=== PATIENT | female | born 1950 | race Caucasian/White ===

== ENCOUNTER → 2017-01-24 | Outpatient (CLI) | payer MEDICARE, MEDICAID | LOC: MW.CHPM 13:59 | PROVIDERS: ATTEND Anesthesiology | DX: Z51.81 Encounter for therapeutic drug level monitoring (principal); Z79.891 Long term (current) use of opiate analgesic; G89.4 Chronic pain syndrome; M54.5 Low back pain; G89.29 Other chronic pain; M19.019 Primary osteoarthritis, unspecified shoulder | CPT/HCPCS: 80305; G0463 ==

== ENCOUNTER 2017-04-04 17:12 | Inpatient (IN) | payer MEDICARE, MEDICAID ==
[2017-04-04] MEDS ORDERED: Nitroglycerin 0.4 MG Tab.SL SL ONE (18:26)
[2017-04-04] MEDS ORDERED: Ketorolac 30 MG/ML SDV IVPUSH ONE (18:26)
[2017-04-04] MEDS ORDERED: Aspirin 81 MG Tab.Chew PO ONE (18:26)
[2017-04-04] MEDS ORDERED: Nitroglycerin 2% Oint 1 GM UD Packet TOP ONE (18:26)
[2017-04-04] MEDS ORDERED: Famotidine 20 MG/2 ML SDV IVPUSH ONE (18:26)
[2017-04-04] MEDS ORDERED: Alum Hydrox/Mag Hydrox/Simeth 15 ML, Metoclopramide 5 MG, Lidocaine 2% 5 ML PO ONE ×3 (18:26)
--- NOTE | 2017-04-04 19:04 | EDM.PDOC ---
ED HPI GENERAL MEDICAL PROBLEM - General Chief Complaint: Gastrointestinal Problem Stated Complaint: DIARRHEA Time Seen by Provider: 04/04/17 18:25 Source of Information: Reports: Patient. Denies: RN Notes Reviewed History Limitations: Reports: No Limitations - History of Present Illness INITIAL COMMENTS - FREE TEXT/NARRATIVE: History of present illness: [66-year-old female comes in complaining of abdominal pain, as well as chest pain. Patient indicates that she's had diarrhea for the last 3 days with also nausea but has managed to not vomit despite the feeling that she needed to vomit for the last 24 hours.] Review of systems: As per history of present illness and below otherwise all systems reviewed and negative. Past medical history: As per history of present illness and as reviewed below otherwise noncontributory. Surgical history: As per history of present illness and as reviewed below otherwise noncontributory. Social history: No reported history of drug or alcohol abuse. Family history: As per history of present illness and as reviewed below otherwise noncontributory. Physical exam: HEENT: Atraumatic, normocephalic, pupils reactive, negative for conjunctival pallor or scleral icterus, mucous membranes moist, throat clear, neck supple, nontender, trachea midline. Lungs: Clear to auscultation, breath sounds equal bilaterally, chest nontender. Heart: S1S2, regular, negative for clicks, rubs, or JVD. Abdomen: Soft, protuberant nonspecific diffusely tender abdomen. Negative for masses or hepatosplenomegaly. Negative for costovertebral tenderness. Pelvis: Stable nontender. Genitourinary: Deferred. Rectal: Deferred. Extremities: Atraumatic, negative for cords or calf pain. Neurovascular unremarkable. Neuro: Awake, alert, oriented. Cranial nerves II through XII unremarkable. Cerebellum unremarkable. Motor and sensory unremarkable throughout. Exam nonfocal. Patient's abdominal CT reflected mild diverticulitis in light of her frequent stooling cramping abdominal pain and somewhat fragile cardiac history we'll admit to [facility] per Dr. Aldridge and at least observe overnight as we start antibiotic therapy. Diagnostics: [CBC, CMP, EKG, troponin, amylase, lipase] Therapeutics: [IV fluid, GI cocktail, aspirin, Toradol, nitroglycerin] Impression: [Abdominal pain] Plan: [Cipro Flagyl admit to [facility]] Definitive disposition and diagnosis as appropriate pending reevaluation and review of above. Bilateral Abdominal Pain Score (Numeric/FACES): 10 - Related Data Allergies Allergy/AdvReac Type Severity Reaction Status Date / Time bee pollen Allergy unknown Verified 03/25/15 17:00 eszopiclone [From Lunesta] Allergy Hypertensio Verified 06/24/15 11:33 n Iodinated Contrast- Oral and Allergy Anaphylactic Verified 06/24/15 11:33 IV Dye Shock [Iodinated Contrast Media - IV Dye] lorazepam Allergy Facial Verified 03/25/15 17:00 Swelling pregabalin [From Lyrica] Allergy Facial Verified 06/24/15 11:33 Swelling flu vaccination Allergy Anaphylactic Uncoded 06/24/15 11:33 Shock Home Meds: Home Meds Albuterol Sulfate [Albuterol Sulfate HFA] 2 puff INH Q4H PRN 06/20/14 [History] ClonazePAM [KlonoPIN] 1 mg PO BID 06/20/14 [History] Losartan [Cozaar] 50 mg PO ACBREAKFAST 06/20/14 [History] Desvenlafaxine [Pristiq] 50 mg PO QPM 12/18/14 [History] EPINEPHrine [Epipen 2-Wyatt] 0.3 mg IM ONETIME PRN 12/18/14 [History] Fluticasone/Salmeterol [Advair 250-50] 1 puff INH DAILY 12/18/14 [History] Nitroglycerin [Nitrostat] 0.4 mg SL Q5M PRN 12/18/14 [History] oxyCODONE 0.5 - 1 tab PO Q6H PRN 06/25/15 [History] Ondansetron [Zofran ODT] 4 mg PO Q4H PRN #20 tab.dis 06/30/15 [Rx] Erythromycin Base [Erythromycin] 500 mg 04/04/17 [History] Omeprazole 40 mg DAILY 04/04/17 [History] Past Medical History Other HEENT History: asthma Other Respiratory History: 40 Plus years use of tobacco products, QUIT 2014 Other Gastrointestinal History: Heartburn/GERD Other Genitourinary History: Frequent Urination Other Musculoskeletal History: hx: fracturing Left ANkle, Chronic back pain ' whole back with arthritis", Current RIGHT shoulder pain with radiation pain to Elbow..has been worsening Other Neuro History: CHRONIC Back Pain, Follow with [facility] Dr. Guerrier, Headaches, denies migraines Other Psychiatric History: Real Anxious before surgery "LIKE COCKTAIL before I Leave the Room" - Past Surgical History Other HEENT Surgeries/Procedures: UPPER 2 Front teeth Implants Other GI Surgeries/Procedures: Lap Coco Other Musculoskeletal Surgeries/Procedures:: Bilateral Total KNees Social & Family History - Tobacco Use Smoking Status *Q: Former Smoker Years of Tobacco use: 40 Used Tobacco, but Quit: Yes Month Tobacco Last Used: March 17 2015 Second Hand Smoke Exposure: No - Alcohol Use Days Per Week of Alcohol Use: 0 - Recreational Drug Use Recreational Drug Use: No Drug Use in Last 12 Months: No ED ROS GENERAL - Review of Systems Review Of Systems: See Below (History of present illness) ED EXAM, GENERAL - Physical Exam Exam: See Below (See history of present illness) Course - Vital Signs Last Recorded V/S: Last Vital Signs Temp 36.4 C 04/04/17 18:25 Pulse 68 04/04/17 19:56 Resp 16 04/04/17 19:56 BP 109/55 L 04/04/17 19:56 Pulse Ox 96 04/04/17 19:56 - Orders/Labs/Meds Orders: Active Orders 24 hr Category Date Time Status Patient Status [ADT] Stat ADT 04/04/17 21:16 Ordered Cardiac Monitoring [RC] . DIRECTED Care 04/04/17 18:26 Active EKG Documentation Completion [RC] STAT Care 04/04/17 18:27 Active Abdomen Pelvis wo Cont [CT] Stat Exams 04/04/17 19:47 Taken Chest 1V Frontal [CR] Stat Exams 04/04/17 18:26 Taken UA W/MICROSCOPIC [URIN] Stat Lab 04/04/17 21:00 Received Sodium Chloride 0.9% [Normal Saline] 1,000 ml Med 04/04/17 20:22 Active IV STAT Saline Lock Insert [OM.PC] Stat Oth 04/04/17 18:26 Ordered Medication Orders Sodium Chloride (Normal Saline) 1,000 mls @ 250 mls/hr IV STAT ONE Stop: 04/05/17 00:21 Last Admin: 04/04/17 21:15 Dose: 250 mls/hr Labs: Laboratory Tests 04/04/17 04/04/17 04/04/17 Range/Units 18:50 18:50 18:50 WBC 12.15 H (4.0-11.0) K/uL RBC 5.23 (4.30-5.90) M/uL Hgb 15.4 (12.0-16.0) g/dL Hct 45.1 (36.0-46.0) % MCV 86.2 (80.0-98.0) fL MCH 29.4 (27.0-32.0) pg MCHC 34.1 (31.0-37.0) g/dL RDW Std Deviation 40.9 (28.0-62.0) fl RDW Coeff of Antonieta 13 (11.0-15.0) % Plt Count 212 (150-400) K/uL MPV 10.20 (7.40-12.00) fL Neut % (Auto) 80.1 H (48.0-80.0) % Lymph % (Auto) 14.5 L (16.0-40.0) % [place] % (Auto) 4.5 (0.0-15.0) % Eos % (Auto) 0.7 (0.0-7.0) % Baso % (Auto) 0.2 (0.0-1.5) % Neut # (Auto) 9.7 H (1.4-5.7) K/uL Lymph # (Auto) 1.8 (0.6-2.4) K/uL [place] # (Auto) 0.6 (0.0-0.8) K/uL Eos # (Auto) 0.1 (0.0-0.7) K/uL Baso # (Auto) 0.0 (0.0-0.1) K/uL Nucleated RBC % 0.0 /100WBC Nucleated RBCs # 0 K/uL Sodium 140 (136-146) mmol/L Potassium 4.9 (3.5-5.1) mmol/L Chloride 109 (98-110) mmol/L Carbon Dioxide 21 (21-31) mmol/L BUN 25 H (6.0-23.0) mg/dL Creatinine 1.3 (0.6-1.5) mg/dL Est Cr Clr Drug Dosing 39.31 mL/min Estimated GFR (MDRD) 40.9 ml/min Glucose 127 H (60-110) mg/dL Calcium 8.7 L (8.8-10.8) mg/dL Total Bilirubin 0.5 (0.1-1.5) mg/dL AST 27 (5-40) IU/L ALT 18 (8-54) IU/L Alkaline Phosphatase 106 (40-150) Troponin I < 0.10 (0.0-0.29) NG/ML Total Protein 7.4 (6.0-8.0) g/dL Albumin 4.4 (3.4-4.8) g/dL Globulin 3.0 (2.0-3.5) g/dL Albumin/Globulin Ratio 1.5 (1.3-2.8) Amylase 70 (10-90) U/L Lipase 35 (7-80) U/L Meds: Medications Generic Name Dose Route Start Last Admin Trade Name Freq PRN Reason Stop Dose Admin Sodium Chloride 1,000 mls @ 250 mls/hr 04/04/17 20:22 04/04/17 21:15 Normal Saline IV 04/05/17 00:21 250 mls/hr STAT ONE Administration Discontinued Medications Generic Name Dose Route Start Last Admin Trade Name Freq PRN Reason Stop Dose Admin Aspirin 324 mg 04/04/17 18:26 04/04/17 18:45 Aspirin PO 04/04/17 18:27 324 mg ONETIME ONE Administration Al Hydroxide/Mg Hydroxide 15 0 ml 04/04/17 18:26 04/04/17 18:47 ml/ Metoclopramide HCl 5 mg/ PO 04/04/17 18:27 1 each Lidocaine HCl 5 ml ONETIME ONE Administration Famotidine 20 mg 04/04/17 18:26 04/04/17 18:47 Pepcid IVPUSH 04/04/17 18:27 20 mg ONETIME ONE Administration Ketorolac Tromethamine 30 mg 04/04/17 18:26 04/04/17 18:46 Toradol IVPUSH 04/04/17 18:27 30 mg ONETIME ONE Administration Nitroglycerin 0.5 gm 04/04/17 18:26 04/04/17 18:47 Nitro-Bid 2% TOP 04/04/17 18:27 0.5 gm ONETIME ONE Administration Nitroglycerin 0.4 mg 04/04/17 18:26 04/04/17 18:46 Nitrostat SL 04/04/17 18:27 0.4 mg ONETIME ONE Administration Departure - Departure Time of Disposition: 21:18 Disposition: Refer to Observation Condition: Good Clinical Impression: Abdominal pain - Discharge Information Forms: ED Department Discharge - My Orders Last 24 Hours: My Active Orders 04/04/17 18:26 Cardiac Monitoring [RC] . DIRECTED Chest 1V Frontal [CR] Stat Saline Lock Insert [OM.PC] Stat 04/04/17 18:27 EKG Documentation Completion [RC] STAT 04/04/17 19:47 Abdomen Pelvis wo Cont [CT] Stat 04/04/17 20:22 Sodium Chloride 0.9% [Normal Saline] 1,000 ml IV STAT 04/04/17 21:00 UA W/MICROSCOPIC [URIN] Stat 04/04/17 21:16 Patient Status [ADT] Stat - Assessment/Plan Last 24 Hours: My Active Orders 04/04/17 18:26 Cardiac Monitoring [RC] . DIRECTED Chest 1V Frontal [CR] Stat Saline Lock Insert [OM.PC] Stat 04/04/17 18:27 EKG Documentation Completion [RC] STAT 04/04/17 19:47 Abdomen Pelvis wo Cont [CT] Stat 04/04/17 20:22 Sodium Chloride 0.9% [Normal Saline] 1,000 ml IV STAT 04/04/17 21:00 UA W/MICROSCOPIC [URIN] Stat 04/04/17 21:16 Patient Status [ADT] Stat
[2017-04-04] MEDS ORDERED: Sodium Chloride 0.9% 1,000 ML IV ONE (20:22)
[2017-04-04] MEDS ORDERED: metroNIDAZOLE/Normal Saline 500 MG in Premix Bag 1 BAG IV ONE (21:23)
[2017-04-04] MEDS ORDERED: Ciprofloxacin in D5W 400 MG in Premix Bag 1 BAG IV SCH ×2 (21:30)
[2017-04-04] MEDS: Morphine 2 MG/ML Syringe IVPUSH PRN (23:30)
[2017-04-04] MEDS: Ciprofloxacin in D5W 400 MG in Premix Bag 1 BAG IV SCH ×2 (23:34)
[2017-04-05] MEDS ORDERED: oxyCODONE 5 MG Tab PO PRN (00:10)
[2017-04-05] MEDS ORDERED: Acetaminophen 325 MG Tab PO PRN (00:21)
[2017-04-05] MEDS ORDERED: Sodium Chloride 0.9% 1,000 ML IV SCH (00:30)
[2017-04-05] MEDS: metroNIDAZOLE/Normal Saline 500 MG in Premix Bag 1 BAG IV SCH ×3 (03:49→18:11)
[2017-04-05] MEDS: Morphine 2 MG/ML Syringe IVPUSH PRN ×2 (04:00→08:17)
[2017-04-05] MEDS: Losartan 50 MG Tab PO SCH (06:42)
--- NOTE | 2017-04-05 08:03 | CR ---
EXAM DATE: 04/04/17 PATIENT'S AGE: 66 Patient: JACKIE SONG Facility: [place], [place] Site . Site : 1950 Study: XRay Chest [id number]/19/2017 7:46:38 PM Ordering Physician: Doctor Yoo Final Report: INDICATION: Chest pain. TECHNIQUE: Chest radiograph 1 view COMPARISON: 03/25/2015. FINDINGS: Cardiovascular and mediastinum: The heart silhouette is normal in size and morphology. The mediastinum is normal in appearance. Lungs and pleural spaces: Both lungs are unremarkable in appearance. No sign of pleural effusion seen. No pneumothorax is identified. Bones and soft tissues: No significant findings. IMPRESSION: 1. No acute cardiopulmonary disease is seen. Dictated by Karthik Avila MD @ 04/04/2017 8:11:36 PM Dictated by: Karthik Avila MD @ 04/04/2017 20:11:43 (Electronic Signature) Report Signed by Proxy. JENI
--- NOTE | 2017-04-05 08:13 | CT ---
EXAM DATE: 04/04/17 PATIENT'S AGE: 66 Patient: JACKIE SONG Facility: [place], [place] Site . Site : 1950 Study: CT Abdomen/Pelvis [id number]/19/2017 8:49:36 PM Ordering Physician: Doctor Yoo Final Report: INDICATION: LUQ AND LOWER ABD PAIN X [address] ABDOMEN AND PELVIS WITHOUT CONTRAST TECHNIQUE: Multidetector CT imaging was performed through the abdomen and pelvis without intravenous contrast administration. Coronal and sagittal reconstructions were generated. COMPARISON: 04/14/2015 CT abdomen and pelvis. FINDINGS: Lower chest: Minimal basilar lung atelectasis or scarring. Liver: Within normal limits. Gallbladder and bile ducts: Status post cholecystectomy, as before. No biliary dilation identified. Pancreas: Unremarkable. Spleen: Normal. Adrenals: No nodules or masses. Kidneys, ureters, and urinary bladder: No urinary tract stones identified. No renal masses or hydronephrosis. No bladder mass or definite wall thickening. Gastrointestinal tract: Normal caliber small bowel without wall thickening or obstruction. The appendix is normal. Multiple colon diverticula, especially numerous in the sigmoid. Mild sigmoid colon wall thickening and suggestion of subtle pericolonic fat stranding, likely representing mild diverticulitis. Vascular structures: Normal caliber abdominal aorta with mild atherosclerotic calcifications. Peritoneum: No free air, abscess, or significant free fluid. Lymph nodes: No pathologically enlarged nodes identified. Reproductive organs: No pelvic masses. Bones: Spinal degenerative changes. IMPRESSION: 1. Extensive colonic diverticulosis. Probable mild diverticulitis of the sigmoid colon. No evidence of perforation or abscess. 2. Nonacute additional findings as detailed above. TRAMAINE ANTOINE MD [employer] Dictated by Rudolph Antoine MD @ 04/04/2017 9:06:52 PM Dictated by: Rudolph Antoine MD @ 04/04/2017 21:08:28 (Electronic Signature) Report Signed by Proxy. [facility] MEDICAL CENTERMike
[2017-04-05] MEDS: Enoxaparin 40 MG/0.4 ML Syringe SUBCUT SCH (08:22)
--- NOTE | 2017-04-05 08:26 | PCM.HP ---
H&P History of Present Illness - General Date of Service: 04/05/17 Admit Problem/Dx: Diverticulitis Source of Information: Patient History Limitations: Reports: No Limitations - History of Present Illness Initial Comments - Free Text/Narative: This 66 year old female with pmh of CHF, COPD, depression and anxiety presented to the ED last evening with 1 week of abdominal pain and diarrhea. She reports she started having some mild abdominal pain 1 week ago, at that time started having some diarrhea as well. This progressively worsened, the pain was 10/10 sharp and stabbing to LLQ. She had some nausea but no vomiting, and almost water stools. She denies black or bloody stools. Her appetite has been poor along with fatigue and malaise. She reports being on antibiotics recently for swollen tonsil and sinus congestion, She was on Azithromycin as well as Levaquin prior to that at the end of February. She denies recent travel or ingestion of questionable foods. She has never had a colonoscopy.No history of bowel troubles before, she has had a tubal ligation and cholecystectomy. In the ED slight leukocytosis notes, 12,000 BUN 25 Cr 1.3 CXR negative, UA show +nitrites, but few bacteria and no leukocyte esterase. Troponins negative. EKG SR CT of abdomen/pelvis reported extensive diverticulosis with mild diverticulitis of sigmoid colon without perforation or abscess. She was treated with Ciprofloxacin and Flagyl. She was admitted for observation. Bilateral Abdominal Pain Score (Numeric/FACES): 10 - Related Data Allergies/Adverse Reactions: Allergies Allergy/AdvReac Type Severity Reaction Status Date / Time bee pollen Allergy unknown Verified 03/25/15 17:00 eszopiclone [From Lunesta] Allergy Hypertensio Verified 06/24/15 11:33 n Iodinated Contrast- Oral and Allergy Anaphylactic Verified 06/24/15 11:33 IV Dye Shock [Iodinated Contrast Media - IV Dye] lorazepam Allergy Facial Verified 03/25/15 17:00 Swelling pregabalin [From Lyrica] Allergy Facial Verified 06/24/15 11:33 Swelling flu vaccination Allergy Anaphylactic Uncoded 06/24/15 11:33 Shock Home Medications: Home Meds Albuterol Sulfate [Albuterol Sulfate HFA] 2 puff INH Q4H PRN 06/20/14 [History] ClonazePAM [KlonoPIN] 0.5 - 1 mg PO TID PRN 06/20/14 [History] Losartan [Cozaar] 50 mg PO ACBREAKFAST 06/20/14 [History] Desvenlafaxine [Pristiq] 50 mg PO QPM 12/18/14 [History] EPINEPHrine [Epipen 2-Wyatt] 0.3 mg IM ONETIME PRN 12/18/14 [History] Nitroglycerin [Nitrostat] 0.4 mg SL Q5M PRN 12/18/14 [History] oxyCODONE 2.5 - 5 mg PO Q6H PRN 06/25/15 [History] Omeprazole 40 mg PO ACBREAKFAST 04/04/17 [History] Azithromycin 500 mg PO DAILY 04/05/17 [History] Fluticasone Propionate [Flonase Allergy Relief] 1 spray NASBOTH BID 04/05/17 [ History] Ondansetron [Zofran ODT] 4 mg PO TID PRN 04/05/17 [History] Umeclidinium Brm/Vilanterol Tr [Anoro Ellipta 62.5-25 Mcg INH] 1 inh IH DAILY [History] Past Medical History HEENT History: Reports: Impaired Vision Other HEENT History: asthma Cardiovascular History: Reports: Heart Failure, High Cholesterol, Hypertension. Denies: Afib, Blood Clots/VTE/DVT Respiratory History: Reports: Asthma, COPD, SOB Other Respiratory History: 40 Plus years use of tobacco products, QUIT 2014 Gastrointestinal History: Reports: GERD, PUD Other Gastrointestinal History: Heartburn/GERD Other Genitourinary History: Frequent Urination Other Musculoskeletal History: hx: fracturing Left ANkle, Chronic back pain ' whole back with arthritis", Current RIGHT shoulder pain with radiation pain to Elbow..has been worsening, frequent muscle cramping Neurological History: Reports: Headaches, Chronic, TIA. Denies: Migraines Other Neuro History: CHRONIC Back Pain, Follow with [facility] Dr. Guerrier Psychiatric History: Reports: Depression Other Psychiatric History: Real Anxious before surgery "LIKE COCKTAIL before I Leave the Room" - Infectious Disease History Infectious Disease History: Reports: None - Past Surgical History Other HEENT Surgeries/Procedures: UPPER 2 Front teeth Implants Other GI Surgeries/Procedures: Lap Coco Female Surgical History: Reports: Tubal Ligation Other Musculoskeletal Surgeries/Procedures:: Bilateral Total KNees Social & Family History - Family History Family Medical History: Noncontributory Psychiatric: Reports: Depression Hematologic: Reports: SLE Immunologic: Reports: SLE - Tobacco Use Smoking Status *Q: Former Smoker Years of Tobacco use: 50 Used Tobacco, but Quit: Yes Month Tobacco Last Used: 10/2013 Second Hand Smoke Exposure: No - Alcohol Use Days Per Week of Alcohol Use: 0 - Recreational Drug Use Recreational Drug Use: No Drug Use in Last 12 Months: No H&P Review of Systems - Review of Systems: Review Of Systems: See Below General: Reports: Chills, Malaise, Weakness, Fatigue, Decreased Appetite. Denies: Fever HEENT: Reports: No Symptoms. Denies: Headaches, Sinus Congestion, Sore Throat, Visual Changes Pulmonary: Reports: No Symptoms. Denies: Shortness of Breath, Cough, Sputum Cardiovascular: Denies: Chest Pain, Dyspnea on Exertion, Edema Gastrointestinal: Reports: Abdominal Pain, Diarrhea, Decreased Appetite, Distension, Flatus, Nausea. Denies: Black Stool, Bloody Stool, Stool Incontinence, Vomiting Genitourinary: Reports: No Symptoms. Denies: Dysuria, Frequency, Burning, Pain , Urgency Skin: Reports: No Symptoms Psychiatric: Reports: Depression (feeling depressed and sad). Denies: Suicidal Ideation, Homicidal Ideation Hematologic/Lymphatic: Reports: No Symptoms Immunologic: Reports: No Symptoms Exam - Exam Exam: See Below - Vital Signs Vital Signs: Last Vital Signs Temp 98.2 F 04/05/17 04:21 Pulse 52 L 04/05/17 04:21 Resp 20 04/05/17 04:21 BP 139/78 04/05/17 06:42 Pulse Ox 96 04/05/17 04:21 Weight: 108.4 kg - Exam Quality Assessment: DVT Prophylaxis General: Alert, Oriented, Cooperative HEENT: Conjunctiva Clear, Hearing Intact, Nares Patent, Pupils Reactive Neck: Supple, Trachea Midline, +2 Carotid Pulse wo Bruit. No: JVD Lungs: Clear to Auscultation, Normal Respiratory Effort Cardiovascular: Regular Rate, Regular Rhythm, Normal S1, Normal S2 Abdomen: Normal Bowel Sounds, Soft, Distention, Tenderness (LLQ). No: Organomegaly, Guarding, Rigidity, Mass Extremities: Normal Inspection, Normal Pulses Neuro Extensive - Mental Status: Alert, Oriented x3, Normal Mood/Affect, Normal Cognition Psychiatric: Alert, Normal Affect, Normal Mood - Patient Data Lab Results Last 24 hrs: Laboratory Results - last 24 hr 04/05/17 04/05/17 04/05/17 Range/Units 00:52 07:17 07:17 WBC 8.43 (4.0-11.0) K/uL RBC 4.46 (4.30-5.90) M/uL Hgb 13.2 (12.0-16.0) g/dL Hct 38.1 (36.0-46.0) % MCV 85.4 (80.0-98.0) fL MCH 29.6 (27.0-32.0) pg MCHC 34.6 (31.0-37.0) g/dL RDW Std Deviation 38.7 (28.0-62.0) fl RDW Coeff of Antonieta 13 (11.0-15.0) % Plt Count 169 (150-400) K/uL MPV 10.10 (7.40-12.00) fL Neut % (Auto) 63.4 (48.0-80.0) % Lymph % (Auto) 28.0 (16.0-40.0) % Baldwin % (Auto) 6.3 (0.0-15.0) % Eos % (Auto) 1.9 (0.0-7.0) % Baso % (Auto) 0.4 (0.0-1.5) % Neut # (Auto) 5.4 (1.4-5.7) K/uL Lymph # (Auto) 2.4 (0.6-2.4) K/uL Baldwin # (Auto) 0.5 (0.0-0.8) K/uL Eos # (Auto) 0.2 (0.0-0.7) K/uL Baso # (Auto) 0.0 (0.0-0.1) K/uL Nucleated RBC % 0.0 /100WBC Nucleated RBCs # 0 K/uL Sodium (136-146) mmol/L Potassium (3.5-5.1) mmol/L Chloride (98-110) mmol/L Carbon Dioxide (21-31) mmol/L BUN (6.0-23.0) mg/dL Creatinine (0.6-1.5) mg/dL Est Cr Clr Drug Dosing mL/min Estimated GFR (MDRD) ml/min Glucose (60-110) mg/dL Calcium (8.8-10.8) mg/dL Total Bilirubin (0.1-1.5) mg/dL AST (5-40) IU/L ALT (8-54) IU/L Alkaline Phosphatase (40-150) Troponin I < 0.10 < 0.10 (0.0-0.29) NG/ML Total Protein (6.0-8.0) g/dL Albumin (3.4-4.8) g/dL Globulin (2.0-3.5) g/dL Albumin/Globulin Ratio (1.3-2.8) 04/05/17 Range/Units 07:17 WBC (4.0-11.0) K/uL RBC (4.30-5.90) M/uL Hgb (12.0-16.0) g/dL Hct (36.0-46.0) % MCV (80.0-98.0) fL MCH (27.0-32.0) pg MCHC (31.0-37.0) g/dL RDW Std Deviation (28.0-62.0) fl RDW Coeff of Antonieta (11.0-15.0) % Plt Count (150-400) K/uL MPV (7.40-12.00) fL Neut % (Auto) (48.0-80.0) % Lymph % (Auto) (16.0-40.0) % Baldwin % (Auto) (0.0-15.0) % Eos % (Auto) (0.0-7.0) % Baso % (Auto) (0.0-1.5) % Neut # (Auto) (1.4-5.7) K/uL Lymph # (Auto) (0.6-2.4) K/uL Baldwin # (Auto) (0.0-0.8) K/uL Eos # (Auto) (0.0-0.7) K/uL Baso # (Auto) (0.0-0.1) K/uL Nucleated RBC % /100WBC Nucleated RBCs # K/uL Sodium 142 (136-146) mmol/L Potassium 4.6 (3.5-5.1) mmol/L Chloride 113 H (98-110) mmol/L Carbon Dioxide 20 L (21-31) mmol/L BUN 27 H (6.0-23.0) mg/dL Creatinine 1.2 (0.6-1.5) mg/dL Est Cr Clr Drug Dosing 42.82 mL/min Estimated GFR (MDRD) 44.8 ml/min Glucose 92 (60-110) mg/dL Calcium 8.1 L (8.8-10.8) mg/dL Total Bilirubin 0.5 (0.1-1.5) mg/dL AST 15 (5-40) IU/L ALT 13 (8-54) IU/L Alkaline Phosphatase 89 (40-150) Troponin I (0.0-0.29) NG/ML Total Protein 6.0 (6.0-8.0) g/dL Albumin 3.4 (3.4-4.8) g/dL Globulin 2.6 (2.0-3.5) g/dL Albumin/Globulin Ratio 1.3 (1.3-2.8) Result Diagrams: 04/05/17 07:17 04/05/17 07:17 *Q Meaningful Use (ADM) - VTE *Q VTE Criteria *Q: - VTE Risk Assess *Q Each Risk Factor Represents 1 Point: Abnormal Pulmonary Function (COPD) Total Score 1 Point Risk Factors: 1 Each Risk Factor Represents 2 Points: Age 60 - 74 Years, Morbid Obesity (BMI Greater than 40) Total Score 2 Point Risk Factors: 4 Each Risk Factor Represents 3 Points: None Total Score 3 Point Risk Factors: 0 Each Risk Factor Represents 5 Points: None Total Score 5 Point Risk Factors: 0 Venous Thromboembolism Risk Factor Score *Q: 5 - Stroke *Q Stroke Criteria *Q: - AMI *Q AMI Criteria *Q: - Problem List (1) Diverticulitis large intestine SNOMED Code(s): 7295278 ICD Code: K57.32 - DVTRCLI OF LG INT W/O PERFORATION OR ABSCESS W/O BLEEDING Status: Acute Current Visit: Yes Qualifiers: Diverticulitis bleeding: without bleeding Diverticulitis complication: without perforation or abscess Qualified Code(s): K57.32 - Diverticulitis of large intestine without perforation or abscess without bleeding (2) Abdominal pain SNOMED Code(s): 45896298 ICD Code: R10.9 - UNSPECIFIED ABDOMINAL PAIN Status: Acute Current Visit : Yes (3) COPD (chronic obstructive pulmonary disease) SNOMED Code(s): 55568225 ICD Code: J44.9 - CHRONIC OBSTRUCTIVE PULMONARY DISEASE, UNSPECIFIED Status : Chronic Current Visit: Yes Qualifiers: COPD type: chronic bronchitis Chronic bronchitis type: unspecified Qualified Code(s): J42 - Unspecified chronic bronchitis (4) CHF (congestive heart failure) SNOMED Code(s): 57182809 ICD Code: I50.9 - HEART FAILURE, UNSPECIFIED Status: Chronic Current Visit: Yes Qualifiers: Congestive heart failure type: unspecified congestive heart failure type Congestive heart failure chronicity: chronic Qualified Code(s): I50.9 - Heart failure, unspecified (5) Anxiety and depression SNOMED Code(s): 769386052 ICD Code: F41.9 - ANXIETY DISORDER, UNSPECIFIED; F32.9 - MAJOR DEPRESSIVE DISORDER, SINGLE EPISODE, UNSPECIFIED Status: Chronic Current Visit: Yes Problem List Initiated/Reviewed/Updated: Yes Orders Last 24hrs: Active Orders 24 hr Category Date Time Status Antiembolic Devices [RC] PER UNIT ROUTINE Care 04/05/17 00:22 Active Oxygen Therapy [RC] PRN Care 04/05/17 00:21 Active Telemetry Monitoring [Cardiac Monitoring] [RC] . Care 04/05/17 00:36 Active DIRECTED Up ad Steff [RC] ASDIRECTED Care 04/05/17 00:21 Active VTE/DVT Education [RC] PER UNIT ROUTINE Care 04/05/17 00:21 Active Vital Signs [RC] Q4H Care 04/05/17 00:21 Active Clear Liquid Diet [DIET] Diet 04/05/17 Breakfast Active CULTURE STOOL + CAMPY+SHIGATOX [RM] Routine Lab 04/05/17 00:13 Uncollected CULTURE URINE [RM] Routine Lab 04/05/17 00:13 Received Clostridium Difficile [CDIFF TOX A+B] [OP] Routine Lab 04/05/17 00:13 Uncollected Acetaminophen [Tylenol] Med 04/05/17 00:21 Active 650 mg PO Q4H PRN Ciprofloxacin in D5W [Cipro in D5W 400 MG/200 ML] 400 Med 04/04/17 23:30 Active mg Premix Bag 1 bag IV Q12H Enoxaparin [Lovenox] Med 04/05/17 09:00 Active 40 mg SUBCUT DAILY Fluticasone/Salmeterol [Advair Diskus 250-50] Med 04/05/17 09:00 Active 1 puff INH DAILY Losartan [Cozaar] Med 04/05/17 07:30 Active 50 mg PO ACBREAKFAST Morphine Med 04/04/17 22:45 Active 2 mg IVPUSH Q3H PRN Sodium Chloride 0.9% [Normal Saline] 1,000 ml Med 04/05/17 00:30 Active IV ASDIRECTED metroNIDAZOLE/Normal Saline [Flagyl 500 MG in NS 100 ML Med 04/05/17 03:00 Active ] 500 mg Premix Bag 1 bag IV Q8H oxyCODONE Med 04/05/17 00:40 Active 2.5 - 5 mg PO Q6H PRN Sequential Compression Device [OM.PC] Per Unit Routine Oth 04/05/17 00:21 Ordered Resuscitation Status Routine Resus Stat 04/05/17 00:21 Ordered Medication Orders Acetaminophen (Tylenol) 650 mg PO Q4H PRN PRN Reason: Pain (Mild 1-3)/fever Enoxaparin Sodium (Lovenox) 40 mg SUBCUT DAILY [facility] Last Admin: 04/05/17 08:22 Dose: 40 mg Ciprofloxacin/Dextrose 400 mg/ (Premix) 200 mls @ 200 mls/hr IV Q12H [facility] Last Admin: 04/04/17 23:34 Dose: 200 mls/hr Metronidazole 500 mg/ Premix 100 mls @ 100 mls/hr IV Q8H [facility] Last Admin: 04/05/17 03:49 Dose: 100 mls/hr Sodium Chloride (Normal Saline) 1,000 mls @ 125 mls/hr IV ASDIRECTED [facility] Last Admin: 04/05/17 02:20 Dose: 125 mls/hr Losartan Potassium (Cozaar) 50 mg PO ACBREAKFAST JAD Last Admin: 04/05/17 06:42 Dose: 50 mg Morphine Sulfate (Morphine) 2 mg IVPUSH Q3H PRN PRN Reason: Pain Last Admin: 04/05/17 08:17 Dose: 2 mg Admin: 04/05/17 04:00 Dose: 2 mg Admin: 04/04/17 23:30 Dose: 2 mg Oxycodone HCl (Oxycodone) 2.5 - 5 mg PO Q6H PRN PRN Reason: Pain Fluticasone/Salmeterol (Advair Diskus 250-50) 1 puff INH DAILY JAD Assessment/Plan Comment:: This 66 year old female admitted with mild sigmoid diverticulitis and chest pain 1. Mild sigmoid diverticulitis: Leukocytosis improving, feeling more nauseated today. Will place on NPO, add Zofran. Continue Ciprofloxacin and Flagyl. Continue IVFs, will slow to 100 ml/hr due to hx CHF 2. CHF: Chronic, stable. Will monitor daily weights and I/O. Continue Cozaar. 3. COPD: Stable. Continue inhalers, monitor 4. Anxiety/depression: Continue Pristiq and Klonopin PRN, takes nightly at least. VTE prophylaxis: Lovenox.
[2017-04-05] MEDS ORDERED: Ciprofloxacin in D5W 400 MG in Premix Bag 1 BAG IV SCH ×2 (09:00)
[2017-04-05] MEDS ORDERED: Fluticasone/Salmeterol 250-50 MCG Inhalation Powder 14/Diskus INH SCH (09:00)
[2017-04-05] MEDS: Ondansetron 4 MG/2 ML SDV IVPUSH PRN ×2 (10:50→20:52)
[2017-04-05] MEDS: Pantoprazole 40 MG in Sodium Chloride 0.9% 10 ML IVPUSH SCH (11:13)
[2017-04-05] MEDS: Ciprofloxacin in D5W 400 MG in Premix Bag 1 BAG IV SCH ×4 (11:19→23:29)
[2017-04-05] MEDS: Sodium Chloride 0.9% 1,000 ML IV SCH (13:56)
[2017-04-05] MEDS: DESVENLAFAXINE 50 MG PO SCH (18:10)
[2017-04-05] MEDS: oxyCODONE 5 MG Tab PO PRN (20:40)
[2017-04-05] MEDS: ClonazePAM 1 MG Tab PO PRN (20:53)
[2017-04-05] MEDS: Fluticasone Propionate Nasal Spray 16 GM Bottle NASBOTH SCH (22:46)
[2017-04-06] MEDS: Morphine 2 MG/ML Syringe IVPUSH PRN (00:14)
[2017-04-06] MEDS: Ondansetron 4 MG/2 ML SDV IVPUSH PRN ×4 (00:14→20:31)
[2017-04-06] MEDS: Sodium Chloride 0.9% 1,000 ML IV SCH ×2 (00:18→11:56)
[2017-04-06] MEDS: metroNIDAZOLE/Normal Saline 500 MG in Premix Bag 1 BAG IV SCH ×3 (02:57→18:01)
--- NOTE | 2017-04-06 07:42 | PCM.PN ---
- General Info Date of Service: 04/06/17 Admission Dx/Problem (Free Text): Diverticulitis Subjective Update: Abdominal pain better after NPO, no nausea. Still not feeling 100%, but ready to try CL again. Having intermittent chest pain, most likely due to diverticulitis, all troponins negative. NO SOB or palpitations. Functional Status: Reports: pain controlled, ambulating, urinating - Review of Systems General: Reports: No Symptoms. Denies: Fever, Weakness Pulmonary: Reports: no symptoms. Denies: shortness of breath Cardiovascular: Reports: Chest Pain (none today). Denies: Palpitations, Edema Gastrointestinal: Reports: Abdominal pain (LLQ,improving). Denies: Constipation , Diarrhea Genitourinary: Reports: no symptoms. Denies: dysuria, frequency, burning Skin: Reports: no symptoms Neurological: Reports: No Symptoms Psychiatric: Reports: no symptoms - Patient Data Vitals - most recent: Last Vital Signs Temp 96.9 F 04/06/17 04:00 Pulse 55 L 04/06/17 04:00 Resp 16 04/06/17 04:00 BP 118/51 L 04/06/17 04:00 Pulse Ox 93 L 04/06/17 04:00 Weight - most recent: 108.4 kg I&O - last 24 hours: Intake & Output 04/05/17 04/06/17 04/06/17 22:59 06:59 14:59 Intake Total 1328 1350 Output Total 950 750 Balance 378 600 Lab Results last 24 hrs: Laboratory Results - last 24 hr 04/05/17 04/05/17 04/06/17 Range/Units 07:17 07:17 05:00 WBC 5.79 (4.0-11.0) K/uL RBC 4.39 (4.30-5.90) M/uL Hgb 12.5 (12.0-16.0) g/dL Hct 38.0 (36.0-46.0) % MCV 86.6 (80.0-98.0) fL MCH 28.5 (27.0-32.0) pg MCHC 32.9 (31.0-37.0) g/dL RDW Std Deviation 40.3 (28.0-62.0) fl RDW Coeff of [place] 13 (11.0-15.0) % Plt Count 173 (150-400) K/uL MPV 10.10 (7.40-12.00) fL Neut % (Auto) 63.8 (48.0-80.0) % Lymph % (Auto) 26.3 (16.0-40.0) % [place] % (Auto) 6.6 (0.0-15.0) % Eos % (Auto) 2.8 (0.0-7.0) % Baso % (Auto) 0.5 (0.0-1.5) % Neut # (Auto) 3.7 (1.4-5.7) K/uL Lymph # (Auto) 1.5 (0.6-2.4) K/uL [place] # (Auto) 0.4 (0.0-0.8) K/uL Eos # (Auto) 0.2 (0.0-0.7) K/uL Baso # (Auto) 0.0 (0.0-0.1) K/uL Nucleated RBC % 0.0 /100WBC Nucleated RBCs # 0 K/uL Sodium 142 (136-146) mmol/L Potassium 4.6 (3.5-5.1) mmol/L Chloride 113 H (98-110) mmol/L Carbon Dioxide 20 L (21-31) mmol/L BUN 27 H (6.0-23.0) mg/dL Creatinine 1.2 (0.6-1.5) mg/dL Est Cr Clr Drug Dosing 42.82 mL/min Estimated GFR (MDRD) 44.8 ml/min Glucose 92 (60-110) mg/dL Calcium 8.1 L (8.8-10.8) mg/dL Total Bilirubin 0.5 (0.1-1.5) mg/dL AST 15 (5-40) IU/L ALT 13 (8-54) IU/L Alkaline Phosphatase 89 (40-150) Troponin I < 0.10 (0.0-0.29) NG/ML Total Protein 6.0 (6.0-8.0) g/dL Albumin 3.4 (3.4-4.8) g/dL Globulin 2.6 (2.0-3.5) g/dL Albumin/Globulin Ratio 1.3 (1.3-2.8) 04/06/17 Range/Units 05:00 WBC (4.0-11.0) K/uL RBC (4.30-5.90) M/uL Hgb (12.0-16.0) g/dL Hct (36.0-46.0) % MCV (80.0-98.0) fL MCH (27.0-32.0) pg MCHC (31.0-37.0) g/dL RDW Std Deviation (28.0-62.0) fl RDW Coeff of [place] (11.0-15.0) % Plt Count (150-400) K/uL MPV (7.40-12.00) fL Neut % (Auto) (48.0-80.0) % Lymph % (Auto) (16.0-40.0) % [place] % (Auto) (0.0-15.0) % Eos % (Auto) (0.0-7.0) % Baso % (Auto) (0.0-1.5) % Neut # (Auto) (1.4-5.7) K/uL Lymph # (Auto) (0.6-2.4) K/uL [place] # (Auto) (0.0-0.8) K/uL Eos # (Auto) (0.0-0.7) K/uL Baso # (Auto) (0.0-0.1) K/uL Nucleated RBC % /100WBC Nucleated RBCs # K/uL Sodium 141 (136-146) mmol/L Potassium 4.5 (3.5-5.1) mmol/L Chloride 112 H (98-110) mmol/L Carbon Dioxide 21 (21-31) mmol/L BUN 17 (6.0-23.0) mg/dL Creatinine 1.1 (0.6-1.5) mg/dL Est Cr Clr Drug Dosing 46.71 mL/min Estimated GFR (MDRD) 49.5 ml/min Glucose 83 (60-110) mg/dL Calcium 8.1 L (8.8-10.8) mg/dL Total Bilirubin (0.1-1.5) mg/dL AST (5-40) IU/L ALT (8-54) IU/L Alkaline Phosphatase (40-150) Troponin I (0.0-0.29) NG/ML Total Protein (6.0-8.0) g/dL Albumin (3.4-4.8) g/dL Globulin (2.0-3.5) g/dL Albumin/Globulin Ratio (1.3-2.8) Med Orders - Current: Current Medications Acetaminophen (Tylenol) 650 mg PO Q4H PRN PRN Reason: Pain (Mild 1-3)/fever Clonazepam (Klonopin) 0.5 - 1 mg PO TID PRN PRN Reason: Anxiety Last Admin: 04/05/17 20:53 Dose: 1 mg Enoxaparin Sodium (Lovenox) 40 mg SUBCUT DAILY [facility] Last Admin: 04/05/17 08:22 Dose: 40 mg Fluticasone Propionate (Flonase) 16 gm NASBOTH BID [facility] Last Admin: 04/05/17 22:46 Dose: Not Given Ciprofloxacin/Dextrose 400 mg/ (Premix) 200 mls @ 200 mls/hr IV Q12H [facility] Last Admin: 04/05/17 23:29 Dose: 200 mls/hr Metronidazole 500 mg/ Premix 100 mls @ 100 mls/hr IV Q8H [facility] Last Admin: 04/06/17 02:57 Dose: 100 mls/hr Pantoprazole Sodium 40 mg/ (Sodium Chloride) 10 mls @ 300 mls/hr IVPUSH DAILY [facility] Last Admin: 04/05/17 11:13 Dose: 300 mls/hr Sodium Chloride (Normal Saline) 1,000 mls @ 100 mls/hr IV ASDIRECTED [facility] Last Admin: 04/06/17 00:18 Dose: 100 mls/hr Losartan Potassium (Cozaar) 50 mg PO ACBREAKFAST [facility] Last Admin: 04/05/17 06:42 Dose: 50 mg Morphine Sulfate (Morphine) 2 mg IVPUSH Q3H PRN PRN Reason: Pain Last Admin: 04/06/17 00:14 Dose: 2 mg Ondansetron HCl (Zofran) 4 mg IVPUSH Q4H PRN PRN Reason: Nausea Last Admin: 04/06/17 00:14 Dose: 4 mg Oxycodone HCl (Oxycodone) 2.5 - 5 mg PO Q6H PRN PRN Reason: Pain Last Admin: 04/05/17 20:40 Dose: 5 mg Desvenlafaxine [ (Pristiq] 50 Mg) 1 each PO QPM [facility] Last Admin: 04/05/17 18:10 Dose: 1 each Umeclidinium Brm/Vilanterol Tr [Anoro Ellipta 62.5-25 Mcg ] 1 each INH DAILY [facility] Discontinued Medications Aspirin (Aspirin) 324 mg PO ONETIME ONE Stop: 04/04/17 18:27 Last Admin: 04/04/17 18:45 Dose: 324 mg Al Hydroxide/Mg Hydroxide 15 ml/ Metoclopramide HCl 5 mg/Lidocaine HCl 5 ml 0 ml PO ONETIME ONE Stop: 04/04/17 18:27 Last Admin: 04/04/17 18:47 Dose: 1 each Famotidine (Pepcid) 20 mg IVPUSH ONETIME ONE Stop: 04/04/17 18:27 Last Admin: 04/04/17 18:47 Dose: 20 mg Sodium Chloride (Normal Saline) 1,000 mls @ 250 mls/hr IV STAT ONE Stop: 04/05/17 00:21 Last Admin: 04/04/17 21:15 Dose: 250 mls/hr Ciprofloxacin/Dextrose 400 mg/ (Premix) 200 mls @ 200 mls/hr IV Q12H [facility] Last Admin: 04/05/17 00:08 Dose: Not Given Metronidazole 500 mg/ Premix 100 mls @ 100 mls/hr IV ONETIME ONE Stop: 04/04/17 22:22 Last Admin: 04/04/17 21:35 Dose: 100 mls/hr Ciprofloxacin/Dextrose 400 mg/ (Premix) 200 mls @ 200 mls/hr IV Q12H [facility] Sodium Chloride (Normal Saline) 1,000 mls @ 125 mls/hr IV ASDIRECTED [facility] Last Admin: 04/05/17 02:20 Dose: 125 mls/hr Ketorolac Tromethamine (Toradol) 30 mg IVPUSH ONETIME ONE Stop: 04/04/17 18:27 Last Admin: 04/04/17 18:46 Dose: 30 mg Nitroglycerin (Nitro-Bid 2%) 0.5 gm TOP ONETIME ONE Stop: 04/04/17 18:27 Last Admin: 04/04/17 18:47 Dose: 0.5 gm Nitroglycerin (Nitrostat) 0.4 mg SL ONETIME ONE Stop: 04/04/17 18:27 Last Admin: 04/04/17 18:46 Dose: 0.4 mg Oxycodone HCl (Oxycodone) mg PO Q6H PRN PRN Reason: Pain Stop: 04/05/17 00:40 Fluticasone/Salmeterol (Advair Diskus 250-50) 1 puff INH DAILY [facility] Last Admin: 04/05/17 09:03 Dose: Not Given - Exam General: alert, oriented, cooperative Neck: supple, no JVD Lungs: Clear to auscultation, Normal respiratory effort Cardiovascular: Regular Rate, Regular Rhythm Abdomen: bowel sounds present, soft, no tenderness, no distension Extremities: no edema, normal pulses, no calf tenderness Neurological: no new focal deficit Psy/Mental Status: alert, normal affect, normal mood - Problem List & Annotations (1) Diverticulitis large intestine SNOMED Code(s): 4255624 Code(s): K57.32 - DVTRCLI OF LG INT W/O PERFORATION OR ABSCESS W/O BLEEDING Status: Acute Current Visit: Yes Qualifiers: Diverticulitis bleeding: without bleeding Diverticulitis complication: without perforation or abscess Qualified Code(s): K57.32 - Diverticulitis of large intestine without perforation or abscess without bleeding (2) Abdominal pain SNOMED Code(s): 64842195 Code(s): R10.9 - UNSPECIFIED ABDOMINAL PAIN Status: Acute Current Visit: Yes (3) COPD (chronic obstructive pulmonary disease) SNOMED Code(s): 02544646 Code(s): J44.9 - CHRONIC OBSTRUCTIVE PULMONARY DISEASE, UNSPECIFIED Status : Chronic Current Visit: Yes Qualifiers: COPD type: chronic bronchitis Chronic bronchitis type: unspecified Qualified Code(s): J42 - Unspecified chronic bronchitis (4) CHF (congestive heart failure) SNOMED Code(s): 10022910 Code(s): I50.9 - HEART FAILURE, UNSPECIFIED Status: Chronic Current Visit : Yes Qualifiers: Congestive heart failure type: unspecified congestive heart failure type Congestive heart failure chronicity: chronic Qualified Code(s): I50.9 - Heart failure, unspecified (5) Anxiety and depression SNOMED Code(s): 298607052 Code(s): F41.9 - ANXIETY DISORDER, UNSPECIFIED; F32.9 - MAJOR DEPRESSIVE DISORDER, SINGLE EPISODE, UNSPECIFIED Status: Chronic Current Visit: Yes - Problem List Review Problem List Initiated/Reviewed/Updated: Yes - My Orders Last 24 Hours: My Active Orders 04/05/17 10:43 Ondansetron [Zofran] 4 mg IVPUSH Q4H PRN 04/05/17 10:45 Pantoprazole [ProTONIX IV] 40 mg Sodium Chloride 0.9% [Normal Saline] 10 ml IVPUSH DAILY 04/05/17 10:58 Patient Status [ADT] Routine 04/05/17 12:03 ClonazePAM [KlonoPIN] 0.5 - 1 mg PO TID PRN 04/05/17 13:35 Height and Weight [RC] DAILY Intake and Output Strict [RC] Q12H Sodium Chloride 0.9% [Normal Saline] 1,000 ml IV ASDIRECTED 04/05/17 18:00 Patient's Own Medication [Ptom] 1 each PO QPM 04/05/17 21:00 Fluticasone Propionate [Flonase] 16 gm NASBOTH BID 04/05/17 Lunch NPO [Nothing Per Oral Diet] [DIET] 04/06/17 09:00 Patient's Own Medication [Ptom] 1 each INH DAILY 04/07/17 05:00 BMP [BASIC METABOLIC PANEL,BMP] [CHEM] DAILY CBC WITH AUTO DIFF [HEME] DAILY 04/08/17 05:00 BMP [BASIC METABOLIC PANEL,BMP] [CHEM] DAILY CBC WITH AUTO DIFF [HEME] DAILY - Plan Plan:: This 66 year old female admitted with mild sigmoid diverticulitis and chest pain 1. Mild sigmoid diverticulitis: Leukocytosis resolved. CL diet to start today. Continue Ciprofloxacin and Flagyl. May stop IVF if tolerates CL diet. 2. CHF: Chronic, stable. Will monitor daily weights and I/O. Continue Cozaar. 3. COPD: Stable. Continue inhalers, monitor 4. Anxiety/depression: Continue Pristiq and Klonopin PRN, takes nightly at least. VTE prophylaxis: Lovenox. Dispo: 1-2 days.
[2017-04-06] MEDS: Losartan 50 MG Tab PO SCH (08:31)
[2017-04-06] MEDS: Enoxaparin 40 MG/0.4 ML Syringe SUBCUT SCH (08:33)
[2017-04-06] MEDS: Pantoprazole 40 MG in Sodium Chloride 0.9% 10 ML IVPUSH SCH (08:33)
[2017-04-06] MEDS: Fluticasone Propionate Nasal Spray 16 GM Bottle NASBOTH SCH ×2 (08:34→20:13)
[2017-04-06] MEDS: oxyCODONE 5 MG Tab PO PRN ×2 (08:55→20:30)
[2017-04-06] MEDS: Ciprofloxacin in D5W 400 MG in Premix Bag 1 BAG IV SCH ×4 (13:53→23:31)
[2017-04-06] MEDS: DESVENLAFAXINE 50 MG PO SCH (18:01)
[2017-04-06] MEDS: ClonazePAM 1 MG Tab PO PRN (20:30)
[2017-04-07] MEDS: Sodium Chloride 0.9% 1,000 ML IV SCH (00:44)
[2017-04-07] MEDS: metroNIDAZOLE/Normal Saline 500 MG in Premix Bag 1 BAG IV SCH ×2 (03:39→10:52)
[2017-04-07] MEDS: oxyCODONE 5 MG Tab PO PRN ×2 (05:56→11:51)
[2017-04-07] MEDS: Losartan 50 MG Tab PO SCH (06:40)
[2017-04-07] MEDS: Pantoprazole 40 MG in Sodium Chloride 0.9% 10 ML IVPUSH SCH (08:28)
[2017-04-07] MEDS: Enoxaparin 40 MG/0.4 ML Syringe SUBCUT SCH (08:31)
[2017-04-07] MEDS: Fluticasone Propionate Nasal Spray 16 GM Bottle NASBOTH SCH (08:33)
[2017-04-07] MEDS ORDERED: diphenhydrAMINE 25 MG Cap PO PRN (08:38)
--- NOTE | 2017-04-07 10:07 | PCM.PN ---
- General Info Date of Service: 04/07/17 Admission Dx/Problem (Free Text): Diverticulitis Subjective Update: Abdominal pain is improving, was wanting eggs this morning for breakfast, but eggs didn't taste good. Had some jello an just still feels blah. No chest pain or SOB. NO palpitations. Passing flatus, has not have any BMs since admission. Functional Status: Reports: pain controlled, ambulating, urinating - Review of Systems HEENT: Reports: no symptoms. Denies: sinus congestion, sore throat Pulmonary: Reports: no symptoms. Denies: shortness of breath, cough, sputum Cardiovascular: Reports: No Symptoms. Denies: Chest Pain, Edema Gastrointestinal: Reports: Abdominal pain (LLQ but is impoving). Denies: Nausea , Vomiting Genitourinary: Reports: no symptoms. Denies: dysuria, frequency, burning Musculoskeletal: Reports: no symptoms Skin: Reports: other (blisters to chest, where Tele pad was located, itchy) Neurological: Reports: No Symptoms Psychiatric: Reports: no symptoms - Patient Data Vitals - most recent: Last Vital Signs Temp 97.8 F 04/07/17 07:29 Pulse 79 04/07/17 07:29 Resp 18 04/07/17 07:29 BP 136/82 04/07/17 07:29 Pulse Ox 95 04/07/17 07:29 Weight - most recent: 110 kg I&O - last 24 hours: Intake & Output 04/06/17 04/07/17 04/07/17 22:59 06:59 14:59 Intake Total 200 1460 Output Total 1750 1000 Balance -1550 460 Lab Results last 24 hrs: Laboratory Results - last 24 hr 04/07/17 04/07/17 Range/Units 04:33 04:33 WBC 5.47 (4.0-11.0) K/uL RBC 4.20 L (4.30-5.90) M/uL Hgb 12.0 (12.0-16.0) g/dL Hct 36.2 (36.0-46.0) % MCV 86.2 (80.0-98.0) fL MCH 28.6 (27.0-32.0) pg MCHC 33.1 (31.0-37.0) g/dL RDW Std Deviation 39.4 (28.0-62.0) fl RDW Coeff of [place] 13 (11.0-15.0) % Plt Count 173 (150-400) K/uL MPV 10.10 (7.40-12.00) fL Neut % (Auto) 59.1 (48.0-80.0) % Lymph % (Auto) 30.5 (16.0-40.0) % [place] % (Auto) 7.5 (0.0-15.0) % Eos % (Auto) 2.4 (0.0-7.0) % Baso % (Auto) 0.5 (0.0-1.5) % Neut # (Auto) 3.2 (1.4-5.7) K/uL Lymph # (Auto) 1.7 (0.6-2.4) K/uL [place] # (Auto) 0.4 (0.0-0.8) K/uL Eos # (Auto) 0.1 (0.0-0.7) K/uL Baso # (Auto) 0.0 (0.0-0.1) K/uL Nucleated RBC % 0.0 /100WBC Nucleated RBCs # 0 K/uL Sodium 140 (136-146) mmol/L Potassium 4.0 (3.5-5.1) mmol/L Chloride 112 H (98-110) mmol/L Carbon Dioxide 20 L (21-31) mmol/L BUN 13 (6.0-23.0) mg/dL Creatinine 1.0 (0.6-1.5) mg/dL Est Cr Clr Drug Dosing 51.38 mL/min Estimated GFR (MDRD) 55.3 ml/min Glucose 96 (60-110) mg/dL Calcium 7.9 L (8.8-10.8) mg/dL Med Orders - Current: Current Medications Acetaminophen (Tylenol) 650 mg PO Q4H PRN PRN Reason: Pain (Mild 1-3)/fever Last Admin: 04/07/17 09:09 Dose: 650 mg Clonazepam (Klonopin) 0.5 - 1 mg PO TID PRN PRN Reason: Anxiety Last Admin: 04/06/17 20:30 Dose: 1 mg Diphenhydramine HCl (Benadryl) 25 mg PO Q6H PRN PRN Reason: Itching Last Admin: 04/07/17 09:09 Dose: 25 mg Enoxaparin Sodium (Lovenox) 40 mg SUBCUT DAILY [facility] Last Admin: 04/07/17 08:31 Dose: 40 mg Fluticasone Propionate (Flonase) 16 gm NASBOTH BID [facility] Last Admin: 04/07/17 08:33 Dose: Not Given Ciprofloxacin/Dextrose 400 mg/ (Premix) 200 mls @ 200 mls/hr IV Q12H [facility] Last Admin: 04/06/17 23:31 Dose: 200 mls/hr Metronidazole 500 mg/ Premix 100 mls @ 100 mls/hr IV Q8H [facility] Last Admin: 04/07/17 03:39 Dose: 100 mls/hr Pantoprazole Sodium 40 mg/ (Sodium Chloride) 10 mls @ 300 mls/hr IVPUSH DAILY [facility] Last Admin: 04/07/17 08:28 Dose: 300 mls/hr Sodium Chloride (Normal Saline) 1,000 mls @ 100 mls/hr IV ASDIRECTED [facility] Last Admin: 04/07/17 00:44 Dose: 100 mls/hr Losartan Potassium (Cozaar) 50 mg PO ACBREAKFAST [facility] Last Admin: 04/07/17 06:40 Dose: 50 mg Morphine Sulfate (Morphine) 2 mg IVPUSH Q3H PRN PRN Reason: Pain Last Admin: 04/06/17 00:14 Dose: 2 mg Ondansetron HCl (Zofran) 4 mg IVPUSH Q4H PRN PRN Reason: Nausea Last Admin: 04/06/17 20:31 Dose: 4 mg Oxycodone HCl (Oxycodone) 2.5 - 5 mg PO Q6H PRN PRN Reason: Pain Last Admin: 04/07/17 05:56 Dose: 5 mg Desvenlafaxine [ (Pristiq] 50 Mg) 1 each PO QPM [facility] Last Admin: 04/06/17 18:01 Dose: 1 each Umeclidinium Brm/Vilanterol Tr [Anoro Ellipta 62.5-25 Mcg ] 1 each INH DAILY [facility] Last Admin: 04/07/17 09:10 Dose: 1 each Discontinued Medications Aspirin (Aspirin) 324 mg PO ONETIME ONE Stop: 04/04/17 18:27 Last Admin: 06/19/17 18:45 Dose: 324 mg Al Hydroxide/Mg Hydroxide 15 ml/ Metoclopramide HCl 5 mg/Lidocaine HCl 5 ml 0 ml PO ONETIME ONE Stop: 04/04/17 18:27 Last Admin: 04/04/17 18:47 Dose: 1 each Famotidine (Pepcid) 20 mg IVPUSH ONETIME ONE Stop: 04/04/17 18:27 Last Admin: 04/04/17 18:47 Dose: 20 mg Sodium Chloride (Normal Saline) 1,000 mls @ 250 mls/hr IV STAT ONE Stop: 04/05/17 00:21 Last Admin: 04/04/17 21:15 Dose: 250 mls/hr Ciprofloxacin/Dextrose 400 mg/ (Premix) 200 mls @ 200 mls/hr IV Q12H [facility] Last Admin: 04/05/17 00:08 Dose: Not Given Metronidazole 500 mg/ Premix 100 mls @ 100 mls/hr IV ONETIME ONE Stop: 04/04/17 22:22 Last Admin: 04/04/17 21:35 Dose: 100 mls/hr Ciprofloxacin/Dextrose 400 mg/ (Premix) 200 mls @ 200 mls/hr IV Q12H [facility] Sodium Chloride (Normal Saline) 1,000 mls @ 125 mls/hr IV ASDIRECTED [facility] Last Admin: 04/05/17 02:20 Dose: 125 mls/hr Ketorolac Tromethamine (Toradol) 30 mg IVPUSH ONETIME ONE Stop: 04/04/17 18:27 Last Admin: 04/04/17 18:46 Dose: 30 mg Nitroglycerin (Nitro-Bid 2%) 0.5 gm TOP ONETIME ONE Stop: 04/04/17 18:27 Last Admin: 04/04/17 18:47 Dose: 0.5 gm Nitroglycerin (Nitrostat) 0.4 mg SL ONETIME ONE Stop: 04/04/17 18:27 Last Admin: 04/04/17 18:46 Dose: 0.4 mg Oxycodone HCl (Oxycodone) mg PO Q6H PRN PRN Reason: Pain Stop: 04/05/17 00:40 Fluticasone/Salmeterol (Advair Diskus 250-50) 1 puff INH DAILY [facility] Last Admin: 04/05/17 09:03 Dose: Not Given - Exam Quality Assessment: No: supplemental oxygen General: alert, oriented, cooperative, no acute distress Lungs: Clear to auscultation, Normal respiratory effort Cardiovascular: Regular Rate, Regular Rhythm Abdomen: bowel sounds present, soft, no tenderness, no distension Extremities: no edema, normal pulses Skin: other (blisters to mid upper chest, 3 blisters, one opened and draining serous fluid. C/O itching, this is where a telemetry pad was placed. ) Psy/Mental Status: alert, normal affect, normal mood - Problem List & Annotations (1) Diverticulitis large intestine SNOMED Code(s): 6096180 Code(s): K57.32 - DVTRCLI OF LG INT W/O PERFORATION OR ABSCESS W/O BLEEDING Status: Acute Current Visit: Yes Qualifiers: Diverticulitis bleeding: without bleeding Diverticulitis complication: without perforation or abscess Qualified Code(s): K57.32 - Diverticulitis of large intestine without perforation or abscess without bleeding (2) Abdominal pain SNOMED Code(s): 28531447 Code(s): R10.9 - UNSPECIFIED ABDOMINAL PAIN Status: Acute Current Visit: Yes (3) COPD (chronic obstructive pulmonary disease) SNOMED Code(s): 60629986 Code(s): J44.9 - CHRONIC OBSTRUCTIVE PULMONARY DISEASE, UNSPECIFIED Status : Chronic Current Visit: Yes Qualifiers: COPD type: chronic bronchitis Chronic bronchitis type: unspecified Qualified Code(s): J42 - Unspecified chronic bronchitis (4) CHF (congestive heart failure) SNOMED Code(s): 84573881 Code(s): I50.9 - HEART FAILURE, UNSPECIFIED Status: Chronic Current Visit : Yes Qualifiers: Congestive heart failure type: unspecified congestive heart failure type Congestive heart failure chronicity: chronic Qualified Code(s): I50.9 - Heart failure, unspecified (5) Anxiety and depression SNOMED Code(s): 372064289 Code(s): F41.9 - ANXIETY DISORDER, UNSPECIFIED; F32.9 - MAJOR DEPRESSIVE DISORDER, SINGLE EPISODE, UNSPECIFIED Status: Chronic Current Visit: Yes - Problem List Review Problem List Initiated/Reviewed/Updated: Yes - My Orders Last 24 Hours: My Active Orders 04/07/17 08:38 diphenhydrAMINE [Benadryl] 25 mg PO Q6H PRN 04/08/17 05:00 BMP [BASIC METABOLIC PANEL,BMP] [CHEM] DAILY CBC WITH AUTO DIFF [HEME] DAILY - Plan Plan:: This 66 year old female admitted with mild sigmoid diverticulitis and chest pain 1. Mild sigmoid diverticulitis: Reg diet to started this morning, will monitor. Continue Ciprofloxacin and Flagyl. 2. CHF: Chronic, stable. Will monitor daily weights and I/O. Continue Cozaar. 3. COPD: Stable. Continue inhalers, monitor 4. Anxiety/depression: Continue Pristiq and Klonopin PRN, takes nightly at least. VTE prophylaxis: Lovenox. Dispo: 1-2 days.
[2017-04-07 11:16] VITALS: BP 119/65
--- NOTE | 2017-04-07 11:31 | PCM.DCSUM1 ---
Discharge Summary - Hospital Course Brief History: This 66 year old female with pmh of CHF, COPD, depression and anxiety presented to the ED with 1 week of abdominal pain and diarrhea. She reports she started having some mild abdominal pain 1 week ago, at that time started having some diarrhea as well. This progressively worsened, the pain was 10/10 sharp and stabbing to LLQ. She had some nausea but no vomiting, and almost water stools. She denies black or bloody stools. Her appetite has been poor along with fatigue and malaise. She reports being on antibiotics recently for swollen tonsil and sinus congestion, She was on Azithromycin as well as Levaquin prior to that at the end of February. She denies recent travel or ingestion of questionable foods. She has never had a colonoscopy.No history of bowel troubles before, she has had a tubal ligation and cholecystectomy. In the ED slight leukocytosis notes, 12,000 BUN 25 Cr 1.3 CXR negative, UA show +nitrites , but few bacteria and no leukocyte esterase. Troponins negative. EKG SR CT of abdomen/pelvis reported extensive diverticulosis with mild diverticulitis of sigmoid colon without perforation or abscess. She was treated with Ciprofloxacin and Flagyl. She was admitted for observation initially for mild diverticulitis and atypical chest pain - Discharge Data Discharge Date: 04/07/17 Discharge Disposition: Home, Self-Care 01 Condition: Good - Discharge Diagnosis/Problem(s) (1) Diverticulitis large intestine SNOMED Code(s): 6085536 ICD Code: K57.32 - DVTRCLI OF LG INT W/O PERFORATION OR ABSCESS W/O BLEEDING Status: Acute Current Visit: Yes Qualifiers: Diverticulitis bleeding: without bleeding Diverticulitis complication: without perforation or abscess Qualified Code(s): K57.32 - Diverticulitis of large intestine without perforation or abscess without bleeding (2) Abdominal pain SNOMED Code(s): 05629880 ICD Code: R10.9 - UNSPECIFIED ABDOMINAL PAIN Status: Acute Current Visit : Yes (3) COPD (chronic obstructive pulmonary disease) SNOMED Code(s): 45236844 ICD Code: J44.9 - CHRONIC OBSTRUCTIVE PULMONARY DISEASE, UNSPECIFIED Status : Chronic Current Visit: Yes Qualifiers: COPD type: chronic bronchitis Chronic bronchitis type: unspecified Qualified Code(s): J42 - Unspecified chronic bronchitis (4) CHF (congestive heart failure) SNOMED Code(s): 52471593 ICD Code: I50.9 - HEART FAILURE, UNSPECIFIED Status: Chronic Current Visit: Yes Qualifiers: Congestive heart failure type: unspecified congestive heart failure type Congestive heart failure chronicity: chronic Qualified Code(s): I50.9 - Heart failure, unspecified (5) Anxiety and depression SNOMED Code(s): 201279180 ICD Code: F41.9 - ANXIETY DISORDER, UNSPECIFIED; F32.9 - MAJOR DEPRESSIVE DISORDER, SINGLE EPISODE, UNSPECIFIED Status: Chronic Current Visit: Yes - Patient Instructions Diet: GI Soft/Low Residue/Low Fiber Activity: As Tolerated Driving: May Drive Today Showering/Bathing: May Shower Notify Provider of: Fever, Increased Pain, Swelling and Redness, Drainage, Nausea and/or Vomiting - Discharge Plan Prescriptions/Med Rec: Ciprofloxacin HCl [Cipro] 500 mg PO BID #20 tablet metroNIDAZOLE [Flagyl] 500 mg PO Q8H #30 tablet Home Medications: Home Meds Albuterol Sulfate [Albuterol Sulfate HFA] 2 puff INH Q4H PRN 06/20/14 [History] ClonazePAM [KlonoPIN] 0.5 - 1 mg PO TID PRN 06/20/14 [History] Losartan [Cozaar] 50 mg PO ACBREAKFAST 06/20/14 [History] Desvenlafaxine [Pristiq] 50 mg PO QPM 12/18/14 [History] EPINEPHrine [Epipen 2-Wyatt] 0.3 mg IM ONETIME PRN 12/18/14 [History] Nitroglycerin [Nitrostat] 0.4 mg SL Q5M PRN 12/18/14 [History] oxyCODONE 2.5 - 5 mg PO Q6H PRN 06/25/15 [History] Omeprazole 40 mg PO ACBREAKFAST 04/04/17 [History] Fluticasone Propionate [Flonase Allergy Relief] 1 spray NASBOTH BID 04/05/17 [ History] Ondansetron [Zofran ODT] 4 mg PO TID PRN 04/05/17 [History] Umeclidinium Brm/Vilanterol Tr [Anoro Ellipta 62.5-25 Mcg INH] 1 inh IH DAILY [History] Ciprofloxacin HCl [Cipro] 500 mg PO BID #20 tablet 04/07/17 [Rx] metroNIDAZOLE [Flagyl] 500 mg PO Q8H #30 tablet 04/07/17 [Rx] Patient Handouts: Diverticulitis, [id number], Ciprofloxacin tablets, Metronidazole tablets or capsules Referrals: Michael Stubbs MD [Physician] - (stress test ) Phillip Robbins MD [Ordering Only Provider] - - Discharge Summary/Plan Comment DC Time >30 min.: No Discharge Summary/Plan Comment: Discharge diagnoses: Diverticulosis UTI CHF HTN Anxiety/Depression Jessi was admitted and treated with Ciprofloxacin and Flagyl for mild diverticulitis as reported on abdominal CT. She was kept bowel rest x1 day and diet was then slowly increased, which she tolerated. Leukocytosis resolved and abdominal pain is now only slight tenderness to LLQ. She is eager to be discharged home. She also had complaints of atypical chest pain, all troponins were negative and EKG showed no ST segment changes. We will arrange a out patient stress test for her as well appointment with general surgery for colonoscopy due to new diagnosis of diverticulosis. She was encouraged to keep soft low fiber diet for next week or so then slowly return to regular diet. She is to also follow up with PCP, Dr Robbins. Continue all home medications as prescribed. - General Info Date of Service: 04/07/17 Admission Dx/Problem (Free Text: Diverticulitis Subjective Update: Doing well this morning, very eager to be discharged. Tolerating soft regular diet this morning. Abdominal pain better. Passing flatus, has not had BM since admission after diarrhea at home x 1 week. No chest pain or SOB . Functional Status: Reports: pain controlled, tolerating diet, ambulating, urinating - Review of Systems General: Reports: No Symptoms. Denies: Fever Pulmonary: Reports: no symptoms. Denies: shortness of breath, cough, sputum Cardiovascular: Reports: No Symptoms. Denies: Chest Pain, Palpitations, Edema Gastrointestinal: Reports: Abdominal pain (tenderness to LLQ), Flatus. Denies: Difficulty swallowing, Nausea, Vomiting Genitourinary: Reports: no symptoms. Denies: dysuria, frequency, burning Musculoskeletal: Reports: no symptoms Skin: Reports: other (blisters to R chest from telemetry pad) Psychiatric: Reports: no symptoms - Patient Data Vitals - Most Recent: Last Vital Signs Temp 98.5 F 04/07/17 11:00 Pulse 98 04/07/17 11:00 Resp 18 04/07/17 11:00 BP 119/65 04/07/17 11:00 Pulse Ox 98 04/07/17 11:00 Weight - Most Recent: 110 kg I&O - Last 24 hours: Intake & Output 04/06/17 04/07/17 04/07/17 22:59 06:59 14:59 Intake Total 200 1460 Output Total 1750 1000 Balance -1550 460 Lab Results - Last 24 hrs: Laboratory Results - last 24 hr 04/07/17 04/07/17 Range/Units 04:33 04:33 WBC 5.47 (4.0-11.0) K/uL RBC 4.20 L (4.30-5.90) M/uL Hgb 12.0 (12.0-16.0) g/dL Hct 36.2 (36.0-46.0) % MCV 86.2 (80.0-98.0) fL MCH 28.6 (27.0-32.0) pg MCHC 33.1 (31.0-37.0) g/dL RDW Std Deviation 39.4 (28.0-62.0) fl RDW Coeff of Antonieta 13 (11.0-15.0) % Plt Count 173 (150-400) K/uL MPV 10.10 (7.40-12.00) fL Neut % (Auto) 59.1 (48.0-80.0) % Lymph % (Auto) 30.5 (16.0-40.0) % Braxton % (Auto) 7.5 (0.0-15.0) % Eos % (Auto) 2.4 (0.0-7.0) % Baso % (Auto) 0.5 (0.0-1.5) % Neut # (Auto) 3.2 (1.4-5.7) K/uL Lymph # (Auto) 1.7 (0.6-2.4) K/uL Braxton # (Auto) 0.4 (0.0-0.8) K/uL Eos # (Auto) 0.1 (0.0-0.7) K/uL Baso # (Auto) 0.0 (0.0-0.1) K/uL Nucleated RBC % 0.0 /100WBC Nucleated RBCs # 0 K/uL Sodium 140 (136-146) mmol/L Potassium 4.0 (3.5-5.1) mmol/L Chloride 112 H (98-110) mmol/L Carbon Dioxide 20 L (21-31) mmol/L BUN 13 (6.0-23.0) mg/dL Creatinine 1.0 (0.6-1.5) mg/dL Est Cr Clr Drug Dosing 51.38 mL/min Estimated GFR (MDRD) 55.3 ml/min Glucose 96 (60-110) mg/dL Calcium 7.9 L (8.8-10.8) mg/dL Med Orders - Current: Current Medications Acetaminophen (Tylenol) 650 mg PO Q4H PRN PRN Reason: Pain (Mild 1-3)/fever Last Admin: 04/07/17 09:09 Dose: 650 mg Clonazepam (Klonopin) 0.5 - 1 mg PO TID PRN PRN Reason: Anxiety Last Admin: 04/06/17 20:30 Dose: 1 mg Diphenhydramine HCl (Benadryl) 25 mg PO Q6H PRN PRN Reason: Itching Last Admin: 04/07/17 09:09 Dose: 25 mg Enoxaparin Sodium (Lovenox) 40 mg SUBCUT DAILY [facility] Last Admin: 04/07/17 08:31 Dose: 40 mg Fluticasone Propionate (Flonase) 16 gm NASBOTH BID [facility] Last Admin: 04/07/17 08:33 Dose: Not Given Ciprofloxacin/Dextrose 400 mg/ (Premix) 200 mls @ 200 mls/hr IV Q12H [facility] Last Admin: 04/06/17 23:31 Dose: 200 mls/hr Metronidazole 500 mg/ Premix 100 mls @ 100 mls/hr IV Q8H [facility] Last Admin: 04/07/17 10:52 Dose: 100 mls/hr Pantoprazole Sodium 40 mg/ (Sodium Chloride) 10 mls @ 300 mls/hr IVPUSH DAILY [facility] Last Admin: 04/07/17 08:28 Dose: 300 mls/hr Losartan Potassium (Cozaar) 50 mg PO ACBREAKFAST [facility] Last Admin: 04/07/17 06:40 Dose: 50 mg Morphine Sulfate (Morphine) 2 mg IVPUSH Q3H PRN PRN Reason: Pain Last Admin: 04/06/17 00:14 Dose: 2 mg Ondansetron HCl (Zofran) 4 mg IVPUSH Q4H PRN PRN Reason: Nausea Last Admin: 04/06/17 20:31 Dose: 4 mg Oxycodone HCl (Oxycodone) 2.5 - 5 mg PO Q6H PRN PRN Reason: Pain Last Admin: 04/07/17 05:56 Dose: 5 mg Desvenlafaxine [ (Pristiq] 50 Mg) 1 each PO QPM JAD Last Admin: 04/06/17 18:01 Dose: 1 each Umeclidinium Brm/Vilanterol Tr [Anoro Ellipta 62.5-25 Mcg ] 1 each INH DAILY [facility] Last Admin: 04/07/17 09:10 Dose: 1 each Discontinued Medications Aspirin (Aspirin) 324 mg PO ONETIME ONE Stop: 04/04/17 18:27 Last Admin: 04/04/17 18:45 Dose: 324 mg Al Hydroxide/Mg Hydroxide 15 ml/ Metoclopramide HCl 5 mg/Lidocaine HCl 5 ml 0 ml PO ONETIME ONE Stop: 04/04/17 18:27 Last Admin: 04/04/17 18:47 Dose: 1 each Famotidine (Pepcid) 20 mg IVPUSH ONETIME ONE Stop: 04/04/17 18:27 Last Admin: 04/04/17 18:47 Dose: 20 mg Sodium Chloride (Normal Saline) 1,000 mls @ 250 mls/hr IV STAT ONE Stop: 04/05/17 00:21 Last Admin: 04/04/17 21:15 Dose: 250 mls/hr Ciprofloxacin/Dextrose 400 mg/ (Premix) 200 mls @ 200 mls/hr IV Q12H [facility] Last Admin: 04/05/17 00:08 Dose: Not Given Metronidazole 500 mg/ Premix 100 mls @ 100 mls/hr IV ONETIME ONE Stop: 04/04/17 22:22 Last Admin: 04/04/17 21:35 Dose: 100 mls/hr Ciprofloxacin/Dextrose 400 mg/ (Premix) 200 mls @ 200 mls/hr IV Q12H [facility] Sodium Chloride (Normal Saline) 1,000 mls @ 125 mls/hr IV ASDIRECTED [facility] Last Admin: 04/05/17 02:20 Dose: 125 mls/hr Sodium Chloride (Normal Saline) 1,000 mls @ 100 mls/hr IV ASDIRECTED [facility] Last Admin: 04/07/17 00:44 Dose: 100 mls/hr Ketorolac Tromethamine (Toradol) 30 mg IVPUSH ONETIME ONE Stop: 04/04/17 18:27 Last Admin: 04/04/17 18:46 Dose: 30 mg Nitroglycerin (Nitro-Bid 2%) 0.5 gm TOP ONETIME ONE Stop: 04/04/17 18:27 Last Admin: 04/04/17 18:47 Dose: 0.5 gm Nitroglycerin (Nitrostat) 0.4 mg SL ONETIME ONE Stop: 04/04/17 18:27 Last Admin: 04/04/17 18:46 Dose: 0.4 mg Oxycodone HCl (Oxycodone) mg PO Q6H PRN PRN Reason: Pain Stop: 04/05/17 00:40 Fluticasone/Salmeterol (Advair Diskus 250-50) 1 puff INH DAILY [facility] Last Admin: 04/05/17 09:03 Dose: Not Given - Exam General: Reports: alert, oriented, cooperative Neck: Reports: supple Lungs: Reports: Clear to auscultation, Normal respiratory effort Cardiovascular: Reports: Regular Rate, Regular Rhythm Abdomen: Reports: bowel sounds present, soft, no distension, tenderness (LLQ, improving) Extremities: Reports: no edema, normal pulses Skin: Reports: other (blisters to R chest, 3, one opened and draining serous fluid. Itching to surround skin.) Neurological: Reports: no new focal deficit Psy/Mental Status: Reports: alert, normal affect, normal mood *Q Meaningful Use (DIS) - VTE *Q VTE Criteria *Q: - Stroke *Q Stroke Criteria *Q: - AMI *Q AMI Criteria *Q:
[2017-04-07] MEDS: Ciprofloxacin in D5W 400 MG in Premix Bag 1 BAG IV SCH ×2 (13:02)
== END 2017-04-07 12:55 | disposition home or self-care (01) | DRG 392 ==
LOC: MW.ED 17:12 → UNDOADMOB 21:16 → MW.MS 21:16 → OBSVTOIN 21:50 → INTOOBSV 21:50 → MW.MS 21:50 → OBSVTOIN 04-05 10:58 → UNDODISIN 04-07 12:55
PROVIDERS: ADMIT Internal Medicine; ATTEND Internal Medicine
DX: R10.9 Unspecified abdominal pain (principal); K57.32 Diverticulitis of large intestine without perforation or abscess without bleeding; I50.9 Heart failure, unspecified; J44.9 Chronic obstructive pulmonary disease, unspecified; F41.8 Other specified anxiety disorders; K21.9 Gastro-esophageal reflux disease without esophagitis; Z87.891 Personal history of nicotine dependence; R07.9 Chest pain, unspecified
CPT/HCPCS: 36415; 71010; 74176; 80053; 81001; 82150; 83690; 84484; 85025; 87086; 93005; 96365; 96375; 99285; A9270 ×6; J1885; J7040; 80048; 96361; 96366; 96367; 96372; 96376; C9113; G0378; J0744; J1650; J2270; J2405

== ENCOUNTER 2017-10-12 09:21 | Emergency (ER) | payer MEDICARE, MEDICAID ==
[2017-10-12 09:28] VITALS: BP 176/73
--- NOTE | 2017-10-12 09:37 | EDM.PDOC ---
ED HPI GENERAL MEDICAL PROBLEM - General Chief Complaint: Lower Extremity Injury/Pain Stated Complaint: AMB Time Seen by Provider: 10/12/17 09:25 - History of Present Illness INITIAL COMMENTS - FREE TEXT/NARRATIVE: HISTORY AND PHYSICAL: History of present illness: Patient is 67-year-old white female who presents with concern of right leg pain requesting venous Doppler rule out DVT she denies fever chills chest pain Terry breath nausea vomiting trauma or any other concern. Review of systems: As per history of present illness and below otherwise all systems reviewed and negative. Past medical history: As per history of present illness and as reviewed below otherwise noncontributory. Surgical history: As per history of present illness and as reviewed below otherwise noncontributory. Social history: No reported history of drug or alcohol abuse. Family history: As per history of present illness and as reviewed below otherwise noncontributory. Physical exam: HEENT: Atraumatic, normocephalic, pupils reactive, negative for conjunctival pallor or scleral icterus, mucous membranes moist, throat clear, neck supple, nontender, trachea midline. Lungs: Clear to auscultation, breath sounds equal bilaterally, chest nontender. Heart: S1S2, regular, negative for clicks, rubs, or JVD. Abdomen: Soft, nondistended, nontender. Negative for masses or hepatosplenomegaly. Negative for costovertebral tenderness. Pelvis: Stable nontender. Genitourinary: Deferred. Rectal: Deferred. Extremities: Atraumatic, negative for cords mild tenderness palpation of her calf no erythema no warmth. Neurovascular unremarkable. Neuro: Awake, alert, oriented. Cranial nerves II through XII unremarkable. Cerebellum unremarkable. Motor and sensory unremarkable throughout. Exam nonfocal. Diagnostics: Venous Doppler right lower extremity Therapeutics: None Impression: #1 right lower extremity pain rule out DVT Definitive disposition and diagnosis as appropriate pending reevaluation and review of above. Right Leg Pain Score (Numeric/FACES): 10 - Related Data Allergies Allergy/AdvReac Type Severity Reaction Status Date / Time bee pollen Allergy unknown Verified 10/12/17 09:28 eszopiclone [From Lunesta] Allergy Hypertensio Verified 10/12/17 09:28 n Iodinated Contrast- Oral and Allergy Anaphylactic Verified 10/12/17 09:28 IV Dye Shock [Iodinated Contrast Media - IV Dye] lorazepam Allergy Facial Verified 12/27/17 09:28 Swelling pregabalin [From Lyrica] Allergy Facial Verified 10/12/17 09:28 Swelling flu vaccination Allergy Anaphylactic Uncoded 06/24/15 11:33 Shock Home Meds: Home Meds Albuterol Sulfate [Albuterol Sulfate HFA] 2 puff INH Q4H PRN 06/20/14 [History] ClonazePAM [KlonoPIN] 0.5 - 1 mg PO TID PRN 06/20/14 [History] Losartan [Cozaar] 50 mg PO ACBREAKFAST 06/20/14 [History] Desvenlafaxine [Pristiq] 50 mg PO QPM 12/18/14 [History] EPINEPHrine [Epipen 2-Wyatt] 0.3 mg IM ONETIME PRN 12/18/14 [History] Nitroglycerin [Nitrostat] 0.4 mg SL Q5M PRN 12/18/14 [History] oxyCODONE 2.5 - 5 mg PO Q6H PRN 06/25/15 [History] Omeprazole 40 mg PO ACBREAKFAST 04/04/17 [History] Fluticasone Propionate [Flonase Allergy Relief] 1 spray NASBOTH BID 04/05/17 [ History] Ondansetron [Zofran ODT] 4 mg PO TID PRN 04/05/17 [History] Umeclidinium Brm/Vilanterol Tr [Anoro Ellipta 62.5-25 Mcg INH] 1 inh IH DAILY [History] Ciprofloxacin HCl [Cipro] 500 mg PO BID #20 tablet 04/07/17 [Rx] metroNIDAZOLE [Flagyl] 500 mg PO Q8H #30 tablet 04/07/17 [Rx] Past Medical History HEENT History: Reports: Impaired Vision Other HEENT History: asthma Cardiovascular History: Reports: Heart Failure, High Cholesterol, Hypertension Respiratory History: Reports: Asthma, COPD, SOB Other Respiratory History: 40 Plus years use of tobacco products, QUIT 2014 Gastrointestinal History: Reports: GERD, PUD Other Gastrointestinal History: Heartburn/GERD Other Genitourinary History: Frequent Urination Other Musculoskeletal History: hx: fracturing Left ANkle, Chronic back pain ' whole back with arthritis", Current RIGHT shoulder pain with radiation pain to Elbow..has been worsening, frequent muscle cramping Neurological History: Reports: Headaches, Chronic, TIA Other Neuro History: CHRONIC Back Pain, Follow with [facility] Dr. Guerrier Psychiatric History: Reports: Depression Other Psychiatric History: Real Anxious before surgery "LIKE COCKTAIL before I Leave the Room" - Infectious Disease History Infectious Disease History: Reports: None, Other (See Below) Other Infectious Disease History: Pt states she does not remember - Past Surgical History Other HEENT Surgeries/Procedures: UPPER 2 Front teeth Implants Other GI Surgeries/Procedures: Lap Coco Female Surgical History: Reports: Tubal Ligation Other Musculoskeletal Surgeries/Procedures:: Bilateral Total KNees Social & Family History - Family History Family Medical History: Noncontributory Psychiatric: Reports: Depression Hematologic: Reports: SLE Immunologic: Reports: SLE - Tobacco Use Smoking Status *Q: Former Smoker Years of Tobacco use: 50 Used Tobacco, but Quit: Yes Month Tobacco Last Used: 2 years Second Hand Smoke Exposure: No - Alcohol Use Days Per Week of Alcohol Use: 0 - Recreational Drug Use Recreational Drug Use: No Drug Use in Last 12 Months: No Review of Systems - Review of Systems Review Of Systems: ROS reveals no pertinent complaints other than HPI. ED EXAM, GENERAL - Physical Exam Exam: See Below (See dictation) Course - Vital Signs Last Recorded V/S: Last Vital Signs Temp 37.2 C 10/12/17 09:25 Pulse 82 10/12/17 09:25 Resp 18 10/12/17 09:25 BP 176/73 H 10/12/17 09:25 Pulse Ox 96 10/12/17 09:25 - Orders/Labs/Meds Orders: Active Orders 24 hr Category Date Time Status Venous Doppler Lwr Ext Rt [US] Stat Exams 10/12/17 09:25 Taken INR,PT,PROTHROMBIN TIME [COAG] Stat Lab 10/12/17 10:35 Received Meds: Medications Discontinued Medications Generic Name Dose Route Start Last Admin Trade Name Freq PRN Reason Stop Dose Admin Enoxaparin Sodium 100 mg 10/12/17 10:47 Lovenox SUBCUT 10/12/17 10:48 ONETIME ONE Warfarin Sodium 5 mg 10/12/17 10:46 Coumadin PO 10/12/17 10:47 ONETIME ONE Departure - Departure Time of Disposition: 10:48 Disposition: Home, Self-Care 01 Condition: Good Clinical Impression: Deep venous thrombosis - Discharge Information Referrals: Phillip Robbins MD [Ordering Only Provider] - 3 Days (Appointment with Dr. Robbins TuesdayOct 14 at 12:30) Forms: ED Department Discharge Additional Instructions: The following information is given to patients seen in the emergency department who are being discharged to home. This information is to outline your options for follow-up care. We provide all patients seen in our emergency department with a follow-up referral. The need for follow-up, as well as the timing and circumstances, are variable depending upon the specifics of your emergency department visit. If you don't have a primary care physician on staff, we will provide you with a referral. We always advise you to contact your personal physician following an emergency department visit to inform them of the circumstance of the visit and for follow-up with them and/or the need for any referrals to a consulting specialist. The emergency department will also refer you to a specialist when appropriate. This referral assures that you have the opportunity for followup care with a specialist. All of these measure are taken in an effort to provide you with optimal care, which includes your followup. Under all circumstances we always encourage you to contact your private physician who remains a resource for coordinating your care. When calling for followup care, please make the office aware that this follow-up is from your recent emergency room visit. If for any reason you are refused follow-up, please contact the [facility] emergency department at and asked to speak to the emergency department charge nurse. Lovenox injections and Coumadin as prescribed keep scheduled appointment on Tuesday with private medical doctor/Coumadin clinic return as needed as discussed - My Orders Last 24 Hours: My Active Orders 10/12/17 09:25 Venous Doppler Lwr Ext Rt [US] Stat 10/12/17 10:35 INR,PT,PROTHROMBIN TIME [COAG] Stat - Assessment/Plan Last 24 Hours: My Active Orders 10/12/17 09:25 Venous Doppler Lwr Ext Rt [US] Stat 10/12/17 10:35 INR,PT,PROTHROMBIN TIME [COAG] Stat
[2017-10-12] MEDS ORDERED: Warfarin 5 MG Tab PO ONE (10:46)
[2017-10-12] MEDS ORDERED: Enoxaparin 100 MG/1 ML Syringe SUBCUT ONE (10:47)
[2017-10-12] MEDS ORDERED: Acetaminophen 500 MG Tab PO ONE (11:18)
--- NOTE | 2017-10-12 14:18 | US ---
EXAM DATE: 10/12/17 PATIENT'S AGE: 67 Patient: JACKIE SONG Facility: [place], [place] Site . Site : 1950 Study: US Extremity Venous RT [id number]/12/2017 10:20:05 AM Ordering Physician: Doctor Yoo Final Report: INDICATION: Leg pain and swelling TECHNIQUE: Ultrasound venous duplex lower right extremity. Compression venous exam was performed using otero-scale, color Doppler, and spectral Doppler imaging. COMPARISON: None. FINDINGS: Sonographic imaging demonstrates the right common femoral, deep femoral, superficial femoral, and greater saphenous and the contralateral left common femoral veins to be fully compressible with normal color Doppler blood flow. Thrombus is present in the popliteal vein and possibly posterior tibial vein as well. IMPRESSION: Acute DVT is present in the right popliteal vein and possibly posterior tibial vein. Dictated by Steven Olsen MD @ 10/12/2017 10:31:42 AM Dictated by: Steven Olsen MD @ 10/12/2017 10:31:48 (Electronic Signature) Report Signed by Proxy. [facility]PITALMike
== END 2017-10-12 11:25 | disposition home or self-care (01) ==
LOC: MW.ED 09:21
DX: I82.431 Acute embolism and thrombosis of right popliteal vein (principal); I11.0 Hypertensive heart disease with heart failure; I50.9 Heart failure, unspecified; Z91.030 Bee allergy status; Z91.041 Radiographic dye allergy status; Z88.8 Allergy status to other drugs, medicaments and biological substances; Z79.899 Other long term (current) drug therapy; Z87.891 Personal history of nicotine dependence
CPT/HCPCS: 36415; 85610; 93971; 96372; 99284; A9270; J1650; 99283

== ENCOUNTER 2019-04-08 22:56 | Observation (INO) | payer MEDICARE, MEDICAID ==
[2019-04-08] MEDS ORDERED: Sodium Chloride 0.9% 1,000 ML IV ONE (23:07)
[2019-04-08] MEDS ORDERED: Ondansetron 4 MG/2 ML SDV IVPUSH ONE (23:08)
[2019-04-08] MEDS ORDERED: Morphine 2 MG/ML Syringe IVPUSH ONE (23:14)
--- NOTE | 2019-04-08 23:14 | EDM.PDOC ---
ED HPI GENERAL MEDICAL PROBLEM - General Chief Complaint: General Stated Complaint: NAUSEA/VOMITTING Time Seen by Provider: 04/09/19 01:05 - History of Present Illness INITIAL COMMENTS - FREE TEXT/NARRATIVE: HISTORY AND PHYSICAL: History of present illness: Patient a 68-year-old female history of oropharyngeal cancer who is currently undergoing chemotherapy who presents with a concern of headache nausea and vomiting. Patient denies abdominal pain denies chest pain or shortness of breath Review of systems: As per history of present illness and below otherwise all systems reviewed and negative. Past medical history: As per history of present illness and as reviewed below otherwise noncontributory. Surgical history: As per history of present illness and as reviewed below otherwise noncontributory. Social history: No reported history of drug or alcohol abuse. Family history: As per history of present illness and as reviewed below otherwise noncontributory. Physical exam: HEENT: Atraumatic, normocephalic, pupils reactive, mild conjunctival pallor no scleral icterus, mucous membranes dry, neck supple, nontender, trachea midline. Lungs: Clear to auscultation, breath sounds equal bilaterally, chest nontender. Heart: S1S2, regular, negative for clicks, rubs, or JVD. Abdomen: Soft, nondistended, nontender. Negative for masses or hepatosplenomegaly. Negative for costovertebral tenderness. Pelvis: Stable nontender. Genitourinary: Deferred. Rectal: Deferred. Extremities: Atraumatic, negative for cords or calf pain. Neurovascular unremarkable. Neuro: Awake, alert, oriented. Follows commands and moves all extremities limited grossly nonfocal exam. Diagnostics: CBC CMP lipase acute abdominal series with chest x-ray Therapeutics: Saline 1 L bolus Zofran 4 mg IV morphine sulfate 2 mg IV Impression: #1 history of oropharyngeal cancer #2 chemotherapy with nausea/vomiting #3 cephalgia Definitive disposition and diagnosis as appropriate pending reevaluation and review of above. head Pain Score (Numeric/FACES): 10 - Related Data Allergies Allergy/AdvReac Type Severity Reaction Status Date / Time bee pollen Allergy unknown Verified 04/08/19 23:33 eszopiclone [From Lunesta] Allergy Hypertensio Verified 04/08/19 23:33 n Iodinated Contrast- Oral and Allergy Anaphylactic Verified 04/08/19 23:33 IV Dye Shock [Iodinated Contrast Media - IV Dye] lorazepam Allergy Facial Verified 04/08/19 23:33 Swelling pregabalin [From Lyrica] Allergy Facial Verified 04/08/19 23:33 Swelling flu vaccination Allergy Anaphylactic Uncoded 04/08/19 23:33 Shock Home Meds: Home Meds Albuterol Sulfate [Albuterol Sulfate HFA] 2 puff INH Q4H PRN 06/20/14 [History] ClonazePAM [KlonoPIN] 1 mg PO BID PRN 06/20/14 [History] Losartan [Cozaar] 50 mg PO ACBREAKFAST 06/20/14 [History] Desvenlafaxine [Pristiq] 100 mg PO QPM 12/18/14 [History] EPINEPHrine [Epipen 2-Wyatt] 0.3 mg IM ONETIME PRN 12/18/14 [History] Omeprazole 40 mg PO ACBREAKFAST 04/04/17 [History] Ondansetron [Zofran ODT] 4 mg PO Q4HR PRN 04/05/17 [History] Nitroglycerin 1 tab SL ASDIRECTED PRN 04/08/19 [History] Rivaroxaban [Xarelto] 1 tab PO BEDTIME 04/08/19 [History] Venlafaxine [Effexor XR] 1 tab PO DAILY 04/08/19 [History] Past Medical History HEENT History: Reports: Impaired Vision Other HEENT History: asthma Cardiovascular History: Reports: Heart Failure, High Cholesterol, Hypertension Respiratory History: Reports: Asthma, COPD, SOB Other Respiratory History: 40 Plus years use of tobacco products, QUIT 2014 Gastrointestinal History: Reports: GERD, PUD Other Gastrointestinal History: Heartburn/GERD Other Genitourinary History: Frequent Urination Other Musculoskeletal History: hx: fracturing Left ANkle, Chronic back pain ' whole back with arthritis", Current RIGHT shoulder pain with radiation pain to Elbow..has been worsening, frequent muscle cramping Neurological History: Reports: Headaches, Chronic, TIA Other Neuro History: CHRONIC Back Pain, Follow with [facility] Dr. Guerrier Psychiatric History: Reports: Depression Other Psychiatric History: Real Anxious before surgery "LIKE COCKTAIL before I Leave the Room" - Infectious Disease History Infectious Disease History: Reports: None, Other (See Below) Other Infectious Disease History: Pt states she does not remember - Past Surgical History Other HEENT Surgeries/Procedures: UPPER 2 Front teeth Implants Other GI Surgeries/Procedures: Lap Coco Female Surgical History: Reports: Tubal Ligation Other Musculoskeletal Surgeries/Procedures:: Bilateral Total KNees Social & Family History - Family History Family Medical History: Noncontributory Psychiatric: Reports: Depression Hematologic: Reports: SLE Immunologic: Reports: SLE ED ROS GENERAL - Review of Systems Review Of Systems: ROS reveals no pertinent complaints other than HPI. ED EXAM, GENERAL - Physical Exam Exam: See Below (See dictation) Course - Vital Signs Last Recorded V/S: Last Vital Signs Temp 36.1 C 04/08/19 22:56 Pulse 89 04/09/19 00:57 Resp 20 04/09/19 00:57 BP 153/68 H 04/09/19 00:57 Pulse Ox 94 L 04/09/19 00:57 - Orders/Labs/Meds Labs: Laboratory Tests 04/08/19 04/08/19 Range/Units 23:25 23:25 WBC 2.59 L (4.0-11.0) K/uL RBC 3.83 L (4.30-5.90) M/uL Hgb 11.2 L (12.0-16.0) g/dL Hct 32.8 L (36.0-46.0) % MCV 85.6 (80.0-98.0) fL MCH 29.2 (27.0-32.0) pg MCHC 34.1 (31.0-37.0) g/dL RDW Std Deviation 38.6 (28.0-62.0) fl RDW Coeff of Antonieta 13 (11.0-15.0) % Plt Count 222 (150-400) K/uL MPV 9.00 (7.40-12.00) fL Neut % (Auto) 75.3 (48.0-80.0) % Lymph % (Auto) 13.1 L (16.0-40.0) % [place] % (Auto) 8.9 (0.0-15.0) % Eos % (Auto) 2.3 (0.0-7.0) % Baso % (Auto) 0.4 (0.0-1.5) % Neut # (Auto) 2.0 (1.4-5.7) K/uL Lymph # (Auto) 0.3 L (0.6-2.4) K/uL [place] # (Auto) 0.2 (0.0-0.8) K/uL Eos # (Auto) 0.1 (0.0-0.7) K/uL Baso # (Auto) 0.0 (0.0-0.1) K/uL Nucleated RBC % 0.0 /100WBC Nucleated RBCs # 0 K/uL Sodium 140 (136-145) mmol/L Potassium 3.7 (3.5-5.1) mmol/L Chloride 103 (98-107) mmol/L Carbon Dioxide 26.6 (21.0-32.0) mmol/L BUN 16 (7.0-18.0) mg/dL Creatinine 1.3 H (0.6-1.0) mg/dL Est Cr Clr Drug Dosing 38.23 mL/min Estimated GFR (MDRD) 40.6 ml/min Glucose 119 H (74-106) mg/dL Calcium 8.2 L (8.5-10.1) mg/dL Total Bilirubin 0.4 (0.2-1.0) mg/dL AST 17 (15-37) IU/L ALT 16 (14-63) IU/L Alkaline Phosphatase 106 (46-116) U/L Total Protein 6.4 (6.4-8.2) g/dL Albumin 3.2 L (3.4-5.0) g/dL Globulin 3.2 (2.6-4.0) g/dL Albumin/Globulin Ratio 1.0 (0.9-1.6) Lipase 80 (73-393) U/L Meds: Medications Discontinued Medications Generic Name Dose Route Start Last Admin Trade Name Freq PRN Reason Stop Dose Admin Sodium Chloride 1,000 mls @ 999 mls/hr 04/08/19 23:07 04/08/19 23:28 Normal Saline IV 04/09/19 00:07 999 mls/hr .Bolus ONE Administration Morphine Sulfate 2 mg 04/08/19 23:14 04/08/19 23:28 Morphine IVPUSH 04/08/19 23:15 2 mg ONETIME ONE Administration Ondansetron HCl 4 mg 04/08/19 23:08 04/08/19 23:28 Zofran IVPUSH 04/08/19 23:09 4 mg ONETIME ONE Administration Ondansetron HCl 4 mg 04/09/19 00:08 04/09/19 00:12 Zofran IVPUSH 04/09/19 00:09 4 mg ONETIME ONE Administration Departure - Departure Time of Disposition: 01:05 Disposition: Refer to Observation Condition: Good Clinical Impression: Vomiting, Oropharyngeal cancer - Discharge Information Referrals: Phillip Robbins MD [Primary Care Provider] - Forms: ED Department Discharge
[2019-04-09] MEDS ORDERED: Ondansetron 4 MG/2 ML SDV IVPUSH ONE ×2 (00:08→12:17)
--- NOTE | 2019-04-09 00:52 | CR ---
Indication: Nausea and weakness Technique: Chest 1 view Comparison: None Findings/Impression: Cardiovascular and mediastinum: Heart size and vasculature are normal in caliber and appearance. Mediastinum is within normal limits. Lungs and pleural space: Lungs are clear. No sign of infiltrate or mass. No sign of pleural effusion. No pneumothorax. Bones and soft tissues: No significant findings. Dictated by Gilma Penn MD @ Apr 09 2019 12:49AM Signed by Dr. Gilma Penn @ Apr 09 2019 12:50AM
[2019-04-09] MEDS ORDERED: Ondansetron 4 MG/2 ML SDV IVPUSH PRN (01:59)
[2019-04-09] MEDS ORDERED: Acetaminophen 325 MG Tab PO PRN (02:00)
[2019-04-09] MEDS: Sodium Chloride 0.9% 1,000 ML IV SCH ×5 (02:19→20:04)
[2019-04-09] MEDS: oxyCODONE 5 MG Tab PO PRN ×3 (03:04→23:36)
--- NOTE | 2019-04-09 06:44 | PCM.HP ---
H&P History of Present Illness - General Date of Service: 04/09/19 Admit Problem/Dx: Admission Diagnosis/Problem Admission Diagnosis/Problem Vomiting Source of Information: Patient, Old Records History Limitations: Reports: No Limitations - History of Present Illness Initial Comments - Free Text/Narative: The patient is a 68-year-old lady who had presented to the emergency department out of concern for nausea or vomiting. The patient recently had chemotherapy and radiation therapy for squamous cell carcinoma left tonsillar area. The patient is also having some pain in her neck and is feeling weak. The patient has been taking Zofran at home and this has not been helping her. The patient has denied any fever or chills. She's had no diarrhea or constipation. The patient has been complaining of headache as well. Onset of Symptoms: Reports: Gradual Duration of Symptoms: Reports: Day(s): Location: Reports: Head, Neck Quality: Reports: Stabbing, Throbbing Severity: Moderate Improves with: Reports: Medication Worsens with: Reports: None Context: Reports: Other (Squamous cell carcinoma head and neck) Associated Symptoms: Reports: Loss of Appetite, Nausea/Vomiting, Weakness head Pain Score (Numeric/FACES): 10 - Related Data Allergies/Adverse Reactions: Allergies Allergy/AdvReac Type Severity Reaction Status Date / Time bee pollen Allergy unknown Verified 04/09/19 03:56 eszopiclone [From Lunesta] Allergy Hypertensio Verified 04/09/19 03:56 n Iodinated Contrast- Oral and Allergy Anaphylactic Verified 04/09/19 03:56 IV Dye Shock [Iodinated Contrast Media - IV Dye] lorazepam Allergy Facial Verified 04/09/19 03:56 Swelling pregabalin [From Lyrica] Allergy Facial Verified 04/09/19 03:56 Swelling flu vaccination Allergy Anaphylactic Uncoded 04/09/19 03:56 Shock Home Medications: Home Meds Albuterol Sulfate [Albuterol Sulfate HFA] 2 puff INH Q4H PRN 06/20/14 [History] ClonazePAM [KlonoPIN] 1 mg PO BID PRN 06/20/14 [History] Losartan [Cozaar] 50 mg PO ACBREAKFAST 06/20/14 [History] Desvenlafaxine [Pristiq] 100 mg PO QPM 12/18/14 [History] EPINEPHrine [Epipen 2-Wyatt] 0.3 mg IM ONETIME PRN 12/18/14 [History] Omeprazole 40 mg PO ACBREAKFAST 04/04/17 [History] Ondansetron [Zofran ODT] 4 mg PO Q4HR PRN 04/05/17 [History] Nitroglycerin 1 tab SL ASDIRECTED PRN 04/08/19 [History] Rivaroxaban [Xarelto] 1 tab PO BEDTIME 04/08/19 [History] Venlafaxine [Effexor XR] 1 tab PO DAILY 04/08/19 [History] traMADol [Ultram] 50 mg PO Q4H PRN 04/09/19 [History] Past Medical History HEENT History: Reports: Impaired Vision Other HEENT History: asthma Cardiovascular History: Reports: Heart Failure, High Cholesterol, Hypertension Respiratory History: Reports: Asthma, COPD, SOB Other Respiratory History: 40 Plus years use of tobacco products, QUIT 2014 Gastrointestinal History: Reports: GERD, PUD Other Gastrointestinal History: Heartburn/GERD Other Genitourinary History: Frequent Urination [employer] History: Reports: Other Musculoskeletal History: hx: fracturing Left ANkle, Chronic back pain ' whole back with arthritis", Current RIGHT shoulder pain with radiation pain to Elbow..has been worsening, frequent muscle cramping Neurological History: Reports: Headaches, Chronic, TIA Other Neuro History: CHRONIC Back Pain, Follow with [facility] Dr. 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 Dermatologic History: Reports: None - Infectious Disease History Infectious Disease History: Reports: None, Other (See Below) Other Infectious Disease History: Pt states she does not remember - Past Surgical History Other HEENT Surgeries/Procedures: UPPER 2 Front teeth Implants Other GI Surgeries/Procedures: Lap Coco Female Surgical History: Reports: Tubal Ligation Other Musculoskeletal Surgeries/Procedures:: Bilateral Total KNees Social & Family History - Family History Family Medical History: Noncontributory Psychiatric: Reports: Depression Hematologic: Reports: SLE Immunologic: Reports: SLE - Tobacco Use Smoking Status *Q: Former Smoker Years of Tobacco use: 40 Used Tobacco, but Quit: Yes Month/Year Tobacco Last Used: 02/14/2015 Second Hand Smoke Exposure: No - Caffeine Use Caffeine Use: Reports: Coffee - Recreational Drug Use Recreational Drug Use: No - Living Situation & Occupation Living situation: Reports: with Family Occupation: Retired H&P Review of Systems - Review of Systems: Review Of Systems: See Below General: Reports: Malaise, Weakness, Fatigue, Decreased Appetite HEENT: Reports: Headaches, Sore Throat Pulmonary: Reports: No Symptoms Cardiovascular: Reports: No Symptoms Gastrointestinal: Reports: Abdominal Pain, Nausea, Vomiting Genitourinary: Reports: No Symptoms Musculoskeletal: Reports: No Symptoms Skin: Reports: No Symptoms Psychiatric: Reports: No Symptoms Neurological: Reports: Difficulty Walking, Weakness Hematologic/Lymphatic: Reports: No Symptoms Immunologic: Reports: No Symptoms Exam - Exam Exam: See Below - Vital Signs Vital Signs: Last Vital Signs Temp 36.5 C 04/09/19 01:40 Pulse 85 04/09/19 01:40 Resp 18 04/09/19 01:40 BP 146/67 H 04/09/19 01:40 Pulse Ox 96 04/09/19 01:40 Weight: 97.477 kg - Exam Quality Assessment: No: Supplemental Oxygen General: Alert, Oriented, Cooperative, Mild Distress HEENT: Conjunctiva Clear, EACs Clear, EOMI, Nares Patent, PERRLA. No: Mucosa Moist & [place] (Dry) Neck: Supple, Lymphadenopathy Lungs: Normal Respiratory Effort, Crackles Cardiovascular: Regular Rate, Regular Rhythm GI/Abdominal Exam: Normal Bowel Sounds, Soft, No Distention. No: Guarding, Rigid, Rebound Back Exam: Normal Inspection Extremities: Normal Inspection, No Pedal Edema Skin: Warm, Dry, Intact Neurological: Cranial Nerves Intact Neuro Extensive - Mental Status: Alert, Oriented x3 Psychiatric: Alert, Normal Affect, Normal Mood - Patient Data Lab Results Last 24 hrs: Laboratory Results - last 24 hr 04/08/19 04/08/19 04/09/19 Range/Units 23:25 23:25 05:56 WBC 2.59 L 2.62 L (4.0-11.0) K/uL RBC 3.83 L 3.58 L (4.30-5.90) M/uL Hgb 11.2 L 10.2 L (12.0-16.0) g/dL Hct 32.8 L 30.7 L (36.0-46.0) % MCV 85.6 85.8 (80.0-98.0) fL MCH 29.2 28.5 (27.0-32.0) pg MCHC 34.1 33.2 (31.0-37.0) g/dL RDW Std Deviation 38.6 38.8 (28.0-62.0) fl RDW Coeff of Antonieta 13 13 (11.0-15.0) % Plt Count 222 202 (150-400) K/uL MPV 9.00 9.30 (7.40-12.00) fL Neut % (Auto) 75.3 65.6 (48.0-80.0) % Lymph % (Auto) 13.1 L 21.8 (16.0-40.0) % [place] % (Auto) 8.9 8.8 (0.0-15.0) % Eos % (Auto) 2.3 3.4 (0.0-7.0) % Baso % (Auto) 0.4 0.4 (0.0-1.5) % Neut # (Auto) 2.0 1.7 (1.4-5.7) K/uL Lymph # (Auto) 0.3 L 0.6 (0.6-2.4) K/uL [place] # (Auto) 0.2 0.2 (0.0-0.8) K/uL Eos # (Auto) 0.1 0.1 (0.0-0.7) K/uL Baso # (Auto) 0.0 0.0 (0.0-0.1) K/uL Nucleated RBC % 0.0 0.0 /100WBC Nucleated RBCs # 0 0 K/uL Sodium 140 (136-145) mmol/L Potassium 3.7 (3.5-5.1) mmol/L Chloride 103 (98-107) mmol/L Carbon Dioxide 26.6 (21.0-32.0) mmol/L BUN 16 (7.0-18.0) mg/dL Creatinine 1.3 H (0.6-1.0) mg/dL Est Cr Clr Drug Dosing 38.23 mL/min Estimated GFR (MDRD) 40.6 ml/min Glucose 119 H (74-106) mg/dL Calcium 8.2 L (8.5-10.1) mg/dL Total Bilirubin 0.4 (0.2-1.0) mg/dL AST 17 (15-37) IU/L ALT 16 (14-63) IU/L Alkaline Phosphatase 106 (46-116) U/L Total Protein 6.4 (6.4-8.2) g/dL Albumin 3.2 L (3.4-5.0) g/dL Globulin 3.2 (2.6-4.0) g/dL Albumin/Globulin Ratio 1.0 (0.9-1.6) Lipase 80 (73-393) U/L 04/09/19 Range/Units 05:56 WBC (4.0-11.0) K/uL RBC (4.30-5.90) M/uL Hgb (12.0-16.0) g/dL Hct (36.0-46.0) % MCV (80.0-98.0) fL MCH (27.0-32.0) pg MCHC (31.0-37.0) g/dL RDW Std Deviation (28.0-62.0) fl RDW Coeff of Antonieta (11.0-15.0) % Plt Count (150-400) K/uL MPV (7.40-12.00) fL Neut % (Auto) (48.0-80.0) % Lymph % (Auto) (16.0-40.0) % [place] % (Auto) (0.0-15.0) % Eos % (Auto) (0.0-7.0) % Baso % (Auto) (0.0-1.5) % Neut # (Auto) (1.4-5.7) K/uL Lymph # (Auto) (0.6-2.4) K/uL [place] # (Auto) (0.0-0.8) K/uL Eos # (Auto) (0.0-0.7) K/uL Baso # (Auto) (0.0-0.1) K/uL Nucleated RBC % /100WBC Nucleated RBCs # K/uL Sodium 141 (136-145) mmol/L Potassium 3.7 (3.5-5.1) mmol/L Chloride 106 (98-107) mmol/L Carbon Dioxide 28.6 (21.0-32.0) mmol/L BUN 13 (7.0-18.0) mg/dL Creatinine 1.2 H (0.6-1.0) mg/dL Est Cr Clr Drug Dosing 41.42 mL/min Estimated GFR (MDRD) 44.5 ml/min Glucose 91 (74-106) mg/dL Calcium 7.7 L (8.5-10.1) mg/dL Total Bilirubin (0.2-1.0) mg/dL AST (15-37) IU/L ALT (14-63) IU/L Alkaline Phosphatase (46-116) U/L Total Protein (6.4-8.2) g/dL Albumin (3.4-5.0) g/dL Globulin (2.6-4.0) g/dL Albumin/Globulin Ratio (0.9-1.6) Lipase (73-393) U/L Result Diagrams: 04/09/19 05:56 04/09/19 05:56 - Problem List (1) Dehydration SNOMED Code(s): 01438386 ICD Code: E86.0 - DEHYDRATION Status: Acute Priority: High Current Visit: Yes (2) Vomiting SNOMED Code(s): 532711392 ICD Code: R11.10 - VOMITING, UNSPECIFIED Status: Acute Current Visit: Yes Qualifiers: Vomiting type: unspecified Vomiting Intractability: intractable Nausea presence: with nausea Qualified Code(s): R11.2 - Nausea with vomiting, unspecified (3) Oropharyngeal cancer Status: Acute Current Visit: Yes (4) COLD, Chronic obstructive lung disease SNOMED Code(s): 82640965 ICD Code: J44.9 - CHRONIC OBSTRUCTIVE PULMONARY DISEASE, UNSPECIFIED Status : Acute Current Visit: No (5) Leukopenia due to antineoplastic chemotherapy SNOMED Code(s): 609677455 ICD Code: D70.1 - AGRANULOCYTOSIS SECONDARY TO CANCER CHEMOTHERAPY; T45.1X5A - ADVERSE EFFECT OF ANTINEOPLASTIC AND IMMUNOSUP DRUGS, INIT Status: Chronic Priority: High Current Visit: Yes (6) 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 SNOMED Code(s): 013925447 ICD Code: D64.81 - ANEMIA DUE TO ANTINEOPLASTIC CHEMOTHERAPY; C13.9 - MALIGNANT NEOPLASM OF HYPOPHARYNX, UNSPECIFIED; T45.1X5A - ADVERSE EFFECT OF ANTINEOPLASTIC AND IMMUNOSUP DRUGS, INIT Status: Chronic Priority: High Current Visit: Yes Problem List Initiated/Reviewed/Updated: Yes Orders Last 24hrs: Active Orders 24 hr Category Date Time Status Patient Status [ADT] Stat ADT 04/09/19 01:06 Active Regular Diet [DIET] Diet 04/09/19 Breakfast Active Acetaminophen [Tylenol] Med 04/09/19 02:00 Active 650 mg PO Q6H PRN Ondansetron [Zofran] Med 04/09/19 01:59 Active 8 mg IVPUSH Q6H PRN Sodium Chloride 0.9% [Normal Saline] 1,000 ml Med 04/09/19 02:15 Active IV ASDIRECTED oxyCODONE Med 04/09/19 02:00 Active 5 mg PO Q4H PRN Medication Orders Acetaminophen (Tylenol) 650 mg PO Q6H PRN PRN Reason: Pain (mild 1-3) Sodium Chloride (Normal Saline) 1,000 mls @ 125 mls/hr IV ASDIRECTED JAD Last Admin: 04/09/19 02:19 Dose: 125 mls/hr Ondansetron HCl (Zofran) 8 mg IVPUSH Q6H PRN PRN Reason: Nausea/Vomiting Last Admin: 04/09/19 02:19 Dose: 8 mg Oxycodone HCl (Oxycodone) 5 mg PO Q4H PRN PRN Reason: Pain (moderate 4-6) Last Admin: 04/09/19 03:04 Dose: 5 mg Assessment/Plan Comment:: The patient is a 68-year-old lady who was admitted secondary to intractable nausea and vomiting which is resulted in dehydration. The patient had been taking oral Zofran and I discontinued this and instituted IV Zofran for her vomiting associated with chemotherapy and radiation. The patient also is leukopenic and this will be monitored with repeat laboratory testings. The patient is currently on chronic anticoagulation and is a fall risk therefore DVT prophylaxis from pharmacologic or SCDs is not indicated. I did have a long discussion with the patient with regards to her overall health and she has elected to be in a DO NOT INTUBATE/DO NOT RESUSCITATE category. Patient also has been agreeable to receiving information with regards to hospice. Hospice consult place. PTOT is also been ordered for the patient. The patient may be appropriate for discharge in 2 days depending upon her symptomology and status.
[2019-04-09] MEDS ORDERED: Albuterol 8 GM Inhaler INH PRN (07:32)
[2019-04-09] MEDS ORDERED: ClonazePAM 1 MG Tab PO PRN (07:32)
[2019-04-09] MEDS ORDERED: Docusate Sodium 100 MG Cap PO PRN (07:35)
[2019-04-09] MEDS ORDERED: Losartan 50 MG Tab PO SCH (07:50)
[2019-04-09] MEDS: Ondansetron 4 MG/2 ML SDV IVPUSH SCH ×3 (08:10→20:02)
[2019-04-09] MEDS: Morphine 2 MG/ML Syringe IVPUSH PRN ×2 (12:35→18:55)
[2019-04-09] MEDS ORDERED: Desvenlafaxine [Pristiq] 100 MG PO SCH (18:00)
[2019-04-09] MEDS ORDERED: Rivaroxaban 10 MG Tab PO SCH (21:00)
[2019-04-10] MEDS: Ondansetron 4 MG/2 ML SDV IVPUSH SCH ×2 (01:22→08:24)
[2019-04-10] MEDS: Sodium Chloride 0.9% 1,000 ML IV SCH (04:51)
[2019-04-10] MEDS: Omeprazole 20 MG Cap.CR PO SCH ×2 (05:44→07:37)
[2019-04-10] MEDS: Losartan 50 MG Tab PO SCH ×2 (06:51→08:25)
[2019-04-10 07:36] VITALS: BP 147/76
[2019-04-10] MEDS ORDERED: Magnesium Sulfate/Water 4 GM in Premix Bag 1 BAG IV ONE (08:08)
--- NOTE | 2019-04-10 09:57 | PCM.DCSUM1 ---
Discharge Summary - Hospital Course Brief History: This a 68-year-old female who had presented to the ED out of concern for nausea or vomiting. The patient recently had chemotherapy and radiation therapy for squamous cell carcinoma left tonsil. The patient is also having some pain in her neck and is feeling weak. The patient has been taking Zofran at home and this has not been helping her. The patient has denied any fever or chills. She's had no diarrhea or constipation. The patient has been complaining of headache as well. Diagnosis: Stroke: No - Discharge Data Discharge Date: 04/10/19 Discharge Disposition: Home, [facility] Condition: Good - Discharge Diagnosis/Problem(s) (1) On enteral nutrition at home SNOMED Code(s): 71845808, 671432996 ICD Code: Z78.9 - OTHER SPECIFIED HEALTH STATUS Status: Acute Current Visit: Yes (2) At risk for aspiration related to tube feeding SNOMED Code(s): 984187343 ICD Code: Z91.89 - OTH PERSONAL RISK FACTORS, NOT ELSEWHERE CLASSIFIED Status: Acute Current Visit: Yes (3) Oropharyngeal cancer Status: Acute Current Visit: Yes (4) Vomiting SNOMED Code(s): 696189876 ICD Code: R11.10 - VOMITING, UNSPECIFIED Status: Acute Current Visit: Yes Qualifiers: Vomiting type: unspecified Vomiting Intractability: intractable Nausea presence: with nausea Qualified Code(s): R11.2 - Nausea with vomiting, unspecified (5) Dehydration SNOMED Code(s): 15702758 ICD Code: E86.0 - DEHYDRATION Status: Acute Priority: High Current Visit: Yes (6) 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 SNOMED Code(s): 927535770 ICD Code: D64.81 - ANEMIA DUE TO ANTINEOPLASTIC CHEMOTHERAPY; C13.9 - MALIGNANT NEOPLASM OF HYPOPHARYNX, UNSPECIFIED; T45.1X5A - ADVERSE EFFECT OF ANTINEOPLASTIC AND IMMUNOSUP DRUGS, INIT Status: Chronic Priority: High Current Visit: Yes (7) Leukopenia due to antineoplastic chemotherapy SNOMED Code(s): 567406197 ICD Code: D70.1 - AGRANULOCYTOSIS SECONDARY TO CANCER CHEMOTHERAPY; T45.1X5A - ADVERSE EFFECT OF ANTINEOPLASTIC AND IMMUNOSUP DRUGS, INIT Status: Chronic Priority: High Current Visit: Yes (8) Tonsillar cancer Status: Acute Current Visit: Yes (9) Anxiety and depression SNOMED Code(s): 042098175 ICD Code: F41.9 - ANXIETY DISORDER, UNSPECIFIED; F32.9 - MAJOR DEPRESSIVE DISORDER, SINGLE EPISODE, UNSPECIFIED Status: Chronic Current Visit: No (10) CHF (congestive heart failure) SNOMED Code(s): 55331770 ICD Code: I50.9 - HEART FAILURE, UNSPECIFIED Status: Chronic Current Visit: No Qualifiers: Qualified Code(s): I50.9 - Heart failure, unspecified (11) COPD (chronic obstructive pulmonary disease) SNOMED Code(s): 79464346 ICD Code: J44.9 - CHRONIC OBSTRUCTIVE PULMONARY DISEASE, UNSPECIFIED Status : Chronic Current Visit: No Qualifiers: COPD type: chronic bronchitis Chronic bronchitis type: unspecified Qualified Code(s): J42 - Unspecified chronic bronchitis - Patient Summary/Data Consults: Consultations 04/09/19 07:35 Consult to Hospice [CONS] Routine OT Evaluation and Treatment [CONS] Routine PT Evaluation and Treatment [CONS] Routine 04/09/19 10:05 Consult to [employer] [CONS] Routine - Patient Instructions Diet: Regular Diet as Tolerated (resume tube feedings, 60 ml bolus four times daily. with 30 ml water flushes before and after.) Activity: As Tolerated Driving: Do Not Drive Showering/Bathing: May Shower Notify Provider of: Fever, Increased Pain, Swelling and Redness, Drainage, Nausea and/or Vomiting - Discharge Plan *PRESCRIPTION DRUG MONITORING PROGRAM REVIEWED*: Not Applicable *COPY OF PRESCRIPTION DRUG MONITORING REPORT IN PATIENT SAGAR: Not Applicable Home Medications: Home Meds Albuterol Sulfate [Albuterol Sulfate HFA] 2 puff INH Q4H PRN 06/20/14 [History] ClonazePAM [KlonoPIN] 1 mg PO BID PRN 06/20/14 [History] Losartan [Cozaar] 50 mg PO ACBREAKFAST 06/20/14 [History] Desvenlafaxine [Pristiq] 100 mg PO QPM 12/18/14 [History] EPINEPHrine [Epipen 2-Wyatt] 0.3 mg IM ONETIME PRN 12/18/14 [History] Omeprazole 40 mg PO ACBREAKFAST 04/04/17 [History] Ondansetron [Zofran ODT] 4 mg PO Q4HR PRN 04/05/17 [History] Nitroglycerin 1 tab SL ASDIRECTED PRN 04/08/19 [History] Rivaroxaban [Xarelto] 1 tab PO BEDTIME 04/08/19 [History] Venlafaxine [Effexor XR] 1 tab PO DAILY 04/08/19 [History] traMADol [Ultram] 50 mg PO Q4H PRN 04/09/19 [History] Oxygen Therapy Mode: Room Air Referrals: Phillip Robbins MD [Primary Care Provider] - Celestine Patterson MD [Ordering Only Provider] - 04/17/19 1:30 pm (Your appointment was not able to be made with Dr. Robbins because of his schedule. ) - Discharge Summary/Plan Comment DC Time >30 min.: No Discharge Summary/Plan Comment: Admitting diagnoses: Nausea/vomiting Dehydration Neck pain- s/p radiation to neck Discharge Diagnoses: N/V resolved Dehydration Other PMH Squamous cell cancer of L tonsil Anemia Enteral feedings via peg Protein malnutrition Chemotherapy, radiation CHF HTN COPD Jessi is feeling much better this morning. She was admitted for N/V, which was treated with IV Zofran and IVFs. she is eating per mouth some and took enteral feedings yesterday. Nursing is reporting she is not happy with enteral feedings and refused this morning. Today she is requesting discharge, reports feeling much better. She is to continue all home medications and to follow up with PCP and Oncology as previously planned. She did meet with Hospice, but felt currently they would like to continue with treatment. She will be sent home with resuming Home Health. She will have prescription for mechanical hospital bed in which she needs due to high risk of aspiration with enteral feedings which need to be given four times daily and then needs help with repositioning frequently. - General Info Date of Service: 04/10/19 Admission Dx/Problem (Free Text: Admission Diagnosis/Problem Admission Diagnosis/Problem Vomiting Subjective Update: Sitting up in the chair this morning. No pain. Feeling much better. Requesting to go home. Eating, nausea much improved. Functional Status: Reports: Pain Controlled, Tolerating Diet, Urinating - Review of Systems General: Reports: Malaise (but improved) Pulmonary: Reports: No Symptoms. Denies: Shortness of Breath Cardiovascular: Reports: No Symptoms. Denies: Chest Pain Gastrointestinal: Reports: No Symptoms. Denies: Abdominal Pain, Nausea, Vomiting Genitourinary: Reports: No Symptoms Musculoskeletal: Reports: No Symptoms Skin: Reports: No Symptoms Neurological: Reports: No Symptoms Psychiatric: Reports: No Symptoms - Patient Data Vitals - Most Recent: Last Vital Signs Temp 98.4 F 04/10/19 07:15 Pulse 87 04/10/19 07:15 Resp 16 04/10/19 07:15 BP 147/76 H 04/10/19 07:15 Pulse Ox 96 04/10/19 07:15 Weight - Most Recent: 97.477 kg I&O - Last 24 hours: Intake & Output 04/09/19 04/10/19 04/10/19 22:59 06:59 14:59 Intake Total 1645 1170 100 Output Total 100 50 Balance 1545 1120 100 Lab Results - Last 24 hrs: Laboratory Results - last 24 hr 04/10/19 04/10/19 Range/Units 05:10 05:10 WBC 2.68 L (4.0-11.0) K/uL RBC 3.60 L (4.30-5.90) M/uL Hgb 10.4 L (12.0-16.0) g/dL Hct 30.8 L (36.0-46.0) % MCV 85.6 (80.0-98.0) fL MCH 28.9 (27.0-32.0) pg MCHC 33.8 (31.0-37.0) g/dL RDW Std Deviation 38.6 (28.0-62.0) fl RDW Coeff of Antonieta 13 (11.0-15.0) % Plt Count 197 (150-400) K/uL MPV 9.30 (7.40-12.00) fL Neut % (Auto) 68.6 (48.0-80.0) % Lymph % (Auto) 18.3 (16.0-40.0) % Pickett % (Auto) 8.6 (0.0-15.0) % Eos % (Auto) 4.1 (0.0-7.0) % Baso % (Auto) 0.4 (0.0-1.5) % Neut # (Auto) 1.8 (1.4-5.7) K/uL Lymph # (Auto) 0.5 L (0.6-2.4) K/uL Pickett # (Auto) 0.2 (0.0-0.8) K/uL Eos # (Auto) 0.1 (0.0-0.7) K/uL Baso # (Auto) 0.0 (0.0-0.1) K/uL Nucleated RBC % 0.0 /100WBC Nucleated RBCs # 0 K/uL Sodium 141 (136-145) mmol/L Potassium 3.5 (3.5-5.1) mmol/L Chloride 106 (98-107) mmol/L Carbon Dioxide 27.0 (21.0-32.0) mmol/L BUN 12 (7.0-18.0) mg/dL Creatinine 1.1 H (0.6-1.0) mg/dL Est Cr Clr Drug Dosing 45.19 mL/min Estimated GFR (MDRD) 49.2 ml/min Glucose 94 (74-106) mg/dL Calcium 7.6 L (8.5-10.1) mg/dL Phosphorus 3.3 (2.6-4.7) mg/dL Magnesium 1.2 L (1.8-2.4) mg/dL Med Orders - Current: Current Medications Acetaminophen (Tylenol) 650 mg PO Q6H PRN PRN Reason: Pain (mild 1-3) Albuterol (Ventolin Hfa) 0 gm INH Q4H PRN PRN Reason: Wheezing Clonazepam (Klonopin) 1 mg PO BID PRN PRN Reason: Anxiety Docusate Sodium (Colace) 100 mg PO BID PRN PRN Reason: Constipation Sodium Chloride (Normal Saline) 1,000 mls @ 100 mls/hr IV ASDIRECTED [facility] Last Admin: 04/10/19 04:51 Dose: 100 mls/hr Magnesium Sulfate 4 gm/ Premix 100 mls @ 50 mls/hr IV ONETIME ONE Stop: 04/10/19 10:07 Last Admin: 04/10/19 08:26 Dose: 50 mls/hr Omeprazole (Omeprazole) 40 mg PO ACBREAKFAST [facility] Last Admin: 04/10/19 07:37 Dose: Not Given Ondansetron HCl (Zofran) 8 mg IVPUSH Q6H PRN PRN Reason: Nausea/Vomiting Last Admin: 04/09/19 02:19 Dose: 8 mg Ondansetron HCl (Zofran) 4 mg IVPUSH Q6H [facility] Last Admin: 04/10/19 08:24 Dose: 4 mg Oxycodone HCl (Oxycodone) 5 mg PO Q4H PRN PRN Reason: Pain (moderate 4-6) Last Admin: 04/09/19 23:36 Dose: 5 mg Desvenlafaxine [ (Pristiq] 100 Mg) 1 each PO QPM [facility] Last Admin: 04/09/19 18:40 Dose: Not Given Losartan 50 Mg Tab 50 each PO ACBREAKFAST [facility] Last Admin: 04/10/19 08:25 Dose: 50 each Rivaroxaban (Xarelto) 20 mg PO BEDTIME [facility] Last Admin: 04/09/19 23:36 Dose: 20 mg Discontinued Medications Sodium Chloride (Normal Saline) 1,000 mls @ 999 mls/hr IV .Bolus ONE Stop: 04/09/19 00:07 Last Admin: 04/08/19 23:28 Dose: 999 mls/hr Sodium Chloride (Normal Saline) 1,000 mls @ 125 mls/hr IV ASDIRECTED [facility] Last Infusion: 04/09/19 10:19 Dose: Infused Losartan Potassium (Cozaar) 50 mg PO ACBREAKFAST [facility] Last Admin: 04/09/19 08:13 Dose: 50 mg Morphine Sulfate (Morphine) 2 mg IVPUSH ONETIME ONE Stop: 04/08/19 23:15 Last Admin: 04/08/19 23:28 Dose: 2 mg Morphine Sulfate (Morphine) 2 mg IVPUSH Q2H PRN PRN Reason: Pain (severe 7-10) Stop: 04/10/19 07:36 Last Admin: 04/09/19 18:55 Dose: 2 mg Ondansetron HCl (Zofran) 4 mg IVPUSH ONETIME ONE Stop: 04/08/19 23:09 Last Admin: 04/08/19 23:28 Dose: 4 mg Ondansetron HCl (Zofran) 4 mg IVPUSH ONETIME ONE Stop: 04/09/19 00:09 Last Admin: 04/09/19 00:12 Dose: 4 mg Ondansetron HCl (Zofran) 4 mg IVPUSH ONETIME ONE Stop: 04/09/19 12:18 Last Admin: 04/09/19 12:33 Dose: 4 mg - Exam General: Reports: Alert, Oriented, Cooperative, No Acute Distress Lungs: Reports: Clear to Auscultation, Normal Respiratory Effort Cardiovascular: Reports: Regular Rate, Regular Rhythm GI/Abdominal Exam: Normal Bowel Sounds, Soft, Non-Tender, Other (PEG tube in place) Extremities: Normal Inspection, Normal Range of Motion, Non-Tender, No Pedal Edema Neurological: Reports: No New Focal Deficit Psy/Mental Status: Reports: Alert, Normal Affect, Normal Mood *Q Meaningful Use (DIS) - VTE *Q VTE Mechanical Contraindications *Q: At Risk for Falls VTE Pharmacological Contraindications *Q: Risk of Bleeding
== END 2019-04-10 13:15 | disposition home health service (06) ==
LOC: MW.ED 22:56 → MW.MS 04-09 01:14
PROVIDERS: ADMIT Internal Medicine; ATTEND Internal Medicine
DX: R11.2 Nausea with vomiting, unspecified (principal); E86.0 Dehydration; J44.9 Chronic obstructive pulmonary disease, unspecified; D64.81 Anemia due to antineoplastic chemotherapy; D70.1 Agranulocytosis secondary to cancer chemotherapy; C09.0 Malignant neoplasm of tonsillar fossa; I11.0 Hypertensive heart disease with heart failure; I50.9 Heart failure, unspecified; F41.9 Anxiety disorder, unspecified; F32.9 Major depressive disorder, single episode, unspecified; K21.9 Gastro-esophageal reflux disease without esophagitis; M46.96 Unspecified inflammatory spondylopathy, lumbar region; G89.29 Other chronic pain; Z87.891 Personal history of nicotine dependence; Z86.73 Personal history of transient ischemic attack (TIA), and cerebral infarction without residual deficits; Z91.030 Bee allergy status; Z91.041 Radiographic dye allergy status; Z88.7 Allergy status to serum and vaccine; Z88.8 Allergy status to other drugs, medicaments and biological substances; Z91.048 Other nonmedicinal substance allergy status; Z79.899 Other long term (current) drug therapy; Z79.01 Long term (current) use of anticoagulants
CPT/HCPCS: 36415; 74022; 80048; 80053; 83690; 83735; 84100; 85025; 96361; 96365; 96366; 96372; 96375; 96376; 97161; 97165; 97530; 99285; A4217; A9270; G0378; J1642; J2270; J2405; J3475; J7040; 96374; 99284

== ENCOUNTER 2019-04-27 16:14 | Emergency (ER) | payer MEDICARE, MEDICAID ==
[2019-04-27] MEDS ORDERED: Sodium Chloride 0.9% 10 ML Syringe FLUSH PRN (16:36)
[2019-04-27] MEDS ORDERED: Sodium Chloride 0.9% 2.5 ML Syringe FLUSH PRN (16:36)
[2019-04-27] MEDS ORDERED: Sodium Chloride 0.9% 1,000 ML IV ONE (16:38)
--- NOTE | 2019-04-27 16:42 | EDM.PDOC ---
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 Her last dose was 2 days ago at the oncology center [facility]. She has a PEG tube that was placed on March 21 and today noted fecal matter coming out around the sides of the stoma. She has had 5 days of generalized abdominal pain and yesterday had blood drawn in [facility] and had some electrolytes replaced but did not complain of the pain. Review of systems: As per history of present illness and below otherwise all systems reviewed and negative. Past medical history: As per history of present illness and as reviewed below otherwise noncontributory. Surgical history: As per history of present illness and as reviewed below otherwise noncontributory. Social history: No reported history of drug or alcohol abuse. Family history: As per history of present illness and as reviewed below otherwise noncontributory. Physical exam: General: Well developed, well nourished in NAD HEENT: Atraumatic, normocephalic, pupils reactive, negative for conjunctival pallor or scleral icterus, mucous membranes moist, throat clear, neck supple, nontender, trachea midline. Lungs: Clear to auscultation, breath sounds equal bilaterally, chest nontender. Heart: S1S2, regular, negative for clicks, rubs, or JVD. Abdomen: PEG tube does have stool around the edges, NABS, Soft, nondistended, tender without rebound or guarding. Negative for masses or hepatosplenomegaly. Negative for costovertebral tenderness. Pelvis: Stable nontender. Genitourinary: Deferred. Rectal: Deferred. Extremities: Atraumatic, negative for cords or calf pain. Neurovascular unremarkable. Neuro: Awake, alert, oriented. Cranial nerves II through XII unremarkable. Cerebellum unremarkable. Motor and sensory unremarkable throughout. Exam nonfocal. Skin:warm and dry Diagnostics: CBC, chemistry, lipase, type and screen, magnesium, blood cultures, lactate, CT abdomen and pelvis without contrast Therapeutics: IV hydration, packed red blood cells-2 units, Zosyn ED Course: Patient remained afebrile and stable in the ED. Dr. Perez at [facility] was consulted from general surgery and he recommended sending her home. I am not comfortable with this therefore I consulted a second surgeon at [facility] for a second opinion. He recommended admission to the hospitalist and he will consult for eventual revision of this PEG tube Impression: Improperly placed PEG tube through the colon Pancytopenia secondary chemotherapy for oropharyngeal cancer Prescriptions: None Plan: Transfer to [facility] to Dr. Fong, hospitalist. She will go by ground ambulance Definitive disposition and diagnosis as appropriate pending reevaluation and review of above. Right Abdominal Pain Pain Score (Numeric/FACES): 8 - Related Data Allergies Allergy/AdvReac Type Severity Reaction Status Date / Time bee pollen Allergy unknown Verified 04/27/19 16:35 eszopiclone [From Lunesta] Allergy Hypertensio Verified 04/27/19 16:35 n Iodinated Contrast- Oral and Allergy Anaphylactic Verified 04/27/19 16:35 IV Dye Shock [Iodinated Contrast Media - IV Dye] lorazepam Allergy Facial Verified 04/27/19 16:35 Swelling pregabalin [From Lyrica] Allergy Facial Verified 04/27/19 16:35 Swelling flu vaccination Allergy Anaphylactic Uncoded 04/09/19 03:56 Shock Home Meds: Home Meds Albuterol Sulfate [Albuterol Sulfate HFA] 2 puff INH Q4H PRN 06/20/14 [History] ClonazePAM [KlonoPIN] 1 mg PO BID PRN 06/20/14 [History] Losartan [Cozaar] 50 mg PO ACBREAKFAST 06/20/14 [History] Desvenlafaxine [Pristiq] 100 mg PO QPM 12/18/14 [History] EPINEPHrine [Epipen 2-Wyatt] 0.3 mg IM ONETIME PRN 12/18/14 [History] Omeprazole 40 mg PO ACBREAKFAST 04/04/17 [History] Nitroglycerin 1 tab SL ASDIRECTED PRN 04/08/19 [History] Rivaroxaban [Xarelto] 20 mg PO WITHDINNER 04/08/19 [History] Ondansetron [Zofran ODT] 4 mg PO Q6H PRN #30 tab.dis 04/10/19 [Rx] Diphenhyd/Lidocaine/Nystatin [Magic Mouthwash] 5 ml PO Q4H PRN 04/27/19 [History ] Hydrocodone/Acetaminophen [Hydrocodon-Acetamin 7.5-325/15] 15 ml GTUBE Q4H PRN 04/27/19 [History] Ondansetron [Zofran] 8 mg PO Q8H PRN 04/27/19 [History] Potassium Chloride 40 meq GTUBE DAILY 04/27/19 [History] Prochlorperazine Maleate [Compazine] 10 mg PO Q6H PRN 04/27/19 [History] fentaNYL [Fentanyl] 12 mcg TD Q72H 04/27/19 [History] Past Medical History HEENT History: Reports: Impaired Vision Other HEENT History: asthma Cardiovascular History: Reports: Heart Failure, High Cholesterol, Hypertension Respiratory History: Reports: Asthma, COPD, SOB Other Respiratory History: 40 Plus years use of tobacco products, QUIT 2014 Gastrointestinal History: Reports: GERD, PUD Other Gastrointestinal History: Heartburn/GERD Other Genitourinary History: Frequent Urination 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 Dermatologic History: Reports: None - Infectious Disease History Infectious Disease History: Reports: None, Other (See Below) Other Infectious Disease History: Pt states she does not remember - Past Surgical History Other HEENT Surgeries/Procedures: UPPER 2 Front teeth Implants Other GI Surgeries/Procedures: Lap Coco Female Surgical History: Reports: Tubal Ligation Other Musculoskeletal Surgeries/Procedures:: Bilateral Total KNees Social & Family History - Family History Family Medical History: Noncontributory Psychiatric: Reports: Depression Hematologic: Reports: SLE Immunologic: Reports: SLE - Caffeine Use Caffeine Use: Reports: Coffee - Living Situation & Occupation Living situation: Reports: with Family Occupation: Retired ED ROS GENERAL - Review of Systems Review Of Systems: See Below ED EXAM, GENERAL - Physical Exam Exam: See Below Course - Vital Signs Last Recorded V/S: Last Vital Signs Temp 98.1 F 04/27/19 16:35 Pulse 78 04/27/19 19:10 Resp 20 04/27/19 19:10 BP 136/52 L 04/27/19 19:10 Pulse Ox 99 04/27/19 19:10 - Orders/Labs/Meds Orders: Active Orders 24 hr Category Date Time Status CULTURE BLOOD [BC] Stat Lab 04/27/19 19:28 Ordered CULTURE BLOOD [BC] Stat Lab 04/27/19 19:28 Ordered LACTATE WITH REFLEX [BG] Stat Lab 04/27/19 19:28 Ordered RED BLOOD CELLS LP [BBK] Stat Lab 04/27/19 17:00 Results TYPE AND SCREEN [BBK] Stat Lab 04/27/19 17:00 Results Sodium Chloride 0.9% [Saline Flush] Med 04/27/19 16:36 Active 10 ml FLUSH ASDIRECTED PRN Sodium Chloride 0.9% [Saline Flush] Med 04/27/19 16:36 Active 2.5 ml FLUSH ASDIRECTED PRN Blood Culture x2 Reflex Set [OM.PC] Stat Oth 04/27/19 19:28 Ordered Saline Lock Insert [OM.PC] Stat Oth 04/27/19 16:35 Ordered Transfuse Red Blood Cells [COMM] Stat Oth 04/27/19 17:36 Ordered Medication Orders Sodium Chloride (Saline Flush) 10 ml FLUSH ASDIRECTED PRN PRN Reason: Keep Vein Open Last Admin: 04/27/19 17:07 Dose: 10 ml Sodium Chloride (Saline Flush) 2.5 ml FLUSH ASDIRECTED PRN PRN Reason: Keep Vein Open Last Admin: 04/27/19 17:06 Dose: 2.5 ml Labs: Laboratory Tests 04/27/19 04/27/19 04/27/19 Range/Units 17:00 17:00 17:00 WBC 1.92 L (4.0-11.0) K/uL RBC 2.46 L (4.30-5.90) M/uL Hgb 7.2 L (12.0-16.0) g/dL Hct 20.5 L (36.0-46.0) % MCV 83.3 (80.0-98.0) fL MCH 29.3 (27.0-32.0) pg MCHC 35.1 (31.0-37.0) g/dL RDW Std Deviation 37.7 (28.0-62.0) fl RDW Coeff of Antonieta 13 (11.0-15.0) % Plt Count 95 L (150-400) K/uL MPV 9.80 (7.40-12.00) fL Neut % (Auto) 78.2 (48.0-80.0) % Lymph % (Auto) 15.1 L (16.0-40.0) % [place] % (Auto) 5.7 (0.0-15.0) % Eos % (Auto) 1.0 (0.0-7.0) % Baso % (Auto) 0.0 (0.0-1.5) % Neut # (Auto) 1.5 (1.4-5.7) K/uL Lymph # (Auto) 0.3 L (0.6-2.4) K/uL Kent # (Auto) 0.1 (0.0-0.8) K/uL Eos # (Auto) 0.0 (0.0-0.7) K/uL Baso # (Auto) 0.0 (0.0-0.1) K/uL Nucleated RBC % 0.0 /100WBC Nucleated RBCs # 0 K/uL Sodium 142 (136-145) mmol/L Potassium 3.3 L (3.5-5.1) mmol/L Chloride 106 (98-107) mmol/L Carbon Dioxide 27.6 (21.0-32.0) mmol/L BUN 24 H (7.0-18.0) mg/dL Creatinine 1.0 (0.6-1.0) mg/dL Est Cr Clr Drug Dosing 49.70 mL/min Estimated GFR (MDRD) 55.0 ml/min Glucose 103 (74-106) mg/dL Calcium 6.6 L (8.5-10.1) mg/dL Magnesium 1.4 L (1.8-2.4) mg/dL Total Bilirubin 0.5 (0.2-1.0) mg/dL AST 22 (15-37) IU/L ALT 30 (14-63) IU/L Alkaline Phosphatase 76 (46-116) U/L Total Protein 5.7 L (6.4-8.2) g/dL Albumin 3.0 L (3.4-5.0) g/dL Globulin 2.7 (2.6-4.0) g/dL Albumin/Globulin Ratio 1.1 (0.9-1.6) Lipase 101 (73-393) U/L Blood Type B POSITIVE Antibody Screen NEGATIVE Crossmatch See Detail Meds: Medications Generic Name Dose Route Start Last Admin Trade Name Freq PRN Reason Stop Dose Admin Sodium Chloride 10 ml 04/27/19 16:36 04/27/19 17:07 Saline Flush FLUSH 10 ml ASDIRECTED PRN Administration Keep Vein Open Sodium Chloride 2.5 ml 04/27/19 16:36 04/27/19 17:06 Saline Flush FLUSH 2.5 ml ASDIRECTED PRN Administration Keep Vein Open Discontinued Medications Generic Name Dose Route Start Last Admin Trade Name Freq PRN Reason Stop Dose Admin Sodium Chloride 1,000 mls @ 999 mls/hr 04/27/19 16:38 04/27/19 17:05 Normal Saline IV 04/27/19 17:38 999 mls/hr .Bolus ONE Administration Departure - Departure Time of Disposition: 19:53 Disposition: DC/Tfer to Acute Hospital 02 Condition: Good Clinical Impression: Leaking percutaneous endoscopic gastrostomy (PEG) tube, Perforation of colon, Pancytopenia - Discharge Information *PRESCRIPTION DRUG MONITORING PROGRAM REVIEWED*: No *COPY OF PRESCRIPTION DRUG MONITORING REPORT IN PATIENT SAGAR: No Referrals: PCP,None [Primary Care Provider] - Forms: ED Department Discharge - My Orders Last 24 Hours: My Active Orders 04/27/19 16:35 Saline Lock Insert [OM.PC] Stat 04/27/19 16:36 Sodium Chloride 0.9% [Saline Flush] 10 ml FLUSH ASDIRECTED PRN Sodium Chloride 0.9% [Saline Flush] 2.5 ml FLUSH ASDIRECTED PRN 04/27/19 17:00 RED BLOOD CELLS LP [BBK] Stat TYPE AND SCREEN [BBK] Stat 04/27/19 17:36 Transfuse Red Blood Cells [COMM] Stat 04/27/19 19:28 CULTURE BLOOD [BC] Stat CULTURE BLOOD [BC] Stat LACTATE WITH REFLEX [BG] Stat Blood Culture x2 Reflex Set [OM.PC] Stat - Assessment/Plan Last 24 Hours: My Active Orders 04/27/19 16:35 Saline Lock Insert [OM.PC] Stat 04/27/19 16:36 Sodium Chloride 0.9% [Saline Flush] 10 ml FLUSH ASDIRECTED PRN Sodium Chloride 0.9% [Saline Flush] 2.5 ml FLUSH ASDIRECTED PRN 04/27/19 17:00 RED BLOOD CELLS LP [BBK] Stat TYPE AND SCREEN [BBK] Stat 04/27/19 17:36 Transfuse Red Blood Cells [COMM] Stat 04/27/19 19:28 CULTURE BLOOD [BC] Stat CULTURE BLOOD [BC] Stat LACTATE WITH REFLEX [BG] Stat Blood Culture x2 Reflex Set [OM.PC] Stat
--- NOTE | 2019-04-27 19:00 | CT ---
INDICATION: Fecal material around PEG tube placed last month. TECHNIQUE: CT abdomen and pelvis without contrast. COMPARISON: Abdomen and pelvis CT 04/04/2017 FINDINGS: Lower chest: 4 millimeter noncalcified pulmonary nodule right lower lobe (2, 2). Minimal basilar discoid atelectasis. This is greatest at the left lower lobe. Liver: Normal in contour with focal fat adjacent to the falciform ligament. Gallbladder and bile ducts: Status post cholecystectomy. Pancreas: Unremarkable. No mass or inflammation. Spleen: Normal in size. No masses. Adrenal glands: Normal in size. No nodules. Kidneys: Normal in size. No masses, stones, or hydronephrosis. GI tract: There is a left upper quadrant gastrostomy tube with the balloon in the body of the stomach. However, note is made of an aberrant course of the gastrostomy tube catheter. Catheter appears to traverse the midtransverse colon in all 3 planes consistent with transcolonic placement of the tube (series 2, images 42-45; series 31366, image 19; series 44078, image 85). The small bowel is decompressed and note is made of prominent colonic diverticulosis without localizing inflammation. Vasculature: Atherosclerosis without abdominal aortic aneurysm. Pelvis: Unremarkable. No pelvic masses. Bones: Mild degenerative disc disease lumbar spine. IMPRESSION: 1. Aberrant gastrostomy tube position. The balloon is present within the body of the stomach, however the catheter traverses the transverse colon consistent with transcolonic placement. Surgical consult recommended. 2. Colonic diverticulosis without yariel diverticulitis. 3. Indeterminate pulmonary nodule right lower lobe measuring 4 millimeters. In a low risk patient, no further follow-up is required. In a high-risk patient, follow-up chest CT recommended in 12 months. Results called to Dr. Martin at 1858 on 04/27/2019 Please note that all CT scans at this facility use dose modulation, iterative reconstruction, and/or weight-based dosing when appropriate to reduce radiation dose to as low as reasonably achievable. Dictated by Lucas Grace MD @ Apr 27 2019 6:44PM Signed by Dr. Lucas Grace @ Apr 27 2019 6:59PM
[2019-04-27] MEDS ORDERED: Piperacillin/Tazobactam 3.375 GM in Sodium Chloride 0.9% 50 ML IV ONE (19:49)
[2019-04-27] MEDS ORDERED: LORazepam 2 MG/ML SDV IVPUSH ONE (20:38)
[2019-04-27] MEDS ORDERED: LORazepam 2 MG/ML SDV ONE (20:40)
[2019-04-27 20:57] VITALS: BP 140/83
== END 2019-04-27 21:00 ==
LOC: MW.ED 16:14
DX: K94.23 Gastrostomy malfunction (principal); K63.1 Perforation of intestine (nontraumatic); D61.818 Other pancytopenia; J44.9 Chronic obstructive pulmonary disease, unspecified; C10.9 Malignant neoplasm of oropharynx, unspecified; K21.9 Gastro-esophageal reflux disease without esophagitis; I11.0 Hypertensive heart disease with heart failure; I50.9 Heart failure, unspecified; Z79.899 Other long term (current) drug therapy; Z88.7 Allergy status to serum and vaccine; Z91.041 Radiographic dye allergy status; Z86.73 Personal history of transient ischemic attack (TIA), and cerebral infarction without residual deficits; Z91.030 Bee allergy status; Z88.8 Allergy status to other drugs, medicaments and biological substances; Z90.49 Acquired absence of other specified parts of digestive tract; Z98.51 Tubal ligation status; Z87.891 Personal history of nicotine dependence
CPT/HCPCS: 36430; 74176; 80053; 83605; 83690; 83735; 85025; 86850; 86900; 86901; 86920; 86921; 86922; 87040; 96361; 96365; 96375; 99285; J2060; J2543; J7040; J7050; P9016

== ENCOUNTER 2019-12-15 18:11 | Observation (INO) | payer MEDICARE, MEDICAID ==
--- NOTE | 2019-12-15 18:53 | CT ---
Head CT Technique: Multiple axial sections through the brain were obtained. Intravenous contrast was not utilized. Comparison: Prior head CT study is not available. Findings: Ventricles along with basal cisterns and sulci over the convexities are within normal limits for the patient's age. No abnormal parenchymal densities are seen. No evidence of intracranial hemorrhage. No midline shift or mass-effect is seen. Bone window settings were reviewed. Visualized paranasal sinuses and mastoid sinuses are clear. No acute calvarial finding is seen. Impression: 1. Nothing acute is identified on noncontrast head CT exam. Diagnostic code #1 This report was dictated in [place] Standard Time
[2019-12-15] MEDS ORDERED: Acetaminophen/oxyCODONE 325-5 MG Tab PO ONE (18:58)
--- NOTE | 2019-12-15 18:59 | CR ---
Right hand: 2 views of the right hand were obtained. Widening of the distance between the navicular bone and lunate is seen compatible with intercarpal ligament rupture. Mild joint space narrowing is scattered within the DIP and PIP joints. No discrete fracture or other abnormality is seen on this slightly limited study. Impression: 1. Degenerative change as noted above. Previous intercarpal ligament rupture between the navicular bone and lunate bone. 2. No definite acute bony abnormality is appreciated. Diagnostic code #2 This report was dictated in [place] Standard Time
--- NOTE | 2019-12-15 18:59 | CT ---
CT cervical spine Technique: Multiple axial sections were obtained from above C1 inferiorly to the bottom of T4. Reconstructed sagittal and coronal images were reviewed. Comparison: No prior cervical spine imaging is available. Findings: Degenerative apophyseal change is noted throughout the spine. Mild disc space narrowing is noted at C6-7, C7-T1 and within the visualized upper thoracic spine. Mild degenerative change is noted between the dens and anterior arch of C1. No fracture is identified. Neural foramina are felt to be fairly well patent. No central canal stenosis is seen. Scoliosis is noted. Impression: 1. Scoliosis and degenerative change. 2. No acute fracture or abnormal subluxation is appreciated. Diagnostic code #2 This report was dictated in [place] Standard Time
[2019-12-15] MEDS ORDERED: Lidocaine 1% with EPINEPHrine 1:100,000 10 ML MDV INJECT ONE (19:28)
[2019-12-15] MEDS ORDERED: Lidocaine 1% with EPINEPHrine 1:100,000 20 ML MDV INJECT ONE (19:28)
--- NOTE | 2019-12-15 19:37 | EDM.PDOC ---
ED HPI GENERAL MEDICAL PROBLEM - General Chief Complaint: Head Injury Stated Complaint: FALL Time Seen by Provider: 12/15/19 18:30 Source of Information: Reports: Patient, Family (Grand daughter, Raven Miller who withness the fall.) - History of Present Illness INITIAL COMMENTS - FREE TEXT/NARRATIVE: This 69 year old female presents to the ED after falling striking the right side of her head and hitting her hand. The grand daughter (Raven) states that she saw her grand mother fall as she was twisting her head to the left. The patient complained of subsequent headache and neck pain. She denies any LOC but was dazed. She denies any other complaints. Onset: Today head Pain Score (Numeric/FACES): 8 - Related Data Allergies Allergy/AdvReac Type Severity Reaction Status Date / Time bee pollen Allergy unknown Verified 04/27/19 16:35 eszopiclone [From Lunesta] Allergy Hypertensio Verified 04/27/19 16:35 n Iodinated Contrast Media Allergy Anaphylactic Verified 04/27/19 16:35 [Iodinated Contrast Media - Shock IV Dye] lorazepam Allergy Facial Verified 04/27/19 16:35 Swelling pregabalin [From Lyrica] Allergy Facial Verified 04/27/19 16:35 Swelling flu vaccination Allergy Anaphylactic Uncoded 04/09/19 03:56 Shock Home Meds: Home Meds Desvenlafaxine Succinate [Pristiq] 100 mg PO DAILY 12/15/19 [History] Losartan Potassium [Cozaar] 50 mg PO DAILY 12/15/19 [History] Omeprazole 40 mg PO DAILY 12/15/19 [History] Ondansetron [Zofran ODT] 4 mg PO Q6H PRN 12/15/19 [History] clonazePAM [Clonazepam] 1 mg PO BID PRN 12/15/19 [History] fentaNYL [Fentanyl] 1 each TD ASDIRECTED 12/15/19 [History] oxyCODONE 5 mg PO TID PRN 12/15/19 [History] Past Medical History HEENT History: Reports: Impaired Vision Other HEENT History: asthma Cardiovascular History: Reports: Heart Failure, High Cholesterol, Hypertension Respiratory History: Reports: Asthma, COPD, SOB Other Respiratory History: 40 Plus years use of tobacco products, QUIT 2014 Gastrointestinal History: Reports: GERD, PUD Other Gastrointestinal History: Heartburn/GERD Other Genitourinary History: Frequent Urination 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 Guerrier Psychiatric History: Reports: Depression Other Psychiatric History: Real Anxious before surgery "LIKE COCKTAIL before I Leave the Room" Endocrine/Metabolic History: Reports: None Hematologic History: Reports: None Immunologic History: Reports: None Oncologic (Cancer) History: Reports: Breast, Other (See Below) Other Oncologic History: throat Dermatologic History: Reports: None - Infectious Disease History Infectious Disease History: Reports: Chicken Pox, Measles, Mumps Other Infectious Disease History: Pt states she does not remember - Past Surgical History Other HEENT Surgeries/Procedures: UPPER 2 Front teeth Implants Other GI Surgeries/Procedures: Lap Coco Female Surgical History: Reports: Tubal Ligation Social & Family History - Family History Family Medical History: Noncontributory Psychiatric: Reports: Depression Hematologic: Reports: SLE Immunologic: Reports: SLE - Tobacco Use Smoking Status *Q: Never Smoker - Caffeine Use Caffeine Use: Reports: Coffee - Recreational Drug Use Recreational Drug Use: No - Living Situation & Occupation Living situation: Reports: with Family Occupation: Retired ED ROS GENERAL - Review of Systems Review Of Systems: See Below Constitutional: Reports: No Symptoms HEENT: Reports: No Symptoms Respiratory: Reports: No Symptoms Cardiovascular: Reports: No Symptoms Endocrine: Reports: No Symptoms GI/Abdominal: Reports: No Symptoms : Reports: No Symptoms Musculoskeletal: Reports: Neck Pain (at base of neck.), Other (swelling and pain in right hand) Skin: Reports: Other (laceration over right forehead) Neurological: Reports: Headache Psychiatric: Reports: No Symptoms Hematologic/Lymphatic: Reports: No Symptoms ED EXAM, HEAD INJURY - Physical Exam Exam: See Below Exam Limited By: No Limitations General Appearance: Alert, WD/WN, No Apparent Distress Head: Normocephalic, Scalp Tenderness (occipital area), Facial Lacerations ( 4.2cm laceration noted over right forehead.), Other (complains of pain in the occipital area). No: Scalp Hematoma, Childers's Sign, Facial Ecchymosis Nexus Criteria: Posterior, Midline Cervical Tenderness. No: Evidence of Intoxication, Altered Level of Consciousness, Focal Neurological Deficit, Painful Distraction Injuries Eyes: Bilateral Eye: EOMI, Normal Fundi, Normal Inspection, PERRL Ears: Normal External Exam, Normal Canal, Hearing Grossly Normal, Normal TMs Nose: Normal Inspection, Normal Mucousa, No Blood Throat/Mouth: Normal Inspection, Normal Lips, Normal Teeth, Normal Gums, Normal Oropharynx, Normal Voice, No Airway Compromise Neck: Normal Inspection, Limited Range of Motion (secondary to mild spasms), Muscle Spasm (1+ paravertebral spasms in the region of C3-C6 just to the right of the midline.), Paraspinous Muscle Tender (along C4-C7 at the midline.) Respiratory: No Respiratory Distress, Lungs Clear, Normal Breath Sounds, Chest Non-Tender Cardiovascular: Normal Peripheral Pulses, Regular Rate, Rhythm, No JVD, No Murmur (systolic ejection murmur grade 2/6 best heard at the apex without radiation.) GI/Abdominal Exam: Normal Bowel Sounds, Soft, Non-Tender, No Distention, No Abnormal Bruit, No Mass (Female) Exam: Deferred Rectal (Female) Exam: Deferred Back Exam: Normal Inspection Extremities: Other (swollen and tender over right 3rd MP joint with decrease flexion/extension.) Neurologic: destination sign repairer II-XII nml As Tested, No Motor/Sensory Deficits, Alert, Normal Mood/Affect, Oriented x 3 DTR: 2+: Bicep (R), Bicep (L), 3+: Patella (R), Patella (L) Skin: Normal Color, Warm/Dry - Yumi Coma Score Best Eye Response (Admire): (4) Open Spontaneously Best Verbal Response (Admire): (5) Oriented Best Motor Response (Yumi): (6) Obeys Commands Yumi Total: 15 ED LACERATION/WOUND & JAYLEN PROC - Laceration/Wound Repair Right Forehead Lac/wound length in cm: 4.2 Appearance: Superficial Distal NVT: Neuro & Vascular Intact Anesthetic Type: Local Local Anesthesia - Lidocaine (Xylocaine): 1% with EPI Local Anesthetic Volume: 4cc Skin Prep: Providone-Iodine (Betadine) Exploration/Debridement/Repair: Wound Explored, In a Bloodless Field, Explored to Base, No Foreign Material Found Closed with: Sutures Suture Size: 3-0 # of Sutures: 5 Suture Type: Nylon, Running Drain Placement: No Sterile Dressing Applied: Nurse Complications: No Progress/Comments: The patient tolerated the procedure well. Course - Vital Signs Text/Narrative:: I reviewed all of the patients CT scans and x-rays. They were negative for acute injury. She was sutured with a running 3-0 ethilon suture with a total number of 5. She tolerated the procedure well. I talked with Dr. Aldridge regarding this patient. I discussed with him that the patient seems to fall when she twist her head to the right or left. It is my understanding that her doctor placed her on Antivert for which she stopped taking them. She will be admitted to OBS/TELE. The patient agrees with the admission plan. Last Recorded V/S: Last Vital Signs Temp 97.5 F 12/15/19 18:13 Pulse 72 12/15/19 18:26 Resp 16 12/15/19 18:26 BP 109/64 12/15/19 18:26 Pulse Ox 94 L 12/15/19 18:28 - Orders/Labs/Meds Meds: Medications Discontinued Medications Generic Name Dose Route Start Last Admin Trade Name Freq PRN Reason Stop Dose Admin Oxycodone/Acetaminophen 1 tab 12/15/19 18:58 12/15/19 19:11 Percocet 325-5 Mg PO 12/15/19 18:59 1 tab ONETIME ONE Administration Departure - Departure Time of Disposition: 20:23 Disposition: Refer to Observation Condition: Good Clinical Impression: Vertigo Blunt head trauma Qualifiers: Encounter type: initial encounter Qualified Code(s): S09.8XXA - Other specified injuries of head, initial encounter Forehead laceration Qualifiers: Encounter type: initial encounter Qualified Code(s): S01.81XA - Laceration without foreign body of other part of head, initial encounter - Discharge Information *PRESCRIPTION DRUG MONITORING PROGRAM REVIEWED*: Yes *COPY OF PRESCRIPTION DRUG MONITORING REPORT IN PATIENT SAGAR: Yes Referrals: PCP,Unknown [Primary Care Provider] - Sepsis Event Note - Evaluation Sepsis Screening Result: No Definite Risk - Focused Exam Vital Signs: Vital Signs Temp Pulse Resp BP Pulse Ox 12/15/19 18:28 94 L 12/15/19 18:26 72 16 109/64 12/15/19 18:13 97.5 F 92 18 94/60 93 L Date Exam was Performed: 12/15/19 Time Exam was Performed: 19:27
[2019-12-15 21:38] LABS: BLOOD UREA NITROGEN,BUN 29 mg/dL (7.0-18.0); CARBON DIOXIDE,CO2 26.7 mmol/L (21.0-32.0); CHLORIDE,CL 105 mmol/L (98-107); GLUCOSE RANDOM 100 mg/dL (74-106); POTASSIUM,K 4.3 mmol/L (3.5-5.1); SODIUM,NA 142 mmol/L (136-145)
[2019-12-15] MEDS ORDERED: Ondansetron 4 MG Tab.DIS PO PRN (23:11)
[2019-12-15] MEDS ORDERED: Sodium Chloride 0.9% 1,000 ML IV SCH (23:15)
--- NOTE | 2019-12-15 23:15 | PCM.HP.2 ---
H&P History of Present Illness - General Date of Service: 12/15/19 Admit Problem/Dx: Admission Diagnosis/Problem Admission Diagnosis/Problem Blunt head trauma - History of Present Illness Initial Comments - Free Text/Narative: 69 yo female with pmh of CHF, COPD, squamous cell cancer of left tonsil who presented to the ED following a fall. Patient last year was recently discharged from [facility] following a hospitalization for complications related to G-tub placement. She reports her last scans have not shown any metastatic disease. She uses a walker at home and has been eating everything orally. She reports she was standing in the kitchen when she turned her head to the left when she became dizzy and fell backwards and land on her head and right arm. She reports she has been struggling with dizziness. She has been prescribed antivert but she states this just makes her tired and dizzy. She states that whenever she moves her head without moving her eyes she feels as though the room is spinning. In the ED she was noted to have a scalp laceration which was sutured. Head CT, neck and hand imaging was negative. head Pain Score (Numeric/FACES): 8 - Related Data Allergies/Adverse Reactions: Allergies Allergy/AdvReac Type Severity Reaction Status Date / Time bee pollen Allergy unknown Verified 12/16/19 01:49 eszopiclone [From Lunesta] Allergy Hypertensio Verified 12/16/19 01:49 n Iodinated Contrast Media Allergy Anaphylactic Verified 12/16/19 01:49 [Iodinated Contrast Media - Shock IV Dye] lorazepam Allergy Facial Verified 12/16/19 01:49 Swelling pregabalin [From Lyrica] Allergy Facial Verified 12/16/19 01:49 Swelling Cloth tape Allergy Blisters Uncoded 12/16/19 01:49 flu vaccination Allergy Anaphylactic Uncoded 12/16/19 01:49 Shock Paper Tape Allergy Blisters Uncoded 12/16/19 01:49 Home Medications: Home Meds Desvenlafaxine Succinate [Pristiq] 100 mg PO BEDTIME 12/15/19 [History] Losartan Potassium [Cozaar] 50 mg PO DAILY 12/15/19 [History] Meclizine [Antivert] 25 mg PO TID PRN 12/15/19 [History] Omeprazole 40 mg PO DAILY 12/15/19 [History] Ondansetron [Zofran ODT] 4 mg PO Q6H PRN 12/15/19 [History] Sulfamethoxazole/Trimethoprim [Bactrim Ds Tablet] 1 each PO BID 12/15/19 [ History] clonazePAM [Clonazepam] 1 mg PO BID PRN 12/15/19 [History] fentaNYL [Fentanyl] 25 mcg TD ASDIRECTED 12/15/19 [History] oxyCODONE 5 mg PO TID PRN 12/15/19 [History] Past Medical History HEENT History: Reports: Impaired Vision Other HEENT History: asthma Cardiovascular History: Reports: Heart Failure, High Cholesterol, Hypertension Respiratory History: Reports: Asthma, COPD, SOB Other Respiratory History: 40 Plus years use of tobacco products, QUIT 2014 Gastrointestinal History: Reports: GERD, PUD Other Gastrointestinal History: Heartburn/GERD Other Genitourinary History: Frequent Urination 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 Guerrier Psychiatric History: Reports: Anxiety, Depression Other Psychiatric History: Real Anxious before surgery "LIKE COCKTAIL before I Leave the Room" Endocrine/Metabolic History: Reports: Obesity/BMI 30+ Hematologic History: Reports: None Immunologic History: Reports: None Oncologic (Cancer) History: Reports: Breast, Other (See Below) Other Oncologic History: throat Dermatologic History: Reports: None - Infectious Disease History Infectious Disease History: Reports: Chicken Pox, Measles, Mumps Other Infectious Disease History: Pt states she does not remember - Past Surgical History Other HEENT Surgeries/Procedures: UPPER 2 Front teeth Implants Other GI Surgeries/Procedures: Lap Coco Female Surgical History: Reports: Tubal Ligation Musculoskeletal Surgical History: Reports: Knee Replacement Oncologic Surgical History: Reports: Lumpectomy Social & Family History - Family History Family Medical History: Noncontributory Psychiatric: Reports: Depression Hematologic: Reports: SLE Immunologic: Reports: SLE - Tobacco Use Smoking Status *Q: Former Smoker Used Tobacco, but Quit: Yes Month/Year Tobacco Last Used: 2014 Second Hand Smoke Exposure: No - Caffeine Use Caffeine Use: Reports: None - Recreational Drug Use Recreational Drug Use: No - Living Situation & Occupation Living situation: Reports: with Family Occupation: Retired H&P Review of Systems - Review of Systems: Review Of Systems: Comprehensive ROS is negative, except as noted in HPI. Exam - Exam Exam: See Below - Vital Signs Vital Signs: Last Vital Signs Temp 36.3 C 12/15/19 21:45 Pulse 64 12/15/19 21:45 Resp 16 12/15/19 21:45 BP 158/65 H 12/15/19 21:45 Pulse Ox 96 12/15/19 21:45 Weight: 87.5 kg - Exam General: Alert, Oriented HEENT: Mucosa Moist & [place] Lungs: Clear to Auscultation, Normal Respiratory Effort Cardiovascular: Regular Rate, Regular Rhythm GI/Abdominal Exam: Normal Bowel Sounds, Soft, Non-Tender Extremities: Non-Tender, No Pedal Edema Skin: Warm, Dry, Intact Neuro Extensive - Motor, Sensory, Reflexes: CN II-XII Intact, Other (several beats of nystagmus when moving head to the right and left) - Patient Data Lab Results Last 24 hrs: Laboratory Results - last 24 hr 12/15/19 12/15/19 Range/Units 20:55 20:55 WBC 6.19 (4.0-11.0) K/uL RBC 4.23 L (4.30-5.90) M/uL Hgb 12.6 (12.0-16.0) g/dL Hct 37.1 (36.0-46.0) % MCV 87.7 (80.0-98.0) fL MCH 29.8 (27.0-32.0) pg MCHC 34.0 (31.0-37.0) g/dL RDW Std Deviation 42.4 (28.0-62.0) fl RDW Coeff of Antonieta 13 (11.0-15.0) % Plt Count 172 (150-400) K/uL MPV 10.00 (7.40-12.00) fL Neut % (Auto) 81.2 H (48.0-80.0) % Lymph % (Auto) 10.5 L (16.0-40.0) % [place] % (Auto) 5.7 (0.0-15.0) % Eos % (Auto) 2.3 (0.0-7.0) % Baso % (Auto) 0.3 (0.0-1.5) % Neut # (Auto) 5.0 (1.4-5.7) K/uL Lymph # (Auto) 0.7 (0.6-2.4) K/uL [place] # (Auto) 0.4 (0.0-0.8) K/uL Eos # (Auto) 0.1 (0.0-0.7) K/uL Baso # (Auto) 0.0 (0.0-0.1) K/uL Nucleated RBC % 0.0 /100WBC Nucleated RBCs # 0 K/uL Sodium 142 (136-145) mmol/L Potassium 4.3 (3.5-5.1) mmol/L Chloride 105 (98-107) mmol/L Carbon Dioxide 26.7 (21.0-32.0) mmol/L BUN 29 H (7.0-18.0) mg/dL Creatinine 1.4 H (0.6-1.0) mg/dL Est Cr Clr Drug Dosing 40.43 mL/min Estimated GFR (MDRD) 37.2 ml/min Glucose 100 (74-106) mg/dL Calcium 8.8 (8.5-10.1) mg/dL Magnesium 1.9 (1.8-2.4) mg/dL Total Bilirubin 0.3 (0.2-1.0) mg/dL AST 15 (15-37) IU/L ALT 22 (14-63) IU/L Alkaline Phosphatase 110 (46-116) U/L Troponin I < 0.050 (0.000-0.056) ng/mL Total Protein 6.6 (6.4-8.2) g/dL Albumin 3.4 (3.4-5.0) g/dL Globulin 3.2 (2.6-4.0) g/dL Albumin/Globulin Ratio 1.1 (0.9-1.6) Result Diagrams: 12/15/19 20:55 12/15/19 20:55 Sepsis Event Note - Evaluation Sepsis Screening Result: No Definite Risk - Focused Exam Vital Signs: Vital Signs Temp Pulse Resp BP Pulse Ox 12/15/19 21:45 36.3 C 64 16 158/65 H 96 12/15/19 21:24 68 16 140/66 98 12/15/19 19:34 68 16 142/65 H 95 12/15/19 18:28 94 L 12/15/19 18:26 72 16 109/64 12/15/19 18:13 36.4 C 92 18 94/60 93 L Date Exam was Performed: 12/16/19 Time Exam was Performed: 13:22 Problem List Initiated/Reviewed/Updated: Yes Orders Last 24hrs: Active Orders 24 hr Category Date Time Status Admission Status [Patient Status] [ADT] Stat ADT 12/15/19 20:26 Active Cardiac Monitoring [RC] . DIRECTED Care 12/15/19 22:02 Active EKG 12 Lead [EKG Documentation Completion] [RC] STAT Care 12/15/19 19:54 Active Oxygen Therapy [RC] PRN Care 12/15/19 23:14 Ordered Up ad Steff [RC] ASDIRECTED Care 12/15/19 23:14 Ordered VTE/DVT Education [RC] PER UNIT ROUTINE Care 12/15/19 23:14 Ordered Vital Signs [RC] Q4H Care 12/15/19 23:14 Ordered Regular Diet [DIET] Diet 12/15/19 Dinner Active UA RFX EDISON AND CULT IF INDIC [URIN] Routine Lab 12/15/19 23:15 Ordered Acetaminophen [Tylenol] Med 12/15/19 22:02 Active 650 mg PO Q6H PRN ClonazePAM [KlonoPIN] Med 12/15/19 23:11 Ordered 1 mg PO BID PRN Desvenlafaxine Succinate [Pristiq] Med 12/16/19 21:00 Ordered 100 mg PO BEDTIME Omeprazole [Omeprazole] Med 12/16/19 09:00 Ordered 40 mg PO DAILY Ondansetron [Zofran ODT] Med 12/15/19 23:11 Ordered 4 mg PO Q6H PRN Sodium Chloride 0.9% @ 100 MLS/HR(1,000ml) Med 12/15/19 23:15 Ordered Sodium Chloride 0.9% [Normal Saline] 1,000 ml IV ASDIRECTED fentaNYL [Fentanyl] Med 12/15/19 23:15 Ordered 1 each TD ASDIRECTED oxyCODONE Med 12/15/19 23:11 Ordered 5 mg PO TID PRN Resuscitation Status Routine Resus Stat 12/15/19 23:14 Ordered Medication Orders Acetaminophen (Tylenol) 650 mg PO Q6H PRN PRN Reason: Pain Clonazepam (Klonopin) 1 mg PO BID PRN PRN Reason: Anxiety Sodium Chloride (Normal Saline) 1,000 mls @ 100 mls/hr IV ASDIRECTED JAD Stop: 12/16/19 09:14 Non-Formulary Medication (Desvenlafaxine Succinate [Pristiq]) 100 mg PO BEDTIME JAD Non-Formulary Medication (Fentanyl [Fentanyl]) 1 each TD ASDIRECTED JAD Non-Formulary Medication (Omeprazole [Omeprazole]) 40 mg PO DAILY JAD Ondansetron HCl (Zofran Odt) 4 mg PO Q6H PRN PRN Reason: Nausea Oxycodone HCl (Oxycodone) 5 mg PO TID PRN PRN Reason: Pain Assessment/Plan Comment:: 69 yo female admitted following a fall. Her fall was likely a result from vertigo. We will monitor overnight.
[2019-12-16] MEDS: oxyCODONE 5 MG Tab PO PRN ×3 (00:05→17:54)
[2019-12-16] MEDS: Sulfamethoxazole/Trimethoprim 800-160 MG Tab PO SCH ×3 (00:05→21:11)
[2019-12-16] MEDS: Omeprazole 20 MG Cap.CR PO SCH (09:07)
[2019-12-16] MEDS: Acetaminophen 325 MG Tab PO PRN (11:24)
--- NOTE | 2019-12-16 13:25 | PCM.PN ---
- General Info Date of Service: 12/16/19 - Review of Systems Systems Review Comment:: reporting generalized weakness, and severe vertigo with movement - Patient Data Vitals - Most Recent: Last Vital Signs Temp 36.3 C 12/16/19 11:29 Pulse 75 12/16/19 11:29 Resp 16 12/16/19 11:29 BP 132/55 L 12/16/19 11:29 Pulse Ox 96 12/16/19 11:29 Weight - Most Recent: 87.5 kg I&O - Last 24 Hours: Intake & Output 12/15/19 12/16/19 12/16/19 22:59 06:59 14:59 Intake Total 420 Output Total 150 Balance 270 Lab Results Last 24 Hours: Laboratory Results - last 24 hr 12/15/19 12/15/19 Range/Units 20:55 20:55 WBC 6.19 (4.0-11.0) K/uL RBC 4.23 L (4.30-5.90) M/uL Hgb 12.6 (12.0-16.0) g/dL Hct 37.1 (36.0-46.0) % MCV 87.7 (80.0-98.0) fL MCH 29.8 (27.0-32.0) pg MCHC 34.0 (31.0-37.0) g/dL RDW Std Deviation 42.4 (28.0-62.0) fl RDW Coeff of Antonieta 13 (11.0-15.0) % Plt Count 172 (150-400) K/uL MPV 10.00 (7.40-12.00) fL Neut % (Auto) 81.2 H (48.0-80.0) % Lymph % (Auto) 10.5 L (16.0-40.0) % [place] % (Auto) 5.7 (0.0-15.0) % Eos % (Auto) 2.3 (0.0-7.0) % Baso % (Auto) 0.3 (0.0-1.5) % Neut # (Auto) 5.0 (1.4-5.7) K/uL Lymph # (Auto) 0.7 (0.6-2.4) K/uL [place] # (Auto) 0.4 (0.0-0.8) K/uL Eos # (Auto) 0.1 (0.0-0.7) K/uL Baso # (Auto) 0.0 (0.0-0.1) K/uL Nucleated RBC % 0.0 /100WBC Nucleated RBCs # 0 K/uL Sodium 142 (136-145) mmol/L Potassium 4.3 (3.5-5.1) mmol/L Chloride 105 (98-107) mmol/L Carbon Dioxide 26.7 (21.0-32.0) mmol/L BUN 29 H (7.0-18.0) mg/dL Creatinine 1.4 H (0.6-1.0) mg/dL Est Cr Clr Drug Dosing 40.43 mL/min Estimated GFR (MDRD) 37.2 ml/min Glucose 100 (74-106) mg/dL Calcium 8.8 (8.5-10.1) mg/dL Magnesium 1.9 (1.8-2.4) mg/dL Total Bilirubin 0.3 (0.2-1.0) mg/dL AST 15 (15-37) IU/L ALT 22 (14-63) IU/L Alkaline Phosphatase 110 (46-116) U/L Troponin I < 0.050 (0.000-0.056) ng/mL Total Protein 6.6 (6.4-8.2) g/dL Albumin 3.4 (3.4-5.0) g/dL Globulin 3.2 (2.6-4.0) g/dL Albumin/Globulin Ratio 1.1 (0.9-1.6) Med Orders - Current: Current Medications Acetaminophen (Tylenol) 650 mg PO Q6H PRN PRN Reason: Pain Last Admin: 12/16/19 11:24 Dose: 650 mg Clonazepam (Klonopin) 1 mg PO BID PRN PRN Reason: Anxiety Non-Formulary Medication (Desvenlafaxine Succinate [Pristiq]) 100 mg PO BEDTIME JAD Non-Formulary Medication (Fentanyl [Fentanyl]) 1 each TD ASDIRECTED JAD Omeprazole (Omeprazole) 40 mg PO DAILY JAD Last Admin: 12/16/19 09:07 Dose: 40 mg Ondansetron HCl (Zofran Odt) 4 mg PO Q6H PRN PRN Reason: Nausea Oxycodone HCl (Oxycodone) 5 mg PO TID PRN PRN Reason: Pain Last Admin: 12/16/19 06:00 Dose: 5 mg Trimethoprim/Sulfamethoxazole (Septra Ds) 1 tab PO BID [facility] Last Admin: 12/16/19 09:18 Dose: 1 tab Discontinued Medications Sodium Chloride (Normal Saline) 1,000 mls @ 100 mls/hr IV ASDIRECTED [facility] Stop: 12/16/19 09:14 Last Admin: 12/16/19 00:14 Dose: 100 mls/hr Lidocaine/Epinephrine (Xylocaine 1% With Epinephrine 1:100,000) 10 ml INJECT ONETIME ONE Stop: 12/15/19 19:29 Last Admin: 12/15/19 19:33 Dose: Not Given Lidocaine/Epinephrine (Xylocaine 1% With Epinephrine 1:100,000) 20 ml INJECT ONETIME ONE Stop: 12/15/19 19:29 Last Admin: 12/15/19 19:33 Dose: 20 ml Oxycodone/Acetaminophen (Percocet 325-5 Mg) 1 tab PO ONETIME ONE Stop: 12/15/19 18:59 Last Admin: 12/15/19 19:11 Dose: 1 tab - Exam General: Alert, Oriented Neck: Supple Lungs: Clear to Auscultation, Normal Respiratory Effort Cardiovascular: Regular Rate, Regular Rhythm Extremities: Non-Tender, No Pedal Edema Skin: Warm, Dry, Intact Sepsis Event Note - Evaluation Sepsis Screening Result: No Definite Risk - Focused Exam Vital Signs: Vital Signs Temp Pulse Resp BP Pulse Ox 12/16/19 11:29 36.3 C 75 16 132/55 L 96 12/16/19 08:00 37.0 C 60 14 137/65 98 12/16/19 04:00 35.9 C L 61 17 113/56 L 96 Date Exam was Performed: 12/16/19 Time Exam was Performed: 13:23 - Problem List Review Problem List Initiated/Reviewed/Updated: Yes - My Orders Last 24 Hours: My Active Orders 12/15/19 22:02 Telemetry Monitoring [Cardiac Monitoring] [RC] Q8H Acetaminophen [Tylenol] 650 mg PO Q6H PRN 12/15/19 23:11 ClonazePAM [KlonoPIN] 1 mg PO BID PRN Ondansetron [Zofran ODT] 4 mg PO Q6H PRN oxyCODONE 5 mg PO TID PRN 12/15/19 23:14 Oxygen Therapy [RC] PRN Up ad Steff [RC] ASDIRECTED VTE/DVT Education [RC] PER UNIT ROUTINE Vital Signs [RC] Q4H Resuscitation Status Routine 12/15/19 23:15 fentaNYL [Fentanyl] 1 each TD ASDIRECTED 12/15/19 23:45 Sulfamethoxazole/Trimethoprim [Septra DS] 1 tab PO BID 12/15/19 Dinner Regular Diet [DIET] 12/16/19 09:00 Omeprazole 40 mg PO DAILY 12/16/19 13:23 PT Evaluation and Treatment [CONS] Routine 12/16/19 21:00 Desvenlafaxine Succinate [Pristiq] 100 mg PO BEDTIME 12/17/19 05:11 BASIC METABOLIC PANEL,BMP [CHEM] AM CBC WITH AUTO DIFF [HEME] AM - Plan Plan:: 69 yo female admitted following a fall. Patient likely has BPPV limiting her mobility. We will consult physical therapy.
[2019-12-16] MEDS: ClonazePAM 1 MG Tab PO PRN (19:00)
[2019-12-16] MEDS: Desvenlafaxine Succinate [Pristiq] 100 MG PO SCH (21:10)
[2019-12-17 05:40] LABS: CARBON DIOXIDE,CO2 29.9 mmol/L (21.0-32.0); POTASSIUM,K 4.5 mmol/L (3.5-5.1)
[2019-12-17] MEDS: Sulfamethoxazole/Trimethoprim 800-160 MG Tab PO SCH ×2 (09:53→20:48)
[2019-12-17] MEDS: Omeprazole 20 MG Cap.CR PO SCH (09:53)
[2019-12-17] MEDS: oxyCODONE 5 MG Tab PO PRN ×2 (09:57→19:56)
[2019-12-17] MEDS: Acetaminophen 325 MG Tab PO PRN (11:00)
--- NOTE | 2019-12-17 13:54 | PCM.PN ---
- General Info Date of Service: 12/17/19 Admission Dx/Problem (Free Text): Admission Diagnosis/Problem Admission Diagnosis/Problem Blunt head trauma Subjective Update: Feeling better this morning. No ches tpain or SOB. Reports mild headache and neck pain Afer PT assessment reports worsening of headache and doesn't feel good at this time. - Review of Systems HEENT: Reports: Headaches Pulmonary: Reports: No Symptoms. Denies: Shortness of Breath Cardiovascular: Reports: No Symptoms. Denies: Chest Pain Gastrointestinal: Reports: No Symptoms. Denies: Abdominal Pain, Nausea, Vomiting Genitourinary: Reports: No Symptoms. Denies: Dysuria, Frequency Musculoskeletal: Reports: Neck Pain Skin: Reports: No Symptoms Neurological: Reports: No Symptoms Psychiatric: Reports: No Symptoms - Patient Data Vitals - Most Recent: Last Vital Signs Temp 97.4 F 12/17/19 08:00 Pulse 64 12/17/19 08:00 Resp 16 12/17/19 08:00 BP 121/57 L 12/17/19 08:00 Pulse Ox 98 12/17/19 08:00 Weight - Most Recent: 88 kg I&O - Last 24 Hours: Intake & Output 12/16/19 12/17/19 12/17/19 22:59 06:59 14:59 Intake Total 600 325 Output Total 225 430 Balance 375 -105 Lab Results Last 24 Hours: Laboratory Results - last 24 hr 12/17/19 12/17/19 Range/Units 05:15 05:15 WBC 3.33 L (4.0-11.0) K/uL RBC 3.94 L (4.30-5.90) M/uL Hgb 11.5 L (12.0-16.0) g/dL Hct 34.9 L (36.0-46.0) % MCV 88.6 (80.0-98.0) fL MCH 29.2 (27.0-32.0) pg MCHC 33.0 (31.0-37.0) g/dL RDW Std Deviation 42.6 (28.0-62.0) fl RDW Coeff of Antonieta 13 (11.0-15.0) % Plt Count 161 (150-400) K/uL MPV 9.90 (7.40-12.00) fL Neut % (Auto) 60.7 (48.0-80.0) % Lymph % (Auto) 26.4 (16.0-40.0) % [place] % (Auto) 7.5 (0.0-15.0) % Eos % (Auto) 4.5 (0.0-7.0) % Baso % (Auto) 0.9 (0.0-1.5) % Neut # (Auto) 2.0 (1.4-5.7) K/uL Lymph # (Auto) 0.9 (0.6-2.4) K/uL [place] # (Auto) 0.3 (0.0-0.8) K/uL Eos # (Auto) 0.2 (0.0-0.7) K/uL Baso # (Auto) 0.0 (0.0-0.1) K/uL Nucleated RBC % 0.0 /100WBC Nucleated RBCs # 0 K/uL Sodium 144 (136-145) mmol/L Potassium 4.5 (3.5-5.1) mmol/L Chloride 109 H (98-107) mmol/L Carbon Dioxide 29.9 (21.0-32.0) mmol/L BUN 28 H (7.0-18.0) mg/dL Creatinine 1.4 H (0.6-1.0) mg/dL Est Cr Clr Drug Dosing 35.00 mL/min Estimated GFR (MDRD) 37.2 ml/min Glucose 93 (74-106) mg/dL Calcium 8.8 (8.5-10.1) mg/dL Med Orders - Current: Current Medications Acetaminophen (Tylenol) 650 mg PO Q6H PRN PRN Reason: Pain Last Admin: 12/17/19 11:00 Dose: 650 mg Clonazepam (Klonopin) 1 mg PO BID PRN PRN Reason: Anxiety Last Admin: 12/16/19 19:00 Dose: 1 mg Fentanyl (Duragesic) 25 mcg TRDERM Q72H [facility] Omeprazole (Omeprazole) 40 mg PO DAILY JAD Last Admin: 12/17/19 09:53 Dose: 40 mg Ondansetron HCl (Zofran Odt) 4 mg PO Q6H PRN PRN Reason: Nausea Oxycodone HCl (Oxycodone) 5 mg PO TID PRN PRN Reason: Pain Last Admin: 12/17/19 09:57 Dose: 5 mg Desvenlafaxine Succinate [Pristiq] 100 Mg 1 each PO BEDTIME [facility] Last Admin: 12/16/19 21:10 Dose: 1 each Trimethoprim/Sulfamethoxazole (Septra Ds) 1 tab PO BID [facility] Last Admin: 12/17/19 09:53 Dose: 1 tab Discontinued Medications Sodium Chloride (Normal Saline) 1,000 mls @ 100 mls/hr IV ASDIRECTED [facility] Stop: 12/16/19 09:14 Last Admin: 12/16/19 00:14 Dose: 100 mls/hr Lidocaine/Epinephrine (Xylocaine 1% With Epinephrine 1:100,000) 10 ml INJECT ONETIME ONE Stop: 12/15/19 19:29 Last Admin: 12/15/19 19:33 Dose: Not Given Lidocaine/Epinephrine (Xylocaine 1% With Epinephrine 1:100,000) 20 ml INJECT ONETIME ONE Stop: 12/15/19 19:29 Last Admin: 12/15/19 19:33 Dose: 20 ml Oxycodone/Acetaminophen (Percocet 325-5 Mg) 1 tab PO ONETIME ONE Stop: 12/15/19 18:59 Last Admin: 12/15/19 19:11 Dose: 1 tab - Exam General: Alert, Oriented, Cooperative Neck: Supple, Trachea Midline, Other (no nuchal rigidity no vertigo, no nystagmus). No: Lymphadenopathy Lungs: Clear to Auscultation, Normal Respiratory Effort Cardiovascular: Regular Rate, Regular Rhythm Extremities: Normal Inspection, Normal Range of Motion, Non-Tender, No Pedal Edema Wound/Incisions: No: Erythema Neurological: Normal Gait, Normal Speech Psy/Mental Status: Alert, Normal Affect, Normal Mood Sepsis Event Note - Evaluation Sepsis Screening Result: No Definite Risk - Focused Exam Vital Signs: Vital Signs Temp Pulse Resp BP Pulse Ox 12/17/19 08:00 97.4 F 64 16 121/57 L 98 12/17/19 04:20 97 F 61 16 118/57 L 94 L Date Exam was Performed: 12/17/19 Time Exam was Performed: 13:50 - Problem List & Annotations (1) Blunt head trauma SNOMED Code(s): 69767424, 531846272 Code(s): S09.8XXA - OTHER SPECIFIED INJURIES OF HEAD, INITIAL ENCOUNTER Status: Acute Current Visit: Yes Qualifiers: Encounter type: initial encounter Qualified Code(s): S09.8XXA - Other specified injuries of head, initial encounter (2) Vertigo SNOMED Code(s): 211731881 Code(s): R42 - DIZZINESS AND GIDDINESS Status: Acute Current Visit: Yes (3) Tonsillar cancer Status: Acute Current Visit: No (4) Anxiety and depression SNOMED Code(s): 102630069 Code(s): F41.9 - ANXIETY DISORDER, UNSPECIFIED; F32.9 - MAJOR DEPRESSIVE DISORDER, SINGLE EPISODE, UNSPECIFIED Status: Chronic Current Visit: No (5) CHF (congestive heart failure) SNOMED Code(s): 13952349 Code(s): I50.9 - HEART FAILURE, UNSPECIFIED Status: Chronic Current Visit : No Qualifiers: Qualified Code(s): I50.9 - Heart failure, unspecified (6) COPD (chronic obstructive pulmonary disease) SNOMED Code(s): 59020734 Code(s): J44.9 - CHRONIC OBSTRUCTIVE PULMONARY DISEASE, UNSPECIFIED Status : Chronic Current Visit: No Qualifiers: COPD type: chronic bronchitis Chronic bronchitis type: unspecified Qualified Code(s): J42 - Unspecified chronic bronchitis - Problem List Review Problem List Initiated/Reviewed/Updated: Yes - Plan Plan:: 69 yo female admitted following a fall. 1. fall secondary to vertigo - likely has BPPV limiting her mobility. - We will consult physical therapy, cleared today. - After PT, patient feeling neck pain and headache. - Continue oxycodone and Tylenol - DC in am - Sutures to forehead intact, remove in 1 week at PCP office - Up to chair with nursing and ambulate
[2019-12-17] MEDS: ClonazePAM 1 MG Tab PO PRN (15:33)
[2019-12-17] MEDS ORDERED: fentaNYL 25 MCG/HR Transdermal Patch TRDERM SCH (18:00)
[2019-12-17] MEDS: Desvenlafaxine Succinate [Pristiq] 100 MG PO SCH (20:48)
[2019-12-18] MEDS: Acetaminophen 325 MG Tab PO PRN (00:13)
[2019-12-18] MEDS ORDERED: oxyCODONE 5 MG Tab PO ONE (00:54)
[2019-12-18 07:53] VITALS: BP 115/57
--- NOTE | 2019-12-18 08:34 | PCM.DCSUM1 ---
Discharge Summary - Hospital Course Brief History: 69 yo female with pmh of CHF, COPD, squamous cell cancer of left tonsil who presented to the ED following a fall. Patient last year was recently discharged from [facility] following a hospitalization for complications related to G-tub placement. She reports her last scans have not shown any metastatic disease. She uses a walker at home and has been eating everything orally. She reports she was standing in the kitchen when she turned her head to the left when she became dizzy and fell backwards and land on her head and right arm. She reports she has been struggling with dizziness. She has been prescribed antivert but she states this just makes her tired and dizzy. She states that whenever she moves her head without moving her eyes she feels as though the room is spinning. In the ED she was noted to have a scalp laceration which was sutured. Head CT, neck and hand imaging was negative. Diagnosis: Stroke: No Modified Bullitt Scale: No Symptoms at All Modified Bullitt Scale Score: 0 - Discharge Data Discharge Date: 12/18/19 Discharge Disposition: Home, W Home Health Agency 06 Condition: Stable - Referral to Home Health Date of Face to Face Encounter: 12/18/19 ([facility]) Reason for Homebound Status: [facility] Primary Care Physician: PCP Unknown Skilled Need: resume home [facility] - Discharge Diagnosis/Problem(s) (1) Blunt head trauma SNOMED Code(s): 35451865, 625002101 ICD Code: S09.8XXA - OTHER SPECIFIED INJURIES OF HEAD, INITIAL ENCOUNTER Status: Acute Current Visit: Yes Qualifiers: Encounter type: initial encounter Qualified Code(s): S09.8XXA - Other specified injuries of head, initial encounter (2) Vertigo SNOMED Code(s): 456818337 ICD Code: R42 - DIZZINESS AND GIDDINESS Status: Acute Current Visit: Yes (3) Tonsillar cancer Status: Acute Current Visit: No (4) Anxiety and depression SNOMED Code(s): 854143095 ICD Code: F41.9 - ANXIETY DISORDER, UNSPECIFIED; F32.9 - MAJOR DEPRESSIVE DISORDER, SINGLE EPISODE, UNSPECIFIED Status: Chronic Current Visit: No (5) CHF (congestive heart failure) SNOMED Code(s): 83191182 ICD Code: I50.9 - HEART FAILURE, UNSPECIFIED Status: Chronic Current Visit: No (6) COPD (chronic obstructive pulmonary disease) SNOMED Code(s): 55662875 ICD Code: J44.9 - CHRONIC OBSTRUCTIVE PULMONARY DISEASE, UNSPECIFIED Status : Chronic Current Visit: No Qualifiers: COPD type: chronic bronchitis Chronic bronchitis type: unspecified Qualified Code(s): J42 - Unspecified chronic bronchitis - Patient Summary/Data Consults: Consultations 12/16/19 13:23 PT Evaluation and Treatment [CONS] Routine - Patient Instructions Diet: Usual Diet as Tolerated Activity: As Tolerated, No Strenuous Activities, Rest and Relax Today Showering/Bathing: February Shower Notify Provider of: Fever, Increased Pain, Swelling and Redness, Drainage, Nausea and/or Vomiting - Discharge Plan *PRESCRIPTION DRUG MONITORING PROGRAM REVIEWED*: Yes *COPY OF PRESCRIPTION DRUG MONITORING REPORT IN PATIENT SAGAR: Yes Home Medications: Home Meds Desvenlafaxine Succinate [Pristiq] 100 mg PO BEDTIME 12/15/19 [History] Losartan Potassium [Cozaar] 50 mg PO DAILY 12/15/19 [History] Meclizine [Antivert] 25 mg PO TID PRN 12/15/19 [History] Omeprazole 40 mg PO DAILY 12/15/19 [History] Ondansetron [Zofran ODT] 4 mg PO Q6H PRN 12/15/19 [History] Sulfamethoxazole/Trimethoprim [Bactrim Ds Tablet] 1 each PO BID 12/15/19 [ History] clonazePAM [Clonazepam] 1 mg PO BID PRN 12/15/19 [History] fentaNYL [Fentanyl] 25 mcg TD ASDIRECTED 12/15/19 [History] oxyCODONE 5 mg PO TID PRN 12/15/19 [History] Oxygen Therapy Mode: Room Air Patient Handouts: Head Injury, Adult, [id number], Stitches, Denise, or Adhesive Wound Closure, Facial Laceration, [id number] Referrals: [facility] [Outside] Phillip Robbins MD [Ordering Only Provider] - 12/31/19 1:00 pm - Discharge Summary/Plan Comment DC Time >30 min.: No Discharge Summary/Plan Comment: Admitting diagnoses: Fall Head laceration Suspected BPPV Discharge Diagnoses: Fall Head laceration Suspected BPPV Jessi was admitted secondary to suspectd BPPV which caused a fall at home. Fall resulted in R forehead laceration, which was sutured in the ED. PT consulted yesterday for evaluated of vestibular. PT reports she is at her baseline they work with her often and at home with Home Health. Today she is feeling much improved and is ready to go home. She denies dizziness. She was counseled on using walker or cane at all times for ambulation. She is to resume all home medications at home. She is to resume home health. Follow up in 1 week for suture removal and see PCP in 7-10 days. She is to return to ED or clinic if concerns should arise. - Patient Data Vitals - Most Recent: Last Vital Signs Temp 96.4 F L 12/18/19 07:00 Pulse 58 L 12/18/19 07:00 Resp 16 12/18/19 07:00 BP 115/57 L 12/18/19 07:00 Pulse Ox 93 L 12/18/19 07:00 Weight - Most Recent: 89.5 kg I&O - Last 24 hours: Intake & Output 12/17/19 12/18/19 12/18/19 22:59 06:59 14:59 Intake Total 600 400 Output Total 100 100 Balance 500 300 Med Orders - Current: Current Medications Acetaminophen (Tylenol) 650 mg PO Q6H PRN PRN Reason: Pain Last Admin: 12/18/19 00:13 Dose: 650 mg Clonazepam (Klonopin) 1 mg PO BID PRN PRN Reason: Anxiety Last Admin: 12/17/19 15:33 Dose: 1 mg Fentanyl (Duragesic) 25 mcg TRDERM Q72H [facility] Last Admin: 12/17/19 19:51 Dose: 25 mcg Omeprazole (Omeprazole) 40 mg PO DAILY [facility] Last Admin: 12/17/19 09:53 Dose: 40 mg Ondansetron HCl (Zofran Odt) 4 mg PO Q6H PRN PRN Reason: Nausea Oxycodone HCl (Oxycodone) 5 mg PO TID PRN PRN Reason: Pain Last Admin: 12/17/19 19:56 Dose: 5 mg Desvenlafaxine Succinate [Pristiq] 100 Mg 1 each PO BEDTIME [facility] Last Admin: 12/17/19 20:48 Dose: 1 each Trimethoprim/Sulfamethoxazole (Septra Ds) 1 tab PO BID [facility] Last Admin: 12/17/19 20:48 Dose: 1 tab Discontinued Medications Sodium Chloride (Normal Saline) 1,000 mls @ 100 mls/hr IV ASDIRECTED [facility] Stop: 12/16/19 09:14 Last Admin: 12/16/19 00:14 Dose: 100 mls/hr Lidocaine/Epinephrine (Xylocaine 1% With Epinephrine 1:100,000) 10 ml INJECT ONETIME ONE Stop: 12/15/19 19:29 Last Admin: 12/15/19 19:33 Dose: Not Given Lidocaine/Epinephrine (Xylocaine 1% With Epinephrine 1:100,000) 20 ml INJECT ONETIME ONE Stop: 12/15/19 19:29 Last Admin: 12/15/19 19:33 Dose: 20 ml Oxycodone HCl (Oxycodone) 5 mg PO ONETIME ONE Stop: 12/18/19 00:55 Last Admin: 12/18/19 01:04 Dose: 5 mg Oxycodone/Acetaminophen (Percocet 325-5 Mg) 1 tab PO ONETIME ONE Stop: 12/15/19 18:59 Last Admin: 12/15/19 19:11 Dose: 1 tab
[2019-12-18] MEDS: Sulfamethoxazole/Trimethoprim 800-160 MG Tab PO SCH (08:42)
[2019-12-18] MEDS: Omeprazole 20 MG Cap.CR PO SCH (08:42)
[2019-12-18 11:39] VITALS: PULSE 67
[2019-12-18] MEDS: oxyCODONE 5 MG Tab PO PRN (12:35)
== END 2019-12-18 12:20 | disposition home health service (06) ==
LOC: MW.ED 18:11 → MW.MS 20:26
PROVIDERS: ADMIT Internal Medicine; ATTEND Internal Medicine
DX: S01.81XA Laceration without foreign body of other part of head, initial encounter (principal); R42 Dizziness and giddiness; C09.9 Malignant neoplasm of tonsil, unspecified; F41.9 Anxiety disorder, unspecified; F32.9 Major depressive disorder, single episode, unspecified; I11.0 Hypertensive heart disease with heart failure; I50.9 Heart failure, unspecified; J44.9 Chronic obstructive pulmonary disease, unspecified; E78.00 Pure hypercholesterolemia, unspecified; K21.9 Gastro-esophageal reflux disease without esophagitis; G89.29 Other chronic pain; E66.9 Obesity, unspecified; Z79.899 Other long term (current) drug therapy; Z88.8 Allergy status to other drugs, medicaments and biological substances; Z91.030 Bee allergy status; Z88.7 Allergy status to serum and vaccine; Z91.048 Other nonmedicinal substance allergy status; Z87.891 Personal history of nicotine dependence; Z68.31 Body mass index [BMI] 31.0-31.9, adult; W19.XXXA Unspecified fall, initial encounter; Y92.000 Kitchen of unspecified non-institutional (private) residence as the place of occurrence of the external cause
CPT/HCPCS: 12013; 36415; 70450; 72125; 73120; 80048; 80053; 83735; 84484; 85025; 93005; 97161; 99285; A9270; G0378; J1642; J7030; 99283

== ENCOUNTER 2020-07-14 13:33 | Inpatient (IN) | payer MEDICARE, MEDICAID, OTHER ==
[2020-07-14] MEDS ORDERED: Sodium Chloride 0.9% 2.5 ML Syringe FLUSH PRN (14:11)
[2020-07-14] MEDS ORDERED: Sodium Chloride 0.9% 10 ML Syringe FLUSH PRN (14:11)
[2020-07-14] MEDS ORDERED: Ondansetron 4 MG/2 ML SDV IVPUSH ONE (14:52)
[2020-07-14] MEDS ORDERED: Sodium Chloride 0.9% 1,000 ML IV ONE (14:52)
--- NOTE | 2020-07-14 14:56 | EDM.PDOC ---
ED HPI GENERAL MEDICAL PROBLEM - General Chief Complaint: General Stated Complaint: SUBS Time Seen by Provider: 07/14/20 14:11 Source of Information: Reports: Patient History Limitations: Reports: No Limitations - History of Present Illness INITIAL COMMENTS - FREE TEXT/NARRATIVE: HISTORY AND PHYSICAL: History of present illness: Patient is a 69-year-old female who presents to the ED today via EMS for concern of abdominal pain, feeling feverish but states she has not checked a temperature at home, and vomiting over the past 1 to 2 days. Patient states that she has had some abdominal pain due to a PEG tube infection. Patient states she had the PEG tube removed on the by Dr. Danielson in [place]. Patient states that the wound has closed up but prior to that she did have fecal matter and pus draining out of the PEG tube that she was on antibiotics for but has not been on them for several weeks. Patient states that she has had some generalized abdominal pain and vomiting over the past 1 to 2 days and states that she has been unable to eat or drink without vomiting. Patient does have a history of COPD, CHF, and throat cancer but states she has been in remission for 10 months. Patient states that she is unable to ambulate per her baseline due to a chemotherapy adverse reaction. Patient denies any other symptoms or concerns. Patient denies chest pain, shortness of breath, or cough. Denies headache, neck stiff ness, change in vision, syncope, or near syncope. Denies diarrhea, constipation, or dysuria. Has not noted any blood in urine or stool. Review of systems: As per history of present illness and below otherwise all systems reviewed and negative. Past medical history: As per history of present illness and as reviewed below otherwise noncontribu tory. Surgical history: As per history of present illness and as reviewed below otherwise noncontributory. Social history: See social history for further information Family history: As per history of present illness and as reviewed below otherwise noncontributory. Physical exam: General: Patient is alert, oriented, and in no acute distress. Patient laying comfortably on exam table. HEENT: Atraumatic, normocephalic, pupils equal and reactive bilaterally, negative for conjunctival pallor or scleral icterus, mucous membranes moist, TMs normal bilaterally, throat clear, neck supple, nontender, trachea midline. No drooling or trismus noted. No meningeal signs. No hot potato voice noted. Lungs: Patient speaking clearly without breathlessness, no wheezing or stridor, no accessory muscle use or respiratory distress. Auscultation deferred due to current COV-ID 19 outbreak. Heart: Auscultation deferred due to current COV-ID 19 outbreak. Abdomen: Soft, distended, moderate generalized tenderness to palpation. There is a well healed area of prior PEG tube placement without erythema, drainage. Negative for masses or hepatosplenomegaly. Negative for costovertebral tenderness. Pelvis: Stable nontender. Genitourinary: Deferred. Rectal: Deferred. Skin: Intact, warm, dry. No lesions or rashes noted. Extremities: Atraumatic, negative for cords or calf pain. Neurovascular unremarkable. Neuro: Awake, alert, oriented. Cranial nerves II through XII unremarkable. Cerebellum unremarkable. Motor and sensory unremarkable throughout. Exam nonfocal. Notes: Dr. Aldridge consulted on patient and will admit to observation. Voices understanding and is agreeable to plan of care. Denies any further questions or concerns at this time. Diagnostics: EKG, CBC, CMP, UA, lipase, abdominal pelvic CT w/o contrast, chest x-ray, trop, COVID19 Therapeutics: Saline, Zofran, Rocephin, Toradol Impression: Generalized abdominal pain Vomiting Urinary tract infection Weakness Fall risk Plan: Admit to observation of Dr. Aldridge Definitive disposition and diagnosis as appropriate pending reevaluation and review of above. abdominal Pain Score (Numeric/FACES): 8 - Related Data Allergies Allergy/AdvReac Type Severity Reaction Status Date / Time bee pollen Allergy unknown Verified 07/14/20 13:37 [email or web address] [From Lunesta] Allergy Hypertensio Verified 07/14/20 13:37 n Iodinated Contrast Media Allergy Anaphylactic Verified 07/14/20 13:37 [Iodinated Contrast Media - Shock IV Dye] lorazepam Allergy Facial Verified 07/14/20 13:37 Swelling pregabalin [From Lyrica] Allergy Facial Verified 07/14/20 13:37 Swelling Cloth tape Allergy Blisters Uncoded 07/14/20 13:37 flu vaccination Allergy Anaphylactic Uncoded 07/14/20 13:37 Shock Paper Tape Allergy Blisters Uncoded 07/14/20 13:37 Home Meds: Home Meds Desvenlafaxine Succinate [Pristiq] 100 mg PO BEDTIME 12/15/19 [History] Losartan Potassium [Cozaar] 50 mg PO DAILY 12/15/19 [History] Meclizine [Antivert] 25 mg PO TID PRN 12/15/19 [History] Omeprazole 40 mg PO DAILY 12/15/19 [History] Ondansetron [Zofran ODT] 4 mg PO Q6H PRN 12/15/19 [History] Sulfamethoxazole/Trimethoprim [Bactrim Ds Tablet] 1 each PO BID 12/15/19 [History] clonazePAM [Clonazepam] 1 mg PO BID PRN 12/15/19 [History] fentaNYL [Fentanyl] 25 mcg TD ASDIRECTED 12/15/19 [History] oxyCODONE 5 mg PO TID PRN 12/15/19 [History] Past Medical History HEENT History: Reports: Impaired Vision Other HEENT History: asthma Cardiovascular History: Reports: Heart Failure, High Cholesterol, Hypertension Respiratory History: Reports: Asthma, COPD, SOB Other Respiratory History: 40 Plus years use of tobacco products, QUIT 02/14/2015 Gastrointestinal History: Reports: GERD, PUD Other Gastrointestinal History: Heartburn/GERD Other Genitourinary History: Frequent Urination CAD MANAGER History: Reports: Other Musculoskeletal History: hx: fracturing Left ANkle, Chronic back pain 'whole back with arthritis", Current RIGHT shoulder pain with radiation pain to Elbow..has been worsening, frequent muscle cramping Neurological History: Reports: Headaches, Chronic, TIA, Vertigo Other Neuro History: CHRONIC Back Pain, Follow with [facility] Dr. Guerrier Psychiatric History: Reports: Anxiety, Depression Other Psychiatric History: Real Anxious before surgery "LIKE COCKTAIL before I Leave the Room" Endocrine/Metabolic History: Reports: Obesity/BMI 30+ Hematologic History: Reports: None Immunologic History: Reports: None Oncologic (Cancer) History: Reports: Breast, Other (See Below) Other Oncologic History: throat Dermatologic History: Reports: None - Infectious Disease History Infectious Disease History: Reports: Chicken Pox, Measles, Mumps Other Infectious Disease History: Pt states she does not remember - Past Surgical History Other HEENT Surgeries/Procedures: UPPER 2 Front teeth Implants Other GI Surgeries/Procedures: Lap Coco Female Surgical History: Reports: Tubal Ligation Musculoskeletal Surgical History: Reports: Knee Replacement Oncologic Surgical History: Reports: Lumpectomy Social & Family History - Family History Family Medical History: Noncontributory Psychiatric: Reports: Depression Hematologic: Reports: SLE Immunologic: Reports: SLE - Caffeine Use Caffeine Use: Reports: None - Living Situation & Occupation Living situation: Reports: with Family Occupation: Retired ED ROS GENERAL - Review of Systems Review Of Systems: Comprehensive ROS is negative, except as noted in HPI. ED EXAM, GENERAL - Physical Exam Exam: See Below (see dictation) Course - Vital Signs Last Recorded V/S: Last Vital Signs Temp 97.9 F 07/14/20 13:34 Pulse 83 07/14/20 19:44 Resp 18 07/14/20 19:44 BP 136/70 07/14/20 19:44 Pulse Ox 96 07/14/20 19:44 - Orders/Labs/Meds Orders: Active Orders 24 hr Category Date Time Status EKG Documentation Completion [RC] STAT Care 07/14/20 14:52 Active CULTURE URINE [RM] Stat Lab 07/14/20 18:13 Received Sodium Chloride 0.9% [Saline Flush] Med 07/14/20 14:11 Active 10 ml FLUSH ASDIRECTED PRN Sodium Chloride 0.9% [Saline Flush] Med 07/14/20 14:11 Active 2.5 ml FLUSH ASDIRECTED PRN Saline Lock Insert [OM.PC] Stat Oth 07/14/20 14:11 Ordered Medication Orders Sodium Chloride (Saline Flush) 10 ml FLUSH ASDIRECTED PRN PRN Reason: Keep Vein Open Last Admin: 07/14/20 16:29 Dose: 10 ml Documented by: [email or web address] Sodium Chloride (Saline Flush) 2.5 ml FLUSH ASDIRECTED PRN PRN Reason: Keep Vein Open Last Admin: 07/14/20 16:29 Dose: 2.5 ml Documented by: [email or web address] Labs: Laboratory Tests 07/14/20 07/14/20 07/14/20 Range/Units 16:33 16:33 16:33 WBC 10.69 (4.0-11.0) K/uL RBC 5.96 H (4.30-5.90) M/uL Hgb 18.2 H (12.0-16.0) g/dL Hct 53.1 H (36.0-46.0) % MCV 89.1 (80.0-98.0) fL MCH 30.5 (27.0-32.0) pg MCHC 34.3 (31.0-37.0) g/dL RDW Std Deviation 42.1 (28.0-62.0) fl RDW Coeff of Antonieta 13 (11.0-15.0) % Plt Count 214 (150-400) K/uL MPV 10.10 (7.40-12.00) fL Neut % (Auto) 89.4 H (48.0-80.0) % Lymph % (Auto) 7.1 L (16.0-40.0) % [place] % (Auto) 3.5 (0.0-15.0) % Eos % (Auto) 0.0 (0.0-7.0) % Baso % (Auto) 0.0 (0.0-1.5) % Neut # (Auto) 9.6 H (1.4-5.7) K/uL Lymph # (Auto) 0.8 (0.6-2.4) K/uL [place] # (Auto) 0.4 (0.0-0.8) K/uL Eos # (Auto) 0.0 (0.0-0.7) K/uL Baso # (Auto) 0.0 (0.0-0.1) K/uL Nucleated RBC % 0.0 /100WBC Nucleated RBCs # 0 K/uL Sodium 141 (136-145) mmol/L Potassium 5.0 (3.5-5.1) mmol/L Chloride 104 (98-107) mmol/L Carbon Dioxide 28.3 (21.0-32.0) mmol/L BUN 39 H (7.0-18.0) mg/dL Creatinine 1.5 H (0.6-1.0) mg/dL Est Cr Clr Drug Dosing 32.67 mL/min Estimated GFR (MDRD) 34.3 ml/min Glucose 151 H (74-106) mg/dL Calcium 9.3 (8.5-10.1) mg/dL Total Bilirubin 0.4 (0.2-1.0) mg/dL AST 29 (15-37) IU/L ALT 29 (14-63) IU/L Alkaline Phosphatase 113 (46-116) U/L Troponin I < 0.050 (0.000-0.056) ng/mL Total Protein 7.4 (6.4-8.2) g/dL Albumin 3.6 (3.4-5.0) g/dL Globulin 3.8 (2.6-4.0) g/dL Albumin/Globulin Ratio 0.9 (0.9-1.6) Lipase 101 (73-393) U/L Meds: Medications Generic Name Dose Route Start Last Admin Trade Name Agustínq PRN Reason Stop Dose Admin Sodium Chloride 10 ml 07/14/20 14:11 07/14/20 16:29 Saline Flush FLUSH 10 ml ASDIRECTED PRN Administration Keep Vein Open Sodium Chloride 2.5 ml 07/14/20 14:11 07/14/20 16:29 Saline Flush FLUSH 2.5 ml ASDIRECTED PRN Administration Keep Vein Open Discontinued Medications Generic Name Dose Route Start Last Admin Trade Name Agustínq PRN Reason Stop Dose Admin Sodium Chloride 1,000 mls @ 999 mls/hr 07/14/20 14:52 07/14/20 16:31 Normal Saline IV 07/14/20 15:52 999 mls/hr BOLUS ONE Administration Ceftriaxone Sodium/Dextrose 1 50 mls @ 100 mls/hr 07/14/20 18:27 07/14/20 18:34 gm/ Premix IV 07/14/20 18:56 100 mls/hr ONETIME ONE Administration Ketorolac Tromethamine 30 mg 07/14/20 17:21 07/14/20 17:54 Toradol IVPUSH 07/14/20 17:22 30 mg ONETIME ONE Administration Ondansetron HCl 4 mg 07/14/20 14:52 07/14/20 16:28 Zofran IVPUSH 07/14/20 14:53 4 mg ONETIME ONE Administration Departure - Departure Time of Disposition: 18:28 Disposition: Refer to Observation Clinical Impression: Generalized abdominal pain, Weakness, Risk for falls Vomiting Qualifiers: Vomiting type: unspecified Vomiting Intractability: intractable Nausea presence: with nausea Qualified Code(s): R11.2 - Nausea with vomiting, unspecified Urinary tract infection Qualifiers: Urinary tract infection type: acute cystitis Hematuria presence: without hematuria Qualified Code(s): N30.00 - Acute cystitis without hematuria - Discharge Information Sepsis Event Note (ED) - Evaluation Sepsis Screening Result: No Definite Risk - Focused Exam Vital Signs: Vital Signs Temp Pulse Resp BP Pulse Ox 07/14/20 16:33 93 16 188/92 H 96 07/14/20 13:34 97.9 F 101 H 18 148/87 H 100 - My Orders Last 24 Hours: My Active Orders 07/14/20 14:11 Sodium Chloride 0.9% [Saline Flush] 10 ml FLUSH ASDIRECTED PRN Sodium Chloride 0.9% [Saline Flush] 2.5 ml FLUSH ASDIRECTED PRN Saline Lock Insert [OM.PC] Stat 07/14/20 14:52 EKG Documentation Completion [RC] STAT 07/14/20 18:13 CULTURE URINE [RM] Stat - Assessment/Plan Last 24 Hours: My Active Orders 07/14/20 14:11 Sodium Chloride 0.9% [Saline Flush] 10 ml FLUSH ASDIRECTED PRN Sodium Chloride 0.9% [Saline Flush] 2.5 ml FLUSH ASDIRECTED PRN Saline Lock Insert [OM.PC] Stat 07/14/20 14:52 EKG Documentation Completion [RC] STAT 07/14/20 18:13 CULTURE URINE [RM] Stat
--- NOTE | 2020-07-14 16:31 | CT ---
CT abdomen and pelvis Technique: Multiple axial sections were obtained from above the dome of the diaphragm inferiorly through the pubic symphysis. Intravenous and oral contrast not utilized. Comparison: Previous CT abdomen and pelvis exam of 05/13/20 is available. Findings: Visualized lung bases shows areas of atelectasis and scarring. Noncontrast appearance of the liver shows no focal abnormality. Surgical clips seen from prior cholecystectomy. Spleen size is normal. Adrenal glands show no nodule. Pancreas shows no discrete abnormality. Kidneys show no hydronephrosis. No abnormal calcifications are seen within the kidneys. Aorta shows atherosclerotic calcification which continues into the iliac vessels. No aneurysm is seen. No retroperitoneal adenopathy or mesenteric abnormalities are noted. Appendix is seen which is normal. No pelvic mass or adenopathy is seen. Diverticuli are seen within the sigmoid colon with no findings of diverticulitis. Pessary i noted within the pelvis. No free fluid or inflammatory change is appreciated. Bone window settings were reviewed. Degenerative change is scattered within the spine. Severe disc space narrowing and vacuum phenomena are noted within the L4-5 and L5-S1 disks. Impression: 1. Nothing acute is appreciated on noncontrast CT study of the abdomen and pelvis. Diagnostic code #2 This report was dictated in MDT
--- NOTE | 2020-07-14 17:02 | CR ---
Chest: Frontal view of the chest was being. Comparison: No prior chest x-ray is available. Heart size and mediastinum are normal. Infusion port is seen entering from the left side. Surgical clips are seen in the left axillary region. Lungs are clear with no acute parenchymal change. Bony structures are osteopenic. Impression: 1. Findings as noted above. 2. Nothing acute is seen. Diagnostic code #2 This report was dictated in MDT
[2020-07-14 17:03] LABS: CARBON DIOXIDE,CO2 28.3 mmol/L (21.0-32.0)
[2020-07-14] MEDS ORDERED: Ketorolac 30 MG/ML SDV IVPUSH ONE (17:21)
[2020-07-14] MEDS ORDERED: cefTRIAXone 1 GM in Premix Bag 1 BAG IV ONE (18:27)
[2020-07-14] MEDS ORDERED: Ondansetron 4 MG/2 ML SDV IVPUSH PRN (22:04)
[2020-07-14] MEDS: Sodium Chloride 0.9% 1,000 ML IV SCH (22:44)
[2020-07-14] MEDS ORDERED: FENTANYL 25 MCG TOP SCH (22:45)
[2020-07-14] MEDS: Acetaminophen 325 MG Tab PO PRN (22:47)
--- NOTE | 2020-07-14 23:24 | PCM.HP.2 ---
H&P History of Present Illness - General Date of Service: 07/14/20 Admit Problem/Dx: Admission Diagnosis/Problem Admission Diagnosis/Problem Vomiting - History of Present Illness Initial Comments - Free Text/Narative: 69 yo female with pmh of CHF, COPD, squamous cell cancer of left tonsil who had her G[place]tub removed in [place] last week. Lornen reports she had been on antibiotics as they noted stool and pus with the removal of her G-tube. For the past several days patient reports fevers, malaise, nausea and vomiting. CT scan showed no acute findings. abdominal Pain Score (Numeric/FACES): 8 - Related Data Allergies/Adverse Reactions: Allergies Allergy/AdvReac Type Severity Reaction Status Date / Time bee pollen Allergy unknown Verified 07/14/20 13:37 codeine Allergy Other Verified 07/14/20 21:41 eszopiclone [From Lunesta] Allergy Hypertensio Verified 07/14/20 13:37 n Iodinated Contrast Media Allergy Anaphylactic Verified 07/14/20 13:37 [Iodinated Contrast Media - Shock IV Dye] lorazepam Allergy Facial Verified 07/14/20 13:37 Swelling pregabalin [From Lyrica] Allergy Facial Verified 07/14/20 13:37 Swelling Cloth tape Allergy Blisters Uncoded 07/14/20 13:37 flu vaccination Allergy Anaphylactic Uncoded 07/14/20 13:37 Shock Paper Tape Allergy Blisters Uncoded 07/14/20 13:37 Home Medications: Home Meds Desvenlafaxine Succinate [Pristiq] 100 mg PO BEDTIME 12/15/19 [History] Losartan Potassium [Cozaar] 50 mg PO DAILY 12/15/19 [History] Meclizine [Antivert] 25 mg PO TID PRN 12/15/19 [History] Omeprazole 40 mg PO DAILY 12/15/19 [History] Ondansetron [Zofran ODT] 4 mg PO Q6H PRN 12/15/19 [History] Sulfamethoxazole/Trimethoprim [Bactrim Ds Tablet] 1 each PO BID 12/15/19 [History] clonazePAM [Clonazepam] 1 mg PO BID PRN 12/15/19 [History] fentaNYL [Fentanyl] 25 mcg TD ASDIRECTED 12/15/19 [History] oxyCODONE 5 mg PO TID PRN 12/15/19 [History] Past Medical History HEENT History: Reports: Impaired Vision Other HEENT History: asthma Cardiovascular History: Reports: Heart Failure, High Cholesterol, Hypertension Respiratory History: Reports: Asthma, COPD, SOB Other Respiratory History: 40 Plus years use of tobacco products, QUIT 02/14/2015 Gastrointestinal History: Reports: GERD, PUD Other Gastrointestinal History: Heartburn/GERD Other Genitourinary History: Frequent Urination [employer] History: Reports: Other Musculoskeletal History: hx: fracturing Left ANkle, Chronic back pain 'whole back with arthritis", Current RIGHT shoulder pain with radiation pain to Elbow..has been worsening, frequent muscle cramping Neurological History: Reports: Headaches, Chronic, TIA, Vertigo Other Neuro History: CHRONIC Back Pain, Follow with [facility] Dr. Guerrier Psychiatric History: Reports: Anxiety, Depression Other Psychiatric History: Real Anxious before surgery "LIKE COCKTAIL before I Leave the Room" Endocrine/Metabolic History: Reports: Obesity/BMI 30+ Hematologic History: Reports: None Immunologic History: Reports: None Oncologic (Cancer) History: Reports: Breast, Other (See Below) Other Oncologic History: throat Dermatologic History: Reports: None - Infectious Disease History Infectious Disease History: Reports: Chicken Pox, Measles, Mumps Other Infectious Disease History: Pt states she does not remember - Past Surgical History Other HEENT Surgeries/Procedures: UPPER 2 Front teeth Implants Other GI Surgeries/Procedures: Lap Coco Female Surgical History: Reports: Tubal Ligation Musculoskeletal Surgical History: Reports: Knee Replacement Oncologic Surgical History: Reports: Lumpectomy Social & Family History - Family History Family Medical History: Noncontributory Psychiatric: Reports: Depression Hematologic: Reports: SLE Immunologic: Reports: SLE - Tobacco Use Smoking Status *Q: Unknown Ever Smoked - Caffeine Use Caffeine Use: Reports: None - Living Situation & Occupation Living situation: Reports: with Family Occupation: Retired H&P Review of Systems - Review of Systems: Review Of Systems: Comprehensive ROS is negative, except as noted in HPI. Exam - Exam Exam: See Below - Vital Signs Vital Signs: Last Vital Signs Temp 36.6 C 07/14/20 13:34 Pulse 83 07/14/20 19:44 Resp 18 07/14/20 19:44 BP 136/70 07/14/20 19:44 Pulse Ox 96 07/14/20 19:44 Weight: 90.718 kg - Exam General: Alert, Oriented HEENT: Mucosa Moist & [place] Lungs: Clear to Auscultation, Normal Respiratory Effort Cardiovascular: Regular Rate, Regular Rhythm GI/Abdominal Exam: Normal Bowel Sounds, Soft, Non-Tender Extremities: Non-Tender, No Pedal Edema Skin: Warm, Dry, Intact Neurological: No: Focal Deficit - Patient Data Lab Results Last 24 hrs: Laboratory Results - last 24 hr 07/14/20 07/14/20 07/14/20 Range/Units 16:33 16:33 16:33 WBC 10.69 (4.0-11.0) K/uL RBC 5.96 H (4.30-5.90) M/uL Hgb 18.2 H (12.0-16.0) g/dL Hct 53.1 H (36.0-46.0) % MCV 89.1 (80.0-98.0) fL MCH 30.5 (27.0-32.0) pg MCHC 34.3 (31.0-37.0) g/dL RDW Std Deviation 42.1 (28.0-62.0) fl RDW Coeff of [place] 13 (11.0-15.0) % Plt Count 214 (150-400) K/uL MPV 10.10 (7.40-12.00) fL Neut % (Auto) 89.4 H (48.0-80.0) % Lymph % (Auto) 7.1 L (16.0-40.0) % [place] % (Auto) 3.5 (0.0-15.0) % Eos % (Auto) 0.0 (0.0-7.0) % Baso % (Auto) 0.0 (0.0-1.5) % Neut # (Auto) 9.6 H (1.4-5.7) K/uL Lymph # (Auto) 0.8 (0.6-2.4) K/uL [place] # (Auto) 0.4 (0.0-0.8) K/uL Eos # (Auto) 0.0 (0.0-0.7) K/uL Baso # (Auto) 0.0 (0.0-0.1) K/uL Nucleated RBC % 0.0 /100WBC Nucleated RBCs # 0 K/uL Sodium 141 (136-145) mmol/L Potassium 5.0 (3.5-5.1) mmol/L Chloride 104 (98-107) mmol/L Carbon Dioxide 28.3 (21.0-32.0) mmol/L BUN 39 H (7.0-18.0) mg/dL Creatinine 1.5 H (0.6-1.0) mg/dL Est Cr Clr Drug Dosing 32.67 mL/min Estimated GFR (MDRD) 34.3 ml/min Glucose 151 H (74-106) mg/dL Calcium 9.3 (8.5-10.1) mg/dL Total Bilirubin 0.4 (0.2-1.0) mg/dL AST 29 (15-37) IU/L ALT 29 (14-63) IU/L Alkaline Phosphatase 113 (46-116) U/L Troponin I < 0.050 (0.000-0.056) ng/mL Total Protein 7.4 (6.4-8.2) g/dL Albumin 3.6 (3.4-5.0) g/dL Globulin 3.8 (2.6-4.0) g/dL Albumin/Globulin Ratio 0.9 (0.9-1.6) Lipase 101 (73-393) U/L Urine Color Urine Appearance Urine pH (5.0-8.0) Ur Specific [place] (1.001-1.035) Urine Protein (NEGATIVE) mg/dL Urine Glucose (UA) (NEGATIVE) mg/dL Urine Ketones (NEGATIVE) mg/dL Urine Occult Blood (NEGATIVE) Urine Nitrite (NEGATIVE) Urine Bilirubin (NEGATIVE) Urine Urobilinogen (<2.0) EU/dL Ur Leukocyte Esterase (NEGATIVE) Urine RBC (0-2/HPF) Urine WBC (0-5/HPF) Ur Epithelial Cells (NONE-FEW) Urine Bacteria (NEGATIVE) SARS-CoV-2 RNA (LEE) (NEGATIVE) 07/14/20 07/14/20 Range/Units 18:13 18:45 WBC (4.0-11.0) K/uL RBC (4.30-5.90) M/uL Hgb (12.0-16.0) g/dL Hct (36.0-46.0) % MCV (80.0-98.0) fL MCH (27.0-32.0) pg MCHC (31.0-37.0) g/dL RDW Std Deviation (28.0-62.0) fl RDW Coeff of [place] (11.0-15.0) % Plt Count (150-400) K/uL MPV (7.40-12.00) fL Neut % (Auto) (48.0-80.0) % Lymph % (Auto) (16.0-40.0) % [place] % (Auto) (0.0-15.0) % Eos % (Auto) (0.0-7.0) % Baso % (Auto) (0.0-1.5) % Neut # (Auto) (1.4-5.7) K/uL Lymph # (Auto) (0.6-2.4) K/uL [place] # (Auto) (0.0-0.8) K/uL Eos # (Auto) (0.0-0.7) K/uL Baso # (Auto) (0.0-0.1) K/uL Nucleated RBC % /100WBC Nucleated RBCs # K/uL Sodium (136-145) mmol/L Potassium (3.5-5.1) mmol/L Chloride (98-107) mmol/L Carbon Dioxide (21.0-32.0) mmol/L BUN (7.0-18.0) mg/dL Creatinine (0.6-1.0) mg/dL Est Cr Clr Drug Dosing mL/min Estimated GFR (MDRD) ml/min Glucose (74-106) mg/dL Calcium (8.5-10.1) mg/dL Total Bilirubin (0.2-1.0) mg/dL AST (15-37) IU/L ALT (14-63) IU/L Alkaline Phosphatase (46-116) U/L Troponin I (0.000-0.056) ng/mL Total Protein (6.4-8.2) g/dL Albumin (3.4-5.0) g/dL Globulin (2.6-4.0) g/dL Albumin/Globulin Ratio (0.9-1.6) Lipase (73-393) U/L Urine Color YELLOW Urine Appearance CLEAR Urine pH 5.5 (5.0-8.0) Ur Specific [place] >= 1.030 (1.001-1.035) Urine Protein TRACE H (NEGATIVE) mg/dL Urine Glucose (UA) NEGATIVE (NEGATIVE) mg/dL Urine Ketones NEGATIVE (NEGATIVE) mg/dL Urine Occult Blood NEGATIVE (NEGATIVE) Urine Nitrite POSITIVE H (NEGATIVE) Urine Bilirubin NEGATIVE (NEGATIVE) Urine Urobilinogen 0.2 (<2.0) EU/dL Ur Leukocyte Esterase SMALL H (NEGATIVE) Urine RBC 0-1 (0-2/HPF) Urine WBC 3-5 (0-5/HPF) Ur Epithelial Cells MANY (NONE-FEW) Urine Bacteria 2+ H (NEGATIVE) SARS-CoV-2 RNA (LEE) NEGATIVE (NEGATIVE) Result Diagrams: 07/14/20 16:33 07/14/20 16:33 Sepsis Event Note - Evaluation Sepsis Screening Result: No Definite Risk - Focused Exam Vital Signs: Vital Signs Temp Pulse Resp BP Pulse Ox 07/14/20 19:44 83 18 136/70 96 07/14/20 16:33 93 16 188/92 H 96 07/14/20 13:34 36.6 C 101 H 18 148/87 H 100 Problem List Initiated/Reviewed/Updated: Yes Orders Last 24hrs: Active Orders 24 hr Category Date Time Status Admission Status [Patient Status] [ADT] Stat ADT 07/14/20 18:09 Active Antiembolic Devices [RC] PER UNIT ROUTINE Care 07/14/20 23:12 Ordered EKG Documentation Completion [RC] STAT Care 07/14/20 14:52 Active Oxygen Therapy [RC] PRN Care 07/14/20 23:11 Ordered Up ad Steff [RC] ASDIRECTED Care 07/14/20 23:11 Ordered VTE/DVT Education [RC] PER UNIT ROUTINE Care 07/14/20 23:11 Ordered Vital Signs [RC] Q4H Care 07/14/20 23:11 Ordered NPO Now [Nothing per Oral Now Diet] [DIET] Diet 07/15/20 Breakfast Active Regular Diet [DIET] Diet 07/14/20 Breakfast Ordered BASIC METABOLIC PANEL,BMP [CHEM] AM Lab 07/15/20 05:11 Ordered CBC WITH AUTO DIFF [HEME] AM Lab 07/15/20 05:11 Ordered CULTURE URINE [RM] Stat Lab 07/14/20 18:13 Received Acetaminophen [TylenoL] Med 07/14/20 22:03 Active 650 mg PO Q6H PRN ClonazePAM [KlonoPIN] Med 07/14/20 22:39 Active 1 mg PO BID PRN Desvenlafaxine Succinate [Pristiq] Med 07/15/20 21:00 Pending 100 mg PO BEDTIME Heparin Sodium Med 07/14/20 23:15 Ordered 5,000 units SUBCUT Q8H Losartan [Cozaar] Med 07/15/20 09:00 Active 50 mg PO DAILY Omeprazole Med 07/15/20 09:00 Active 40 mg PO DAILY Ondansetron [Zofran ODT] Med 07/14/20 22:39 Active 4 mg PO Q6H PRN Ondansetron [Zofran] Med 07/14/20 22:04 Active 4 mg IVPUSH Q4H PRN Sodium Chloride 0.9% [Normal Saline] 1,000 ml Med 07/14/20 22:15 Active IV ASDIRECTED Sodium Chloride 0.9% [Saline Flush] Med 07/14/20 14:11 Active 10 ml FLUSH ASDIRECTED PRN Sodium Chloride 0.9% [Saline Flush] Med 07/14/20 14:11 Active 2.5 ml FLUSH ASDIRECTED PRN cefTRIAXone [Rocephin] 1 gm Med 07/15/20 16:00 Ordered Sodium Chloride 0.9% [Normal Saline] 50 ml IV Q24H fentaNYL [Fentanyl] Med 07/14/20 22:45 Pending 25 mcg TOP ASDIRECTED oxyCODONE Med 07/14/20 22:39 Active 5 mg PO TID PRN Saline Lock Insert [OM.PC] Stat Oth 07/14/20 14:11 Ordered Sequential Compression Device [OM.PC] Per Unit Routine Oth 07/14/20 23:12 Ord ered Resuscitation Status Routine Resus Stat 07/14/20 23:11 Ordered Medication Orders Acetaminophen (Tylenol) 650 mg PO Q6H PRN PRN Reason: Pain Last Admin: 07/14/20 22:47 Dose: 650 mg Documented by: SEMICHR Clonazepam (Klonopin) 1 mg PO BID PRN PRN Reason: Anxiety Heparin Sodium (Porcine) (Heparin Sodium) 5,000 units SUBCUT Q8H JAD Sodium Chloride (Normal Saline) 1,000 mls @ 125 mls/hr IV ASDIRECTED JAD Last Admin: 07/14/20 22:44 Dose: 125 mls/hr Documented by: MARILU Ceftriaxone Sodium 1 gm/ (Sodium Chloride) 50 mls @ 100 mls/hr IV Q24H JAD Losartan Potassium (Cozaar) 50 mg PO DAILY JAD Non-Formulary Medication (Fentanyl [Fentanyl]) 25 mcg TOP ASDIRECTED JAD Non-Formulary Medication (Desvenlafaxine Succinate [Pristiq]) 100 mg PO BEDTIME JAD Omeprazole (Omeprazole) 40 mg PO DAILY JAD Ondansetron HCl (Zofran) 4 mg IVPUSH Q4H PRN PRN Reason: Nausea/Vomiting Last Admin: 07/14/20 22:47 Dose: 4 mg Documented by: MARILU Ondansetron HCl (Zofran Odt) 4 mg PO Q6H PRN PRN Reason: Nausea Oxycodone HCl (Oxycodone) 5 mg PO TID PRN PRN Reason: Pain Sodium Chloride (Saline Flush) 10 ml FLUSH ASDIRECTED PRN PRN Reason: Keep Vein Open Last Admin: 07/14/20 16:29 Dose: 10 ml Documented by: [id number] Sodium Chloride (Saline Flush) 2.5 ml FLUSH ASDIRECTED PRN PRN Reason: Keep Vein Open Last Admin: 07/14/20 16:29 Dose: 2.5 ml Documented by: [id number] Assessment/Plan Comment:: 69 yo female admitted for UTI and dehydration. We will treat with IV fluids, and Rocephin. Culture is pending.
[2020-07-14] MEDS: Heparin Sodium 5,000 Units/ML Vial SUBCUT SCH (23:53)
[2020-07-14] MEDS: ClonazePAM 1 MG Tab PO PRN (23:53)
[2020-07-15] MEDS: oxyCODONE 5 MG Tab PO PRN ×2 (02:47→19:52)
[2020-07-15 06:36] LABS: POTASSIUM,K 4.1 mmol/L (3.5-5.1)
[2020-07-15] MEDS: Heparin Sodium 5,000 Units/ML Vial SUBCUT SCH ×3 (07:07→23:00)
[2020-07-15] MEDS: Sodium Chloride 0.9% 1,000 ML IV SCH (07:08)
[2020-07-15] MEDS ORDERED: Omeprazole 20 MG Cap.CR PO SCH (09:00)
[2020-07-15] MEDS: Losartan 50 MG Tab PO SCH (09:15)
[2020-07-15] MEDS: Omeprazole 20 MG Cap.CR PO SCH (09:16)
[2020-07-15] MEDS: Acetaminophen 325 MG Tab PO PRN (09:16)
[2020-07-15] MEDS: Ondansetron 4 MG Tab.DIS PO PRN (09:24)
[2020-07-15] MEDS ORDERED: Albuterol/Ipratropium 3.0-0.5 MG/3 ML Neb Soln NEB PRN (10:25)
--- NOTE | 2020-07-15 14:08 | PCM.PN ---
- General Info Date of Service: 07/15/20 - Review of Systems Systems Review Comment:: reports generalized weakness, denies any pain, no shortness of breath - Patient Data Vitals - Most Recent: Last Vital Signs Temp 36.2 C 07/15/20 12:09 Pulse 61 07/15/20 12:09 Resp 18 07/15/20 12:09 BP 128/58 L 07/15/20 12:09 Pulse Ox 92 L 07/15/20 12:09 Weight - Most Recent: 90.718 kg I&O - Last 24 Hours: Intake & Output 07/14/20 07/15/20 07/15/20 22:59 06:59 14:59 Intake Total 1195 Balance 1195 Lab Results Last 24 Hours: Laboratory Results - last 24 hr 07/14/20 07/14/20 07/14/20 Range/Units 16:33 16:33 16:33 WBC 10.69 (4.0-11.0) K/uL RBC 5.96 H (4.30-5.90) M/uL Hgb 18.2 H (12.0-16.0) g/dL Hct 53.1 H (36.0-46.0) % MCV 89.1 (80.0-98.0) fL MCH 30.5 (27.0-32.0) pg MCHC 34.3 (31.0-37.0) g/dL RDW Std Deviation 42.1 (28.0-62.0) fl RDW Coeff of [place] 13 (11.0-15.0) % Plt Count 214 (150-400) K/uL MPV 10.10 (7.40-12.00) fL Neut % (Auto) 89.4 H (48.0-80.0) % Lymph % (Auto) 7.1 L (16.0-40.0) % [place] % (Auto) 3.5 (0.0-15.0) % Eos % (Auto) 0.0 (0.0-7.0) % Baso % (Auto) 0.0 (0.0-1.5) % Neut # (Auto) 9.6 H (1.4-5.7) K/uL Lymph # (Auto) 0.8 (0.6-2.4) K/uL [place] # (Auto) 0.4 (0.0-0.8) K/uL Eos # (Auto) 0.0 (0.0-0.7) K/uL Baso # (Auto) 0.0 (0.0-0.1) K/uL Nucleated RBC % 0.0 /100WBC Nucleated RBCs # 0 K/uL Sodium 141 (136-145) mmol/L Potassium 5.0 (3.5-5.1) mmol/L Chloride 104 (98-107) mmol/L Carbon Dioxide 28.3 (21.0-32.0) mmol/L BUN 39 H (7.0-18.0) mg/dL Creatinine 1.5 H (0.6-1.0) mg/dL Est Cr Clr Drug Dosing 32.67 mL/min Estimated GFR (MDRD) 34.3 ml/min Glucose 151 H (74-106) mg/dL Calcium 9.3 (8.5-10.1) mg/dL Total Bilirubin 0.4 (0.2-1.0) mg/dL AST 29 (15-37) IU/L ALT 29 (14-63) IU/L Alkaline Phosphatase 113 (46-116) U/L Troponin I < 0.050 (0.000-0.056) ng/mL Total Protein 7.4 (6.4-8.2) g/dL Albumin 3.6 (3.4-5.0) g/dL Globulin 3.8 (2.6-4.0) g/dL Albumin/Globulin Ratio 0.9 (0.9-1.6) Lipase 101 (73-393) U/L Urine Color Urine Appearance Urine pH (5.0-8.0) Ur Specific [place] (1.001-1.035) Urine Protein (NEGATIVE) mg/dL Urine Glucose (UA) (NEGATIVE) mg/dL Urine Ketones (NEGATIVE) mg/dL Urine Occult Blood (NEGATIVE) Urine Nitrite (NEGATIVE) Urine Bilirubin (NEGATIVE) Urine Urobilinogen (<2.0) EU/dL Ur Leukocyte Esterase (NEGATIVE) Urine RBC (0-2/HPF) Urine WBC (0-5/HPF) Ur Epithelial Cells (NONE-FEW) Urine Bacteria (NEGATIVE) SARS-CoV-2 RNA (LEE) (NEGATIVE) 07/14/20 07/14/20 07/15/20 Range/Units 18:13 18:45 05:16 WBC 11.26 H (4.0-11.0) K/uL RBC 4.96 (4.30-5.90) M/uL Hgb 14.6 (12.0-16.0) g/dL Hct 44.2 (36.0-46.0) % MCV 89.1 (80.0-98.0) fL MCH 29.4 (27.0-32.0) pg MCHC 33.0 (31.0-37.0) g/dL RDW Std Deviation 43.3 (28.0-62.0) fl RDW Coeff of [place] 13 (11.0-15.0) % Plt Count 181 (150-400) K/uL MPV 10.30 (7.40-12.00) fL Neut % (Auto) 80.4 H (48.0-80.0) % Lymph % (Auto) 11.3 L (16.0-40.0) % [place] % (Auto) 7.7 (0.0-15.0) % Eos % (Auto) 0.5 (0.0-7.0) % Baso % (Auto) 0.1 (0.0-1.5) % Neut # (Auto) 9.1 H (1.4-5.7) K/uL Lymph # (Auto) 1.3 (0.6-2.4) K/uL [place] # (Auto) 0.9 H (0.0-0.8) K/uL Eos # (Auto) 0.1 (0.0-0.7) K/uL Baso # (Auto) 0.0 (0.0-0.1) K/uL Nucleated RBC % 0.0 /100WBC Nucleated RBCs # 0 K/uL Sodium (136-145) mmol/L Potassium (3.5-5.1) mmol/L Chloride (98-107) mmol/L Carbon Dioxide (21.0-32.0) mmol/L BUN (7.0-18.0) mg/dL Creatinine (0.6-1.0) mg/dL Est Cr Clr Drug Dosing mL/min Estimated GFR (MDRD) ml/min Glucose (74-106) mg/dL Calcium (8.5-10.1) mg/dL Total Bilirubin (0.2-1.0) mg/dL AST (15-37) IU/L ALT (14-63) IU/L Alkaline Phosphatase (46-116) U/L Troponin I (0.000-0.056) ng/mL Total Protein (6.4-8.2) g/dL Albumin (3.4-5.0) g/dL Globulin (2.6-4.0) g/dL Albumin/Globulin Ratio (0.9-1.6) Lipase (73-393) U/L Urine Color YELLOW Urine Appearance CLEAR Urine pH 5.5 (5.0-8.0) Ur Specific [place] >= 1.030 (1.001-1.035) Urine Protein TRACE H (NEGATIVE) mg/dL Urine Glucose (UA) NEGATIVE (NEGATIVE) mg/dL Urine Ketones NEGATIVE (NEGATIVE) mg/dL Urine Occult Blood NEGATIVE (NEGATIVE) Urine Nitrite POSITIVE H (NEGATIVE) Urine Bilirubin NEGATIVE (NEGATIVE) Urine Urobilinogen 0.2 (<2.0) EU/dL Ur Leukocyte Esterase SMALL H (NEGATIVE) Urine RBC 0-1 (0-2/HPF) Urine WBC 3-5 (0-5/HPF) Ur Epithelial Cells MANY (NONE-FEW) Urine Bacteria 2+ H (NEGATIVE) SARS-CoV-2 RNA (LEE) NEGATIVE (NEGATIVE) 07/15/20 Range/Units 05:16 WBC (4.0-11.0) K/uL RBC (4.30-5.90) M/uL Hgb (12.0-16.0) g/dL Hct (36.0-46.0) % MCV (80.0-98.0) fL MCH (27.0-32.0) pg MCHC (31.0-37.0) g/dL RDW Std Deviation (28.0-62.0) fl RDW Coeff of [place] (11.0-15.0) % Plt Count (150-400) K/uL MPV (7.40-12.00) fL Neut % (Auto) (48.0-80.0) % Lymph % (Auto) (16.0-40.0) % [place] % (Auto) (0.0-15.0) % Eos % (Auto) (0.0-7.0) % Baso % (Auto) (0.0-1.5) % Neut # (Auto) (1.4-5.7) K/uL Lymph # (Auto) (0.6-2.4) K/uL [place] # (Auto) (0.0-0.8) K/uL Eos # (Auto) (0.0-0.7) K/uL Baso # (Auto) (0.0-0.1) K/uL Nucleated RBC % /100WBC Nucleated RBCs # K/uL Sodium 141 (136-145) mmol/L Potassium 4.1 (3.5-5.1) mmol/L Chloride 106 (98-107) mmol/L Carbon Dioxide 27.0 (21.0-32.0) mmol/L BUN 43 H (7.0-18.0) mg/dL Creatinine 1.4 H (0.6-1.0) mg/dL Est Cr Clr Drug Dosing 35.00 mL/min Estimated GFR (MDRD) 37.2 ml/min Glucose 123 H (74-106) mg/dL Calcium 8.4 L (8.5-10.1) mg/dL Total Bilirubin (0.2-1.0) mg/dL AST (15-37) IU/L ALT (14-63) IU/L Alkaline Phosphatase (46-116) U/L Troponin I (0.000-0.056) ng/mL Total Protein (6.4-8.2) g/dL Albumin (3.4-5.0) g/dL Globulin (2.6-4.0) g/dL Albumin/Globulin Ratio (0.9-1.6) Lipase (73-393) U/L Urine Color Urine Appearance Urine pH (5.0-8.0) Ur Specific [place] (1.001-1.035) Urine Protein (NEGATIVE) mg/dL Urine Glucose (UA) (NEGATIVE) mg/dL Urine Ketones (NEGATIVE) mg/dL Urine Occult Blood (NEGATIVE) Urine Nitrite (NEGATIVE) Urine Bilirubin (NEGATIVE) Urine Urobilinogen (<2.0) EU/dL Ur Leukocyte Esterase (NEGATIVE) Urine RBC (0-2/HPF) Urine WBC (0-5/HPF) Ur Epithelial Cells (NONE-FEW) Urine Bacteria (NEGATIVE) SARS-CoV-2 RNA (LEE) (NEGATIVE) Med Orders - Current: Current Medications Acetaminophen (Tylenol) 650 mg PO Q6H PRN PRN Reason: Pain Last Admin: 07/15/20 09:16 Dose: 650 mg Documented by: Albuterol/Ipratropium (Duoneb 3.0-0.5 Mg/3 Ml) 3 ml NEB Q6HRRT PRN PRN Reason: Wheezing Clonazepam (Klonopin) 1 mg PO BID PRN PRN Reason: Anxiety Last Admin: 07/14/20 23:53 Dose: 1 mg Documented by: Fentanyl (Duragesic) 25 mcg TRDERM Q72H JAD Heparin Sodium (Porcine) (Heparin Sodium) 5,000 units SUBCUT Q8H JAD Last Admin: 07/15/20 07:07 Dose: 5,000 units Documented by: Ceftriaxone Sodium 1 gm/ (Sodium Chloride) 50 mls @ 100 mls/hr IV Q24H JAD Losartan Potassium (Cozaar) 50 mg PO DAILY [facility] Last Admin: 07/15/20 09:15 Dose: 50 mg Documented by: Omeprazole (Omeprazole) 40 mg PO ACBREAKFAST JAD Last Admin: 07/15/20 09:16 Dose: 40 mg Documented by: Ondansetron HCl (Zofran) 4 mg IVPUSH Q4H PRN PRN Reason: Nausea/Vomiting Last Admin: 07/14/20 22:47 Dose: 4 mg Documented by: Ondansetron HCl (Zofran Odt) 4 mg PO Q6H PRN PRN Reason: Nausea Last Admin: 07/15/20 09:24 Dose: 4 mg Documented by: Oxycodone HCl (Oxycodone) 5 mg PO TID PRN PRN Reason: Pain Last Admin: 07/15/20 02:47 Dose: 5 mg Documented by: Desvenlafaxine Succinate [Pristiq] 100 Mg 1 each PO BEDTIME [facility] Sodium Chloride (Saline Flush) 10 ml FLUSH ASDIRECTED PRN PRN Reason: Keep Vein Open Last Admin: 07/14/20 16:29 Dose: 10 ml Documented by: Sodium Chloride (Saline Flush) 2.5 ml FLUSH ASDIRECTED PRN PRN Reason: Keep Vein Open Last Admin: 07/14/20 16:29 Dose: 2.5 ml Documented by: Discontinued Medications Sodium Chloride (Normal Saline) 1,000 mls @ 999 mls/hr IV BOLUS ONE Stop: 07/14/20 15:52 Last Admin: 07/14/20 16:31 Dose: 999 mls/hr Documented by: Ceftriaxone Sodium/Dextrose 1 (gm/ Premix) 50 mls @ 100 mls/hr IV ONETIME ONE Stop: 07/14/20 18:56 Last Admin: 07/14/20 18:34 Dose: 100 mls/hr Documented by: Sodium Chloride (Normal Saline) 1,000 mls @ 125 mls/hr IV ASDIRECTED [facility] Last Admin: 07/15/20 07:08 Dose: 125 mls/hr Documented by: Ketorolac Tromethamine (Toradol) 30 mg IVPUSH ONETIME ONE Stop: 07/14/20 17:22 Last Admin: 07/14/20 17:54 Dose: 30 mg Documented by: Non-Formulary Medication (Fentanyl [Fentanyl]) 25 mcg TOP ASDIRECTED [facility] Omeprazole (Omeprazole) 40 mg PO DAILY [facility] Ondansetron HCl (Zofran) 4 mg IVPUSH ONETIME ONE Stop: 07/14/20 14:53 Last Admin: 07/14/20 16:28 Dose: 4 mg Documented by: - Exam General: Alert, Oriented Neck: Supple Lungs: Clear to Auscultation, Normal Respiratory Effort Cardiovascular: Regular Rate, Regular Rhythm Extremities: Non-Tender, No Pedal Edema Skin: Warm, Dry, Intact Neurological: No New Focal Deficit Sepsis Event Note - Evaluation Sepsis Screening Result: No Definite Risk - Focused Exam Vital Signs: Vital Signs Temp Pulse Resp BP BP Pulse Ox 07/15/20 12:09 36.2 C 61 18 128/58 L 92 L 07/15/20 09:15 150/55 H 07/15/20 08:27 36.6 C 67 17 150/55 H 95 07/15/20 04:00 36.4 C 65 16 138/61 96 - Problem List Review Problem List Initiated/Reviewed/Updated: Yes - My Orders Last 24 Hours: My Active Orders 07/14/20 22:03 Acetaminophen [TylenoL] 650 mg PO Q6H PRN 07/14/20 22:04 Ondansetron [Zofran] 4 mg IVPUSH Q4H PRN 07/14/20 22:39 ClonazePAM [KlonoPIN] 1 mg PO BID PRN Ondansetron [Zofran ODT] 4 mg PO Q6H PRN oxyCODONE 5 mg PO TID PRN 07/14/20 23:11 Oxygen Therapy [RC] PRN Up ad Steff [RC] ASDIRECTED VTE/DVT Education [RC] PER UNIT ROUTINE Vital Signs [RC] Q4H Resuscitation Status Routine 07/14/20 23:12 Antiembolic Devices [RC] PER UNIT ROUTINE Sequential Compression Device [OM.PC] Per Unit Routine 07/14/20 23:15 Heparin Sodium 5,000 units SUBCUT Q8H 07/15/20 09:00 Losartan [Cozaar] 50 mg PO DAILY Omeprazole 40 mg PO ACBREAKFAST 07/15/20 10:25 RT Aerosol Therapy [RC] ASDIRECTED Albuterol/Ipratropium [DuoNeb 3.0-0.5 MG/3 ML] 3 ml NEB Q6HRRT PRN 07/15/20 14:05 PT Evaluation and Treatment [CONS] Routine 07/15/20 18:00 cefTRIAXone [Rocephin] 1 gm Sodium Chloride 0.9% [Normal Saline] 50 ml IV Q24H 07/15/20 21:00 Patient's Own Medication [Ptom] 1 each PO BEDTIME 07/16/20 05:11 BASIC METABOLIC PANEL,BMP [CHEM] AM CBC WITH AUTO DIFF [HEME] AM 07/16/20 09:00 fentaNYL [Duragesic] 25 mcg TRDERM Q72H - Plan Plan:: 69 yo female admitted for UTI. Treating with Rocephin. Culture is pending. PT consulted
[2020-07-15] MEDS ORDERED: cefTRIAXone 1 GM in Sodium Chloride 0.9% 50 ML IV SCH (18:00)
[2020-07-15] MEDS: cefTRIAXone 1 GM in Premix Bag 1 BAG IV SCH (18:14)
[2020-07-15] MEDS: Desvenlafaxine Succinate [Pristiq] 100 MG PO SCH (20:22)
[2020-07-15] MEDS: ClonazePAM 1 MG Tab PO PRN (21:27)
[2020-07-15] MEDS ORDERED: fentaNYL 25 MCG/HR Transdermal Patch TRDERM SCH (21:30)
[2020-07-16 05:51] LABS: CARBON DIOXIDE,CO2 27.4 mmol/L (21.0-32.0); POTASSIUM,K 4.1 mmol/L (3.5-5.1)
[2020-07-16] MEDS: Omeprazole 20 MG Cap.CR PO SCH (06:33)
[2020-07-16] MEDS: Heparin Sodium 5,000 Units/ML Vial SUBCUT SCH ×3 (06:33→23:13)
[2020-07-16] MEDS: Losartan 50 MG Tab PO SCH (08:45)
[2020-07-16] MEDS ORDERED: fentaNYL 25 MCG/HR Transdermal Patch TRDERM SCH (09:00)
[2020-07-16] MEDS: ClonazePAM 1 MG Tab PO PRN ×2 (09:33→20:17)
--- NOTE | 2020-07-16 10:24 | PCM.PN ---
- General Info Date of Service: 07/16/20 - Review of Systems Systems Review Comment:: patient reports generalized weakness, reports chest pain with swallowing and is requesting GI cocktail. - Patient Data Vitals - Most Recent: Last Vital Signs Temp 37.7 C 07/16/20 08:00 Pulse 66 07/16/20 08:00 Resp 17 07/16/20 08:00 BP 146/61 H 07/16/20 08:45 Pulse Ox 98 07/16/20 08:00 Weight - Most Recent: 90.718 kg I&O - Last 24 Hours: Intake & Output 07/15/20 07/16/20 07/16/20 22:59 06:59 14:59 Intake Total 240 450 Output Total 0 Balance 240 450 Lab Results Last 24 Hours: Laboratory Results - last 24 hr 07/16/20 07/16/20 Range/Units 05:13 05:13 WBC 8.26 (4.0-11.0) K/uL RBC 4.33 (4.30-5.90) M/uL Hgb 12.8 (12.0-16.0) g/dL Hct 38.9 (36.0-46.0) % MCV 89.8 (80.0-98.0) fL MCH 29.6 (27.0-32.0) pg MCHC 32.9 (31.0-37.0) g/dL RDW Std Deviation 44.0 (28.0-62.0) fl RDW Coeff of Antonieta 13 (11.0-15.0) % Plt Count 140 L (150-400) K/uL MPV 9.90 (7.40-12.00) fL Neut % (Auto) 77.1 (48.0-80.0) % Lymph % (Auto) 14.9 L (16.0-40.0) % Rosebud % (Auto) 6.4 (0.0-15.0) % Eos % (Auto) 1.5 (0.0-7.0) % Baso % (Auto) 0.1 (0.0-1.5) % Neut # (Auto) 6.4 H (1.4-5.7) K/uL Lymph # (Auto) 1.2 (0.6-2.4) K/uL Rose[place] # (Auto) 0.5 (0.0-0.8) K/uL Eos # (Auto) 0.1 (0.0-0.7) K/uL Baso # (Auto) 0.0 (0.0-0.1) K/uL Nucleated RBC % 0.0 /100WBC Nucleated RBCs # 0 K/uL Sodium 142 (136-145) mmol/L Potassium 4.1 (3.5-5.1) mmol/L Chloride 107 (98-107) mmol/L Carbon Dioxide 27.4 (21.0-32.0) mmol/L BUN 30 H (7.0-18.0) mg/dL Creatinine 1.3 H (0.6-1.0) mg/dL Est Cr Clr Drug Dosing 37.70 mL/min Estimated GFR (MDRD) 40.5 ml/min Glucose 108 H (74-106) mg/dL Calcium 8.3 L (8.5-10.1) mg/dL Jeffy Results Last 24 Hours: Microbiology 07/14/20 18:13 Urine Culture - Final Urine, Clean Catch Escherichia Coli Med Orders - Current: Current Medications Acetaminophen (Tylenol) 650 mg PO Q6H PRN PRN Reason: Pain Last Admin: 07/15/20 09:16 Dose: 650 mg Documented by: Albuterol/Ipratropium (Duoneb 3.0-0.5 Mg/3 Ml) 3 ml NEB Q6HRRT PRN PRN Reason: Wheezing Last Admin: 07/15/20 17:51 Dose: 3 ml Documented by: Clonazepam (Klonopin) 1 mg PO BID PRN PRN Reason: Anxiety Last Admin: 07/16/20 09:33 Dose: 1 mg Documented by: Fentanyl (Duragesic) 25 mcg TRDERM Q72H [facility] Last Admin: 07/15/20 21:27 Dose: 25 mcg Documented by: Heparin Sodium (Porcine) (Heparin Sodium) 5,000 units SUBCUT Q8H [facility] Last Admin: 07/16/20 06:33 Dose: 5,000 units Documented by: Ceftriaxone Sodium/Dextrose 1 (gm/ Premix) 50 mls @ 100 mls/hr IV Q24H [facility] Last Admin: 07/15/20 18:14 Dose: 100 mls/hr Documented by: Losartan Potassium (Cozaar) 50 mg PO DAILY [facility] Last Admin: 07/16/20 08:45 Dose: 50 mg Documented by: Omeprazole (Omeprazole) 40 mg PO ACBREAKFAST [facility] Last Admin: 07/16/20 06:33 Dose: 40 mg Documented by: Ondansetron HCl (Zofran) 4 mg IVPUSH Q4H PRN PRN Reason: Nausea/Vomiting Last Admin: 07/14/20 22:47 Dose: 4 mg Documented by: Ondansetron HCl (Zofran Odt) 4 mg PO Q6H PRN PRN Reason: Nausea Last Admin: 07/15/20 09:24 Dose: 4 mg Documented by: Oxycodone HCl (Oxycodone) 5 mg PO TID PRN PRN Reason: Pain Last Admin: 07/15/20 19:52 Dose: 5 mg Documented by: Desvenlafaxine Succinate [Pristiq] 100 Mg 1 each PO BEDTIME [facility] Last Admin: 07/15/20 20:22 Dose: Not Given Documented by: Sodium Chloride (Saline Flush) 10 ml FLUSH ASDIRECTED PRN PRN Reason: Keep Vein Open Last Admin: 07/14/20 16:29 Dose: 10 ml Documented by: Sodium Chloride (Saline Flush) 2.5 ml FLUSH ASDIRECTED PRN PRN Reason: Keep Vein Open Last Admin: 07/14/20 16:29 Dose: 2.5 ml Documented by: Discontinued Medications Fentanyl (Duragesic) 25 mcg TRDERM Q72H [facility] Sodium Chloride (Normal Saline) 1,000 mls @ 999 mls/hr IV BOLUS ONE Stop: 07/14/20 15:52 Last Admin: 07/14/20 16:31 Dose: 999 mls/hr Documented by: Ceftriaxone Sodium/Dextrose 1 (gm/ Premix) 50 mls @ 100 mls/hr IV ONETIME ONE Stop: 07/14/20 18:56 Last Admin: 07/14/20 18:34 Dose: 100 mls/hr Documented by: Sodium Chloride (Normal Saline) 1,000 mls @ 125 mls/hr IV ASDIRECTED [facility] Last Admin: 07/15/20 07:08 Dose: 125 mls/hr Documented by: Ceftriaxone Sodium 1 gm/ (Sodium Chloride) 50 mls @ 100 mls/hr IV Q24H [facility] Last Admin: 07/15/20 18:08 Dose: Not Given Documented by: Ketorolac Tromethamine (Toradol) 30 mg IVPUSH ONETIME ONE Stop: 07/14/20 17:22 Last Admin: 07/14/20 17:54 Dose: 30 mg Documented by: Non-Formulary Medication (Fentanyl [Fentanyl]) 25 mcg TOP ASDIRECTED [facility] Omeprazole (Omeprazole) 40 mg PO DAILY [facility] Ondansetron HCl (Zofran) 4 mg IVPUSH ONETIME ONE Stop: 07/14/20 14:53 Last Admin: 07/14/20 16:28 Dose: 4 mg Documented by: - Exam General: Alert, Oriented Neck: Supple Lungs: Clear to Auscultation, Normal Respiratory Effort Cardiovascular: Regular Rate, Regular Rhythm GI/Abdominal Exam: Soft, Non-Tender Extremities: Non-Tender, No Pedal Edema Skin: Warm, Dry, Intact Sepsis Event Note - Evaluation Sepsis Screening Result: No Definite Risk - Focused Exam Vital Signs: Vital Signs Temp Pulse Resp BP BP Pulse Ox 07/16/20 08:45 146/61 H 07/16/20 08:00 37.7 C 66 17 146/62 H 98 07/16/20 04:15 36.7 C 70 17 135/60 95 07/15/20 23:15 36.5 C 72 17 144/31 H 96 - Problem List Review Problem List Initiated/Reviewed/Updated: Yes - My Orders Last 24 Hours: My Active Orders 07/15/20 10:25 RT Aerosol Therapy [RC] ASDIRECTED Albuterol/Ipratropium [DuoNeb 3.0-0.5 MG/3 ML] 3 ml NEB Q6HRRT PRN 07/15/20 14:05 PT Evaluation and Treatment [CONS] Routine 07/15/20 18:30 cefTRIAXone [Rocephin in Dextrose,Iso-Osm 1 GM/50 ML] 1 gm Premix Bag 1 bag IV Q24H 07/15/20 21:00 Patient's Own Medication [Ptom] 1 each PO BEDTIME 07/15/20 21:30 fentaNYL [Duragesic] 25 mcg TRDERM Q72H - Plan Plan:: 69 yo female admitted for Ecoli. UTI. Treating with Rocephin. PT consulted, PAtient reports chest pain, Will give GI cocktail and check EKG, troponin.
[2020-07-16] MEDS ORDERED: Alum Hydrox/Mag Hydrox/Simeth 15 ML, Metoclopramide 5 MG, Lidocaine 2% 5 ML PO ONE ×3 (10:45)
[2020-07-16] MEDS: oxyCODONE 5 MG Tab PO PRN ×2 (14:39→22:52)
[2020-07-16] MEDS: cefTRIAXone 1 GM in Premix Bag 1 BAG IV SCH (18:24)
[2020-07-16] MEDS: Desvenlafaxine Succinate [Pristiq] 100 MG PO SCH (20:17)
[2020-07-17 06:15] LABS: CARBON DIOXIDE,CO2 27.8 mmol/L (21.0-32.0); POTASSIUM,K 3.9 mmol/L (3.5-5.1)
[2020-07-17] MEDS: oxyCODONE 5 MG Tab PO PRN ×3 (06:16→23:11)
[2020-07-17] MEDS: Heparin Sodium 5,000 Units/ML Vial SUBCUT SCH ×3 (06:24→23:11)
[2020-07-17] MEDS: Omeprazole 20 MG Cap.CR PO SCH (07:45)
[2020-07-17] MEDS: Losartan 50 MG Tab PO SCH (08:57)
[2020-07-17] MEDS: Ondansetron 4 MG Tab.DIS PO PRN (11:32)
--- NOTE | 2020-07-17 11:36 | PCM.DCSUM1 ---
Discharge Summary - Hospital Course Brief History: 69 yo female with pmh of CHF, COPD, squamous cell cancer of left tonsil who had her G-tub removed in [place] last week. Amber reports she had been on antibiotics as they noted stool and pus with the removal of her G-tube. For the past several days patient reports fevers, malaise, nausea and vomiting. CT scan showed no acute findings. - Discharge Data Discharge Date: 07/18/20 Discharge Disposition: Home, W Home Health Agency 06 Condition: Stable - Referral to Home Health Date of Face to Face Encounter: 07/17/20 Reason for Homebound Status: [facility] Primary Care Physician: Phillip Robbins MD Skilled Need: [facility]. - Patient Summary/Data Consults: Consultations 07/15/20 14:05 PT Evaluation and Treatment [CONS] Routine Hospital Course: Admitting Diagnoses: Weakness Nausea UTI Discharge Diagnoses: Weakness Nausea UTI Other PMH L tonsillar ca- remission CHF COPD This patient was admitted for weakness and nausea. In the ER she was found to have UTI and dehydration. She was admitted and treated with Rocephin UC returned with E. coli resistant to Levaquin she remained on Rocephin at that time. She has been able to eat small amounts which is normal for her at home. She has been reporting some heartburn and food and stuck lower down in her throat. She is able to swallow and eat only soft foods since tonsillar surgery. Today we did discuss potential need for EGD to evaluate esophageal strictures or scar tissue. At this time she is not wanting this in-house. She would want to go home and follow-up with Dr. Moreira as an outpatient regarding possible EGD. During her stay here she was noted to have significant self-care deficits. Daughter at home to care for quite a bit and is aware that she is refusing physical therapy and other nursing cares at this time. She will be discharged home with resumption of home health. She will continue Keflex for UTI another 3 days. She is to follow-up with her PCP and will send a referral for Dr. Moreira for possible EGD in the future. She is to return to the ER if any concerns should arise once discharged. - Patient Instructions Diet: Usual Diet as Tolerated Activity: As Tolerated Driving: Do Not Drive Showering/Bathing: May Shower Notify Provider of: Fever, Increased Pain, Swelling and Redness, Drainage, Nausea and/or Vomiting - Discharge Plan *PRESCRIPTION DRUG MONITORING PROGRAM REVIEWED*: Not Applicable *COPY OF PRESCRIPTION DRUG MONITORING REPORT IN PATIENT SAGAR: Not Applicable Prescriptions/Med Rec: cephALEXin [Keflex] 500 mg PO Q12H #6 cap Home Medications: Home Meds Desvenlafaxine Succinate [Pristiq] 100 mg PO BEDTIME 12/15/19 [History] Losartan Potassium [Cozaar] 50 mg PO DAILY 12/15/19 [History] Meclizine [Antivert] 25 mg PO TID PRN 12/15/19 [History] Omeprazole 40 mg PO DAILY 12/15/19 [History] Ondansetron [Zofran ODT] 4 mg PO Q6H PRN 12/15/19 [History] clonazePAM [Clonazepam] 1 mg PO BID PRN 12/15/19 [History] fentaNYL [Fentanyl] 25 mcg TD Q72H 12/15/19 [History] oxyCODONE 5 mg PO TID PRN 12/15/19 [History] cephALEXin [Keflex] 500 mg PO Q12H #6 cap 07/17/20 [Rx] Oxygen Therapy Mode: Room Air Patient Handouts: Nausea and Vomiting, Adult, Cephalexin tablets or capsules Referrals: Ashlee Moreira MD [Physician] - 07/25/20 10:00 am Phillip Robbins MD [Primary Care Provider] - 07/22/20 12:30 pm (Please arrive 15 minutes early with your identification, insurance and your own facemask.) - Discharge Summary/Plan Comment DC Time >30 min.: No - Patient Data Vitals - Most Recent: Last Vital Signs Temp 99.9 F 07/17/20 07:00 Pulse 86 07/17/20 07:00 Resp 20 07/17/20 07:00 BP 159/61 H 07/17/20 08:57 Pulse Ox 96 07/17/20 07:00 Weight - Most Recent: 90.718 kg I&O - Last 24 hours: Intake & Output 07/16/20 07/17/20 07/17/20 22:59 06:59 14:59 Intake Total 200 175 Output Total 0 325 Balance 200 -150 Lab Results - Last 24 hrs: Laboratory Results - last 24 hr 07/16/20 07/16/20 07/16/20 Range/Units 11:26 16:49 22:37 Sodium (136-145) mmol/L Potassium (3.5-5.1) mmol/L Chloride (98-107) mmol/L Carbon Dioxide (21.0-32.0) mmol/L BUN (7.0-18.0) mg/dL Creatinine (0.6-1.0) mg/dL Est Cr Clr Drug Dosing mL/min Estimated GFR (MDRD) ml/min Glucose (74-106) mg/dL Calcium (8.5-10.1) mg/dL Total Bilirubin (0.2-1.0) mg/dL AST (15-37) IU/L ALT (14-63) IU/L Alkaline Phosphatase (46-116) U/L Troponin I < 0.050 < 0.050 < 0.050 (0.000-0.056) ng/mL Total Protein (6.4-8.2) g/dL Albumin (3.4-5.0) g/dL Globulin (2.6-4.0) g/dL Albumin/Globulin Ratio (0.9-1.6) 07/17/20 Range/Units 05:12 Sodium 141 (136-145) mmol/L Potassium 3.9 (3.5-5.1) mmol/L Chloride 106 (98-107) mmol/L Carbon Dioxide 27.8 (21.0-32.0) mmol/L BUN 21 H (7.0-18.0) mg/dL Creatinine 1.0 (0.6-1.0) mg/dL Est Cr Clr Drug Dosing 49.00 mL/min Estimated GFR (MDRD) 54.8 ml/min Glucose 98 (74-106) mg/dL Calcium 8.3 L (8.5-10.1) mg/dL Total Bilirubin 0.5 (0.2-1.0) mg/dL AST 10 L (15-37) IU/L ALT 22 (14-63) IU/L Alkaline Phosphatase 75 (46-116) U/L Troponin I (0.000-0.056) ng/mL Total Protein 5.7 L (6.4-8.2) g/dL Albumin 2.8 L (3.4-5.0) g/dL Globulin 2.9 (2.6-4.0) g/dL Albumin/Globulin Ratio 1.0 (0.9-1.6) EDISON Results - Last 24 hrs: Microbiology 07/14/20 18:13 Urine Culture - Final Urine, Clean Catch Escherichia Coli Med Orders - Current: Current Medications Acetaminophen (Tylenol) 650 mg PO Q6H PRN PRN Reason: Pain Last Admin: 07/15/20 09:16 Dose: 650 mg Documented by: Albuterol/Ipratropium (Duoneb 3.0-0.5 Mg/3 Ml) 3 ml NEB Q6HRRT PRN PRN Reason: Wheezing Last Admin: 07/15/20 17:51 Dose: 3 ml Documented by: Clonazepam (Klonopin) 1 mg PO BID PRN PRN Reason: Anxiety Last Admin: 07/16/20 20:17 Dose: 1 mg Documented by: Fentanyl (Duragesic) 25 mcg TRDERM Q72H [facility] Last Admin: 07/15/20 21:27 Dose: 25 mcg Documented by: Heparin Sodium (Porcine) (Heparin Sodium) 5,000 units SUBCUT Q8H [facility] Last Admin: 07/17/20 06:24 Dose: 5,000 units Documented by: Ceftriaxone Sodium/Dextrose 1 (gm/ Premix) 50 mls @ 100 mls/hr IV Q24H [facility] Last Admin: 07/16/20 18:24 Dose: 100 mls/hr Documented by: Losartan Potassium (Cozaar) 50 mg PO DAILY [facility] Last Admin: 07/17/20 08:57 Dose: 50 mg Documented by: Omeprazole (Omeprazole) 40 mg PO ACBREAKFAST [facility] Last Admin: 07/17/20 07:45 Dose: 40 mg Documented by: Ondansetron HCl (Zofran) 4 mg IVPUSH Q4H PRN PRN Reason: Nausea/Vomiting Last Admin: 07/14/20 22:47 Dose: 4 mg Documented by: Ondansetron HCl (Zofran Odt) 4 mg PO Q6H PRN PRN Reason: Nausea Last Admin: 07/17/20 11:32 Dose: 4 mg Documented by: Oxycodone HCl (Oxycodone) 5 mg PO TID PRN PRN Reason: Pain Last Admin: 07/17/20 06:16 Dose: 5 mg Documented by: Desvenlafaxine Succinate [Pristiq] 100 Mg 1 each PO BEDTIME [facility] Last Admin: 07/16/20 20:17 Dose: Not Given Documented by: Sodium Chloride (Saline Flush) 10 ml FLUSH ASDIRECTED PRN PRN Reason: Keep Vein Open Last Admin: 07/14/20 16:29 Dose: 10 ml Documented by: Sodium Chloride (Saline Flush) 2.5 ml FLUSH ASDIRECTED PRN PRN Reason: Keep Vein Open Last Admin: 07/14/20 16:29 Dose: 2.5 ml Documented by: Discontinued Medications Al Hydroxide/Mg Hydroxide 15 ml/ Metoclopramide HCl 5 mg/Lidocaine HCl 5 ml 0 ml PO ONETIME ONE Stop: 07/16/20 10:46 Last Admin: 07/16/20 11:13 Dose: 1 each Documented by: Fentanyl (Duragesic) 25 mcg TRDERM Q72H [facility] Sodium Chloride (Normal Saline) 1,000 mls @ 999 mls/hr IV BOLUS ONE Stop: 07/14/20 15:52 Last Admin: 07/14/20 16:31 Dose: 999 mls/hr Documented by: Ceftriaxone Sodium/Dextrose 1 (gm/ Premix) 50 mls @ 100 mls/hr IV ONETIME ONE Stop: 07/14/20 18:56 Last Admin: 07/14/20 18:34 Dose: 100 mls/hr Documented by: Sodium Chloride (Normal Saline) 1,000 mls @ 125 mls/hr IV ASDIRECTED [facility] Last Admin: 07/15/20 07:08 Dose: 125 mls/hr Documented by: Ceftriaxone Sodium 1 gm/ (Sodium Chloride) 50 mls @ 100 mls/hr IV Q24H [facility] Last Admin: 07/15/20 18:08 Dose: Not Given Documented by: Ketorolac Tromethamine (Toradol) 30 mg IVPUSH ONETIME ONE Stop: 07/14/20 17:22 Last Admin: 07/14/20 17:54 Dose: 30 mg Documented by: Non-Formulary Medication (Fentanyl [Fentanyl]) 25 mcg TOP ASDIRECTED [facility] Omeprazole (Omeprazole) 40 mg PO DAILY [facility] Ondansetron HCl (Zofran) 4 mg IVPUSH ONETIME ONE Stop: 07/14/20 14:53 Last Admin: 07/14/20 16:28 Dose: 4 mg Documented by:
[2020-07-17] MEDS ORDERED: Alum Hydrox/Mag Hydrox/Simeth 15 ML, Lidocaine 2% 5 ML PO ONE ×2 (12:35)
[2020-07-17] MEDS ORDERED: Calcium Carbonate 500 MG Tab.Chew PO PRN (12:35)
--- NOTE | 2020-07-17 13:33 | PCM.PN ---
- General Info Date of Service: 07/17/20 Admission Dx/Problem (Free Text): Admission Diagnosis/Problem Admission Diagnosis/Problem Vomiting Subjective Update: Not feeling well today, having heartburn and had small emesis with lunch Refusing PT and getting up to the chair with nursing staff. Functional Status: Reports: Pain Controlled, Tolerating Diet. Denies: Ambulating - Review of Systems General: Reports: Malaise. Denies: Weakness HEENT: Reports: No Symptoms Pulmonary: Reports: No Symptoms Cardiovascular: Reports: No Symptoms Gastrointestinal: Reports: Nausea, Vomiting, Other (heartburn) Musculoskeletal: Reports: No Symptoms Skin: Reports: No Symptoms Neurological: Reports: No Symptoms Psychiatric: Reports: No Symptoms - Patient Data Vitals - Most Recent: Last Vital Signs Temp 96.4 F L 07/17/20 11:41 Pulse 74 07/17/20 11:41 Resp 18 07/17/20 11:41 BP 155/60 H 07/17/20 11:41 Pulse Ox 92 L 07/17/20 11:41 Weight - Most Recent: 90.718 kg I&O - Last 24 Hours: Intake & Output 07/16/20 07/17/20 07/17/20 22:59 06:59 14:59 Intake Total 200 175 Output Total 0 325 Balance 200 -150 Lab Results Last 24 Hours: Laboratory Results - last 24 hr 07/16/20 07/16/20 07/17/20 Range/Units 16:49 22:37 05:12 Sodium 141 (136-145) mmol/L Potassium 3.9 (3.5-5.1) mmol/L Chloride 106 (98-107) mmol/L Carbon Dioxide 27.8 (21.0-32.0) mmol/L BUN 21 H (7.0-18.0) mg/dL Creatinine 1.0 (0.6-1.0) mg/dL Est Cr Clr Drug Dosing 49.00 mL/min Estimated GFR (MDRD) 54.8 ml/min Glucose 98 (74-106) mg/dL Calcium 8.3 L (8.5-10.1) mg/dL Total Bilirubin 0.5 (0.2-1.0) mg/dL AST 10 L (15-37) IU/L ALT 22 (14-63) IU/L Alkaline Phosphatase 75 (46-116) U/L Troponin I < 0.050 < 0.050 (0.000-0.056) ng/mL Total Protein 5.7 L (6.4-8.2) g/dL Albumin 2.8 L (3.4-5.0) g/dL Globulin 2.9 (2.6-4.0) g/dL Albumin/Globulin Ratio 1.0 (0.9-1.6) Med Orders - Current: Current Medications Acetaminophen (Tylenol) 650 mg PO Q6H PRN PRN Reason: Pain Last Admin: 07/15/20 09:16 Dose: 650 mg Documented by: Albuterol/Ipratropium (Duoneb 3.0-0.5 Mg/3 Ml) 3 ml NEB Q6HRRT PRN PRN Reason: Wheezing Last Admin: 07/15/20 17:51 Dose: 3 ml Documented by: Calcium Carbonate/Glycine (Tums) 1,000 mg PO Q2HR PRN PRN Reason: Indigestion Clonazepam (Klonopin) 1 mg PO BID PRN PRN Reason: Anxiety Last Admin: 07/16/20 20:17 Dose: 1 mg Documented by: Fentanyl (Duragesic) 25 mcg TRDERM Q72H [facility] Last Admin: 07/15/20 21:27 Dose: 25 mcg Documented by: Heparin Sodium (Porcine) (Heparin Sodium) 5,000 units SUBCUT Q8H [facility] Last Admin: 07/17/20 06:24 Dose: 5,000 units Documented by: Ceftriaxone Sodium/Dextrose 1 (gm/ Premix) 50 mls @ 100 mls/hr IV Q24H [facility] Last Admin: 07/16/20 18:24 Dose: 100 mls/hr Documented by: Losartan Potassium (Cozaar) 50 mg PO DAILY [facility] Last Admin: 07/17/20 08:57 Dose: 50 mg Documented by: Omeprazole (Omeprazole) 40 mg PO ACBREAKFAST [facility] Last Admin: 07/17/20 07:45 Dose: 40 mg Documented by: Ondansetron HCl (Zofran) 4 mg IVPUSH Q4H PRN PRN Reason: Nausea/Vomiting Last Admin: 07/14/20 22:47 Dose: 4 mg Documented by: Ondansetron HCl (Zofran Odt) 4 mg PO Q6H PRN PRN Reason: Nausea Last Admin: 07/17/20 11:32 Dose: 4 mg Documented by: Oxycodone HCl (Oxycodone) 5 mg PO TID PRN PRN Reason: Pain Last Admin: 07/17/20 06:16 Dose: 5 mg Documented by: Desvenlafaxine Succinate [Pristiq] 100 Mg 1 each PO BEDTIME [facility] Last Admin: 07/16/20 20:17 Dose: Not Given Documented by: Sodium Chloride (Saline Flush) 10 ml FLUSH ASDIRECTED PRN PRN Reason: Keep Vein Open Last Admin: 07/14/20 16:29 Dose: 10 ml Documented by: Sodium Chloride (Saline Flush) 2.5 ml FLUSH ASDIRECTED PRN PRN Reason: Keep Vein Open Last Admin: 07/14/20 16:29 Dose: 2.5 ml Documented by: Discontinued Medications Al Hydroxide/Mg Hydroxide 15 ml/ Metoclopramide HCl 5 mg/Lidocaine HCl 5 ml 0 ml PO ONETIME ONE Stop: 07/16/20 10:46 Last Admin: 07/16/20 11:13 Dose: 1 each Documented by: Al Hydroxide/Mg Hydroxide 15 (ml/ Lidocaine HCl 5 ml) 0 ml PO ONETIME ONE Stop: 07/17/20 12:36 Fentanyl (Duragesic) 25 mcg TRDERM Q72H [facility] Sodium Chloride (Normal Saline) 1,000 mls @ 999 mls/hr IV BOLUS ONE Stop: 07/14/20 15:52 Last Admin: 07/14/20 16:31 Dose: 999 mls/hr Documented by: Ceftriaxone Sodium/Dextrose 1 (gm/ Premix) 50 mls @ 100 mls/hr IV ONETIME ONE Stop: 07/14/20 18:56 Last Admin: 07/14/20 18:34 Dose: 100 mls/hr Documented by: Sodium Chloride (Normal Saline) 1,000 mls @ 125 mls/hr IV ASDIRECTED [facility] Last Admin: 07/15/20 07:08 Dose: 125 mls/hr Documented by: Ceftriaxone Sodium 1 gm/ (Sodium Chloride) 50 mls @ 100 mls/hr IV Q24H [facility] Last Admin: 07/15/20 18:08 Dose: Not Given Documented by: Ketorolac Tromethamine (Toradol) 30 mg IVPUSH ONETIME ONE Stop: 07/14/20 17:22 Last Admin: 07/14/20 17:54 Dose: 30 mg Documented by: Non-Formulary Medication (Fentanyl [Fentanyl]) 25 mcg TOP ASDIRECTED [facility] Omeprazole (Omeprazole) 40 mg PO DAILY [facility] Ondansetron HCl (Zofran) 4 mg IVPUSH ONETIME ONE Stop: 07/14/20 14:53 Last Admin: 07/14/20 16:28 Dose: 4 mg Documented by: - Exam General: Alert, Oriented, Cooperative, No Acute Distress Lungs: Clear to Auscultation, Normal Respiratory Effort Cardiovascular: Regular Rate, Regular Rhythm GI/Abdominal Exam: Normal Bowel Sounds, Soft, Non-Tender Extremities: Normal Inspection, Normal Range of Motion, Non-Tender Psy/Mental Status: Alert, Normal Affect, Normal Mood Sepsis Event Note - Evaluation Sepsis Screening Result: No Definite Risk - Focused Exam Vital Signs: Vital Signs Temp Pulse Resp BP BP Pulse Ox 07/17/20 11:41 96.4 F L 74 18 155/60 H 92 L 07/17/20 08:57 159/61 H 07/17/20 07:00 99.9 F 86 20 159/61 H 96 07/17/20 04:00 98.8 F 66 20 123/57 L 92 L - Problem List Review Problem List Initiated/Reviewed/Updated: Yes - My Orders Last 24 Hours: My Active Orders 07/17/20 11:44 Crown Presser Discontinue [Cardiac Monitoring Discontinue] [RC] Click to Edit 07/17/20 12:35 Calcium Carbonate [Tums] 1,000 mg PO Q2HR PRN 07/17/20 12:40 Up to Chair [RC] TIDMEALS - Plan Plan:: 69 yo female admitted for Ecoli. UTI. 1. E coli UTI - Continue Rocephin for now 2. GERD - Give GI cocktail - Start TUMS - Encouraged getting up with meals and not eating in bed - Similar pain yesterday, GI cocktail helped. ACS ruled out 3. Self care deficits and weakness - Refusing PT - Spoke with daughter, who is her multimedia services coordinator caregiver and does essentially everything for her. - No SNF, declined by patient. - Again, encouraged increasing activity because laying in bed will not help weakness and overall strength 4. Chronic pain: - Continue Fent patch and Oxycodone VTE prophylaxis: Heparin Dispo: likely in am
[2020-07-17] MEDS: cefTRIAXone 1 GM in Premix Bag 1 BAG IV SCH (18:14)
[2020-07-17] MEDS: Desvenlafaxine Succinate [Pristiq] 100 MG PO SCH (21:00)
[2020-07-17] MEDS: ClonazePAM 1 MG Tab PO PRN (23:12)
[2020-07-18] MEDS: Heparin Sodium 5,000 Units/ML Vial SUBCUT SCH (07:01)
[2020-07-18] MEDS: Omeprazole 20 MG Cap.CR PO SCH (07:08)
[2020-07-18] MEDS: oxyCODONE 5 MG Tab PO PRN (07:08)
[2020-07-18 09:25] VITALS: BP 130/49; PULSE 60
[2020-07-18] MEDS: Losartan 50 MG Tab PO SCH (09:27)
[2020-07-18] MEDS: Acetaminophen 325 MG Tab PO PRN (11:48)
== END 2020-07-18 13:00 | disposition home or self-care (01) | DRG 690 ==
LOC: MW.ED 13:33 → UNDOADMOB 18:09 → MW.MS 18:09 → UNDOADMOB 07-16 10:24 → MW.MS 07-16 10:24 → INTOOBSV 07-16 11:11 → OBSVTOIN 07-16 11:11 → MW.MS 07-16 11:11 → UNDODISIN 07-18 13:00
PROVIDERS: ADMIT Internal Medicine; ATTEND Internal Medicine
DX: N30.00 Acute cystitis without hematuria (principal); E86.0 Dehydration; R10.84 Generalized abdominal pain; R53.1 Weakness; R11.2 Nausea with vomiting, unspecified; Z91.81 History of falling; H54.7 Unspecified visual loss; B96.20 Unspecified Escherichia coli [E. coli] as the cause of diseases classified elsewhere; Z20.828 Contact with and (suspected) exposure to other viral communicable diseases; J44.9 Chronic obstructive pulmonary disease, unspecified; E78.00 Pure hypercholesterolemia, unspecified; I11.0 Hypertensive heart disease with heart failure; I50.9 Heart failure, unspecified; K21.9 Gastro-esophageal reflux disease without esophagitis; F41.9 Anxiety disorder, unspecified; F32.9 Major depressive disorder, single episode, unspecified; E66.9 Obesity, unspecified; Z91.030 Bee allergy status; Z88.5 Allergy status to narcotic agent; Z91.041 Radiographic dye allergy status; Z88.8 Allergy status to other drugs, medicaments and biological substances; Z88.7 Allergy status to serum and vaccine; Z91.09 Other allergy status, other than to drugs and biological substances; Z92.21 Personal history of antineoplastic chemotherapy; Z79.899 Other long term (current) drug therapy; Z98.890 Other specified postprocedural states; Z96.659 Presence of unspecified artificial knee joint; Z86.73 Personal history of transient ischemic attack (TIA), and cerebral infarction without residual deficits; Z68.32 Body mass index [BMI] 32.0-32.9, adult; Z87.11 Personal history of peptic ulcer disease; Z87.891 Personal history of nicotine dependence; Z91.048 Other nonmedicinal substance allergy status; M54.9 Dorsalgia, unspecified; G89.29 Other chronic pain; R07.9 Chest pain, unspecified; Z85.3 Personal history of malignant neoplasm of breast; Z85.89 Personal history of malignant neoplasm of other organs and systems; Z90.49 Acquired absence of other specified parts of digestive tract
CPT/HCPCS: 36415 ×3; 71045; 74176; 80048 ×2; 80053; 81001; 83690; 84484; 85025 ×3; 87086; 87088; 87186; 93005; 96361; 96365; 96366; 96375; 99285; A9270 ×13; J0696 ×2; J1644 ×5; J1885; J2405 ×2; J7030 ×3; U0002; 97530-GP; 99218; 99224; 99231; 99238; 99283; J1642; J7620-GY

== ENCOUNTER 2020-10-29 13:03 | Emergency (ER) | payer MEDICARE, MEDICAID ==
--- NOTE | 2020-10-29 13:21 | EDM.PDOC ---
ED HPI GENERAL MEDICAL PROBLEM - General Chief Complaint: General Stated Complaint: EMS Time Seen by Provider: 10/29/20 13:05 Source of Information: Reports: Patient History Limitations: Reports: No Limitations - History of Present Illness INITIAL COMMENTS - FREE TEXT/NARRATIVE: Is a 70-year-old female who presents today after a fall while trying to get in her wheelchair. Patient states she fell and hit the back of her head. Patient denies any LOC. Patient renounce complain of pain to the back of her head her neck her entire spine her left knee and ankle. Patient denies any vision changes shortness of breath fever chills or other complaints. Head Pain Score (Numeric/FACES): 10 - Related Data Allergies Allergy/AdvReac Type Severity Reaction Status Date / Time bee pollen Allergy unknown Verified 10/29/20 13:05 codeine Allergy Other Verified 10/29/20 13:05 eszopiclone [From Lunesta] Allergy Hypertensio Verified 10/29/20 13:05 n Iodinated Contrast Media Allergy Anaphylactic Verified 10/29/20 13:05 [Iodinated Contrast Media - Shock IV Dye] lorazepam Allergy Facial Verified 10/29/20 13:05 Swelling pregabalin [From Lyrica] Allergy Facial Verified 10/29/20 13:05 Swelling Cloth tape Allergy Blisters Uncoded 10/29/20 13:05 flu vaccination Allergy Anaphylactic Uncoded 10/29/20 13:05 Shock Paper Tape Allergy Blisters Uncoded 10/29/20 13:05 Home Meds: Home Meds Desvenlafaxine Succinate [Pristiq] 100 mg PO BEDTIME 12/15/19 [History] Losartan Potassium [Cozaar] 50 mg PO DAILY 12/15/19 [History] Meclizine [Antivert] 25 mg PO TID PRN 12/15/19 [History] Omeprazole 40 mg PO DAILY 12/15/19 [History] Ondansetron [Zofran ODT] 4 mg PO Q6H PRN 12/15/19 [History] clonazePAM [Clonazepam] 1 mg PO BID PRN 12/15/19 [History] fentaNYL [Fentanyl] 25 mcg TD Q72H 12/15/19 [History] oxyCODONE 5 mg PO TID PRN 12/15/19 [History] cephALEXin [Keflex] 500 mg PO Q12H #6 cap 07/17/20 [Rx] Past Medical History HEENT History: Reports: Impaired Vision Other HEENT History: asthma Cardiovascular History: Reports: Heart Failure, High Cholesterol, Hypertension Respiratory History: Reports: Asthma, COPD, SOB Other Respiratory History: 40 Plus years use of tobacco products, QUIT 02/14/2015 Gastrointestinal History: Reports: GERD, PUD Other Gastrointestinal History: Heartburn/GERD Other Genitourinary History: Frequent Urination 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 Guerrier Psychiatric History: Reports: Anxiety, Depression Other Psychiatric History: Real Anxious before surgery "LIKE COCKTAIL before I Leave the Room" Endocrine/Metabolic History: Reports: Obesity/BMI 30+ Hematologic History: Reports: None Immunologic History: Reports: None Oncologic (Cancer) History: Reports: Breast, Other (See Below) Other Oncologic History: throat Dermatologic History: Reports: None - Infectious Disease History Infectious Disease History: Reports: Chicken Pox, Measles, Mumps Other Infectious Disease History: Pt states she does not remember - Past Surgical History Other HEENT Surgeries/Procedures: UPPER 2 Front teeth Implants Cardiovascular Surgical History: Reports: None Respiratory Surgical History: Reports: None GI Surgical History: Reports: Other (See Below) Other GI Surgeries/Procedures: Lap Coco Female Surgical History: Reports: Tubal Ligation Neurological Surgical History: Reports: None Musculoskeletal Surgical History: Reports: Knee Replacement Other Musculoskeletal Surgeries/Procedures:: Bilateral Total KNees Oncologic Surgical History: Reports: Lumpectomy Social & Family History - Family History Family Medical History: No Pertinent Family History Psychiatric: Reports: Depression Hematologic: Reports: SLE Immunologic: Reports: SLE - Tobacco Use Tobacco Use Status *Q: Never Tobacco User - Caffeine Use Caffeine Use: Reports: None - Recreational Drug Use Recreational Drug Use: No - Living Situation & Occupation Living situation: Reports: with Family Occupation: Retired ED ROS GENERAL - Review of Systems Review Of Systems: Comprehensive ROS is negative, except as noted in HPI. ED EXAM, GENERAL - Physical Exam Exam: See Below Exam Limited By: No Limitations General Appearance: Alert, WD/WN Eye Exam: Bilateral Eye: EOMI, PERRL Head: Atraumatic, Normocephalic Neck: Tender Midline Respiratory/Chest: No Respiratory Distress, Lungs Clear Cardiovascular: Normal Peripheral Pulses, Regular Rate, Rhythm GI/Abdominal: Normal Bowel Sounds, Soft, Non-Tender Extremities: Normal Inspection, Leg Pain, Other (temdermess tp touch ankle and knee) Neurological: Alert, Oriented, Normal Cognition Course - Vital Signs Last Recorded V/S: Last Vital Signs Temp 97.3 F 10/29/20 13:05 Pulse 73 10/29/20 15:06 Resp 17 10/29/20 15:06 BP 152/55 H 10/29/20 15:06 Pulse Ox 96 10/29/20 15:06 - Orders/Labs/Meds Labs: Laboratory Tests 10/29/20 10/29/20 Range/Units 13:30 13:30 WBC 4.65 (4.0-11.0) K/uL RBC 4.57 (4.30-5.90) M/uL Hgb 13.8 (12.0-16.0) g/dL Hct 41.4 (36.0-46.0) % MCV 90.6 (80.0-98.0) fL MCH 30.2 (27.0-32.0) pg MCHC 33.3 (31.0-37.0) g/dL RDW Std Deviation 42.4 (28.0-62.0) fl RDW Coeff of Antonieta 13 (11.0-15.0) % Plt Count 161 (150-400) K/uL MPV 9.90 (7.40-12.00) fL Neut % (Auto) 80.1 H (48.0-80.0) % Lymph % (Auto) 14.6 L (16.0-40.0) % [place] % (Auto) 3.4 (0.0-15.0) % Eos % (Auto) 1.7 (0.0-7.0) % Baso % (Auto) 0.2 (0.0-1.5) % Neut # (Auto) 3.7 (1.4-5.7) K/uL Lymph # (Auto) 0.7 (0.6-2.4) K/uL [place] # (Auto) 0.2 (0.0-0.8) K/uL Eos # (Auto) 0.1 (0.0-0.7) K/uL Baso # (Auto) 0.0 (0.0-0.1) K/uL Nucleated RBC % 0.0 /100WBC Nucleated RBCs # 0 K/uL Sodium 144 (136-145) mmol/L Potassium 4.5 (3.5-5.1) mmol/L Chloride 106 (98-107) mmol/L Carbon Dioxide 29.9 (21.0-32.0) mmol/L BUN 25 H (7.0-18.0) mg/dL Creatinine 1.2 H (0.6-1.0) mg/dL Est Cr Clr Drug Dosing TNP Estimated GFR (MDRD) 44.3 ml/min Glucose 108 H (74-106) mg/dL Calcium 9.3 (8.5-10.1) mg/dL Meds: Medications Discontinued Medications Generic Name Dose Route Start Last Admin Trade Name Freq PRN Reason Stop Dose Admin Fentanyl 25 mcg 10/29/20 13:18 10/29/20 14:20 Fentanyl IVPUSH 10/29/20 13:19 Not Given ONETIME ONE Fentanyl 25 mcg 10/29/20 14:13 10/29/20 14:20 Fentanyl IM 10/29/20 14:14 25 mcg ONETIME ONE Administration - Re-Assessments/Exams Free Text/Narrative Re-Assessment/Exam: 10/29/20 15:[address] and x-rays reviewed. Patient made aware of CT findings of the chest that shows possible mass. Patient has history of cancer and will follow up with her oncologist. Departure - Departure Time of Disposition: 15:20 Disposition: Home, Self-Care 01 Condition: Good Clinical Impression: Fall from chair - Discharge Information *PRESCRIPTION DRUG MONITORING PROGRAM REVIEWED*: Not Applicable *COPY OF PRESCRIPTION DRUG MONITORING REPORT IN PATIENT SAGAR: Not Applicable Instructions: Fall Prevention in the Home, Adult, [id number] Forms: ED Department Discharge Additional Instructions: The following information is given to patients seen in the emergency department who are being discharged to home. This information is to outline your options for follow-up care. We provide all patients seen in our emergency department with a follow-up referral. The need for follow-up, as well as the timing and circumstances, are variable depending upon the specifics of your emergency department visit. If you don't have a primary care physician on staff, we will provide you with a referral. We always advise you to contact your personal physician following an emergency department visit to inform them of the circumstance of the visit and for follow-up with them and/or the need for any referrals to a consulting specialist. The emergency department will also refer you to a specialist when appropriate. This referral assures that you have the opportunity for follow-up care with a specialist. All of these measure are taken in an effort to provide you with optimal care, which includes your follow-up. Under all circumstances we always encourage you to contact your private physician who remains a resource for coordinating your care. When calling for follow-up care, please make the office aware that this follow-up is from your recent emergency room visit. If for any reason you are refused follow-up, please contact the [facility] at and asked to speak to the emergency department charge nurse. Please follow up with your primary care physician. If you do not have a primary care physician, see below: [facility] [address] [place] [id number] [facility] [address] [place] [id number] Follow-up with your primary care physician. If you have any increased pain or other complaints please return to the ED. Sepsis Event Note (ED) - Evaluation Sepsis Screening Result: No Definite Risk - Focused Exam Vital Signs: Vital Signs Temp Pulse Resp BP Pulse Ox 10/29/20 15:06 73 17 152/55 H 96 10/29/20 14:26 72 169/73 H 97 10/29/20 14:25 70 166/68 H 98 10/29/20 13:26 71 165/66 H 92 L 10/29/20 13:05 97.3 F 74 16 169/56 H 96 - Assessment/Plan Assessment:: Patient is a 70-year-old female presents today for a fall from standing. Patient has pain to most part of her body will essentially andrade scan patient to rule out any injuries or fractures.
[2020-10-29 14:00] LABS: BLOOD UREA NITROGEN,BUN 25 mg/dL (7.0-18.0); CARBON DIOXIDE,CO2 29.9 mmol/L (21.0-32.0); CHLORIDE,CL 106 mmol/L (98-107); GLUCOSE RANDOM 108 mg/dL (74-106); POTASSIUM,K 4.5 mmol/L (3.5-5.1); SODIUM,NA 144 mmol/L (136-145)
--- NOTE | 2020-10-29 14:18 | CT ---
INDICATION: Patient fell from wheelchair. COMPARISON: none TECHNIQUE: A CT volumetric acquisition was performed of the brain without IV contrast. FINDINGS: There is no evidence of a subdural or epidural hematoma. There is no evidence of subarachnoid hemorrhage or intraparenchymal bleeding. The CT images reveal a normal appearance of the cerebral ventricles and basal cisterns. There is no evidence of localized tissue infarction or mass effect. There is normal otero white matter differentiation. The mastoid air cells and middle ear cavities are clear. The calvarium appears intact. There is normal aeration of the visualized paranasal sinuses. IMPRESSION: No evidence of intracranial hemorrhage, infarct or mass effect. Please note that all CT scans at this facility use dose modulation, iterative reconstruction, and/or weight-based dosing when appropriate to reduce radiation dose to as low as reasonably achievable. Dictated by Jaime Rivera MD @ Oct 29 2020 2:06PM Signed by Dr. Jaime Rivera @ Oct 29 2020 2:18PM
[2020-10-29] MEDS: fentaNYL 50 MCG/ML SDV IM ONE (14:20)
[2020-10-29] MEDS: fentaNYL 50 MCG/ML SDV IVPUSH ONE (14:20)
--- NOTE | 2020-10-29 14:22 | CT ---
INDICATION: Patient fell from wheelchair. TECHNIQUE: A CT volumetric acquisition was performed of the cervical spine without IV contrast. FINDINGS: There is a mild scoliotic curvature of the spine convex right. There is no evidence of vertebral subluxation on the sagittal reformations. There is osteoarthritic change about the reticulation the odontoid process and anterior arch of C1. There is degenerative disc space narrowing and hypertrophic spurring above the anterior vertebral margins and posterior uncovertebral joints at C4-5, C5-6 and C6-7. The facet joints also show degeneration within the mid and lower cervical region. The posterior elements and spinous processes appear intact. There is no evidence of a paraspinal or epidural hematoma. IMPRESSION: No evidence of a fracture or subluxation within the cervical spine. Underlying multilevel degenerative disc disease and facet arthropathy. Please note that all CT scans at this facility use dose modulation, iterative reconstruction, and/or weight-based dosing when appropriate to reduce radiation dose to as low as reasonably achievable. Dictated by Jaime Rivera MD @ Oct 29 2020 2:18PM Signed by Dr. Jaime Rivera @ Oct 29 2020 2:21PM
--- NOTE | 2020-10-29 14:28 | CT ---
Indication: Trauma. Patient fell from wheelchair Technique: A CT volumetric acquisition was performed of the lumbar spine without IV contrast. Comparison: None Findings: The lumbar vertebra are anatomically aligned. There are degenerative vacuum signs within the L4-5 and L5-S1 disc spaces. There is accompanying narrowing of the disc space, endplate sclerosis and hypertrophic spurring at these levels. There is no evidence of a compression fracture. There is degenerative joint space narrowing and sclerosis within the lower 3 lumbar facets. Sacroiliac joints appear intact. There is no evidence of a paraspinal soft tissue hematoma. Impression: Degenerative disc disease and facet arthropathy within the lower lumbar region. No evidence of acute fracture or subluxation. Please note that all CT scans at this facility use dose modulation, iterative reconstruction, and/or weight-based dosing when appropriate to reduce radiation dose to as low as reasonably achievable. Dictated by Jaime Rivera MD @ Oct 29 2020 2:21PM Signed by Dr. Jaime Rivera @ Oct 29 2020 2:26PM
--- NOTE | 2020-10-29 14:33 | CT ---
Indication: Trauma. Patient fell Technique: A CT volumetric acquisition was performed of the abdomen and pelvis without IV contrast. Findings: There is minimal scarring within the lung bases. There is no evidence of pulmonary contusion or pneumothorax. The unenhanced liver, spleen and pancreas appear normal. The gallbladder is absent. Bile ducts are normal in size. The kidneys and adrenal glands appear normal. There is no evidence of retroperitoneal hemorrhage. Atherosclerotic changes are evident within the abdominal aorta but there is no evidence of vascular dissection. The small intestine appears normal. There are several diverticula within the left colon but no evidence of diverticulitis. The retroverted uterus appears normal. There is a pessary within the upper vaginal vault. Partially filled urinary bladder appears intact. Impression: No acute traumatic change identified within the abdomen and pelvis. Please note that all CT scans at this facility use dose modulation, iterative reconstruction, and/or weight-based dosing when appropriate to reduce radiation dose to as low as reasonably achievable. Dictated by Jaime Rivera MD @ Oct 29 2020 2:26PM Signed by Dr. Jaime Rivera @ Oct 29 2020 2:31PM
--- NOTE | 2020-10-29 14:33 | CT ---
Indication: Status post fall from wheelchair Technique: CT examination of the thoracic spine was performed. Thin-section axial images were obtained from the lower cervical area through the uppermost lumbar spine. Contrast was administered. Sagittal and coronal reformatted imaging was performed. Comparison: None prior to today Findings: Bone mineral density is decreased. The lungs show patchy multifocal atelectasis. There are atherosclerotic changes of regional visible vessels. There is a kyphosis and there are moderate degenerative changes diffusely. There is some visible lytic or blastic lesion, fracture or dislocation involving the thoracic spine. Impression: Demineralization. Degenerative changes. Kyphosis. Regarding the thoracic spine, there is no visible acute fracture, dislocation or destructive process. Incidental atherosclerotic vascular calcifications and patchy atelectasis in the limited visualized lungs. Please note that all CT scans at this facility use dose modulation, iterative reconstruction, and/or weight-based dosing when appropriate to reduce radiation dose to as low as reasonably achievable. Dictated by Erick Evangelista MD @ Oct 29 2020 2:22PM Signed by Dr. Erick Evangelista @ Oct 29 2020 2:32PM
--- NOTE | 2020-10-29 14:41 | CT ---
INDICATION: Fall from wheelchair COMPARISON: None of the chest TECHNIQUE: : CT examination of the chest was performed without contrast. Thin axial sections were obtained from above the apices of the lungs to the lung bases. Please note that all CT scans at this facility use dose modulation, iterative reconstruction, and/or weight-based dosing when appropriate to reduce radiation dose to as low as reasonably achievable. FINDINGS: : HEART and MEDIASTINUM: The heart size is normal. There is no mediastinal or hilar adenopathy or mass. There is no pericardial effusion. LUNGS: The lungs show patchy linear opacities that are probably largely related to atelectasis with some areas of scarring. There are areas of tree-in-bud nodularity which are considered to be inflammatory. There are a few isolated nodules that are indeterminate. For example in the right upper lobe on image 24 is a 3.5 millimeter noncalcified nodule. A follow-up CT in 6 months is advised. PLEURAL SPACES: There is no pleural effusion, pneumothorax or pleural based mass. VISUALIZED UPPER ABDOMEN: No acute appearing upper abdominal findings. Status post cholecystectomy OSSEOUS STRUCTURES: Demineralization, degenerative changes and kyphosis. Evidence of a left axillary dissection and probably upper-outer left breast surgery TUBES and LINES: Port placed properly IMPRESSION: 1. There is no visible acute posttraumatic finding involving the mediastinum, lungs or pleural spaces within the limitations of a noncontrast study. 2. Demineralized osseous structures in degenerative changes without visible fracture or destructive process. 3. The lungs show a combination of atelectasis, scarring and tree-in-bud nodularity which is considered inflammatory. A few isolated noncalcified nodules are identified that are indeterminate. This patient appears to have an underlying primary malignancy psi follow-up CT is recommended in 6 months. 4. Port placed properly. Postsurgical changes in the upper outer left breast and left axilla Please note that all CT scans at this facility use dose modulation, iterative reconstruction, and/or weight-based dosing when appropriate to reduce radiation dose to as low as reasonably achievable. Dictated by Erick Evangelista MD @ Oct 29 2020 2:32PM Signed by Dr. Erick Evangelista @ Oct 29 2020 2:40PM
--- NOTE | 2020-10-29 14:43 | CR ---
Indication: Trauma Technique: A total of three views of the left ankle were acquired. Comparison: None Findings: Bones: Bone mineral density is decreased. There is no visible lytic or blastic lesion, fracture or dislocation. The ankle mortise and syndesmosis appear intact. Joint spaces: Osteoarthritis Soft tissues: Unremarkable. Impression: Demineralization and degenerative change without visible acute fracture, dislocation or destructive process apparent Dictated by Erick Evangelista MD @ Oct 29 2020 2:40PM Signed by Dr. Erick Evangelista @ Oct 29 2020 2:42PM
--- NOTE | 2020-10-29 14:47 | CR ---
INDICATION: Patient fell COMPARISON: none TECHNIQUE: Three-view left knee FINDINGS: The patellar, femoral and tibial components of the left knee arthroplasty appear anatomically aligned. There is no evidence of a fracture or prosthetic loosening. IMPRESSION: No fracture identified. Dictated by Jaime Rivera MD @ Oct 29 2020 2:45PM Signed by Dr. Jaime Rivera @ Oct 29 2020 2:46PM
[2020-10-29 15:22] VITALS: BP 152/55; PULSE 73
== END 2020-10-29 15:47 | disposition home or self-care (01) ==
LOC: MW.ED 13:03
DX: M25.562 Pain in left knee (principal); M25.572 Pain in left ankle and joints of left foot; M54.2 Cervicalgia; R51.9 Headache, unspecified; I11.0 Hypertensive heart disease with heart failure; I50.9 Heart failure, unspecified; J44.9 Chronic obstructive pulmonary disease, unspecified; K21.9 Gastro-esophageal reflux disease without esophagitis; E66.9 Obesity, unspecified; Z68.30 Body mass index [BMI] 30.0-30.9, adult; Z87.891 Personal history of nicotine dependence; Z79.899 Other long term (current) drug therapy; Z91.030 Bee allergy status; Z88.5 Allergy status to narcotic agent; Z88.8 Allergy status to other drugs, medicaments and biological substances; Z91.041 Radiographic dye allergy status; Z88.7 Allergy status to serum and vaccine; Z91.048 Other nonmedicinal substance allergy status; W05.0XXA Fall from non-moving wheelchair, initial encounter
CPT/HCPCS: 36415; 70450; 71250; 72125; 72128; 72131; 73562; 73610; 74176; 80048; 85025; 96372; 99285; J3010

== ENCOUNTER 2021-01-10 16:36 | Inpatient (IN) | payer MEDICARE, MEDICAID ==
--- NOTE | 2021-01-10 16:46 | EDM.PDOC ---
<Scotty Collier - Last Filed: 01/10/21 19:01> ED HPI GENERAL MEDICAL PROBLEM - General Stated Complaint: CHEST PAIN Time Seen by Provider: 01/10/21 16:38 - History of Present Illness INITIAL COMMENTS - FREE TEXT/NARRATIVE: 70-year-old female with multiple medical problems including history of cancer, COPD with left-sided chest port in place who is presenting with chest pain and shortness of breath. EMS reports they were called today due to a complaint of chest pain or shortness of breath. Patient was given a nitroglycerin which relieved her symptoms. However the patient has not felt well for 3 to 4 weeks. Patient has a home caregiver who tested positive for Covid recently. Patient has a known exposure. Patient reports headache fatigue malaise and productive cough. The time course is somewhat unclear. No clear exacerbating or alleviating factors radiation or other associated symptoms. Per discussion with the patient's daughter. The patient has had trouble with a productive cough for some time. They saw a doctor on 12/31 and was started on doxycline at that time. Pt is also on chronic bactrim Tuesday / Tuesday and Tuesday. Chest Pain Score (Numeric/FACES): 5 - Related Data Allergies Allergy/AdvReac Type Severity Reaction Status Date / Time bee pollen Allergy unknown Verified 01/10/21 16:47 codeine Allergy Other Verified 01/10/21 16:47 eszopiclone [From Lunesta] Allergy Hypertensio Verified 01/10/21 16:47 n Iodinated Contrast Media Allergy Anaphylactic Verified 01/10/21 16:47 [Iodinated Contrast Media - Shock IV Dye] lorazepam Allergy Facial Verified 01/10/21 16:47 Swelling pregabalin [From Lyrica] Allergy Facial Verified 01/10/21 16:47 Swelling Cloth tape Allergy Blisters Uncoded 01/10/21 16:47 flu vaccination Allergy Anaphylactic Uncoded 01/10/21 16:47 Shock Paper Tape Allergy Blisters Uncoded 01/10/21 16:47 Home Meds: Home Meds Desvenlafaxine Succinate [Pristiq] 100 mg PO BEDTIME 12/15/19 [History] Losartan Potassium [Cozaar] 50 mg PO DAILY 12/15/19 [History] Meclizine [Antivert] 25 mg PO TID PRN 12/15/19 [History] Omeprazole 40 mg PO DAILY 12/15/19 [History] Ondansetron [Zofran ODT] 4 mg PO Q6H PRN 12/15/19 [History] clonazePAM [Clonazepam] 1 mg PO BID PRN 12/15/19 [History] fentaNYL [Fentanyl] 25 mcg TD Q72H 12/15/19 [History] oxyCODONE 5 mg PO TID PRN 12/15/19 [History] cephALEXin [Keflex] 500 mg PO Q12H #6 cap 07/17/20 [Rx] Past Medical History HEENT History: Reports: Impaired Vision Other HEENT History: asthma Cardiovascular History: Reports: Heart Failure, High Cholesterol, Hypertension Respiratory History: Reports: Asthma, COPD, SOB Other Respiratory History: 40 Plus years use of tobacco products, QUIT 02/14/2015 Gastrointestinal History: Reports: GERD, PUD Other Gastrointestinal History: Heartburn/GERD Other Genitourinary History: Frequent Urination [employer]S [employer] 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 Guerrier Psychiatric History: Reports: Anxiety, Depression Other Psychiatric History: Real Anxious before surgery "LIKE COCKTAIL before I Leave the Room" Endocrine/Metabolic History: Reports: Obesity/BMI 30+ Hematologic History: Reports: None Immunologic History: Reports: None Oncologic (Cancer) History: Reports: Breast, Other (See Below) Other Oncologic History: throat Dermatologic History: Reports: None - Infectious Disease History Infectious Disease History: Reports: Chicken Pox, Measles, Mumps Other Infectious Disease History: Pt states she does not remember - Past Surgical History Other HEENT Surgeries/Procedures: UPPER 2 Front teeth Implants Cardiovascular Surgical History: Reports: None Respiratory Surgical History: Reports: None GI Surgical History: Reports: Other (See Below) Other GI Surgeries/Procedures: Lap Coco Female Surgical History: Reports: Tubal Ligation Neurological Surgical History: Reports: None Musculoskeletal Surgical History: Reports: Knee Replacement Other Musculoskeletal Surgeries/Procedures:: Bilateral Total KNees Oncologic Surgical History: Reports: Lumpectomy Social & Family History - Family History Family Medical History: No Pertinent Family History Psychiatric: Reports: Depression Hematologic: Reports: SLE Immunologic: Reports: SLE - Caffeine Use Caffeine Use: Reports: None - Living Situation & Occupation Living situation: Reports: with Family Occupation: Retired ED ROS GENERAL - Review of Systems Review Of Systems: See Below Free Text/Narrative/Comment: General: Per HPI Eyes: No vision problems. ENT: No sore throat. Neck: No neck stiffness. Respiratory: Per HPI Cardiac: No chest pain. Gastrointestinal: No nausea, vomiting or abdominal pain. Musculoskeletal: No myalgias/arthralgias. Neurologic: No headache. ED EXAM, GENERAL - Physical Exam Exam: See Below Free Text/Narrative:: General Appearance: No acute distress, appears comfortable Skin: No rash HEENT: Normocephalic/atraumatic, sclera anicteric, mucous membranes moist Neck: Normal range of motion Chest and Lungs: Normal work of breathing diffuse expiratory wheezing during coughing but not during normal breathing Cardiovascular: Regular rate and rhythm, no murmur Abdomen: Soft, non-tender Back: Normal Musculoskeletal: No edema or tenderness Neurologic: Awake, alert, no obvious deficits, moving all extremities Psychiatric: Appropriate, cooperative #1 Interpretation EKG Date: 01/10/21 Time: 16:52 EKG Interpretation Comments: Sinus rhythm rate of 87 Q waves inferiorly no findings of acute ischemia QTC 451 Departure - Departure Disposition: Refer to Observation Clinical Impression: Acute coronary syndrome - Discharge Information - Assessment/Plan Assessment:: 70-year-old female with history as noted above presenting with now improved chest pain shortness of breath in a background of general malaise and cough over the last several weeks. Covid would explain her symptoms as would bacterial pneumonia ACS needs to be considered as well given the chest pain shortness of breath and relief from nitro. Patient has no tachycardia or hypoxia that would necessarily suggest pulmonary embolism. Labs chest x-ray pending and will reassess. 1900: Patient's labs are unremarkable Covid negative chest x-ray without focal infiltrate. Patient has not had any recurrence of chest pain or shortness of breath but given her age I would favor observation for serial enzymes and reassessment in the morning. The patient and her daughter would prefer this as well. Await callback from hospitalist. <Shaheen Meyers - Last Filed: 01/10/21 20:09> Course - Vital Signs Last Recorded V/S: Last Vital Signs Temp 96.8 F L 01/10/21 16:42 Pulse 73 01/10/21 19:00 Resp 16 01/10/21 19:00 BP 132/73 01/10/21 19:00 Pulse Ox 94 L 01/10/21 19:00 - Orders/Labs/Meds Orders: Active Orders 24 hr Category Date Time Status Patient Status [ADT] Routine ADT 01/10/21 20:07 Ordered EKG Documentation Completion [RC] STAT Care 01/10/21 16:39 Active Labs: Laboratory Tests 01/10/21 01/10/21 01/10/21 Range/Units 17:35 17:35 17:45 WBC 6.84 (4.0-11.0) K/uL RBC 4.76 (4.30-5.90) M/uL Hgb 14.6 (12.0-16.0) g/dL Hct 43.9 (36.0-46.0) % MCV 92.2 (80.0-98.0) fL MCH 30.7 (27.0-32.0) pg MCHC 33.3 (31.0-37.0) g/dL RDW Std Deviation 45.1 (28.0-62.0) fl RDW Coeff of Antonieta 13 (11.0-15.0) % Plt Count 138 L (150-400) K/uL MPV 10.50 (7.40-12.00) fL Neut % (Auto) 69.0 (48.0-80.0) % Lymph % (Auto) 16.7 (16.0-40.0) % Thurston % (Auto) 7.3 (0.0-15.0) % Eos % (Auto) 6.7 (0.0-7.0) % Baso % (Auto) 0.3 (0.0-1.5) % Neut # (Auto) 4.7 (1.4-5.7) K/uL Lymph # (Auto) 1.1 (0.6-2.4) K/uL Thurston # (Auto) 0.5 (0.0-0.8) K/uL Eos # (Auto) 0.5 (0.0-0.7) K/uL Baso # (Auto) 0.0 (0.0-0.1) K/uL Nucleated RBC % 0.0 /100WBC Nucleated RBCs # 0 K/uL Sodium 141 (136-145) mmol/L Potassium 4.3 (3.5-5.1) mmol/L Chloride 104 (98-107) mmol/L Carbon Dioxide 27.2 (21.0-32.0) mmol/L BUN 22 H (7.0-18.0) mg/dL Creatinine 1.1 H (0.6-1.0) mg/dL Est Cr Clr Drug Dosing 43.91 mL/min Estimated GFR (MDRD) 49.0 ml/min Glucose 106 (74-106) mg/dL Calcium 8.5 (8.5-10.1) mg/dL Total Bilirubin 0.4 (0.2-1.0) mg/dL AST 12 L (15-37) IU/L ALT 17 (14-63) IU/L Alkaline Phosphatase 120 H (46-116) U/L Troponin I < 0.050 (0.000-0.056) ng/mL Total Protein 6.9 (6.4-8.2) g/dL Albumin 3.4 (3.4-5.0) g/dL Globulin 3.5 (2.6-4.0) g/dL Albumin/Globulin Ratio 1.0 (0.9-1.6) Influenza Type A RNA NEGATIVE (NEGATIVE) Influenza Type B RNA NEGATIVE (NEGATIVE) SARS-CoV-2 RNA (LEE) NEGATIVE (NEGATIVE) 01/10/21 Range/Units 19:30 WBC (4.0-11.0) K/uL RBC (4.30-5.90) M/uL Hgb (12.0-16.0) g/dL Hct (36.0-46.0) % MCV (80.0-98.0) fL MCH (27.0-32.0) pg MCHC (31.0-37.0) g/dL RDW Std Deviation (28.0-62.0) fl RDW Coeff of Antonieta (11.0-15.0) % Plt Count (150-400) K/uL MPV (7.40-12.00) fL Neut % (Auto) (48.0-80.0) % Lymph % (Auto) (16.0-40.0) % Thurston % (Auto) (0.0-15.0) % Eos % (Auto) (0.0-7.0) % Baso % (Auto) (0.0-1.5) % Neut # (Auto) (1.4-5.7) K/uL Lymph # (Auto) (0.6-2.4) K/uL Thurston # (Auto) (0.0-0.8) K/uL Eos # (Auto) (0.0-0.7) K/uL Baso # (Auto) (0.0-0.1) K/uL Nucleated RBC % /100WBC Nucleated RBCs # K/uL Sodium (136-145) mmol/L Potassium (3.5-5.1) mmol/L Chloride (98-107) mmol/L Carbon Dioxide (21.0-32.0) mmol/L BUN (7.0-18.0) mg/dL Creatinine (0.6-1.0) mg/dL Est Cr Clr Drug Dosing mL/min Estimated GFR (MDRD) ml/min Glucose (74-106) mg/dL Calcium (8.5-10.1) mg/dL Total Bilirubin (0.2-1.0) mg/dL AST (15-37) IU/L ALT (14-63) IU/L Alkaline Phosphatase (46-116) U/L Troponin I < 0.050 (0.000-0.056) ng/mL Total Protein (6.4-8.2) g/dL Albumin (3.4-5.0) g/dL Globulin (2.6-4.0) g/dL Albumin/Globulin Ratio (0.9-1.6) Influenza Type A RNA (NEGATIVE) Influenza Type B RNA (NEGATIVE) SARS-CoV-2 RNA (LEE) (NEGATIVE) Departure - Departure Time of Disposition: 20:08 Condition: Good Sepsis Event Note (ED) - Focused Exam Vital Signs: Vital Signs Temp Pulse Resp BP Pulse Ox 01/10/21 19:00 73 16 132/73 94 L 01/10/21 18:30 69 17 127/65 94 L 01/10/21 18:00 73 18 136/65 96 01/10/21 16:42 96.8 F L 90 22 H 143/77 H 96 - My Orders Last 24 Hours: My Active Orders 01/10/21 20:07 Patient Status [ADT] Routine - Assessment/Plan Last 24 Hours: My Active Orders 01/10/21 20:07 Patient Status [ADT] Routine
--- NOTE | 2021-01-10 17:39 | CR ---
INDICATION: Cough. COMPARISON: CT 29 October 2020 and plain film 14 July 2020. PET-CT 23 December 2020. FINDINGS: Lungs are clear other than minor atelectasis at the left base and possibly a tiny effusion. Infusion port catheter unchanged. Pulmonary vascularity is normal. Surgical clips left axilla and breast. A 7 mm nodule projecting right mid lung near the medial tip of the scapula likely external to the patient as there is no abnormality at this level on recent PET-CT. Dictated by Pardeep Jo MD @ Jan 10 2021 5:37PM Signed by Dr. Pardeep Jo @ Jan 10 2021 5:37PM
[2021-01-10 18:15] LABS: BLOOD UREA NITROGEN,BUN 22 mg/dL (7.0-18.0); CARBON DIOXIDE,CO2 27.2 mmol/L (21.0-32.0); CHLORIDE,CL 104 mmol/L (98-107); GLUCOSE RANDOM 106 mg/dL (74-106); POTASSIUM,K 4.3 mmol/L (3.5-5.1); SODIUM,NA 141 mmol/L (136-145)
[2021-01-10 18:35] LABS: CORONAVIRUS COVID-19 NAA NEGATIVE (NEGATIVE); INFLUENZA A NAA NEGATIVE (NEGATIVE); INFLUENZA B NAA NEGATIVE (NEGATIVE)
--- NOTE | 2021-01-10 21:17 | PCM.HP.2 ---
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 Patient states that she has been getting progressively weak from last 2 months. States she is currenely "cancer free" based on her last PET scan which was very recent. Her last chemoradiation was 2 years back. Patient states that she also is being treated with antibiotics for bronchitis and was started on inhalers by her PCP. Patient descried pain as an ache and thinks i came on due to her "over thinking". Patient states she did have a "minor heart attack years back, she has no stnets placed, reported getting a stress test in remote past but isnt sure of the results. Patient hasnt seen a career law clerk in recent past. Patient is very concerned and emotional about her weakness as it has hampered her ADLS. She says she was doing ok up until her PT therapist was changed as the previous one c hanged his jobs. Patient states she had a good connection with her PT and ever since he left it isnt been the same and she has been getting worse. Patient gets PT once a week. States at home she is usually in bed or her chair and does need a lot of assistance, and is unable to get into the truck. Patient lives with her daughter who takes care of most of her needs. She does have urinary incontinence and generalized weakness which has been chronic for last few months. In the ER EKG was unremarkable, labs were unremarkable including troponin, CXR showed no infiltrates but did show 7mm nodule in right lung which most likely "external to the patient" per radiology given it wasnt there on last PET scan. Patient is moving to [place] by the end of January to live with her daughter and establish further care over there. Patient was admitted for further care. Chest Pain Score (Numeric/FACES): 5 - Related Data Allergies/Adverse Reactions: Allergies Allergy/AdvReac Type Severity Reaction Status Date / Time aspirin Allergy Hives Verified 01/10/21 21:41 bee pollen Allergy unknown Verified 01/10/21 21:41 codeine Allergy Other Verified 01/10/21 21:41 eszopiclone [From Lunesta] Allergy Hypertensio Verified 01/10/21 21:41 n Iodinated Contrast Media Allergy Anaphylactic Verified 01/10/21 21:41 [Iodinated Contrast Media - Shock IV Dye] lorazepam Allergy Facial Verified 01/10/21 21:41 Swelling pregabalin [From Lyrica] Allergy Facial Verified 01/10/21 21:41 Swelling Cloth tape Allergy Blisters Uncoded 01/10/21 21:41 flu vaccination Allergy Anaphylactic Uncoded 01/10/21 21:41 Shock Paper Tape Allergy Blisters Uncoded 01/10/21 21:41 Home Medications: Home Meds Desvenlafaxine Succinate [Pristiq] 100 mg PO BEDTIME 12/15/19 [History] Losartan Potassium [Cozaar] 50 mg PO DAILY 12/15/19 [History] Omeprazole 40 mg PO DAILY 12/15/19 [History] Ondansetron [Zofran ODT] 4 mg PO Q6H PRN 12/15/19 [History] clonazePAM [Clonazepam] 1 mg PO BID PRN 12/15/19 [History] fentaNYL [Fentanyl] 25 mcg TD Q72H 12/15/19 [History] oxyCODONE 5 mg PO TID PRN 12/15/19 [History] Sulfamethoxazole/Trimethoprim [Bactrim 400-80 MG] 0.5 each PO 01/10/21 [History] Past Medical History HEENT History: Reports: Impaired Vision Other HEENT History: asthma Cardiovascular History: Reports: Heart Failure, High Cholesterol, Hypertension Respiratory History: Reports: Asthma, COPD, SOB Other Respiratory History: 40 Plus years use of tobacco products, QUIT 02/14/2015 Gastrointestinal History: Reports: GERD, PUD Other Gastrointestinal History: Heartburn/GERD Other Genitourinary History: Frequent Urination 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 Guerrier Psychiatric History: Reports: Anxiety, Depression Other Psychiatric History: Real Anxious before surgery "LIKE COCKTAIL before I Leave the Room" Endocrine/Metabolic History: Reports: Obesity/BMI 30+ Hematologic History: Reports: None Immunologic History: Reports: None Oncologic (Cancer) History: Reports: Breast, Other (See Below) Other Oncologic History: throat Dermatologic History: Reports: None - Infectious Disease History Infectious Disease History: Reports: Chicken Pox, Measles, Mumps Other Infectious Disease History: Pt states she does not remember - Past Surgical History Other HEENT Surgeries/Procedures: UPPER 2 Front teeth Implants Cardiovascular Surgical History: Reports: None Respiratory Surgical History: Reports: None GI Surgical History: Reports: Other (See Below) Other GI Surgeries/Procedures: Lap Coco Female Surgical History: Reports: Tubal Ligation Neurological Surgical History: Reports: None Musculoskeletal Surgical History: Reports: Knee Replacement Other Musculoskeletal Surgeries/Procedures:: Bilateral Total KNees Oncologic Surgical History: Reports: Lumpectomy Social & Family History - Family History Family Medical History: No Pertinent Family History Psychiatric: Reports: Depression Hematologic: Reports: SLE Immunologic: Reports: SLE - Tobacco Use Tobacco Use Status *Q: Former Tobacco User Used Tobacco, but Quit: Yes Month/Year Tobacco Last Used: 07/2000 - Caffeine Use Caffeine Use: Reports: Coffee - Recreational Drug Use Recreational Drug Use: No - Living Situation & Occupation Living situation: Reports: with Family Occupation: Retired H&P Review of Systems - Review of Systems: Review Of Systems: See Below General: Reports: Malaise, Weakness, Fatigue. Denies: Fever, Chills Pulmonary: Reports: Wheezing. Denies: Shortness of Breath Cardiovascular: Denies: Chest Pain, Palpitations, Dyspnea on Exertion Gastrointestinal: Denies: Abdominal Pain, Anorexia, Black Stool Genitourinary: Denies: Dysuria, Frequency, Burning Musculoskeletal: Denies: Neck Pain, Shoulder Pain, Arm Pain Skin: Denies: Cyanosis, Jaundice, Mottled Psychiatric: Denies: Confusion, Depression, Mood Lability Neurological: Reports: Numbness, Paresthesia, Pre-Existing Deficit, Tingling, Difficulty Walking, Weakness, Gait Disturbance. Denies: Confusion, Dizziness, Headache Exam - Exam Exam: See Below - Vital Signs Vital Signs: Last Vital Signs Temp 36.0 C L 01/10/21 16:42 Pulse 73 01/10/21 19:00 Resp 16 01/10/21 19:00 BP 132/73 01/10/21 19:00 Pulse Ox 94 L 01/10/21 19:00 Weight: 86.183 kg - Exam General: Alert, Oriented, Cooperative Neck: Supple, Trachea Midline Lungs: Clear to Auscultation, Normal Respiratory Effort Cardiovascular: Regular Rate, Regular Rhythm, Normal S1, Normal S2 GI/Abdominal Exam: Normal Bowel Sounds, Soft, Non-Tender Extremities: Normal Inspection, No Pedal Edema, Limited Range of Motion. No: Mottled, Pallor, Redness - Patient Data Lab Results Last 24 hrs: Laboratory Results - last 24 hr 01/10/21 01/10/21 01/10/21 Range/Units 17:35 17:35 17:45 WBC 6.84 (4.0-11.0) K/uL RBC 4.76 (4.30-5.90) M/uL Hgb 14.6 (12.0-16.0) g/dL Hct 43.9 (36.0-46.0) % MCV 92.2 (80.0-98.0) fL MCH 30.7 (27.0-32.0) pg MCHC 33.3 (31.0-37.0) g/dL RDW Std Deviation 45.1 (28.0-62.0) fl RDW Coeff of Antonieta 13 (11.0-15.0) % Plt Count 138 L (150-400) K/uL MPV 10.50 (7.40-12.00) fL Neut % (Auto) 69.0 (48.0-80.0) % Lymph % (Auto) 16.7 (16.0-40.0) % Rolette % (Auto) 7.3 (0.0-15.0) % Eos % (Auto) 6.7 (0.0-7.0) % Baso % (Auto) 0.3 (0.0-1.5) % Neut # (Auto) 4.7 (1.4-5.7) K/uL Lymph # (Auto) 1.1 (0.6-2.4) K/uL Rolette # (Auto) 0.5 (0.0-0.8) K/uL Eos # (Auto) 0.5 (0.0-0.7) K/uL Baso # (Auto) 0.0 (0.0-0.1) K/uL Nucleated RBC % 0.0 /100WBC Nucleated RBCs # 0 K/uL Sodium 141 (136-145) mmol/L Potassium 4.3 (3.5-5.1) mmol/L Chloride 104 (98-107) mmol/L Carbon Dioxide 27.2 (21.0-32.0) mmol/L BUN 22 H (7.0-18.0) mg/dL Creatinine 1.1 H (0.6-1.0) mg/dL Est Cr Clr Drug Dosing 43.91 mL/min Estimated GFR (MDRD) 49.0 ml/min Glucose 106 (74-106) mg/dL Calcium 8.5 (8.5-10.1) mg/dL Total Bilirubin 0.4 (0.2-1.0) mg/dL AST 12 L (15-37) IU/L ALT 17 (14-63) IU/L Alkaline Phosphatase 120 H (46-116) U/L Troponin I < 0.050 (0.000-0.056) ng/mL Total Protein 6.9 (6.4-8.2) g/dL Albumin 3.4 (3.4-5.0) g/dL Globulin 3.5 (2.6-4.0) g/dL Albumin/Globulin Ratio 1.0 (0.9-1.6) Influenza Type A RNA NEGATIVE (NEGATIVE) Influenza Type B RNA NEGATIVE (NEGATIVE) SARS-CoV-2 RNA (LEE) NEGATIVE (NEGATIVE) 01/10/21 Range/Units 19:30 WBC (4.0-11.0) K/uL RBC (4.30-5.90) M/uL Hgb (12.0-16.0) g/dL Hct (36.0-46.0) % MCV (80.0-98.0) fL MCH (27.0-32.0) pg MCHC (31.0-37.0) g/dL RDW Std Deviation (28.0-62.0) fl RDW Coeff of Antonieta (11.0-15.0) % Plt Count (150-400) K/uL MPV (7.40-12.00) fL Neut % (Auto) (48.0-80.0) % Lymph % (Auto) (16.0-40.0) % Rolette % (Auto) (0.0-15.0) % Eos % (Auto) (0.0-7.0) % Baso % (Auto) (0.0-1.5) % Neut # (Auto) (1.4-5.7) K/uL Lymph # (Auto) (0.6-2.4) K/uL Rolette # (Auto) (0.0-0.8) K/uL Eos # (Auto) (0.0-0.7) K/uL Baso # (Auto) (0.0-0.1) K/uL Nucleated RBC % /100WBC Nucleated RBCs # K/uL Sodium (136-145) mmol/L Potassium (3.5-5.1) mmol/L Chloride (98-107) mmol/L Carbon Dioxide (21.0-32.0) mmol/L BUN (7.0-18.0) mg/dL Creatinine (0.6-1.0) mg/dL Est Cr Clr Drug Dosing mL/min Estimated GFR (MDRD) ml/min Glucose (74-106) mg/dL Calcium (8.5-10.1) mg/dL Total Bilirubin (0.2-1.0) mg/dL AST (15-37) IU/L ALT (14-63) IU/L Alkaline Phosphatase (46-116) U/L Troponin I < 0.050 (0.000-0.056) ng/mL Total Protein (6.4-8.2) g/dL Albumin (3.4-5.0) g/dL Globulin (2.6-4.0) g/dL Albumin/Globulin Ratio (0.9-1.6) Influenza Type A RNA (NEGATIVE) Influenza Type B RNA (NEGATIVE) SARS-CoV-2 RNA (LEE) (NEGATIVE) Result Diagrams: 01/10/21 17:35 01/10/21 17:35 Sepsis Event Note - Evaluation Sepsis Screening Result: No Definite Risk - Focused Exam Vital Signs: Vital Signs Temp Pulse Resp BP Pulse Ox 01/10/21 19:00 73 16 132/73 94 L 01/10/21 18:30 69 17 127/65 94 L 01/10/21 18:00 73 18 136/65 96 01/10/21 16:42 36.0 C L 90 22 H 143/77 H 96 - Problem List (1) Chest pain SNOMED Code(s): 79845037 ICD Code: R07.9 - CHEST PAIN, UNSPECIFIED Status: Acute Current Visit: Yes (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 SNOMED Code(s): 373819995 ICD Code: D05.10 - INTRADUCTAL CARCINOMA IN SITU OF UNSPECIFIED BREAST Status: Acute Current Visit: Yes (3) Port-A-Cath in place SNOMED Code(s): 513927071 ICD Code: Z95.828 - PRESENCE OF OTHER VASCULAR IMPLANTS AND GRAFTS Status: Acute Current Visit: Yes (4) Squamous cell carcinoma of tonsil SNOMED Code(s): 760185672, 820678787 ICD Code: C09.9 - MALIGNANT NEOPLASM OF TONSIL, UNSPECIFIED Status: Acute Current Visit: Yes (5) H/O lumpectomy SNOMED Code(s): 307138316, 955364523 ICD Code: Z98.890 - OTHER SPECIFIED POSTPROCEDURAL STATES Status: Acute Current Visit: Yes (6) Generalized weakness SNOMED Code(s): 23591298 ICD Code: R53.1 - WEAKNESS Status: Acute Current Visit: Yes Problem List Initiated/Reviewed/Updated: Yes Orders Last 24hrs: Active Orders 24 hr Category Date Time Status Patient Status [ADT] Routine ADT 01/10/21 20:07 Active Ambulate [RC] ASDIRECTED Care 01/10/21 20:50 Active Antiembolic Devices [RC] PER UNIT ROUTINE Care 01/10/21 20:52 Active EKG Documentation Completion [RC] STAT Care 01/10/21 16:39 Active Oxygen Therapy [RC] PRN Care 01/10/21 20:50 Active RT Aerosol Therapy [RC] ASDIRECTED Care 01/10/21 20:52 Active Telemetry Monitoring [Cardiac Monitoring] [RC] Q8H Care 01/10/21 22:00 Active VTE/DVT Education [RC] PER UNIT ROUTINE Care 01/10/21 20:50 Active Vital Signs [RC] Q4H Care 01/10/21 20:50 Active Heart Healthy Diet [DIET] Diet 01/10/21 Dinner Active LIPID PANEL [CHEM] Routine Lab 01/10/21 19:30 Received TROPONIN I [CHEM] Routine Lab 01/10/21 22:30 Ordered TSH [CHEM] Routine Lab 01/10/21 19:30 Received UA RFX EDISON AND CULT IF INDIC [URIN] Routine Lab 01/10/21 20:56 Ordered Albuterol/Ipratropium [DuoNeb 3.0-0.5 MG/3 ML] Med 01/10/21 20:50 Active 3 ml NEB Q4HRRT PRN Lactated Ringers @ 125 MLS/HR(1,000ml) Med 01/10/21 21:30 Ordered Lactated Ringers [Ringers, Lactated] 1,000 ml IV ASDIRECTED Sequential Compression Device [OM.PC] Per Unit Routine Oth 01/10/21 20:51 Ordered Medication Orders Albuterol/Ipratropium (Albuterol/Ipratropium 3.0-0.5 Mg/3 Ml Neb Soln) 3 ml NEB Q4HRRT PRN PRN Reason: Shortness Of Breath/wheezing Lactated Ringer's (Ringers, Lactated) 1,000 mls @ 125 mls/hr IV ASDIRECTED JAD Stop: 01/11/21 07:00 Assessment/Plan Comment:: 70 y/o F admitted for ACS rule out and weakness cont trending troponin allergic to ASA will check lipid, tsh Patient is 2 assist will need PT evaluation for generalized weakness prior to dc monitor and replete electrolytes IV fluids overnight, dc in AM Diet as tolerated PT consult cont home meds as appropriate
[2021-01-10] MEDS ORDERED: Lactated Ringers 1,000 ML IV SCH (21:30)
[2021-01-10] MEDS ORDERED: Ondansetron 4 MG Tab.DIS PO PRN (23:24)
[2021-01-10] MEDS: ClonazePAM 1 MG Tab PO PRN (23:55)
[2021-01-11] MEDS: oxyCODONE 5 MG Tab PO PRN ×2 (00:53→18:34)
[2021-01-11] MEDS: Albuterol/Ipratropium 3.0-0.5 MG/3 ML Neb Soln NEB PRN ×3 (03:18→16:15)
[2021-01-11] MEDS: Pantoprazole 40 MG Tab.CR PO SCH (08:26)
[2021-01-11] MEDS: Losartan 50 MG Tab PO SCH (08:26)
--- NOTE | 2021-01-11 13:11 | PCM.PN ---
- General Info Date of Service: 01/11/21 Admission Dx/Problem (Free Text): Admission Diagnosis/Problem Admission Diagnosis/Problem Acute coronary syndrome - Review of Systems General: Reports: Weakness, Fatigue. Denies: Fever Pulmonary: Denies: Shortness of Breath, Pleuritic Chest Pain Cardiovascular: Denies: Chest Pain, Palpitations, Dyspnea on Exertion Gastrointestinal: Denies: Abdominal Pain, Constipation, Decreased Appetite Genitourinary: Reports: Urgency, Incontinence. Denies: Dysuria, Frequency, Burning Musculoskeletal: Denies: Neck Pain, Joint Pain Skin: Denies: Cyanosis, Jaundice - Patient Data Vitals - Most Recent: Last Vital Signs Temp 36.8 C 01/11/21 11:28 Pulse 85 01/11/21 11:28 Resp 16 01/11/21 11:28 BP 113/53 L 01/11/21 11:28 Pulse Ox 96 01/11/21 11:28 Weight - Most Recent: 86.455 kg I&O - Last 24 Hours: Intake & Output 01/10/21 01/11/21 01/11/21 22:59 06:59 14:59 Intake Total 1222 Output Total 250 Balance 972 Lab Results Last 24 Hours: Laboratory Results - last 24 hr 01/10/21 01/10/21 01/10/21 Range/Units 17:35 17:35 17:45 WBC 6.84 (4.0-11.0) K/uL RBC 4.76 (4.30-5.90) M/uL Hgb 14.6 (12.0-16.0) g/dL Hct 43.9 (36.0-46.0) % MCV 92.2 (80.0-98.0) fL MCH 30.7 (27.0-32.0) pg MCHC 33.3 (31.0-37.0) g/dL RDW Std Deviation 45.1 (28.0-62.0) fl RDW Coeff of [place] 13 (11.0-15.0) % Plt Count 138 L (150-400) K/uL MPV 10.50 (7.40-12.00) fL Neut % (Auto) 69.0 (48.0-80.0) % Lymph % (Auto) 16.7 (16.0-40.0) % [place] % (Auto) 7.3 (0.0-15.0) % Eos % (Auto) 6.7 (0.0-7.0) % Baso % (Auto) 0.3 (0.0-1.5) % Neut # (Auto) 4.7 (1.4-5.7) K/uL Lymph # (Auto) 1.1 (0.6-2.4) K/uL [place] # (Auto) 0.5 (0.0-0.8) K/uL Eos # (Auto) 0.5 (0.0-0.7) K/uL Baso # (Auto) 0.0 (0.0-0.1) K/uL Nucleated RBC % 0.0 /100WBC Nucleated RBCs # 0 K/uL Sodium 141 (136-145) mmol/L Potassium 4.3 (3.5-5.1) mmol/L Chloride 104 (98-107) mmol/L Carbon Dioxide 27.2 (21.0-32.0) mmol/L BUN 22 H (7.0-18.0) mg/dL Creatinine 1.1 H (0.6-1.0) mg/dL Est Cr Clr Drug Dosing 43.91 mL/min Estimated GFR (MDRD) 49.0 ml/min Glucose 106 (74-106) mg/dL Calcium 8.5 (8.5-10.1) mg/dL Total Bilirubin 0.4 (0.2-1.0) mg/dL AST 12 L (15-37) IU/L ALT 17 (14-63) IU/L Alkaline Phosphatase 120 H (46-116) U/L Troponin I < 0.050 (0.000-0.056) ng/mL Total Protein 6.9 (6.4-8.2) g/dL Albumin 3.4 (3.4-5.0) g/dL Globulin 3.5 (2.6-4.0) g/dL Albumin/Globulin Ratio 1.0 (0.9-1.6) Triglycerides (0-200) mg/dL Cholesterol (50-200) mg/dL LDL Cholesterol, Calc (60-180) mg/dL VLDL Cholesterol (5-55) mg/dL HDL Cholesterol (40-60) mg/dL Cholesterol/HDL Ratio (3.3-6.0) Vitamin B12 (193-986) pg/mL TSH 3rd Generation (0.36-3.74) uIU/mL Urine Color Urine Appearance Urine pH (5.0-8.0) Ur Specific Banco (1.001-1.035) Urine Protein (NEGATIVE) mg/dL Urine Glucose (UA) (NEGATIVE) mg/dL Urine Ketones (NEGATIVE) mg/dL Urine Occult Blood (NEGATIVE) Urine Nitrite (NEGATIVE) Urine Bilirubin (NEGATIVE) Urine Urobilinogen (<2.0) EU/dL Ur Leukocyte Esterase (NEGATIVE) Influenza Type A RNA NEGATIVE (NEGATIVE) Influenza Type B RNA NEGATIVE (NEGATIVE) SARS-CoV-2 RNA (LEE) NEGATIVE (NEGATIVE) 01/10/21 01/10/21 01/10/21 Range/Units 19:30 19:30 22:40 WBC (4.0-11.0) K/uL RBC (4.30-5.90) M/uL Hgb (12.0-16.0) g/dL Hct (36.0-46.0) % MCV (80.0-98.0) fL MCH (27.0-32.0) pg MCHC (31.0-37.0) g/dL RDW Std Deviation (28.0-62.0) fl RDW Coeff of [place] (11.0-15.0) % Plt Count (150-400) K/uL MPV (7.40-12.00) fL Neut % (Auto) (48.0-80.0) % Lymph % (Auto) (16.0-40.0) % [place] % (Auto) (0.0-15.0) % Eos % (Auto) (0.0-7.0) % Baso % (Auto) (0.0-1.5) % Neut # (Auto) (1.4-5.7) K/uL Lymph # (Auto) (0.6-2.4) K/uL [place] # (Auto) (0.0-0.8) K/uL Eos # (Auto) (0.0-0.7) K/uL Baso # (Auto) (0.0-0.1) K/uL Nucleated RBC % /100WBC Nucleated RBCs # K/uL Sodium (136-145) mmol/L Potassium (3.5-5.1) mmol/L Chloride (98-107) mmol/L Carbon Dioxide (21.0-32.0) mmol/L BUN (7.0-18.0) mg/dL Creatinine (0.6-1.0) mg/dL Est Cr Clr Drug Dosing mL/min Estimated GFR (MDRD) ml/min Glucose (74-106) mg/dL Calcium (8.5-10.1) mg/dL Total Bilirubin (0.2-1.0) mg/dL AST (15-37) IU/L ALT (14-63) IU/L Alkaline Phosphatase (46-116) U/L Troponin I < 0.050 < 0.050 (0.000-0.056) ng/mL Total Protein (6.4-8.2) g/dL Albumin (3.4-5.0) g/dL Globulin (2.6-4.0) g/dL Albumin/Globulin Ratio (0.9-1.6) Triglycerides 154 (0-200) mg/dL Cholesterol 166 (50-200) mg/dL LDL Cholesterol, Calc 92 (60-180) mg/dL VLDL Cholesterol 30 (5-55) mg/dL HDL Cholesterol 43 (40-60) mg/dL Cholesterol/HDL Ratio 3.9 (3.3-6.0) Vitamin B12 (193-986) pg/mL TSH 3rd Generation 1.30 (0.36-3.74) uIU/mL Urine Color Urine Appearance Urine pH (5.0-8.0) Ur Specific Banco (1.001-1.035) Urine Protein (NEGATIVE) mg/dL Urine Glucose (UA) (NEGATIVE) mg/dL Urine Ketones (NEGATIVE) mg/dL Urine Occult Blood (NEGATIVE) Urine Nitrite (NEGATIVE) Urine Bilirubin (NEGATIVE) Urine Urobilinogen (<2.0) EU/dL Ur Leukocyte Esterase (NEGATIVE) Influenza Type A RNA (NEGATIVE) Influenza Type B RNA (NEGATIVE) SARS-CoV-2 RNA (LEE) (NEGATIVE) 01/10/21 01/11/21 Range/Units 22:40 01:10 WBC (4.0-11.0) K/uL RBC (4.30-5.90) M/uL Hgb (12.0-16.0) g/dL Hct (36.0-46.0) % MCV (80.0-98.0) fL MCH (27.0-32.0) pg MCHC (31.0-37.0) g/dL RDW Std Deviation (28.0-62.0) fl RDW Coeff of [place] (11.0-15.0) % Plt Count (150-400) K/uL MPV (7.40-12.00) fL Neut % (Auto) (48.0-80.0) % Lymph % (Auto) (16.0-40.0) % [place] % (Auto) (0.0-15.0) % Eos % (Auto) (0.0-7.0) % Baso % (Auto) (0.0-1.5) % Neut # (Auto) (1.4-5.7) K/uL Lymph # (Auto) (0.6-2.4) K/uL [place] # (Auto) (0.0-0.8) K/uL Eos # (Auto) (0.0-0.7) K/uL Baso # (Auto) (0.0-0.1) K/uL Nucleated RBC % /100WBC Nucleated RBCs # K/uL Sodium (136-145) mmol/L Potassium (3.5-5.1) mmol/L Chloride (98-107) mmol/L Carbon Dioxide (21.0-32.0) mmol/L BUN (7.0-18.0) mg/dL Creatinine (0.6-1.0) mg/dL Est Cr Clr Drug Dosing mL/min Estimated GFR (MDRD) ml/min Glucose (74-106) mg/dL Calcium (8.5-10.1) mg/dL Total Bilirubin (0.2-1.0) mg/dL AST (15-37) IU/L ALT (14-63) IU/L Alkaline Phosphatase (46-116) U/L Troponin I (0.000-0.056) ng/mL Total Protein (6.4-8.2) g/dL Albumin (3.4-5.0) g/dL Globulin (2.6-4.0) g/dL Albumin/Globulin Ratio (0.9-1.6) Triglycerides (0-200) mg/dL Cholesterol (50-200) mg/dL LDL Cholesterol, Calc (60-180) mg/dL VLDL Cholesterol (5-55) mg/dL HDL Cholesterol (40-60) mg/dL Cholesterol/HDL Ratio (3.3-6.0) Vitamin B12 584 (193-986) pg/mL TSH 3rd Generation (0.36-3.74) uIU/mL Urine Color YELLOW Urine Appearance CLEAR Urine pH 6.0 (5.0-8.0) Ur Specific B[place] >= 1.030 (1.001-1.035) Urine Protein NEGATIVE (NEGATIVE) mg/dL Urine Glucose (UA) NEGATIVE (NEGATIVE) mg/dL Urine Ketones NEGATIVE (NEGATIVE) mg/dL Urine Occult Blood NEGATIVE (NEGATIVE) Urine Nitrite NEGATIVE (NEGATIVE) Urine Bilirubin NEGATIVE (NEGATIVE) Urine Urobilinogen 1.0 (<2.0) EU/dL Ur Leukocyte Esterase NEGATIVE (NEGATIVE) Influenza Type A RNA (NEGATIVE) Influenza Type B RNA (NEGATIVE) SARS-CoV-2 RNA (LEE) (NEGATIVE) Med Orders - Current: Current Medications Albuterol/Ipratropium (Albuterol/Ipratropium 3.0-0.5 Mg/3 Ml Neb Soln) 3 ml NEB Q4HRRT PRN PRN Reason: Shortness Of Breath/wheezing Last Admin: 01/11/21 08:56 Dose: 3 ml Documented by: Clonazepam (Clonazepam 1 Mg Tab) 1 mg PO BID PRN PRN Reason: Anxiety Last Admin: 01/10/21 23:55 Dose: 1 mg Documented by: Fentanyl (Fentanyl 25 Mcg/Hr Transdermal Patch) 25 mcg TRDERM Q72H [facility] Losartan Potassium (Losartan 50 Mg Tab) 50 mg PO DAILY [facility] Last Admin: 01/11/21 08:26 Dose: 50 mg Documented by: Non-Formulary Medication (Sulfamethoxazole/Trimethoprim) 0.5 each PO ASDIRECTED [facility] Ondansetron HCl (Ondansetron 4 Mg Tab.Dis) 4 mg PO Q6H PRN PRN Reason: Nausea Oxycodone HCl (Oxycodone 5 Mg Tab) 5 mg PO TID PRN PRN Reason: Pain Last Admin: 01/11/21 00:53 Dose: 5 mg Documented by: Pantoprazole Sodium (Pantoprazole 40 Mg Tab.Cr) 40 mg PO ACBRK [facility] Last Admin: 01/11/21 08:26 Dose: 40 mg Documented by: Desvenlafaxine Succinate [Pristiq] 25 Mg Tab.Er.24h 4 each PO BEDTIME JAD Discontinued Medications Lactated Ringer's (Ringers, Lactated) 1,000 mls @ 125 mls/hr IV ASDIRECTED JAD Stop: 01/11/21 07:00 Last Admin: 01/10/21 22:05 Dose: 125 mls/hr Documented by: - Exam General: Alert, Oriented Lungs: Clear to Auscultation, Normal Respiratory Effort Cardiovascular: Regular Rate, Regular Rhythm GI/Abdominal Exam: Normal Bowel Sounds, Soft, Non-Tender Back Exam: Normal Inspection, Decreased Range of Motion - Patient Data Lab Results Last 24 hrs: Laboratory Results - last 24 hr 01/10/21 01/10/21 01/10/21 Range/Units 17:35 17:35 17:45 WBC 6.84 (4.0-11.0) K/uL RBC 4.76 (4.30-5.90) M/uL Hgb 14.6 (12.0-16.0) g/dL Hct 43.9 (36.0-46.0) % MCV 92.2 (80.0-98.0) fL MCH 30.7 (27.0-32.0) pg MCHC 33.3 (31.0-37.0) g/dL RDW Std Deviation 45.1 (28.0-62.0) fl RDW Coeff of [place] 13 (11.0-15.0) % Plt Count 138 L (150-400) K/uL MPV 10.50 (7.40-12.00) fL Neut % (Auto) 69.0 (48.0-80.0) % Lymph % (Auto) 16.7 (16.0-40.0) % [place] % (Auto) 7.3 (0.0-15.0) % Eos % (Auto) 6.7 (0.0-7.0) % Baso % (Auto) 0.3 (0.0-1.5) % Neut # (Auto) 4.7 (1.4-5.7) K/uL Lymph # (Auto) 1.1 (0.6-2.4) K/uL [place] # (Auto) 0.5 (0.0-0.8) K/uL Eos # (Auto) 0.5 (0.0-0.7) K/uL Baso # (Auto) 0.0 (0.0-0.1) K/uL Nucleated RBC % 0.0 /100WBC Nucleated RBCs # 0 K/uL Sodium 141 (136-145) mmol/L Potassium 4.3 (3.5-5.1) mmol/L Chloride 104 (98-107) mmol/L Carbon Dioxide 27.2 (21.0-32.0) mmol/L BUN 22 H (7.0-18.0) mg/dL Creatinine 1.1 H (0.6-1.0) mg/dL Est Cr Clr Drug Dosing 43.91 mL/min Estimated GFR (MDRD) 49.0 ml/min Glucose 106 (74-106) mg/dL Calcium 8.5 (8.5-10.1) mg/dL Total Bilirubin 0.4 (0.2-1.0) mg/dL AST 12 L (15-37) IU/L ALT 17 (14-63) IU/L Alkaline Phosphatase 120 H (46-116) U/L Troponin I < 0.050 (0.000-0.056) ng/mL Total Protein 6.9 (6.4-8.2) g/dL Albumin 3.4 (3.4-5.0) g/dL Globulin 3.5 (2.6-4.0) g/dL Albumin/Globulin Ratio 1.0 (0.9-1.6) Triglycerides (0-200) mg/dL Cholesterol (50-200) mg/dL LDL Cholesterol, Calc (60-180) mg/dL VLDL Cholesterol (5-55) mg/dL HDL Cholesterol (40-60) mg/dL Cholesterol/HDL Ratio (3.3-6.0) Vitamin B12 (193-986) pg/mL TSH 3rd Generation (0.36-3.74) uIU/mL Urine Color Urine Appearance Urine pH (5.0-8.0) Ur Specific [place] (1.001-1.035) Urine Protein (NEGATIVE) mg/dL Urine Glucose (UA) (NEGATIVE) mg/dL Urine Ketones (NEGATIVE) mg/dL Urine Occult Blood (NEGATIVE) Urine Nitrite (NEGATIVE) Urine Bilirubin (NEGATIVE) Urine Urobilinogen (<2.0) EU/dL Ur Leukocyte Esterase (NEGATIVE) Influenza Type A RNA NEGATIVE (NEGATIVE) Influenza Type B RNA NEGATIVE (NEGATIVE) SARS-CoV-2 RNA (LEE) NEGATIVE (NEGATIVE) 01/10/21 01/10/21 01/10/21 Range/Units 19:30 19:30 22:40 WBC (4.0-11.0) K/uL RBC (4.30-5.90) M/uL Hgb (12.0-16.0) g/dL Hct (36.0-46.0) % MCV (80.0-98.0) fL MCH (27.0-32.0) pg MCHC (31.0-37.0) g/dL RDW Std Deviation (28.0-62.0) fl RDW Coeff of [place] (11.0-15.0) % Plt Count (150-400) K/uL MPV (7.40-12.00) fL Neut % (Auto) (48.0-80.0) % Lymph % (Auto) (16.0-40.0) % [place] % (Auto) (0.0-15.0) % Eos % (Auto) (0.0-7.0) % Baso % (Auto) (0.0-1.5) % Neut # (Auto) (1.4-5.7) K/uL Lymph # (Auto) (0.6-2.4) K/uL [place] # (Auto) (0.0-0.8) K/uL Eos # (Auto) (0.0-0.7) K/uL Baso # (Auto) (0.0-0.1) K/uL Nucleated RBC % /100WBC Nucleated RBCs # K/uL Sodium (136-145) mmol/L Potassium (3.5-5.1) mmol/L Chloride (98-107) mmol/L Carbon Dioxide (21.0-32.0) mmol/L BUN (7.0-18.0) mg/dL Creatinine (0.6-1.0) mg/dL Est Cr Clr Drug Dosing mL/min Estimated GFR (MDRD) ml/min Glucose (74-106) mg/dL Calcium (8.5-10.1) mg/dL Total Bilirubin (0.2-1.0) mg/dL AST (15-37) IU/L ALT (14-63) IU/L Alkaline Phosphatase (46-116) U/L Troponin I < 0.050 < 0.050 (0.000-0.056) ng/mL Total Protein (6.4-8.2) g/dL Albumin (3.4-5.0) g/dL Globulin (2.6-4.0) g/dL Albumin/Globulin Ratio (0.9-1.6) Triglycerides 154 (0-200) mg/dL Cholesterol 166 (50-200) mg/dL LDL Cholesterol, Calc 92 (60-180) mg/dL VLDL Cholesterol 30 (5-55) mg/dL HDL Cholesterol 43 (40-60) mg/dL Cholesterol/HDL Ratio 3.9 (3.3-6.0) Vitamin B12 (193-986) pg/mL TSH 3rd Generation 1.30 (0.36-3.74) uIU/mL Urine Color Urine Appearance Urine pH (5.0-8.0) Ur Specific B[place] (1.001-1.035) Urine Protein (NEGATIVE) mg/dL Urine Glucose (UA) (NEGATIVE) mg/dL Urine Ketones (NEGATIVE) mg/dL Urine Occult Blood (NEGATIVE) Urine Nitrite (NEGATIVE) Urine Bilirubin (NEGATIVE) Urine Urobilinogen (<2.0) EU/dL Ur Leukocyte Esterase (NEGATIVE) Influenza Type A RNA (NEGATIVE) Influenza Type B RNA (NEGATIVE) SARS-CoV-2 RNA (LEE) (NEGATIVE) 01/10/21 01/11/21 Range/Units 22:40 01:10 WBC (4.0-11.0) K/uL RBC (4.30-5.90) M/uL Hgb (12.0-16.0) g/dL Hct (36.0-46.0) % MCV (80.0-98.0) fL MCH (27.0-32.0) pg MCHC (31.0-37.0) g/dL RDW Std Deviation (28.0-62.0) fl RDW Coeff of [place] (11.0-15.0) % Plt Count (150-400) K/uL MPV (7.40-12.00) fL Neut % (Auto) (48.0-80.0) % Lymph % (Auto) (16.0-40.0) % [place] % (Auto) (0.0-15.0) % Eos % (Auto) (0.0-7.0) % Baso % (Auto) (0.0-1.5) % Neut # (Auto) (1.4-5.7) K/uL Lymph # (Auto) (0.6-2.4) K/uL [place] # (Auto) (0.0-0.8) K/uL Eos # (Auto) (0.0-0.7) K/uL Baso # (Auto) (0.0-0.1) K/uL Nucleated RBC % /100WBC Nucleated RBCs # K/uL Sodium (136-145) mmol/L Potassium (3.5-5.1) mmol/L Chloride (98-107) mmol/L Carbon Dioxide (21.0-32.0) mmol/L BUN (7.0-18.0) mg/dL Creatinine (0.6-1.0) mg/dL Est Cr Clr Drug Dosing mL/min Estimated GFR (MDRD) ml/min Glucose (74-106) mg/dL Calcium (8.5-10.1) mg/dL Total Bilirubin (0.2-1.0) mg/dL AST (15-37) IU/L ALT (14-63) IU/L Alkaline Phosphatase (46-116) U/L Troponin I (0.000-0.056) ng/mL Total Protein (6.4-8.2) g/dL Albumin (3.4-5.0) g/dL Globulin (2.6-4.0) g/dL Albumin/Globulin Ratio (0.9-1.6) Triglycerides (0-200) mg/dL Cholesterol (50-200) mg/dL LDL Cholesterol, Calc (60-180) mg/dL VLDL Cholesterol (5-55) mg/dL HDL Cholesterol (40-60) mg/dL Cholesterol/HDL Ratio (3.3-6.0) Vitamin B12 584 (193-986) pg/mL TSH 3rd Generation (0.36-3.74) uIU/mL Urine Color YELLOW Urine Appearance CLEAR Urine pH 6.0 (5.0-8.0) Ur Specific [place] >= 1.030 (1.001-1.035) Urine Protein NEGATIVE (NEGATIVE) mg/dL Urine Glucose (UA) NEGATIVE (NEGATIVE) mg/dL Urine Ketones NEGATIVE (NEGATIVE) mg/dL Urine Occult Blood NEGATIVE (NEGATIVE) Urine Nitrite NEGATIVE (NEGATIVE) Urine Bilirubin NEGATIVE (NEGATIVE) Urine Urobilinogen 1.0 (<2.0) EU/dL Ur Leukocyte Esterase NEGATIVE (NEGATIVE) Influenza Type A RNA (NEGATIVE) Influenza Type B RNA (NEGATIVE) SARS-CoV-2 RNA (LEE) (NEGATIVE) Result Diagrams: 01/10/21 17:35 01/10/21 17:35 Sepsis Event Note - Evaluation Sepsis Screening Result: No Definite Risk - Focused Exam Vital Signs: Vital Signs Temp Pulse Resp BP BP Pulse Ox 01/11/21 11:28 36.8 C 85 16 113/53 L 96 01/11/21 08:26 139/50 L 01/11/21 08:24 20 01/11/21 03:00 36.5 C 63 16 117/53 L 94 L - Problem List & Annotations (1) Chest pain SNOMED Code(s): 06503783 Code(s): R07.9 - CHEST PAIN, UNSPECIFIED Status: Acute Current Visit: Yes (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 SNOMED Code(s): 127321218 Code(s): D05.10 - INTRADUCTAL CARCINOMA IN SITU OF UNSPECIFIED BREAST Sta tus: Acute Current Visit: Yes (3) Port-A-Cath in place SNOMED Code(s): 508550389 Code(s): Z95.828 - PRESENCE OF OTHER VASCULAR IMPLANTS AND GRAFTS Status: Acute Current Visit: Yes (4) Squamous cell carcinoma of tonsil SNOMED Code(s): 505062475, 376654287 Code(s): C09.9 - MALIGNANT NEOPLASM OF TONSIL, UNSPECIFIED Status: Acute Current Visit: Yes (5) H/O lumpectomy SNOMED Code(s): 373499585, 343273411 Code(s): Z98.890 - OTHER SPECIFIED POSTPROCEDURAL STATES Status: Acute Current Visit: Yes (6) Generalized weakness SNOMED Code(s): 32802516 Code(s): R53.1 - WEAKNESS Status: Acute Current Visit: Yes - Problem List Review Problem List Initiated/Reviewed/Updated: Yes - My Orders Last 24 Hours: My Active Orders 01/10/21 Dinner Heart Healthy Diet [DIET] 01/10/21 20:50 Ambulate [RC] ASDIRECTED Oxygen Therapy [RC] PRN VTE/DVT Education [RC] PER UNIT ROUTINE Vital Signs [RC] Q4H Albuterol/Ipratropium [DuoNeb 3.0-0.5 MG/3 ML] 3 ml NEB Q4HRRT PRN 01/10/21 20:51 Sequential Compression Device [OM.PC] Per Unit Routine 01/10/21 20:52 Antiembolic Devices [RC] Q12H RT Aerosol Therapy [RC] ASDIRECTED 01/10/21 22:00 Telemetry Monitoring [Cardiac Monitoring] [RC] Q8H 01/10/21 23:24 ClonazePAM [KlonoPIN] 1 mg PO BID PRN Ondansetron [Zofran ODT] 4 mg PO Q6H PRN oxyCODONE 5 mg PO TID PRN 01/10/21 23:26 PT Evaluation and Treatment [CONS] Routine 01/11/21 02:00 Sulfamethoxazole/Trimethoprim 0.5 each PO ASDIRECTED 01/11/21 07:30 Pantoprazole [ProTONIX] 40 mg PO ACBRK 01/11/21 09:00 Losartan [Cozaar] 50 mg PO DAILY 01/11/21 21:00 Patient's Own Medication [Ptom] 4 each PO BEDTIME 01/13/21 09:00 fentaNYL [Duragesic] 25 mcg TRDERM Q72H - Plan Plan:: 70 y/o F admitted for ACS rule out and weakness ACS has been ruled out Patient is 2 assist will need PT evaluation for generalized weakness prior to dc monitor and replete electrolytes IV fluids overnight, dc in AM Diet as tolerated PT consult cont home meds as appropriate
[2021-01-11] MEDS: Albuterol/Ipratropium 3.0-0.5 MG/3 ML Neb Soln NEB SCH (21:00)
[2021-01-11] MEDS ORDERED: Desvenlafaxine Succinate [Pristiq] 25 MG Tab.Er.24h PO SCH (21:00)
[2021-01-12] MEDS: Docusate Sodium 100 MG Cap PO PRN ×2 (00:49→13:32)
[2021-01-12] MEDS: Albuterol/Ipratropium 3.0-0.5 MG/3 ML Neb Soln NEB SCH ×6 (01:00→21:28)
[2021-01-12 06:12] LABS: CARBON DIOXIDE,CO2 28.9 mmol/L (21.0-32.0); POTASSIUM,K 4.1 mmol/L (3.5-5.1)
[2021-01-12] MEDS: Losartan 50 MG Tab PO SCH (08:50)
[2021-01-12] MEDS: Pantoprazole 40 MG Tab.CR PO SCH (08:51)
[2021-01-12] MEDS ORDERED: Sulfamethoxazole/Trimethoprim 400/80 MG Tablet PO SCH (09:00)
[2021-01-12] MEDS: oxyCODONE 5 MG Tab PO PRN ×2 (10:37→18:43)
--- NOTE | 2021-01-12 11:40 | PCM.PN ---
- General Info Date of Service: 01/12/21 Admission Dx/Problem (Free Text): Admission Diagnosis/Problem Admission Diagnosis/Problem Acute coronary syndrome Subjective Update: seen at bedside, feels ok, c/o pain in her left lower back Functional Status: Reports: Tolerating Diet, Urinating. Denies: Ambulating - Review of Systems General: Reports: Weakness, Malaise. Denies: Fever, Fatigue Pulmonary: Denies: Shortness of Breath, Pleuritic Chest Pain Cardiovascular: Denies: Chest Pain, Palpitations, Dyspnea on Exertion, Orthopnea Gastrointestinal: Denies: Abdominal Pain, Constipation Genitourinary: Denies: Dysuria, Frequency, Burning Musculoskeletal: Reports: Shoulder Pain, Arm Pain, Back Pain, Joint Pain. Denies: Neck Pain Skin: Denies: Cyanosis, Jaundice, Mottled Neurological: Denies: Confusion, Dizziness, Headache - Patient Data Vitals - Most Recent: Last Vital Signs Temp 36.3 C 01/12/21 08:54 Pulse 75 01/12/21 08:54 Resp 24 H 01/12/21 08:54 BP 133/59 L 01/12/21 08:54 Pulse Ox 93 L 01/12/21 08:54 Weight - Most Recent: 86.455 kg I&O - Last 24 Hours: Intake & Output 01/11/21 01/12/21 01/12/21 22:59 06:59 14:59 Intake Total 260 400 Balance 260 400 Lab Results Last 24 Hours: Laboratory Results - last 24 hr 01/12/21 01/12/21 Range/Units 05:45 05:45 WBC 5.09 (4.0-11.0) K/uL RBC 3.97 L (4.30-5.90) M/uL Hgb 12.0 (12.0-16.0) g/dL Hct 36.9 (36.0-46.0) % MCV 92.9 (80.0-98.0) fL MCH 30.2 (27.0-32.0) pg MCHC 32.5 (31.0-37.0) g/dL RDW Std Deviation 45.9 (28.0-62.0) fl RDW Coeff of [place] 14 (11.0-15.0) % Plt Count 128 L (150-400) K/uL MPV 10.40 (7.40-12.00) fL Neut % (Auto) 58.1 (48.0-80.0) % Lymph % (Auto) 24.6 (16.0-40.0) % [place] % (Auto) 7.7 (0.0-15.0) % Eos % (Auto) 8.8 H (0.0-7.0) % Baso % (Auto) 0.8 (0.0-1.5) % Neut # (Auto) 3.0 (1.4-5.7) K/uL Lymph # (Auto) 1.3 (0.6-2.4) K/uL [place] # (Auto) 0.4 (0.0-0.8) K/uL Eos # (Auto) 0.5 (0.0-0.7) K/uL Baso # (Auto) 0.0 (0.0-0.1) K/uL Nucleated RBC % 0.0 /100WBC Nucleated RBCs # 0 K/uL Sodium 141 (136-145) mmol/L Potassium 4.1 (3.5-5.1) mmol/L Chloride 106 (98-107) mmol/L Carbon Dioxide 28.9 (21.0-32.0) mmol/L BUN 24 H (7.0-18.0) mg/dL Creatinine 1.0 (0.6-1.0) mg/dL Est Cr Clr Drug Dosing 48.30 mL/min Estimated GFR (MDRD) 54.7 ml/min Glucose 109 H (74-106) mg/dL Calcium 8.4 L (8.5-10.1) mg/dL Phosphorus 4.5 (2.6-4.7) mg/dL Magnesium 1.8 (1.8-2.4) mg/dL Med Orders - Current: Current Medications Albuterol/Ipratropium (Albuterol/Ipratropium 3.0-0.5 Mg/3 Ml Neb Soln) 3 ml NEB Q4HRRT [facility] Last Admin: 01/12/21 09:16 Dose: 3 ml Documented by: Clonazepam (Clonazepam 1 Mg Tab) 1 mg PO BID PRN PRN Reason: Anxiety Last Admin: 01/10/21 23:55 Dose: 1 mg Documented by: Docusate Sodium (Docusate Sodium 100 Mg Cap) 100 mg PO BID PRN PRN Reason: Constipation Last Admin: 01/12/21 00:49 Dose: 100 mg Documented by: Fentanyl (Fentanyl 25 Mcg/Hr Transdermal Patch) 25 mcg TRDERM Q72H [facility] Losartan Potassium (Losartan 50 Mg Tab) 50 mg PO DAILY [facility] Last Admin: 01/12/21 08:50 Dose: 50 mg Documented by: Ondansetron HCl (Ondansetron 4 Mg Tab.Dis) 4 mg PO Q6H PRN PRN Reason: Nausea Oxycodone HCl (Oxycodone 5 Mg Tab) 5 mg PO TID PRN PRN Reason: Pain Last Admin: 01/12/21 10:37 Dose: 5 mg Documented by: Pantoprazole Sodium (Pantoprazole 40 Mg Tab.Cr) 40 mg PO ACBRK [facility] Last Admin: 01/12/21 08:51 Dose: 40 mg Documented by: Desvenlafaxine Succinate [Pristiq] 25 Mg Tab.Er.24h 4 each PO BEDTIME [facility] Last Admin: 01/11/21 21:01 Dose: Not Given Documented by: Sulfamethoxazole/Trimethoprim 400/80 Mg Tablet 0.5 each PO MoWeFr@0900 [facility] Discontinued Medications Albuterol/Ipratropium (Albuterol/Ipratropium 3.0-0.5 Mg/3 Ml Neb Soln) 3 ml NEB Q4HRRT PRN PRN Reason: Shortness Of Breath/wheezing Last Admin: 01/11/21 16:15 Dose: 3 ml Documented by: Lactated Ringer's (Ringers, Lactated) 1,000 mls @ 125 mls/hr IV ASDIRECTED [facility] Stop: 01/11/21 07:00 Last Admin: 01/10/21 22:05 Dose: 125 mls/hr Documented by: - Exam General: Alert, Oriented Lungs: Clear to Auscultation, Normal Respiratory Effort Cardiovascular: Regular Rate, Regular Rhythm GI/Abdominal Exam: Normal Bowel Sounds, Soft, Non-Tender Back Exam: Normal Inspection, Paraspinal Tenderness - Patient Data Lab Results Last 24 hrs: Laboratory Results - last 24 hr 01/12/21 01/12/21 Range/Units 05:45 05:45 WBC 5.09 (4.0-11.0) K/uL RBC 3.97 L (4.30-5.90) M/uL Hgb 12.0 (12.0-16.0) g/dL Hct 36.9 (36.0-46.0) % MCV 92.9 (80.0-98.0) fL MCH 30.2 (27.0-32.0) pg MCHC 32.5 (31.0-37.0) g/dL RDW Std Deviation 45.9 (28.0-62.0) fl RDW Coeff of [place] 14 (11.0-15.0) % Plt Count 128 L (150-400) K/uL MPV 10.40 (7.40-12.00) fL Neut % (Auto) 58.1 (48.0-80.0) % Lymph % (Auto) 24.6 (16.0-40.0) % [place] % (Auto) 7.7 (0.0-15.0) % Eos % (Auto) 8.8 H (0.0-7.0) % Baso % (Auto) 0.8 (0.0-1.5) % Neut # (Auto) 3.0 (1.4-5.7) K/uL Lymph # (Auto) 1.3 (0.6-2.4) K/uL [place] # (Auto) 0.4 (0.0-0.8) K/uL Eos # (Auto) 0.5 (0.0-0.7) K/uL Baso # (Auto) 0.0 (0.0-0.1) K/uL Nucleated RBC % 0.0 /100WBC Nucleated RBCs # 0 K/uL Sodium 141 (136-145) mmol/L Potassium 4.1 (3.5-5.1) mmol/L Chloride 106 (98-107) mmol/L Carbon Dioxide 28.9 (21.0-32.0) mmol/L BUN 24 H (7.0-18.0) mg/dL Creatinine 1.0 (0.6-1.0) mg/dL Est Cr Clr Drug Dosing 48.30 mL/min Estimated GFR (MDRD) 54.7 ml/min Glucose 109 H (74-106) mg/dL Calcium 8.4 L (8.5-10.1) mg/dL Phosphorus 4.5 (2.6-4.7) mg/dL Magnesium 1.8 (1.8-2.4) mg/dL Result Diagrams: 01/12/21 05:45 01/12/21 05:45 Sepsis Event Note - Evaluation Sepsis Screening Result: No Definite Risk - Focused Exam Vital Signs: Vital Signs Temp Pulse Resp BP BP Pulse Ox 01/12/21 08:54 36.3 C 75 24 H 133/59 L 93 L 01/12/21 08:50 133/59 L 01/12/21 05:31 36.1 C 68 20 115/59 L 93 L 01/12/21 00:47 36 C L 70 20 110/53 L 94 L - Problem List & Annotations (1) Chest pain SNOMED Code(s): 32651529 Code(s): R07.9 - CHEST PAIN, UNSPECIFIED Status: Acute Current Visit: Yes (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 SNOMED Code(s): 727361639 Code(s): D05.10 - INTRADUCTAL CARCINOMA IN SITU OF UNSPECIFIED BREAST Status: Acute Current Visit: Yes (3) Port-A-Cath in place SNOMED Code(s): 321568915 Code(s): Z95.828 - PRESENCE OF OTHER VASCULAR IMPLANTS AND GRAFTS Status: Acute Current Visit: Yes (4) Squamous cell carcinoma of tonsil SNOMED Code(s): 409101506, 606445388 Code(s): C09.9 - MALIGNANT NEOPLASM OF TONSIL, UNSPECIFIED Status: Acute Current Visit: Yes (5) H/O lumpectomy SNOMED Code(s): 453728522, 329506612 Code(s): Z98.890 - OTHER SPECIFIED POSTPROCEDURAL STATES Status: Acute Current Visit: Yes (6) Generalized weakness SNOMED Code(s): 66639649 Code(s): R53.1 - WEAKNESS Status: Acute Current Visit: Yes - Problem List Review Problem List Initiated/Reviewed/Updated: Yes - My Orders Last 24 Hours: My Active Orders 01/11/21 19:33 Resuscitation Status Routine 01/11/21 21:00 Patient's Own Medication [Ptom] 4 each PO BEDTIME 01/11/21 22:00 Albuterol/Ipratropium [DuoNeb 3.0-0.5 MG/3 ML] 3 ml NEB Q4HRRT 01/11/21 23:52 Docusate Sodium [Colace] 100 mg PO BID PRN 01/12/21 09:00 Patient's Own Medication [Ptom] 0.5 each PO MoWeFr@0900 01/13/21 09:00 fentaNYL [Duragesic] 25 mcg TRDERM Q72H - Plan Plan:: 70 y/o F admitted for ACS rule out and weakness ACS has been ruled out monitor and replete electrolytes Diet as tolerated PT consult, Patient is 2 assist will need PT evaluation for generalized weakness prior to dc, patient expressed that she would want to go to [place] for rehab cont home meds as appropriate
[2021-01-12] MEDS: Sulfamethoxazole/Trimethoprim 400/80 MG Tablet PO SCH (13:32)
[2021-01-12] MEDS: ClonazePAM 1 MG Tab PO PRN ×2 (14:54→22:28)
[2021-01-12] MEDS: DESVENLAFAXINE SUCCINATE 100 MG PO SCH (21:28)
[2021-01-12] MEDS: guaiFENesin/Dextromethorphan 100-10 MG/5 ML Soln 10 ML Cup PO PRN (22:27)
[2021-01-12] MEDS: Azithromycin 250 MG Tab PO SCH (22:28)
[2021-01-13] MEDS: Albuterol/Ipratropium 3.0-0.5 MG/3 ML Neb Soln NEB SCH ×6 (02:03→21:44)
[2021-01-13] MEDS: Pantoprazole 40 MG Tab.CR PO SCH (06:36)
--- NOTE | 2021-01-13 09:12 | PCM.PN ---
- General Info Date of Service: 01/13/21 Admission Dx/Problem (Free Text): Admission Diagnosis/Problem Admission Diagnosis/Problem Acute coronary syndrome Subjective Update: seen at bedside, resting comfortably, no complaints Functional Status: Reports: Tolerating Diet, Urinating. Denies: Ambulating - Review of Systems General: Reports: Weakness, Fatigue. Denies: Fever Pulmonary: Reports: Shortness of Breath, Cough, Wheezing. Denies: Sputum Cardiovascular: Reports: Dyspnea on Exertion. Denies: Chest Pain, Palpitations Gastrointestinal: Denies: Abdominal Pain, Constipation, Decreased Appetite Genitourinary: Denies: Dysuria, Frequency, Burning Musculoskeletal: Denies: Neck Pain, Shoulder Pain, Arm Pain Skin: Denies: Cyanosis, Jaundice, Mottled Neurological: Denies: Confusion, Paresthesia, Seizure, Syncope - Patient Data Vitals - Most Recent: Last Vital Signs Temp 36.6 C 01/13/21 08:51 Pulse 87 01/13/21 08:51 Resp 18 01/13/21 08:51 BP 131/66 01/13/21 08:51 Pulse Ox 90 L 01/13/21 08:51 Weight - Most Recent: 86.455 kg I&O - Last 24 Hours: Intake & Output 01/12/21 01/13/21 01/13/21 22:59 06:59 14:59 Intake Total 480 250 Output Total 354 556 Balance 126 -306 Med Orders - Current: Current Medications Albuterol/Ipratropium (Albuterol/Ipratropium 3.0-0.5 Mg/3 Ml Neb Soln) 3 ml NEB Q4HRRT [facility] Last Admin: 01/13/21 06:12 Dose: 3 ml Documented by: Azithromycin (Azithromycin 250 Mg Tab) 500 mg PO Q24H [facility] Last Admin: 01/12/21 22:28 Dose: 500 mg Documented by: Clonazepam (Clonazepam 1 Mg Tab) 1 mg PO BID PRN PRN Reason: Anxiety Last Admin: 01/12/21 22:28 Dose: 1 mg Documented by: Docusate Sodium (Docusate Sodium 100 Mg Cap) 100 mg PO BID PRN PRN Reason: Constipation Last Admin: 01/12/21 13:32 Dose: 100 mg Documented by: Fentanyl (Fentanyl 25 Mcg/Hr Transdermal Patch) 25 mcg TRDERM Q72H [facility] Guaifenesin/Dextromethorphan (Guaifenesin/Dextromethorphan 100-10 Mg/5 Ml Soln 10 Ml Cup) 10 ml PO Q6H PRN PRN Reason: Cough Last Admin: 01/12/21 22:27 Dose: 10 ml Documented by: Losartan Potassium (Losartan 50 Mg Tab) 50 mg PO DAILY [facility] Last Admin: 01/12/21 08:50 Dose: 50 mg Documented by: Ondansetron HCl (Ondansetron 4 Mg Tab.Dis) 4 mg PO Q6H PRN PRN Reason: Nausea Last Admin: 01/13/21 02:24 Dose: 4 mg Documented by: Oxycodone HCl (Oxycodone 5 Mg Tab) 5 mg PO TID PRN PRN Reason: Pain Last Admin: 01/12/21 18:43 Dose: 5 mg Documented by: Pantoprazole Sodium (Pantoprazole 40 Mg Tab.Cr) 40 mg PO ACBRK [facility] Last Admin: 01/13/21 06:36 Dose: 40 mg Documented by: Desvenlafaxine Succinate [Pristiq] 100 Mg Tab.Er.24h 1 each PO BEDTIME [facility] Last Admin: 01/12/21 21:28 Dose: 1 each Documented by: Sulfamethoxazole/Trimethoprim 400/80 Mg Tablet 0.5 each PO MoWeFr@0900 [facility] Last Admin: 01/12/21 13:32 Dose: 0.5 each Documented by: Discontinued Medications Albuterol/Ipratropium (Albuterol/Ipratropium 3.0-0.5 Mg/3 Ml Neb Soln) 3 ml NEB Q4HRRT PRN PRN Reason: Shortness Of Breath/wheezing Last Admin: 01/11/21 16:15 Dose: 3 ml Documented by: Lactated Ringer's (Ringers, Lactated) 1,000 mls @ 125 mls/hr IV ASDIRECTED [facility] Stop: 01/11/21 07:00 Last Admin: 01/10/21 22:05 Dose: 125 mls/hr Documented by: Desvenlafaxine Succinate [Pristiq] 25 Mg Tab.Er.24h 4 each PO BEDTIME [facility] Last Admin: 01/11/21 21:01 Dose: Not Given Documented by: Sulfamethoxazole/Trimethoprim 400/80 Mg Tablet 0.5 each PO MoWeFr@0900 [facility] Last Admin: 01/12/21 14:57 Dose: Not Given Documented by: - Exam General: Alert, Cooperative, No Acute Distress Lungs: Normal Respiratory Effort, Wheezing Cardiovascular: Regular Rate, Regular Rhythm GI/Abdominal Exam: Normal Bowel Sounds, Soft, Non-Tender - Patient Data Result Diagrams: 01/12/21 05:45 01/12/21 05:45 Sepsis Event Note - Evaluation Sepsis Screening Result: No Definite Risk - Focused Exam Vital Signs: Vital Signs Temp Pulse Resp BP Pulse Ox 01/13/21 08:51 36.6 C 87 18 131/66 90 L 01/13/21 05:15 36.3 C 95 17 131/73 92 L 01/13/21 02:09 36.4 C 85 17 124/63 92 L - Problem List & Annotations (1) Chest pain SNOMED Code(s): 82294435 Code(s): R07.9 - CHEST PAIN, UNSPECIFIED Status: Acute Current Visit: Yes (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 SNOMED Code(s): 945403730 Code(s): D05.10 - INTRADUCTAL CARCINOMA IN SITU OF UNSPECIFIED BREAST Status: Acute Current Visit: Yes (3) Port-A-Cath in place SNOMED Code(s): 506550349 Code(s): Z95.828 - PRESENCE OF OTHER VASCULAR IMPLANTS AND GRAFTS Status: Acute Current Visit: Yes (4) Squamous cell carcinoma of tonsil SNOMED Code(s): 338039288, 751241705 Code(s): C09.9 - MALIGNANT NEOPLASM OF TONSIL, UNSPECIFIED Status: Acute Current Visit: Yes (5) H/O lumpectomy SNOMED Code(s): 287666917, 648089372 Code(s): Z98.890 - OTHER SPECIFIED POSTPROCEDURAL STATES Status: Acute Current Visit: Yes (6) Generalized weakness SNOMED Code(s): 23110000 Code(s): R53.1 - WEAKNESS Status: Acute Current Visit: Yes - Problem List Review Problem List Initiated/Reviewed/Updated: Yes - My Orders Last 24 Hours: My Active Orders 01/12/21 13:00 Patient's Own Medication [Ptom] 0.5 each PO MoWeFr@0900 01/12/21 21:00 Patient's Own Medication [Ptom] 1 each PO BEDTIME 01/12/21 22:00 Azithromycin [Zithromax] 500 mg PO Q24H 01/12/21 22:11 Dextromethorphan/guaiFENesin [Robitussin DM] 10 ml PO Q6H PRN 01/13/21 09:00 fentaNYL [Duragesic] 25 mcg TRDERM Q72H - Plan Plan:: 70 y/o F admitted for ACS rule out and weakness ACS has been ruled out monitor and replete electrolytes Diet as tolerated PT consult, patient will possibly be going to [facility] cont home meds as appropriate
[2021-01-13] MEDS: Losartan 50 MG Tab PO SCH (09:23)
[2021-01-13] MEDS: fentaNYL 25 MCG/HR Transdermal Patch TRDERM SCH (09:24)
[2021-01-13] MEDS ORDERED: Enoxaparin 40 MG/0.4 ML Syringe SUBCUT SCH (10:00)
[2021-01-13] MEDS: methylPREDNISolone Sodium Succinate 40 MG/1 ML SDV IVPUSH SCH ×2 (10:26→21:49)
[2021-01-13] MEDS: Enoxaparin 40 MG/0.4 ML Syringe SUBCUT SCH (10:26)
--- NOTE | 2021-01-13 11:04 | CR ---
INDICATION: Shortness of breath COMPARISON: Portable chest dated 01/10/2021 TECHNIQUE: Portable chest performed at 10:18 a.m. FINDINGS: There is stable positioning of the left-sided Port-A-Cath which extends to the SVC. There is a small calcified granuloma within the right upper lobe. The lungs are otherwise clear. Heart and pulmonary vessels are normal in size. There is no evidence of pneumothorax or pleural effusion. IMPRESSION: No acute cardiopulmonary disease process identified. Dictated by Jaime Rivera MD @ Jan 13 2021 11:00AM Signed by Dr. Jaime Rivera @ Jan 13 2021 11:02AM
[2021-01-13] MEDS ORDERED: Albuterol/Ipratropium 4 GM Inhalation Spray INH PRN (14:00)
[2021-01-13] MEDS: oxyCODONE 5 MG Tab PO PRN (20:13)
[2021-01-13] MEDS: DESVENLAFAXINE SUCCINATE 100 MG PO SCH (21:43)
[2021-01-13] MEDS: Azithromycin 250 MG Tab PO SCH (21:44)
[2021-01-13] MEDS: ClonazePAM 1 MG Tab PO PRN (21:57)
[2021-01-14] MEDS: Albuterol/Ipratropium 3.0-0.5 MG/3 ML Neb Soln NEB SCH ×6 (01:47→21:55)
[2021-01-14] MEDS: Pantoprazole 40 MG Tab.CR PO SCH (06:56)
[2021-01-14 08:14] LABS: CARBON DIOXIDE,CO2 29.2 mmol/L (21.0-32.0); POTASSIUM,K 4.8 mmol/L (3.5-5.1)
[2021-01-14] MEDS: Losartan 50 MG Tab PO SCH (08:49)
[2021-01-14] MEDS: Sulfamethoxazole/Trimethoprim 400/80 MG Tablet PO SCH (08:50)
[2021-01-14] MEDS ORDERED: Docusate Sodium 100 MG Cap PO PRN (09:31)
[2021-01-14] MEDS: Docusate Sodium 100 MG Cap PO PRN ×2 (10:09→22:10)
[2021-01-14] MEDS: methylPREDNISolone Sodium Succinate 40 MG/1 ML SDV IVPUSH SCH ×2 (10:09→21:59)
[2021-01-14] MEDS: Enoxaparin 40 MG/0.4 ML Syringe SUBCUT SCH (10:09)
[2021-01-14] MEDS: Metoprolol Succinate 25 MG Tab.ER PO SCH (12:15)
[2021-01-14] MEDS: ClonazePAM 1 MG Tab PO PRN (12:21)
--- NOTE | 2021-01-14 12:33 | PCM.PN ---
- General Info Date of Service: 01/14/21 Admission Dx/Problem (Free Text): Admission Diagnosis/Problem Admission Diagnosis/Problem Acute coronary syndrome Subjective Update: seen at bedside, resting comfortably, no complaints, breathing better Functional Status: Reports: Tolerating Diet, Urinating - Review of Systems General: Reports: Weakness, Fatigue. Denies: Fever Pulmonary: Denies: Shortness of Breath, Pleuritic Chest Pain Cardiovascular: Denies: Chest Pain, Palpitations Gastrointestinal: Denies: Abdominal Pain, Constipation, Decreased Appetite Genitourinary: Denies: Dysuria, Frequency, Burning Musculoskeletal: Denies: Neck Pain, Shoulder Pain, Arm Pain Skin: Denies: Cyanosis, Jaundice, Mottled, Pallor - Patient Data Vitals - Most Recent: Last Vital Signs Temp 36.8 C 01/14/21 11:38 Pulse 97 01/14/21 12:15 Resp 16 01/14/21 11:38 BP 138/78 01/14/21 12:15 Pulse Ox 97 01/14/21 11:38 Weight - Most Recent: 86.455 kg I&O - Last 24 Hours: Intake & Output 01/13/21 01/14/21 01/14/21 22:59 06:59 14:59 Intake Total 490 386 Output Total 285 Balance 490 101 Lab Results Last 24 Hours: Laboratory Results - last 24 hr 01/14/21 01/14/21 Range/Units 07:37 08:14 WBC 4.99 (4.0-11.0) K/uL RBC 4.24 L (4.30-5.90) M/uL Hgb 13.2 (12.0-16.0) g/dL Hct 39.6 (36.0-46.0) % MCV 93.4 (80.0-98.0) fL MCH 31.1 (27.0-32.0) pg MCHC 33.3 (31.0-37.0) g/dL RDW Std Deviation 44.3 (28.0-62.0) fl RDW Coeff of [place] 13 (11.0-15.0) % Plt Count 130 L (150-400) K/uL MPV 10.30 (7.40-12.00) fL Neut % (Auto) 92.0 H (48.0-80.0) % Lymph % (Auto) 6.8 L (16.0-40.0) % [place] % (Auto) 1.2 (0.0-15.0) % Eos % (Auto) 0.0 (0.0-7.0) % Baso % (Auto) 0.0 (0.0-1.5) % Neut # (Auto) 4.6 (1.4-5.7) K/uL Lymph # (Auto) 0.3 L (0.6-2.4) K/uL [place] # (Auto) 0.1 (0.0-0.8) K/uL Eos # (Auto) 0.0 (0.0-0.7) K/uL Baso # (Auto) 0.0 (0.0-0.1) K/uL Nucleated RBC % 0.0 /100WBC Nucleated RBCs # 0 K/uL Sodium 139 (136-145) mmol/L Potassium 4.8 (3.5-5.1) mmol/L Chloride 104 (98-107) mmol/L Carbon Dioxide 29.2 (21.0-32.0) mmol/L BUN 28 H (7.0-18.0) mg/dL Creatinine 1.2 H (0.6-1.0) mg/dL Est Cr Clr Drug Dosing 40.25 mL/min Estimated GFR (MDRD) 44.3 ml/min Glucose 165 H (74-106) mg/dL Calcium 9.0 (8.5-10.1) mg/dL Phosphorus 3.8 (2.6-4.7) mg/dL Magnesium 2.3 (1.8-2.4) mg/dL Med Orders - Current: Current Medications Albuterol/Ipratropium (Albuterol/Ipratropium 3.0-0.5 Mg/3 Ml Neb Soln) 3 ml NEB Q4HRRT [facility] Last Admin: 01/14/21 10:15 Dose: 3 ml Documented by: Albuterol/Ipratropium (Albuterol/Ipratropium 4 Gm Inhalation [place]) 0 gm INH Q4HRRT PRN PRN Reason: Dyspnea Azithromycin (Azithromycin 250 Mg Tab) 500 mg PO Q24H [facility] Last Admin: 01/13/21 21:44 Dose: 500 mg Documented by: Clonazepam (Clonazepam 1 Mg Tab) 1 mg PO BID PRN PRN Reason: Anxiety Last Admin: 01/14/21 12:21 Dose: 1 mg Documented by: Docusate Sodium (Docusate Sodium 100 Mg Cap) 100 mg PO BID PRN PRN Reason: Constipation Last Admin: 01/14/21 10:09 Dose: 100 mg Documented by: Enoxaparin Sodium (Enoxaparin 40 Mg/0.4 Ml Syringe) 40 mg SUBCUT Q24H [facility] Last Admin: 01/14/21 10:09 Dose: 40 mg Documented by: Fentanyl (Fentanyl 25 Mcg/Hr Transdermal Patch) 25 mcg TRDERM Q72H [facility] Last Admin: 01/13/21 09:24 Dose: 25 mcg Documented by: Guaifenesin/Dextromethorphan (Guaifenesin/Dextromethorphan 100-10 Mg/5 Ml Soln 10 Ml Cup) 10 ml PO Q6H PRN PRN Reason: Cough Last Admin: 01/12/21 22:27 Dose: 10 ml Documented by: Lactated Ringer's (Ringers, Lactated) 1,000 mls @ 125 mls/hr IV ASDIRECTED [facility] Losartan Potassium (Losartan 50 Mg Tab) 50 mg PO DAILY [facility] Last Admin: 01/14/21 08:49 Dose: 50 mg Documented by: Methylprednisolone Sodium Succinate (Methylprednisolone Sodium Succinate 40 Mg/1 Ml Sdv) 40 mg IVPUSH Q12H [facility] Last Admin: 01/14/21 10:09 Dose: 40 mg Documented by: Metoprolol Succinate (Metoprolol Succinate 25 Mg Tab.Er) 25 mg PO DAILY [facility] Last Admin: 01/14/21 12:15 Dose: 25 mg Documented by: Ondansetron HCl (Ondansetron 4 Mg Tab.Dis) 4 mg PO Q6H PRN PRN Reason: Nausea Last Admin: 01/13/21 02:24 Dose: 4 mg Documented by: Oxycodone HCl (Oxycodone 5 Mg Tab) 5 mg PO TID PRN PRN Reason: Pain Last Admin: 01/13/21 20:13 Dose: 5 mg Documented by: Pantoprazole Sodium (Pantoprazole 40 Mg Tab.Cr) 40 mg PO ACBRK [facility] Last Admin: 01/14/21 06:56 Dose: 40 mg Documented by: Desvenlafaxine Succinate [Pristiq] 100 Mg Tab.Er.24h 1 each PO BEDTIME [facility] Last Admin: 01/13/21 21:43 Dose: 1 each Documented by: Sulfamethoxazole/Trimethoprim 400/80 Mg Tablet 0.5 each PO MoWeFr@0900 [facility] Last Admin: 01/14/21 08:50 Dose: 0.5 each Documented by: Umeclidinium Brm/Vilanterol Tr [Anoro Ellipta 62.5-25 Mcg ] 1 each INH DAILY [facility] Last Admin: 01/14/21 08:52 Dose: Not Given Documented by: Discontinued Medications Albuterol/Ipratropium (Albuterol/Ipratropium 3.0-0.5 Mg/3 Ml Neb Soln) 3 ml NEB Q4HRRT PRN PRN Reason: Shortness Of Breath/wheezing Last Admin: 01/11/21 16:15 Dose: 3 ml Documented by: Docusate Sodium (Docusate Sodium 100 Mg Cap) 100 mg PO BID PRN PRN Reason: Constipation Last Admin: 01/12/21 13:32 Dose: 100 mg Documented by: Docusate Sodium (Docusate Sodium 100 Mg Cap) 200 mg PO BEDTIME PRN PRN Reason: Constipation Lactated Ringer's (Ringers, Lactated) 1,000 mls @ 125 mls/hr IV ASDIRECTED [facility] Stop: 01/11/21 07:00 Last Admin: 01/10/21 22:05 Dose: 125 mls/hr Documented by: Desvenlafaxine Succinate [Pristiq] 25 Mg Tab.Er.24h 4 each PO BEDTIME [facility] Last Admin: 01/11/21 21:01 Dose: Not Given Documented by: Sulfamethoxazole/Trimethoprim 400/80 Mg Tablet 0.5 each PO MoWeFr@0900 [facility] Last Admin: 01/12/21 14:57 Dose: Not Given Documented by: - Exam Quality Assessment: Supplemental Oxygen General: Alert, Oriented Neck: Supple Lungs: Normal Respiratory Effort, Decreased Breath Sounds Cardiovascular: Regular Rate, Regular Rhythm GI/Abdominal Exam: Normal Bowel Sounds, Soft, Non-Tender Extremities: Normal Inspection, Normal Range of Motion - Patient Data Lab Results Last 24 hrs: Laboratory Results - last 24 hr 01/14/21 01/14/21 Range/Units 07:37 08:14 WBC 4.99 (4.0-11.0) K/uL RBC 4.24 L (4.30-5.90) M/uL Hgb 13.2 (12.0-16.0) g/dL Hct 39.6 (36.0-46.0) % MCV 93.4 (80.0-98.0) fL MCH 31.1 (27.0-32.0) pg MCHC 33.3 (31.0-37.0) g/dL RDW Std Deviation 44.3 (28.0-62.0) fl RDW Coeff of [place] 13 (11.0-15.0) % Plt Count 130 L (150-400) K/uL MPV 10.30 (7.40-12.00) fL Neut % (Auto) 92.0 H (48.0-80.0) % Lymph % (Auto) 6.8 L (16.0-40.0) % [place] % (Auto) 1.2 (0.0-15.0) % Eos % (Auto) 0.0 (0.0-7.0) % Baso % (Auto) 0.0 (0.0-1.5) % Neut # (Auto) 4.6 (1.4-5.7) K/uL Lymph # (Auto) 0.3 L (0.6-2.4) K/uL [place] # (Auto) 0.1 (0.0-0.8) K/uL Eos # (Auto) 0.0 (0.0-0.7) K/uL Baso # (Auto) 0.0 (0.0-0.1) K/uL Nucleated RBC % 0.0 /100WBC Nucleated RBCs # 0 K/uL Sodium 139 (136-145) mmol/L Potassium 4.8 (3.5-5.1) mmol/L Chloride 104 (98-107) mmol/L Carbon Dioxide 29.2 (21.0-32.0) mmol/L BUN 28 H (7.0-18.0) mg/dL Creatinine 1.2 H (0.6-1.0) mg/dL Est Cr Clr Drug Dosing 40.25 mL/min Estimated GFR (MDRD) 44.3 ml/min Glucose 165 H (74-106) mg/dL Calcium 9.0 (8.5-10.1) mg/dL Phosphorus 3.8 (2.6-4.7) mg/dL Magnesium 2.3 (1.8-2.4) mg/dL Result Diagrams: 01/14/21 08:14 01/14/21 07:37 Sepsis Event Note - Evaluation Sepsis Screening Result: No Definite Risk - Focused Exam Vital Signs: Vital Signs Temp Pulse Pulse Resp BP BP Pulse Ox 01/14/21 12:15 97 138/78 01/14/21 11:38 36.8 C 97 16 134/58 L 97 01/14/21 08:49 136/63 01/14/21 08:43 36.3 C 88 15 136/63 93 L 01/14/21 04:07 35.9 C L 69 17 105/52 L 92 L 01/14/21 01:47 17 94 L 01/14/21 01:46 01/14/21 01:39 35.3 C L 73 17 115/55 L 88 L Pulse Ox 01/14/21 12:15 01/14/21 11:38 01/14/21 08:49 01/14/21 08:43 01/14/21 04:07 01/14/21 01:47 01/14/21 01:46 94 L 01/14/21 01:39 - Problem List & Annotations (1) Chest pain SNOMED Code(s): 81982670 Code(s): R07.9 - CHEST PAIN, UNSPECIFIED Status: Acute Current Visit: Yes (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 SNOMED Code(s): 632259280 Code(s): D05.10 - INTRADUCTAL CARCINOMA IN SITU OF UNSPECIFIED BREAST Status: Acute Current Visit: Yes (3) Port-A-Cath in place SNOMED Code(s): 408869518 Code(s): Z95.828 - PRESENCE OF OTHER VASCULAR IMPLANTS AND GRAFTS Status: Acute Current Visit: Yes (4) Squamous cell carcinoma of tonsil SNOMED Code(s): 415238600, 256846856 Code(s): C09.9 - MALIGNANT NEOPLASM OF TONSIL, UNSPECIFIED Status: Acute Current Visit: Yes (5) H/O lumpectomy SNOMED Code(s): 407417713, 352813428 Code(s): Z98.890 - OTHER SPECIFIED POSTPROCEDURAL STATES Status: Acute Current Visit: Yes (6) Generalized weakness SNOMED Code(s): 78760000 Code(s): R53.1 - WEAKNESS Status: Acute Current Visit: Yes - Problem List Review Problem List Initiated/Reviewed/Updated: Yes - My Orders Last 24 Hours: My Active Orders 01/13/21 12:30 RT Post Treatment Assessment [RC] Click to Edit RT Pre-Treatment Assessment [RC] Click to Edit 01/13/21 12:45 Patient's Own Medication [Ptom] 1 each INH DAILY 01/13/21 14:00 Albuterol/Ipratropium [Combivent Respimat] See Dose Instructions INH Q4HRRT PRN 01/14/21 11:12 Telemetry Monitoring [Cardiac Monitoring] [RC] Q8H 01/14/21 12:00 Metoprolol Succinate [Toprol XL] 25 mg PO DAILY 01/14/21 12:30 Lactated Ringers @ 125 MLS/HR(1,000ml) Lactated Ringers [Ringers, Lactated] 1,000 ml IV ASDIRECTED - Plan Plan:: 70 y/o F admitted for ACS rule out and weakness ACS has been ruled out, frequent PVcs this AM on tele, started on Low dose B dhaval monitor and replete electrolytes, keep Mg>2, K>4 Diet as tolerated PT consult, patient wants to go to [facility], seems [facility] is refusing the admission, family aware, SW on board [facility] home meds as appropriate
[2021-01-14] MEDS: Lactated Ringers 1,000 ML IV SCH ×2 (12:59→20:52)
[2021-01-14] MEDS: oxyCODONE 5 MG Tab PO PRN (20:37)
[2021-01-14] MEDS: DESVENLAFAXINE SUCCINATE 100 MG PO SCH (20:41)
[2021-01-14] MEDS: Azithromycin 250 MG Tab PO SCH (21:54)
[2021-01-15] MEDS: ClonazePAM 1 MG Tab PO PRN (01:57)
[2021-01-15] MEDS: Albuterol/Ipratropium 3.0-0.5 MG/3 ML Neb Soln NEB SCH ×6 (01:58→23:07)
[2021-01-15 06:19] LABS: CARBON DIOXIDE,CO2 29.5 mmol/L (21.0-32.0); POTASSIUM,K 4.4 mmol/L (3.5-5.1)
[2021-01-15] MEDS: Pantoprazole 40 MG Tab.CR PO SCH (06:50)
[2021-01-15] MEDS: oxyCODONE 5 MG Tab PO PRN ×2 (09:02→21:10)
[2021-01-15] MEDS: Metoprolol Succinate 25 MG Tab.ER PO SCH (09:05)
[2021-01-15] MEDS: Losartan 50 MG Tab PO SCH (09:05)
[2021-01-15] MEDS: Polyethylene Glycol 3350 Powder 17 GM Packet PO SCH ×2 (10:52→23:07)
[2021-01-15] MEDS: methylPREDNISolone Sodium Succinate 40 MG/1 ML SDV IVPUSH SCH ×2 (10:52→23:07)
[2021-01-15] MEDS: Enoxaparin 40 MG/0.4 ML Syringe SUBCUT SCH (11:00)
--- NOTE | 2021-01-15 11:18 | PCM.PN ---
- General Info Date of Service: 01/15/21 Admission Dx/Problem (Free Text): Admission Diagnosis/Problem Admission Diagnosis/Problem Acute coronary syndrome Subjective Update: seen at bedside, resting comfortably, feels constipated but passing gas, breathing better - Review of Systems General: Reports: Weakness, Fatigue, Malaise. Denies: Fever Pulmonary: Denies: Shortness of Breath Cardiovascular: Denies: Chest Pain, Palpitations Gastrointestinal: Reports: Constipation. Denies: Abdominal Pain, Decreased Appetite, Diarrhea, Nausea, Vomiting Genitourinary: Denies: Dysuria, Frequency, Burning Musculoskeletal: Denies: Neck Pain, Shoulder Pain, Arm Pain - Patient Data Vitals - Most Recent: Last Vital Signs Temp 36.3 C 01/15/21 07:12 Pulse 84 01/15/21 09:05 Resp 14 01/15/21 07:12 BP 116/71 01/15/21 09:05 Pulse Ox 96 01/15/21 07:12 Weight - Most Recent: 86.455 kg I&O - Last 24 Hours: Intake & Output 01/14/21 01/15/21 01/15/21 22:59 06:59 14:59 Intake Total 1749 360 480 Output Total 0 Balance 1749 360 480 Lab Results Last 24 Hours: Laboratory Results - last 24 hr 01/15/21 01/15/21 Range/Units 05:40 05:40 WBC 6.64 (4.0-11.0) K/uL RBC 3.86 L (4.30-5.90) M/uL Hgb 11.7 L (12.0-16.0) g/dL Hct 35.8 L (36.0-46.0) % MCV 92.7 (80.0-98.0) fL MCH 30.3 (27.0-32.0) pg MCHC 32.7 (31.0-37.0) g/dL RDW Std Deviation 44.2 (28.0-62.0) fl RDW Coeff of Antonieta 13 (11.0-15.0) % Plt Count 152 (150-400) K/uL MPV 10.10 (7.40-12.00) fL Neut % (Auto) 92.5 H (48.0-80.0) % Lymph % (Auto) 6.0 L (16.0-40.0) % Esmeralda % (Auto) 1.5 (0.0-15.0) % Eos % (Auto) 0.0 (0.0-7.0) % Baso % (Auto) 0.0 (0.0-1.5) % Neut # (Auto) 6.1 H (1.4-5.7) K/uL Lymph # (Auto) 0.4 L (0.6-2.4) K/uL Esmeralda # (Auto) 0.1 (0.0-0.8) K/uL Eos # (Auto) 0.0 (0.0-0.7) K/uL Baso # (Auto) 0.0 (0.0-0.1) K/uL Nucleated RBC % 0.0 /100WBC Nucleated RBCs # 0 K/uL Sodium 141 (136-145) mmol/L Potassium 4.4 (3.5-5.1) mmol/L Chloride 105 (98-107) mmol/L Carbon Dioxide 29.5 (21.0-32.0) mmol/L BUN 27 H (7.0-18.0) mg/dL Creatinine 1.1 H (0.6-1.0) mg/dL Est Cr Clr Drug Dosing 43.91 mL/min Estimated GFR (MDRD) 49.0 ml/min Glucose 151 H (74-106) mg/dL Calcium 8.6 (8.5-10.1) mg/dL Phosphorus 3.8 (2.6-4.7) mg/dL Magnesium 1.9 (1.8-2.4) mg/dL Med Orders - Current: Current Medications Albuterol/Ipratropium (Albuterol/Ipratropium 3.0-0.5 Mg/3 Ml Neb Soln) 3 ml NEB Q4HRRT [facility] Last Admin: 01/15/21 09:29 Dose: 3 ml Documented by: Azithromycin (Azithromycin 250 Mg Tab) 500 mg PO Q24H [facility] Last Admin: 01/14/21 21:54 Dose: 500 mg Documented by: Budesonide/Formoterol Fumarate (Budesonide/Formoterol 160-4.5 Mcg/Puff 6 Gm Inhaler) 1 gm INH BID [facility] Clonazepam (Clonazepam 1 Mg Tab) 1 mg PO BID PRN PRN Reason: Anxiety Last Admin: 01/15/21 01:57 Dose: 1 mg Documented by: Docusate Sodium (Docusate Sodium 100 Mg Cap) 100 mg PO BID PRN PRN Reason: Constipation Last Admin: 01/14/21 22:10 Dose: 100 mg Documented by: Enoxaparin Sodium (Enoxaparin 40 Mg/0.4 Ml Syringe) 40 mg SUBCUT Q24H [facility] Last Admin: 01/15/21 11:00 Dose: 40 mg Documented by: Fentanyl (Fentanyl 25 Mcg/Hr Transdermal Patch) 25 mcg TRDERM Q72H [facility] Last Admin: 01/13/21 09:24 Dose: 25 mcg Documented by: Guaifenesin/Dextromethorphan (Guaifenesin/Dextromethorphan 100-10 Mg/5 Ml Soln 10 Ml Cup) 10 ml PO Q6H PRN PRN Reason: Cough Last Admin: 01/12/21 22:27 Dose: 10 ml Documented by: Losartan Potassium (Losartan 50 Mg Tab) 50 mg PO DAILY [facility] Last Admin: 01/15/21 09:05 Dose: 50 mg Documented by: Methylprednisolone Sodium Succinate (Methylprednisolone Sodium Succinate 40 Mg/1 Ml Sdv) 40 mg IVPUSH Q12H [facility] Last Admin: 01/15/21 10:52 Dose: 40 mg Documented by: Metoprolol Succinate (Metoprolol Succinate 25 Mg Tab.Er) 25 mg PO DAILY [facility] Last Admin: 01/15/21 09:05 Dose: 25 mg Documented by: Ondansetron HCl (Ondansetron 4 Mg Tab.Dis) 4 mg PO Q6H PRN PRN Reason: Nausea Last Admin: 01/13/21 02:24 Dose: 4 mg Documented by: Oxycodone HCl (Oxycodone 5 Mg Tab) 5 mg PO TID PRN PRN Reason: Pain Last Admin: 01/15/21 09:02 Dose: 5 mg Documented by: Pantoprazole Sodium (Pantoprazole 40 Mg Tab.Cr) 40 mg PO ACBRK [facility] Last Admin: 01/15/21 06:50 Dose: 40 mg Documented by: Desvenlafaxine Succinate [Pristiq] 100 Mg Tab.Er.24h 1 each PO BEDTIME [facility] Last Admin: 01/14/21 20:41 Dose: 1 each Documented by: Sulfamethoxazole/Trimethoprim 400/80 Mg Tablet 0.5 each PO MoWeFr@0900 [facility] Last Admin: 01/14/21 08:50 Dose: 0.5 each Documented by: Umeclidinium Brm/Vilanterol Tr [Anoro Ellipta 62.5-25 Mcg ] 1 each INH DAILY [facility] Last Admin: 01/15/21 09:46 Dose: Not Given Documented by: Polyethylene Glycol (Polyethylene Glycol 3350 Powder 17 Gm Packet) 17 gm PO Q12H [facility] Last Admin: 01/15/21 10:52 Dose: 17 gm Documented by: Discontinued Medications Albuterol/Ipratropium (Albuterol/Ipratropium 3.0-0.5 Mg/3 Ml Neb Soln) 3 ml NEB Q4HRRT PRN PRN Reason: Shortness Of Breath/wheezing Last Admin: 01/11/21 16:15 Dose: 3 ml Documented by: Albuterol/Ipratropium (Albuterol/Ipratropium 4 Gm Inhalation [place]) 0 gm INH Q4HRRT PRN PRN Reason: Dyspnea Docusate Sodium (Docusate Sodium 100 Mg Cap) 100 mg PO BID PRN PRN Reason: Constipation Last Admin: 01/12/21 13:32 Dose: 100 mg Documented by: Docusate Sodium (Docusate Sodium 100 Mg Cap) 200 mg PO BEDTIME PRN PRN Reason: Constipation Lactated Ringer's (Ringers, Lactated) 1,000 mls @ 125 mls/hr IV ASDIRECTED [facility] Stop: 01/11/21 07:00 Last Admin: 01/10/21 22:05 Dose: 125 mls/hr Documented by: Lactated Ringer's (Ringers, Lactated) 1,000 mls @ 125 mls/hr IV Q8H [facility] Last Admin: 01/14/21 20:52 Dose: 125 mls/hr Documented by: Desvenlafaxine Succinate [Pristiq] 25 Mg Tab.Er.24h 4 each PO BEDTIME [facility] Last Admin: 01/11/21 21:01 Dose: Not Given Documented by: Sulfamethoxazole/Trimethoprim 400/80 Mg Tablet 0.5 each PO MoWeFr@0900 [facility] Last Admin: 01/12/21 14:57 Dose: Not Given Documented by: - Exam General: Alert, Oriented, No Acute Distress Neck: Supple, Trachea Midline Lungs: Normal Respiratory Effort, Decreased Breath Sounds. No: Crackles, Wheezing GI/Abdominal Exam: Soft, Non-Tender, Abnormal Bowel Sounds (hypoactive) - Patient Data Lab Results Last 24 hrs: Laboratory Results - last 24 hr 01/15/21 01/15/21 Range/Units 05:40 05:40 WBC 6.64 (4.0-11.0) K/uL RBC 3.86 L (4.30-5.90) M/uL Hgb 11.7 L (12.0-16.0) g/dL Hct 35.8 L (36.0-46.0) % MCV 92.7 (80.0-98.0) fL MCH 30.3 (27.0-32.0) pg MCHC 32.7 (31.0-37.0) g/dL RDW Std Deviation 44.2 (28.0-62.0) fl RDW Coeff of Antonieta 13 (11.0-15.0) % Plt Count 152 (150-400) K/uL MPV 10.10 (7.40-12.00) fL Neut % (Auto) 92.5 H (48.0-80.0) % Lymph % (Auto) 6.0 L (16.0-40.0) % Esmeralda % (Auto) 1.5 (0.0-15.0) % Eos % (Auto) 0.0 (0.0-7.0) % Baso % (Auto) 0.0 (0.0-1.5) % Neut # (Auto) 6.1 H (1.4-5.7) K/uL Lymph # (Auto) 0.4 L (0.6-2.4) K/uL Esmeralda # (Auto) 0.1 (0.0-0.8) K/uL Eos # (Auto) 0.0 (0.0-0.7) K/uL Baso # (Auto) 0.0 (0.0-0.1) K/uL Nucleated RBC % 0.0 /100WBC Nucleated RBCs # 0 K/uL Sodium 141 (136-145) mmol/L Potassium 4.4 (3.5-5.1) mmol/L Chloride 105 (98-107) mmol/L Carbon Dioxide 29.5 (21.0-32.0) mmol/L BUN 27 H (7.0-18.0) mg/dL Creatinine 1.1 H (0.6-1.0) mg/dL Est Cr Clr Drug Dosing 43.91 mL/min Estimated GFR (MDRD) 49.0 ml/min Glucose 151 H (74-106) mg/dL Calcium 8.6 (8.5-10.1) mg/dL Phosphorus 3.8 (2.6-4.7) mg/dL Magnesium 1.9 (1.8-2.4) mg/dL Result Diagrams: 01/15/21 05:40 01/15/21 05:40 Sepsis Event Note - Evaluation Sepsis Screening Result: No Definite Risk - Focused Exam Vital Signs: Vital Signs Temp Pulse Pulse Resp BP BP Pulse Ox 01/15/21 09:05 84 116/71 01/15/21 07:12 36.3 C 86 14 116/72 96 01/15/21 04:00 36.2 C 69 18 114/53 L 91 L 01/15/21 01:00 01/15/21 00:00 36.9 C 74 18 124/56 L 91 L Pulse Ox 01/15/21 09:05 01/15/21 07:12 01/15/21 04:00 01/15/21 01:00 91 L 01/15/21 00:00 - Problem List & Annotations (1) Chest pain SNOMED Code(s): 65992219 Code(s): R07.9 - CHEST PAIN, UNSPECIFIED Status: Acute Current Visit: Yes (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 SNOMED Code(s): 487687621 Code(s): D05.10 - INTRADUCTAL CARCINOMA IN SITU OF UNSPECIFIED BREAST Status: Acute Current Visit: Yes (3) Port-A-Cath in place SNOMED Code(s): 122490316 Code(s): Z95.828 - PRESENCE OF OTHER VASCULAR IMPLANTS AND GRAFTS Status: Acute Current Visit: Yes (4) Squamous cell carcinoma of tonsil SNOMED Code(s): 913881123, 920283219 Code(s): C09.9 - MALIGNANT NEOPLASM OF TONSIL, UNSPECIFIED Status: Acute Current Visit: Yes (5) H/O lumpectomy SNOMED Code(s): 276894415, 267912126 Code(s): Z98.890 - OTHER SPECIFIED POSTPROCEDURAL STATES Status: Acute Current Visit: Yes (6) Generalized weakness SNOMED Code(s): 60720083 Code(s): R53.1 - WEAKNESS Status: Acute Current Visit: Yes - Problem List Review Problem List Initiated/Reviewed/Updated: Yes - My Orders Last 24 Hours: My Active Orders 01/14/21 12:00 Metoprolol Succinate [Toprol XL] 25 mg PO DAILY - Plan Plan:: 70 y/o F admitted for ACS rule out and weakness ACS has been ruled out, frequent PVcs this AM on tele, cont Low dose B dhaval monitor and replete electrolytes, keep Mg>2, K>4 Diet as tolerated PT consult, patient wants to go to [facility], seems [facility] is refusing the admission, family aware,they are trying to make a plea with KELLY Arnold on board cont home meds as appropriate, Miralax as patient had no bowel movement for 3 days, cont colace
[2021-01-15] MEDS ORDERED: Magnesium Oxide 400 MG Tab PO ONE (11:30)
[2021-01-15] MEDS: Budesonide/Formoterol 160-4.5 MCG/Puff 6 GM Inhaler INH SCH ×2 (13:03→21:09)
[2021-01-15] MEDS: DESVENLAFAXINE SUCCINATE 100 MG PO SCH (21:09)
[2021-01-15] MEDS: Azithromycin 250 MG Tab PO SCH (23:07)
[2021-01-16] MEDS: Albuterol/Ipratropium 3.0-0.5 MG/3 ML Neb Soln NEB SCH ×6 (02:24→22:46)
[2021-01-16 06:38] LABS: CARBON DIOXIDE,CO2 30.6 mmol/L (21.0-32.0); POTASSIUM,K 4.6 mmol/L (3.5-5.1)
[2021-01-16] MEDS ORDERED: Omeprazole 20 MG Cap.CR PO SCH (07:30)
[2021-01-16] MEDS: oxyCODONE 5 MG Tab PO PRN ×2 (09:02→23:15)
[2021-01-16] MEDS: Losartan 50 MG Tab PO SCH (09:28)
[2021-01-16] MEDS: Metoprolol Succinate 25 MG Tab.ER PO SCH (09:28)
[2021-01-16] MEDS: Polyethylene Glycol 3350 Powder 17 GM Packet PO SCH ×2 (09:29→22:48)
[2021-01-16] MEDS: Enoxaparin 40 MG/0.4 ML Syringe SUBCUT SCH (09:30)
[2021-01-16] MEDS: Budesonide/Formoterol 160-4.5 MCG/Puff 6 GM Inhaler INH SCH ×2 (09:55→20:28)
[2021-01-16] MEDS: Omeprazole 40 MG Cap.CR PO SCH (10:37)
[2021-01-16] MEDS: Docusate Sodium 100 MG Cap PO PRN (10:37)
[2021-01-16] MEDS: Sulfamethoxazole/Trimethoprim 400/80 MG Tablet PO SCH (10:38)
[2021-01-16] MEDS: fentaNYL 25 MCG/HR Transdermal Patch TRDERM SCH (10:38)
[2021-01-16] MEDS: methylPREDNISolone Sodium Succinate 40 MG/1 ML SDV IVPUSH SCH ×2 (10:39→22:51)
--- NOTE | 2021-01-16 13:18 | PCM.PN ---
- General Info Date of Service: 01/16/21 - Review of Systems Systems Review Comment:: feeling better, reports cough. - Patient Data Vitals - Most Recent: Last Vital Signs Temp 36.6 C 01/16/21 11:53 Pulse 80 01/16/21 11:53 Resp 16 01/16/21 11:53 BP 133/75 01/16/21 11:53 Pulse Ox 96 01/16/21 11:53 Weight - Most Recent: 86.455 kg I&O - Last 24 Hours: Intake & Output 01/15/21 01/16/21 01/16/21 22:59 06:59 14:59 Intake Total 1130 650 Output Total 870 0 Balance 260 650 Lab Results Last 24 Hours: Laboratory Results - last 24 hr 01/16/21 01/16/21 Range/Units 05:50 05:50 WBC 5.82 (4.0-11.0) K/uL RBC 4.13 L (4.30-5.90) M/uL Hgb 12.6 (12.0-16.0) g/dL Hct 38.8 (36.0-46.0) % MCV 93.9 (80.0-98.0) fL MCH 30.5 (27.0-32.0) pg MCHC 32.5 (31.0-37.0) g/dL RDW Std Deviation 45.6 (28.0-62.0) fl RDW Coeff of Antonieta 13 (11.0-15.0) % Plt Count 161 (150-400) K/uL MPV 10.70 (7.40-12.00) fL Neut % (Auto) 91.0 H (48.0-80.0) % Lymph % (Auto) 6.9 L (16.0-40.0) % Mcnairy % (Auto) 2.1 (0.0-15.0) % Eos % (Auto) 0.0 (0.0-7.0) % Baso % (Auto) 0.0 (0.0-1.5) % Neut # (Auto) 5.3 (1.4-5.7) K/uL Lymph # (Auto) 0.4 L (0.6-2.4) K/uL Mc[place]airy # (Auto) 0.1 (0.0-0.8) K/uL Eos # (Auto) 0.0 (0.0-0.7) K/uL Baso # (Auto) 0.0 (0.0-0.1) K/uL Nucleated RBC % 0.0 /100WBC Nucleated RBCs # 0 K/uL Sodium 142 (136-145) mmol/L Potassium 4.6 (3.5-5.1) mmol/L Chloride 105 (98-107) mmol/L Carbon Dioxide 30.6 (21.0-32.0) mmol/L BUN 31 H (7.0-18.0) mg/dL Creatinine 1.2 H (0.6-1.0) mg/dL Est Cr Clr Drug Dosing 40.25 mL/min Estimated GFR (MDRD) 44.3 ml/min Glucose 145 H (74-106) mg/dL Calcium 9.1 (8.5-10.1) mg/dL Phosphorus 4.1 (2.6-4.7) mg/dL Magnesium 2.1 (1.8-2.4) mg/dL Med Orders - Current: Current Medications Albuterol/Ipratropium (Albuterol/Ipratropium 3.0-0.5 Mg/3 Ml Neb Soln) 3 ml NEB Q4HRRT [facility] Last Admin: 01/16/21 09:55 Dose: Not Given Documented by: Azithromycin (Azithromycin 250 Mg Tab) 500 mg PO Q24H [facility] Last Admin: 01/15/21 23:07 Dose: 500 mg Documented by: Budesonide/Formoterol Fumarate (Budesonide/Formoterol 160-4.5 Mcg/Puff 6 Gm Inhaler) 1 gm INH BID [facility] Last Admin: 01/16/21 09:55 Dose: 1 inhalation Documented by: Clonazepam (Clonazepam 1 Mg Tab) 1 mg PO BID PRN PRN Reason: Anxiety Last Admin: 01/15/21 01:57 Dose: 1 mg Documented by: Docusate Sodium (Docusate Sodium 100 Mg Cap) 100 mg PO BID PRN PRN Reason: Constipation Last Admin: 01/16/21 10:37 Dose: 100 mg Documented by: Enoxaparin Sodium (Enoxaparin 40 Mg/0.4 Ml Syringe) 40 mg SUBCUT Q24H [facility] Last Admin: 01/16/21 09:30 Dose: 40 mg Documented by: Fentanyl (Fentanyl 25 Mcg/Hr Transdermal Patch) 25 mcg TRDERM Q72H [facility] Last Admin: 01/16/21 10:38 Dose: 25 mcg Documented by: Guaifenesin/Dextromethorphan (Guaifenesin/Dextromethorphan 100-10 Mg/5 Ml Soln 10 Ml Cup) 10 ml PO Q6H PRN PRN Reason: Cough Last Admin: 01/12/21 22:27 Dose: 10 ml Documented by: Losartan Potassium (Losartan 50 Mg Tab) 50 mg PO DAILY [facility] Last Admin: 01/16/21 09:28 Dose: 50 mg Documented by: Methylprednisolone Sodium Succinate (Methylprednisolone Sodium Succinate 40 Mg/1 Ml Sdv) 40 mg IVPUSH Q12H [facility] Last Admin: 01/16/21 10:39 Dose: 40 mg Documented by: Metoprolol Succinate (Metoprolol Succinate 25 Mg Tab.Er) 25 mg PO DAILY [facility] Last Admin: 01/16/21 09:28 Dose: 25 mg Documented by: Ondansetron HCl (Ondansetron 4 Mg Tab.Dis) 4 mg PO Q6H PRN PRN Reason: Nausea Last Admin: 01/13/21 02:24 Dose: 4 mg Documented by: Oxycodone HCl (Oxycodone 5 Mg Tab) 5 mg PO TID PRN PRN Reason: Pain Last Admin: 01/16/21 09:02 Dose: 5 mg Documented by: Desvenlafaxine Succinate [Pristiq] 100 Mg Tab.Er.24h 1 each PO BEDTIME [facility] Last Admin: 01/15/21 21:09 Dose: 1 each Documented by: Sulfamethoxazole/Trimethoprim 400/80 Mg Tablet 0.5 each PO MoWeFr@0900 [facility] Last Admin: 01/16/21 10:38 Dose: 0.5 each Documented by: Umeclidinium Brm/Vilanterol Tr [Anoro Ellipta 62.5-25 Mcg ] 1 each INH DAILY [facility] Last Admin: 01/16/21 09:55 Dose: Not Given Documented by: Omeprazole 40 Mg Cap (.Cr) 1 each PO ACBREAKFAST [facility] Last Admin: 01/16/21 10:37 Dose: 1 each Documented by: Polyethylene Glycol (Polyethylene Glycol 3350 Powder 17 Gm Packet) 17 gm PO Q12H [facility] Last Admin: 01/16/21 09:29 Dose: 17 gm Documented by: Discontinued Medications Albuterol/Ipratropium (Albuterol/Ipratropium 3.0-0.5 Mg/3 Ml Neb Soln) 3 ml NEB Q4HRRT PRN PRN Reason: Shortness Of Breath/wheezing Last Admin: 01/11/21 16:15 Dose: 3 ml Documented by: Albuterol/Ipratropium (Albuterol/Ipratropium 4 Gm Inhalation [place]) 0 gm INH Q4HRRT PRN PRN Reason: Dyspnea Docusate Sodium (Docusate Sodium 100 Mg Cap) 100 mg PO BID PRN PRN Reason: Constipation Last Admin: 01/12/21 13:32 Dose: 100 mg Documented by: Docusate Sodium (Docusate Sodium 100 Mg Cap) 200 mg PO BEDTIME PRN PRN Reason: Constipation Lactated Ringer's (Ringers, Lactated) 1,000 mls @ 125 mls/hr IV ASDIRECTED [facility] Stop: 01/11/21 07:00 Last Admin: 01/10/21 22:05 Dose: 125 mls/hr Documented by: Lactated Ringer's (Ringers, Lactated) 1,000 mls @ 125 mls/hr IV Q8H [facility] Last Admin: 01/14/21 20:52 Dose: 125 mls/hr Documented by: Magnesium Oxide (Magnesium Oxide 400 Mg Tab) 800 mg PO ONETIME ONE Stop: 01/15/21 11:31 Last Admin: 01/15/21 11:55 Dose: 800 mg Documented by: Pantoprazole Sodium (Pantoprazole 40 Mg Tab.Cr) 40 mg PO ACBRK [facility] Last Admin: 01/15/21 06:50 Dose: 40 mg Documented by: Desvenlafaxine Succinate [Pristiq] 25 Mg Tab.Er.24h 4 each PO BEDTIME [facility] Last Admin: 01/11/21 21:01 Dose: Not Given Documented by: Sulfamethoxazole/Trimethoprim 400/80 Mg Tablet 0.5 each PO MoWeFr@0900 [facility] Last Admin: 01/12/21 14:57 Dose: Not Given Documented by: Omeprazole 20 Mg Cap (.Cr) 2 each PO ACBREAKFAST [facility] Last Admin: 01/16/21 11:06 Dose: Not Given Documented by: - Exam General: Alert, Oriented Neck: Supple Lungs: Clear to Auscultation, Normal Respiratory Effort Cardiovascular: Regular Rate, Regular Rhythm GI/Abdominal Exam: Soft, Non-Tender, No Distention Skin: Warm, Dry, Intact Neurological: No New Focal Deficit - Patient Data Lab Results Last 24 hrs: Laboratory Results - last 24 hr 01/16/21 01/16/21 Range/Units 05:50 05:50 WBC 5.82 (4.0-11.0) K/uL RBC 4.13 L (4.30-5.90) M/uL Hgb 12.6 (12.0-16.0) g/dL Hct 38.8 (36.0-46.0) % MCV 93.9 (80.0-98.0) fL MCH 30.5 (27.0-32.0) pg MCHC 32.5 (31.0-37.0) g/dL RDW Std Deviation 45.6 (28.0-62.0) fl RDW Coeff of Antonieta 13 (11.0-15.0) % Plt Count 161 (150-400) K/uL MPV 10.70 (7.40-12.00) fL Neut % (Auto) 91.0 H (48.0-80.0) % Lymph % (Auto) 6.9 L (16.0-40.0) % Mcnairy % (Auto) 2.1 (0.0-15.0) % Eos % (Auto) 0.0 (0.0-7.0) % Baso % (Auto) 0.0 (0.0-1.5) % Neut # (Auto) 5.3 (1.4-5.7) K/uL Lymph # (Auto) 0.4 L (0.6-2.4) K/uL [place] # (Auto) 0.1 (0.0-0.8) K/uL Eos # (Auto) 0.0 (0.0-0.7) K/uL Baso # (Auto) 0.0 (0.0-0.1) K/uL Nucleated RBC % 0.0 /100WBC Nucleated RBCs # 0 K/uL Sodium 142 (136-145) mmol/L Potassium 4.6 (3.5-5.1) mmol/L Chloride 105 (98-107) mmol/L Carbon Dioxide 30.6 (21.0-32.0) mmol/L BUN 31 H (7.0-18.0) mg/dL Creatinine 1.2 H (0.6-1.0) mg/dL Est Cr Clr Drug Dosing 40.25 mL/min Estimated GFR (MDRD) 44.3 ml/min Glucose 145 H (74-106) mg/dL Calcium 9.1 (8.5-10.1) mg/dL Phosphorus 4.1 (2.6-4.7) mg/dL Magnesium 2.1 (1.8-2.4) mg/dL Result Diagrams: 01/16/21 05:50 01/16/21 05:50 Sepsis Event Note - Evaluation Sepsis Screening Result: No Definite Risk - Focused Exam Vital Signs: Vital Signs Temp Pulse Pulse Resp BP BP Pulse Ox 01/16/21 11:53 36.6 C 80 16 133/75 96 01/16/21 09:28 78 136/78 01/16/21 09:15 36.5 C 76 16 136/78 98 01/16/21 04:52 36.6 C 69 16 120/60 94 L - Problem List Review Problem List Initiated/Reviewed/Updated: Yes - Plan Plan:: 70 y/o F admitted for ACS rule out and weakness ACS has been ruled out, frequent PVcs on tele, cont Low dose B dhaval Diet as tolerated Plan on discharging to [place] on Tuesday.
[2021-01-16] MEDS: ClonazePAM 1 MG Tab PO PRN (14:33)
[2021-01-16] MEDS: DESVENLAFAXINE SUCCINATE 100 MG PO SCH (20:29)
[2021-01-16] MEDS: Azithromycin 250 MG Tab PO SCH (22:47)
[2021-01-16] MEDS: guaiFENesin/Dextromethorphan 100-10 MG/5 ML Soln 10 ML Cup PO PRN (23:13)
[2021-01-17] MEDS: Albuterol/Ipratropium 3.0-0.5 MG/3 ML Neb Soln NEB SCH ×6 (02:30→22:16)
[2021-01-17] MEDS: Omeprazole 40 MG Cap.CR PO SCH (07:15)
[2021-01-17] MEDS: Budesonide/Formoterol 160-4.5 MCG/Puff 6 GM Inhaler INH SCH ×2 (09:11→20:30)
[2021-01-17] MEDS: Losartan 50 MG Tab PO SCH (09:12)
[2021-01-17] MEDS: Metoprolol Succinate 25 MG Tab.ER PO SCH (09:14)
[2021-01-17] MEDS: Polyethylene Glycol 3350 Powder 17 GM Packet PO SCH ×2 (09:20→22:16)
[2021-01-17] MEDS: Enoxaparin 40 MG/0.4 ML Syringe SUBCUT SCH (09:38)
[2021-01-17] MEDS: methylPREDNISolone Sodium Succinate 40 MG/1 ML SDV IVPUSH SCH (09:38)
[2021-01-17] MEDS: Docusate Sodium 100 MG Cap PO PRN ×2 (10:21→22:31)
[2021-01-17] MEDS: oxyCODONE 5 MG Tab PO PRN ×2 (10:21→20:36)
--- NOTE | 2021-01-17 11:31 | PCM.PN ---
- General Info Date of Service: 01/17/21 - Review of Systems Systems Review Comment:: feeling better, shortness of breath improved - Patient Data Vitals - Most Recent: Last Vital Signs Temp 36.2 C 01/17/21 09:02 Pulse 69 01/17/21 09:14 Resp 17 01/17/21 09:02 BP 121/61 01/17/21 09:14 Pulse Ox 94 L 01/17/21 09:02 Weight - Most Recent: 86.455 kg I&O - Last 24 Hours: Intake & Output 01/16/21 01/17/21 01/17/21 22:59 06:59 14:59 Intake Total 600 500 Output Total 0 Balance 600 500 Med Orders - Current: Current Medications Albuterol/Ipratropium (Albuterol/Ipratropium 3.0-0.5 Mg/3 Ml Neb Soln) 3 ml NEB Q4HRRT [facility] Last Admin: 01/17/21 10:21 Dose: 3 ml Documented by: Azithromycin (Azithromycin 250 Mg Tab) 500 mg PO Q24H [facility] Last Admin: 01/16/21 22:47 Dose: 500 mg Documented by: Budesonide/Formoterol Fumarate (Budesonide/Formoterol 160-4.5 Mcg/Puff 6 Gm Inhaler) 1 gm INH BID [facility] Last Admin: 01/17/21 09:11 Dose: 1 inhalation Documented by: Clonazepam (Clonazepam 1 Mg Tab) 1 mg PO BID PRN PRN Reason: Anxiety Last Admin: 01/16/21 14:33 Dose: 1 mg Documented by: Docusate Sodium (Docusate Sodium 100 Mg Cap) 100 mg PO BID PRN PRN Reason: Constipation Last Admin: 01/17/21 10:21 Dose: 100 mg Documented by: Enoxaparin Sodium (Enoxaparin 40 Mg/0.4 Ml Syringe) 40 mg SUBCUT Q24H [facility] Last Admin: 01/17/21 09:38 Dose: 40 mg Documented by: Fentanyl (Fentanyl 25 Mcg/Hr Transdermal Patch) 25 mcg TRDERM Q72H [facility] Last Admin: 01/16/21 10:38 Dose: 25 mcg Documented by: Guaifenesin/Dextromethorphan (Guaifenesin/Dextromethorphan 100-10 Mg/5 Ml Soln 10 Ml Cup) 10 ml PO Q6H PRN PRN Reason: Cough Last Admin: 01/16/21 23:13 Dose: 10 ml Documented by: Losartan Potassium (Losartan 50 Mg Tab) 50 mg PO DAILY [facility] Last Admin: 01/17/21 09:12 Dose: 50 mg Documented by: Methylprednisolone Sodium Succinate (Methylprednisolone Sodium Succinate 40 Mg/1 Ml Sdv) 40 mg IVPUSH DAILY [facility] Metoprolol Succinate (Metoprolol Succinate 25 Mg Tab.Er) 25 mg PO DAILY [facility] Last Admin: 01/17/21 09:14 Dose: 25 mg Documented by: Ondansetron HCl (Ondansetron 4 Mg Tab.Dis) 4 mg PO Q6H PRN PRN Reason: Nausea Last Admin: 01/13/21 02:24 Dose: 4 mg Documented by: Oxycodone HCl (Oxycodone 5 Mg Tab) 5 mg PO TID PRN PRN Reason: Pain Last Admin: 01/17/21 10:21 Dose: 5 mg Documented by: Desvenlafaxine Succinate [Pristiq] 100 Mg Tab.Er.24h 1 each PO BEDTIME [facility] Last Admin: 01/16/21 20:29 Dose: 1 each Documented by: Sulfamethoxazole/Trimethoprim 400/80 Mg Tablet 0.5 each PO MoWeFr@0900 [facility] Last Admin: 01/16/21 10:38 Dose: 0.5 each Documented by: Umeclidinium Brm/Vilanterol Tr [Anoro Ellipta 62.5-25 Mcg ] 1 each INH DAILY [facility] Last Admin: 01/17/21 09:14 Dose: Not Given Documented by: Omeprazole 40 Mg Cap (.Cr) 1 each PO ACBREAKFAST [facility] Last Admin: 01/17/21 07:15 Dose: 1 each Documented by: Polyethylene Glycol (Polyethylene Glycol 3350 Powder 17 Gm Packet) 17 gm PO Q12H [facility] Last Admin: 01/17/21 09:20 Dose: 17 gm Documented by: Discontinued Medications Albuterol/Ipratropium (Albuterol/Ipratropium 3.0-0.5 Mg/3 Ml Neb Soln) 3 ml NEB Q4HRRT PRN PRN Reason: Shortness Of Breath/wheezing Last Admin: 01/11/21 16:15 Dose: 3 ml Documented by: Albuterol/Ipratropium (Albuterol/Ipratropium 4 Gm Inhalation [place]) 0 gm INH Q4HRRT PRN PRN Reason: Dyspnea Docusate Sodium (Docusate Sodium 100 Mg Cap) 100 mg PO BID PRN PRN Reason: Constipation Last Admin: 01/12/21 13:32 Dose: 100 mg Documented by: Docusate Sodium (Docusate Sodium 100 Mg Cap) 200 mg PO BEDTIME PRN PRN Reason: Constipation Lactated Ringer's (Ringers, Lactated) 1,000 mls @ 125 mls/hr IV ASDIRECTED [facility] Stop: 01/11/21 07:00 Last Admin: 01/10/21 22:05 Dose: 125 mls/hr Documented by: Lactated Ringer's (Ringers, Lactated) 1,000 mls @ 125 mls/hr IV Q8H [facility] Last Admin: 01/14/21 20:52 Dose: 125 mls/hr Documented by: Magnesium Oxide (Magnesium Oxide 400 Mg Tab) 800 mg PO ONETIME ONE Stop: 01/15/21 11:31 Last Admin: 01/15/21 11:55 Dose: 800 mg Documented by: Methylprednisolone Sodium Succinate (Methylprednisolone Sodium Succinate 40 Mg/1 Ml Sdv) 40 mg IVPUSH Q12H [facility] Last Admin: 01/17/21 09:38 Dose: 40 mg Documented by: Pantoprazole Sodium (Pantoprazole 40 Mg Tab.Cr) 40 mg PO ACBRK [facility] Last Admin: 01/15/21 06:50 Dose: 40 mg Documented by: Desvenlafaxine Succinate [Pristiq] 25 Mg Tab.Er.24h 4 each PO BEDTIME [facility] Last Admin: 01/11/21 21:01 Dose: Not Given Documented by: Sulfamethoxazole/Trimethoprim 400/80 Mg Tablet 0.5 each PO MoWeFr@0900 [facility] Last Admin: 01/12/21 14:57 Dose: Not Given Documented by: Omeprazole 20 Mg Cap (.Cr) 2 each PO ACBREAKFAST [facility] Last Admin: 01/16/21 11:06 Dose: Not Given Documented by: - Exam General: Alert, Oriented Neck: Supple Lungs: Clear to Auscultation, Normal Respiratory Effort Cardiovascular: Regular Rate, Regular Rhythm GI/Abdominal Exam: Normal Bowel Sounds, Soft, Non-Tender Extremities: Normal Inspection, Non-Tender, No Pedal Edema Skin: Warm, Dry, Intact Neurological: No New Focal Deficit - Patient Data Result Diagrams: 01/16/21 05:50 01/16/21 05:50 Sepsis Event Note - Evaluation Sepsis Screening Result: No Definite Risk - Focused Exam Vital Signs: Vital Signs Temp Pulse Pulse Resp BP BP Pulse Ox 01/17/21 09:14 69 121/61 01/17/21 09:12 121/61 01/17/21 09:02 36.2 C 69 17 121/61 94 L 01/17/21 03:58 36.4 C 75 16 139/60 94 L 01/16/21 23:51 36.4 C 73 16 140/65 95 - Problem List Review Problem List Initiated/Reviewed/Updated: Yes - My Orders Last 24 Hours: My Active Orders 01/18/21 05:11 BASIC METABOLIC PANEL,BMP [CHEM] AM CBC WITH AUTO DIFF [HEME] AM MAGNESIUM [CHEM] AM 01/18/21 09:00 methylPREDNISolone Sod Succ [Solu-MEDROL] 40 mg IVPUSH DAILY - Plan Plan:: 70 y/o F admitted for ACS rule out and weakness ACS has been ruled out, frequent PVcs on tele, cont Low dose B dhaval Azithromycin and solumedrol for COPD exacerbation Diet as tolerated Plan on discharging to [facility] on Tuesday.
[2021-01-17] MEDS: ClonazePAM 1 MG Tab PO PRN (13:08)
[2021-01-17] MEDS: DESVENLAFAXINE SUCCINATE 100 MG PO SCH (20:31)
[2021-01-17] MEDS: Azithromycin 250 MG Tab PO SCH (22:16)
[2021-01-17] MEDS: guaiFENesin/Dextromethorphan 100-10 MG/5 ML Soln 10 ML Cup PO PRN (22:17)
[2021-01-18] MEDS: Albuterol/Ipratropium 3.0-0.5 MG/3 ML Neb Soln NEB SCH ×7 (02:26→22:34)
[2021-01-18 06:52] LABS: POTASSIUM,K 4.2 mmol/L (3.5-5.1)
[2021-01-18] MEDS ORDERED: Sodium Chloride 0.9% 1,000 ML IV SCH (07:15)
[2021-01-18] MEDS ORDERED: Bisacodyl 5 MG Tab PO PRN (07:37)
--- NOTE | 2021-01-18 07:41 | PCM.PN ---
- General Info Date of Service: 01/18/21 - Review of Systems Systems Review Comment:: no complaints - Patient Data Vitals - Most Recent: Last Vital Signs Temp 36.6 C 01/18/21 04:14 Pulse 75 01/18/21 04:14 Resp 16 01/18/21 04:14 BP 115/60 01/18/21 04:14 Pulse Ox 94 L 01/18/21 04:14 Weight - Most Recent: 86.455 kg I&O - Last 24 Hours: Intake & Output 01/17/21 01/18/21 01/18/21 22:59 06:59 14:59 Intake Total 750 550 Output Total 0 Balance 750 550 Lab Results Last 24 Hours: Laboratory Results - last 24 hr 01/18/21 01/18/21 Range/Units 06:10 06:10 WBC 5.48 (4.0-11.0) K/uL RBC 3.71 L (4.30-5.90) M/uL Hgb 11.4 L (12.0-16.0) g/dL Hct 34.9 L (36.0-46.0) % MCV 94.1 (80.0-98.0) fL MCH 30.7 (27.0-32.0) pg MCHC 32.7 (31.0-37.0) g/dL RDW Std Deviation 43.2 (28.0-62.0) fl RDW Coeff of Antonieta 13 (11.0-15.0) % Plt Count 153 (150-400) K/uL MPV 10.10 (7.40-12.00) fL Neut % (Auto) 67.1 (48.0-80.0) % Lymph % (Auto) 26.1 (16.0-40.0) % [place] % (Auto) 5.7 (0.0-15.0) % Eos % (Auto) 1.1 (0.0-7.0) % Baso % (Auto) 0.0 (0.0-1.5) % Neut # (Auto) 3.7 (1.4-5.7) K/uL Lymph # (Auto) 1.4 (0.6-2.4) K/uL [place] # (Auto) 0.3 (0.0-0.8) K/uL Eos # (Auto) 0.1 (0.0-0.7) K/uL Baso # (Auto) 0.0 (0.0-0.1) K/uL Sodium 144 (136-145) mmol/L Potassium 4.2 (3.5-5.1) mmol/L Chloride 108 H (98-107) mmol/L Carbon Dioxide 32.0 (21.0-32.0) mmol/L BUN 31 H (7.0-18.0) mg/dL Creatinine 1.4 H (0.6-1.0) mg/dL Est Cr Clr Drug Dosing 34.50 mL/min Estimated GFR (MDRD) 37.1 ml/min Glucose 98 (74-106) mg/dL Calcium 8.2 L (8.5-10.1) mg/dL Magnesium 2.1 (1.8-2.4) mg/dL Med Orders - Current: Current Medications Albuterol/Ipratropium (Albuterol/Ipratropium 3.0-0.5 Mg/3 Ml Neb Soln) 3 ml NEB Q4HRRT [facility] Last Admin: 01/18/21 06:40 Dose: Not Given Documented by: Azithromycin (Azithromycin 250 Mg Tab) 500 mg PO Q24H [facility] Last Admin: 01/17/21 22:16 Dose: 500 mg Documented by: Bisacodyl (Bisacodyl 5 Mg Tab) 10 mg PO DAILY PRN PRN Reason: Constipation Budesonide/Formoterol Fumarate (Budesonide/Formoterol 160-4.5 Mcg/Puff 6 Gm Inhaler) 1 gm INH BID [facility] Last Admin: 01/17/21 20:30 Dose: 1 inhalation Documented by: Clonazepam (Clonazepam 1 Mg Tab) 1 mg PO BID PRN PRN Reason: Anxiety Last Admin: 01/17/21 13:08 Dose: 1 mg Documented by: Docusate Sodium (Docusate Sodium 100 Mg Cap) 100 mg PO BID PRN PRN Reason: Constipation Last Admin: 01/17/21 22:31 Dose: 100 mg Documented by: Enoxaparin Sodium (Enoxaparin 40 Mg/0.4 Ml Syringe) 40 mg SUBCUT Q24H [facility] Last Admin: 01/17/21 09:38 Dose: 40 mg Documented by: Fentanyl (Fentanyl 25 Mcg/Hr Transdermal Patch) 25 mcg TRDERM Q72H [facility] Last Admin: 01/16/21 10:38 Dose: 25 mcg Documented by: Guaifenesin/Dextromethorphan (Guaifenesin/Dextromethorphan 100-10 Mg/5 Ml Soln 10 Ml Cup) 10 ml PO Q6H PRN PRN Reason: Cough Last Admin: 01/17/21 22:17 Dose: 10 ml Documented by: Sodium Chloride (Normal Saline) 1,000 mls @ 125 mls/hr IV ASDIRECTED [facility] Stop: 01/18/21 15:14 Losartan Potassium (Losartan 50 Mg Tab) 50 mg PO DAILY [facility] Last Admin: 01/17/21 09:12 Dose: 50 mg Documented by: Methylprednisolone Sodium Succinate (Methylprednisolone Sodium Succinate 40 Mg/1 Ml Sdv) 40 mg IVPUSH DAILY [facility] Metoprolol Succinate (Metoprolol Succinate 25 Mg Tab.Er) 25 mg PO DAILY [facility] Last Admin: 01/17/21 09:14 Dose: 25 mg Documented by: Ondansetron HCl (Ondansetron 4 Mg Tab.Dis) 4 mg PO Q6H PRN PRN Reason: Nausea Last Admin: 01/13/21 02:24 Dose: 4 mg Documented by: Oxycodone HCl (Oxycodone 5 Mg Tab) 5 mg PO TID PRN PRN Reason: Pain Last Admin: 01/17/21 20:36 Dose: 5 mg Documented by: Desvenlafaxine Succinate [Pristiq] 100 Mg Tab.Er.24h 1 each PO BEDTIME [facility] Last Admin: 01/17/21 20:31 Dose: 1 each Documented by: Sulfamethoxazole/Trimethoprim 400/80 Mg Tablet 0.5 each PO MoWeFr@0900 [facility] Last Admin: 01/16/21 10:38 Dose: 0.5 each Documented by: Umeclidinium Brm/Vilanterol Tr [Anoro Ellipta 62.5-25 Mcg ] 1 each INH DAILY [facility] Last Admin: 01/17/21 09:14 Dose: Not Given Documented by: Omeprazole 40 Mg Cap (.Cr) 1 each PO ACBREAKFAST [facility] Last Admin: 01/17/21 07:15 Dose: 1 each Documented by: Polyethylene Glycol (Polyethylene Glycol 3350 Powder 17 Gm Packet) 17 gm PO Q12H [facility] Last Admin: 01/17/21 22:16 Dose: 17 gm Documented by: Discontinued Medications Albuterol/Ipratropium (Albuterol/Ipratropium 3.0-0.5 Mg/3 Ml Neb Soln) 3 ml NEB Q4HRRT PRN PRN Reason: Shortness Of Breath/wheezing Last Admin: 01/11/21 16:15 Dose: 3 ml Documented by: Albuterol/Ipratropium (Albuterol/Ipratropium 4 Gm Inhalation [place]) 0 gm INH Q4HRRT PRN PRN Reason: Dyspnea Docusate Sodium (Docusate Sodium 100 Mg Cap) 100 mg PO BID PRN PRN Reason: Constipation Last Admin: 01/12/21 13:32 Dose: 100 mg Documented by: Docusate Sodium (Docusate Sodium 100 Mg Cap) 200 mg PO BEDTIME PRN PRN Reason: Constipation Lactated Ringer's (Ringers, Lactated) 1,000 mls @ 125 mls/hr IV ASDIRECTED [facility] Stop: 01/11/21 07:00 Last Admin: 01/10/21 22:05 Dose: 125 mls/hr Documented by: Lactated Ringer's (Ringers, Lactated) 1,000 mls @ 125 mls/hr IV Q8H [facility] Last Admin: 01/14/21 20:52 Dose: 125 mls/hr Documented by: Magnesium Oxide (Magnesium Oxide 400 Mg Tab) 800 mg PO ONETIME ONE Stop: 01/15/21 11:31 Last Admin: 01/15/21 11:55 Dose: 800 mg Documented by: Methylprednisolone Sodium Succinate (Methylprednisolone Sodium Succinate 40 Mg/1 Ml Sdv) 40 mg IVPUSH Q12H [facility] Last Admin: 01/17/21 09:38 Dose: 40 mg Documented by: Pantoprazole Sodium (Pantoprazole 40 Mg Tab.Cr) 40 mg PO ACBRK [facility] Last Admin: 01/15/21 06:50 Dose: 40 mg Documented by: Desvenlafaxine Succinate [Pristiq] 25 Mg Tab.Er.24h 4 each PO BEDTIME [facility] Last Admin: 01/11/21 21:01 Dose: Not Given Documented by: Sulfamethoxazole/Trimethoprim 400/80 Mg Tablet 0.5 each PO MoWeFr@0900 [facility] Last Admin: 01/12/21 14:57 Dose: Not Given Documented by: Omeprazole 20 Mg Cap (.Cr) 2 each PO ACBREAKFAST [facility] Last Admin: 01/16/21 11:06 Dose: Not Given Documented by: - Exam General: Alert, Oriented Neck: Supple Lungs: Clear to Auscultation, Normal Respiratory Effort Cardiovascular: Regular Rate, Regular Rhythm GI/Abdominal Exam: Soft, Non-Tender, No Distention Extremities: Non-Tender, No Pedal Edema - Patient Data Lab Results Last 24 hrs: Laboratory Results - last 24 hr 01/18/21 01/18/21 Range/Units 06:10 06:10 WBC 5.48 (4.0-11.0) K/uL RBC 3.71 L (4.30-5.90) M/uL Hgb 11.4 L (12.0-16.0) g/dL Hct 34.9 L (36.0-46.0) % MCV 94.1 (80.0-98.0) fL MCH 30.7 (27.0-32.0) pg MCHC 32.7 (31.0-37.0) g/dL RDW Std Deviation 43.2 (28.0-62.0) fl RDW Coeff of Antoni[place] 13 (11.0-15.0) % Plt Count 153 (150-400) K/uL MPV 10.10 (7.40-12.00) fL Neut % (Auto) 67.1 (48.0-80.0) % Lymph % (Auto) 26.1 (16.0-40.0) % [place] % (Auto) 5.7 (0.0-15.0) % Eos % (Auto) 1.1 (0.0-7.0) % Baso % (Auto) 0.0 (0.0-1.5) % Neut # (Auto) 3.7 (1.4-5.7) K/uL Lymph # (Auto) 1.4 (0.6-2.4) K/uL [place] # (Auto) 0.3 (0.0-0.8) K/uL Eos # (Auto) 0.1 (0.0-0.7) K/uL Baso # (Auto) 0.0 (0.0-0.1) K/uL Sodium 144 (136-145) mmol/L Potassium 4.2 (3.5-5.1) mmol/L Chloride 108 H (98-107) mmol/L Carbon Dioxide 32.0 (21.0-32.0) mmol/L BUN 31 H (7.0-18.0) mg/dL Creatinine 1.4 H (0.6-1.0) mg/dL Est Cr Clr Drug Dosing 34.50 mL/min Estimated GFR (MDRD) 37.1 ml/min Glucose 98 (74-106) mg/dL Calcium 8.2 L (8.5-10.1) mg/dL Magnesium 2.1 (1.8-2.4) mg/dL Result Diagrams: 01/18/21 06:10 01/18/21 06:10 Sepsis Event Note - Evaluation Sepsis Screening Result: No Definite Risk - Focused Exam Vital Signs: Vital Signs Temp Pulse Resp BP Pulse Ox 01/18/21 04:14 36.6 C 75 16 115/60 94 L 01/18/21 00:50 36.6 C 79 15 110/52 L 94 L 01/17/21 20:06 36.6 C 86 16 113/65 94 L - Problem List Review Problem List Initiated/Reviewed/Updated: Yes - My Orders Last 24 Hours: My Active Orders 01/18/21 07:15 Sodium Chloride 0.9% [Normal Saline] 1,000 ml IV ASDIRECTED 01/18/21 07:37 bisacodyL [Dulcolax] 10 mg PO DAILY PRN 01/18/21 07:39 Enema [RC] ASDIRECTED 01/18/21 09:00 methylPREDNISolone Sod Succ [Solu-MEDROL] 40 mg IVPUSH DAILY - Plan Plan:: 70 y/o F admitted for ACS rule out and weakness Azithromycin and solumedrol for COPD exacerbation Diet as tolerated Plan on discharging to [facility] tomorrow.
[2021-01-18] MEDS: methylPREDNISolone Sodium Succinate 40 MG/1 ML SDV IVPUSH SCH (08:26)
[2021-01-18] MEDS: Metoprolol Succinate 25 MG Tab.ER PO SCH (08:26)
[2021-01-18] MEDS: Losartan 50 MG Tab PO SCH (08:26)
[2021-01-18] MEDS: Omeprazole 40 MG Cap.CR PO SCH (08:27)
[2021-01-18] MEDS: Polyethylene Glycol 3350 Powder 17 GM Packet PO SCH ×2 (11:54→22:34)
[2021-01-18] MEDS: Enoxaparin 40 MG/0.4 ML Syringe SUBCUT SCH (11:59)
[2021-01-18] MEDS: Budesonide/Formoterol 160-4.5 MCG/Puff 6 GM Inhaler INH SCH ×2 (15:50→20:49)
[2021-01-18] MEDS: DESVENLAFAXINE SUCCINATE 100 MG PO SCH (20:53)
[2021-01-18] MEDS: Azithromycin 250 MG Tab PO SCH (22:33)
[2021-01-19] MEDS: Albuterol/Ipratropium 3.0-0.5 MG/3 ML Neb Soln NEB SCH ×3 (02:06→09:49)
[2021-01-19] MEDS: Omeprazole 40 MG Cap.CR PO SCH (08:23)
[2021-01-19] MEDS: Metoprolol Succinate 25 MG Tab.ER PO SCH (08:37)
[2021-01-19] MEDS: methylPREDNISolone Sodium Succinate 40 MG/1 ML SDV IVPUSH SCH (08:45)
[2021-01-19] MEDS: Sulfamethoxazole/Trimethoprim 400/80 MG Tablet PO SCH (08:48)
[2021-01-19] MEDS: Losartan 50 MG Tab PO SCH (09:06)
[2021-01-19] MEDS: fentaNYL 25 MCG/HR Transdermal Patch TRDERM SCH (09:45)
[2021-01-19] MEDS: Budesonide/Formoterol 160-4.5 MCG/Puff 6 GM Inhaler INH SCH (09:50)
[2021-01-19] MEDS: Enoxaparin 40 MG/0.4 ML Syringe SUBCUT SCH (10:37)
[2021-01-19] MEDS: Polyethylene Glycol 3350 Powder 17 GM Packet PO SCH (10:38)
--- NOTE | 2021-01-19 10:48 | PCM.DCSUM1 ---
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 Patient states that she has been getting progressively weak for last 2 months. States she is currenely "cancer free" based on her last PET scan which was very recent. Her last chemoradiation was 2 years back. Patient states that she also is being treated with antibiotics for bronchitis and was started on inhalers by her PCP. Patient descried pain as an ache and thinks it came on due to her "over thinking". Patient states she did have a "minor heart attack years back, she has no stnets placed, reported getting a stress test in remote past but isnt sure of the results. Patient hasnt seen a tag stringer in recent past. Patient is very concerned and emotional about her weakness as it has hampered her ADLS. She says she was doing ok up until her PT therapist was changed as the previous one changed his jobs. Patient states she had a good connection with her PT and ever since he left it isnt been the same and she has been getting worse. Patient gets PT once a week. States at home she is usually in bed or her chair and does need a lot of assistance, and is unable to get into the truck. Patient lives with her daughter who takes care of most of her needs. She does have urinary incontinence and generalized weakness which has been chronic for last few months. In the ER EKG was unremarkable, labs were unremarkable including troponin, CXR showed no infiltrates but did show 7mm nodule in right lung which most likely "external to the patient" per radiology given it wasnt there on last PET scan. Patient is moving to [place] by the end of January to live with her daughter and establish further care over there. Patient was admitted for further care. Diagnosis: Stroke: No - Discharge Data Discharge Date: 01/19/21 Discharge Disposition: DC/Tfer to SNF 03 Condition: Stable - Referral to Home Health Primary Care Physician: Phillip Robbins MD - Discharge Diagnosis/Problem(s) (1) Chest pain SNOMED Code(s): 64160644 ICD Code: R07.9 - CHEST PAIN, UNSPECIFIED Status: Acute Current Visit: Yes (2) Generalized weakness SNOMED Code(s): 15897884 ICD Code: R53.1 - WEAKNESS Status: Acute Current Visit: Yes (3) Port-A-Cath in place SNOMED Code(s): 052151080 ICD Code: Z95.828 - PRESENCE OF OTHER VASCULAR IMPLANTS AND GRAFTS Status: Acute Current Visit: Yes (4) Squamous cell carcinoma of tonsil SNOMED Code(s): 017071221, 140174973 ICD Code: C09.9 - MALIGNANT NEOPLASM OF TONSIL, UNSPECIFIED Status: Acute Current Visit: Yes (5) Acute exacerbation of chronic obstructive airways disease SNOMED Code(s): 722927812 ICD Code: J44.1 - CHRONIC OBSTRUCTIVE PULMONARY DISEASE W (ACUTE) EXACERBATION Status: Acute Current Visit: No Onset Date: 06/20/14 (6) Risk for falls SNOMED Code(s): 469208683 ICD Code: Z91.81 - HISTORY OF FALLING Status: Acute Current Visit: No (7) Weakness SNOMED Code(s): 72543226 ICD Code: R53.1 - WEAKNESS Status: Acute Current Visit: No (8) Anxiety and depression SNOMED Code(s): 597025330 ICD Code: F41.9 - ANXIETY DISORDER, UNSPECIFIED; F32.9 - MAJOR DEPRESSIVE DISORDER, SINGLE EPISODE, UNSPECIFIED Status: Chronic Current Visit: No (9) CHF (congestive heart failure) SNOMED Code(s): 03853915 ICD Code: I50.9 - HEART FAILURE, UNSPECIFIED Status: Chronic Current Visit: No - Patient Summary/Data Consults: Consultations 01/10/21 23:26 PT Evaluation and Treatment [CONS] Routine Hospital Course: Admission diagnoses Chest pain Generalized weakness COPD exacerbation Discharge diagnoses Chest painACS ruled out Generalized weakness COPD exacerbation improving Other PMH History squamous cell cancer of left tonsil status post chemoradiation CHF HLD HTN Asthma GERD Recurrent UTIs Chronic back pain on chronic narcotics Obesity Jessi was admitted secondary to chest pain and generalized weakness. Chest pain was evaluated and ACS ruled out. Telemetry did show frequent PVCs which she was started on low-dose metoprolol but became bradycardic. Metoprolol held. EKG did not show signs of ACS or STEMI. Patient was continued to be monitored and started on physical therapy due to progressive generalized weakness. Her daughter provides care for her at home completing many of her ADLs. Patient does well with physical therapy but fatigues very quickly during walking. Patient would benefit highly from rehabilitation for generalized weakness. Patient was treated for COPD exacerbation with azithromycin for total of 7 days along with Solu-Medrol. She will continue prednisone taper upon discharge. Patient will continue all other home medications including fentanyl patch and other narcotics for her chronic pain. She will also be continued on laxatives and stool softeners to help with constipation. Patient given enema yesterday which helped to relieve large to moderate sized stool and had a small stool this morning and requested another enema today. Patient plans on leaving [place] the end of January to move to [place] with her other daughter. I discussed care with Dr. Guillen who will assume care at [facility]. He is aware of patient and has accepted patient for transfer to [facility] at this time. Covid test for discharge negative. She will be discharged to [facility] today. - Patient Instructions Diet: Heart Healthy Diet Activity: As Tolerated Driving: Do Not Drive Showering/Bathing: May Shower Notify Provider of: Fever, Increased Pain, Swelling and Redness, Drainage, Nausea and/or Vomiting Other/Special Instructions: PT/OT/ST to evaluate and treat - Discharge Plan *PRESCRIPTION DRUG MONITORING PROGRAM REVIEWED*: Not Applicable *COPY OF PRESCRIPTION DRUG MONITORING REPORT IN PATIENT SAGAR: Not Applicable Prescriptions/Med Rec: clonazePAM [Clonazepam] 1 mg PO BID PRN #14 PRN Reason: Anxiety Docusate Sodium [Colace] 100 mg PO BID PRN #15 cap PRN Reason: Constipation Albuterol/Ipratropium [DuoNeb 3.0-0.5 MG/3 ML] 3 ml NEB Q4HRRT PRN #1 box PRN Reason: Dyspnea/wheezing fentaNYL [Fentanyl] 25 mcg TD Q72H #3 patch oxyCODONE 5 mg PO TID PRN #15 tab PRN Reason: Pain predniSONE [Prednisone] 40 mg PO DAILY #30 tablet Home Medications: Home Meds Losartan Potassium [Cozaar] 50 mg PO DAILY 12/15/19 [History] Omeprazole 40 mg PO DAILY 12/15/19 [History] Ondansetron [Zofran ODT] 4 mg PO Q6H PRN 12/15/19 [History] Desvenlafaxine [Desvenlafaxine ER] 100 mg PO BEDTIME 01/12/21 [History] Umeclidinium Brm/Vilanterol Tr [Anoro Ellipta 62.5-25 MCG] 1 inh IH DAILY 01/12/21 [History] Albuterol/Ipratropium [DuoNeb 3.0-0.5 MG/3 ML] 3 ml NEB Q4HRRT PRN #1 box 01/19/21 [Rx] Budesonide/Formoterol [Symbicort 160-4.5 MCG] 1 gm INH BID inhaler 01/19/21 [Rx] Docusate Sodium [Colace] 100 mg PO BID PRN #15 cap 01/19/21 [Rx] Sulfamethoxazole/Trimethoprim [Bactrim 400-80 MG] 0.5 each PO MOWEFR@0900 #0 0 01/19/21 [Rx] bisacodyL [Dulcolax] 10 mg PO DAILY PRN tablet 01/19/21 [Rx] clonazePAM [Clonazepam] 1 mg PO BID PRN #14 01/19/21 [Rx] fentaNYL [Fentanyl] 25 mcg TD Q72H #3 patch 01/19/21 [Rx] oxyCODONE 5 mg PO TID PRN #15 tab 01/19/21 [Rx] polyethylene glycoL 3350 [MiraLAX] 17 gm PO Q12H packet 01/19/21 [Rx] predniSONE [Prednisone] 40 mg PO DAILY #30 tablet 01/19/21 [Rx] Oxygen Therapy Mode: Room Air Patient Handouts: Oxycodone tablets or capsules, Clonazepam tablets, Fentanyl skin patch, Ipratropium; Albuterol Inhalation Solution, Prednisone tablets, Docusate capsules Referrals: Isreal Guillen MD [Ordering Only Provider] - - Discharge Summary/Plan Comment DC Time >30 min.: No (discussed care with Dr Guillen for acceptance into [facility]) - Patient Data Vitals - Most Recent: Last Vital Signs Temp 97.1 F 01/19/21 08:00 Pulse 45 L 01/19/21 08:37 Resp 16 01/19/21 08:00 BP 130/63 01/19/21 09:06 Pulse Ox 95 01/19/21 08:00 Weight - Most Recent: 86.455 kg I&O - Last 24 hours: Intake & Output 01/18/21 01/19/21 01/19/21 22:59 06:59 14:59 Intake Total 1250 600 Output Total 0 Balance 1250 600 Med Orders - Current: Current Medications Albuterol/Ipratropium (Albuterol/Ipratropium 3.0-0.5 Mg/3 Ml Neb Soln) 3 ml NEB Q4HRRT [facility] Last Admin: 01/19/21 09:49 Dose: 3 ml Documented by: Azithromycin (Azithromycin 250 Mg Tab) 500 mg PO Q24H [facility] Last Admin: 01/18/21 22:33 Dose: 500 mg Documented by: Bisacodyl (Bisacodyl 5 Mg Tab) 10 mg PO DAILY PRN PRN Reason: Constipation Last Admin: 01/18/21 08:26 Dose: 10 mg Documented by: Budesonide/Formoterol Fumarate (Budesonide/Formoterol 160-4.5 Mcg/Puff 6 Gm Inhaler) 1 gm INH BID [facility] Last Admin: 01/19/21 09:50 Dose: 1 inhalation Documented by: Clonazepam (Clonazepam 1 Mg Tab) 1 mg PO BID PRN PRN Reason: Anxiety Last Admin: 01/17/21 13:08 Dose: 1 mg Documented by: Docusate Sodium (Docusate Sodium 100 Mg Cap) 100 mg PO BID PRN PRN Reason: Constipation Last Admin: 01/17/21 22:31 Dose: 100 mg Documented by: Enoxaparin Sodium (Enoxaparin 40 Mg/0.4 Ml Syringe) 40 mg SUBCUT Q24H [facility] Last Admin: 01/19/21 10:37 Dose: 40 mg Documented by: Fentanyl (Fentanyl 25 Mcg/Hr Transdermal Patch) 25 mcg TRDERM Q72H [facility] Last Admin: 01/19/21 09:45 Dose: 25 mcg Documented by: Guaifenesin/Dextromethorphan (Guaifenesin/Dextromethorphan 100-10 Mg/5 Ml Soln 10 Ml Cup) 10 ml PO Q6H PRN PRN Reason: Cough Last Admin: 01/17/21 22:17 Dose: 10 ml Documented by: Losartan Potassium (Losartan 50 Mg Tab) 50 mg PO DAILY [facility] Last Admin: 01/19/21 09:06 Dose: 50 mg Documented by: Methylprednisolone Sodium Succinate (Methylprednisolone Sodium Succinate 40 Mg/1 Ml Sdv) 40 mg IVPUSH DAILY [facility] Last Admin: 01/19/21 08:45 Dose: 40 mg Documented by: Metoprolol Succinate (Metoprolol Succinate 25 Mg Tab.Er) 25 mg PO DAILY [facility] Last Admin: 01/19/21 08:37 Dose: Not Given Documented by: Ondansetron HCl (Ondansetron 4 Mg Tab.Dis) 4 mg PO Q6H PRN PRN Reason: Nausea Last Admin: 01/13/21 02:24 Dose: 4 mg Documented by: Oxycodone HCl (Oxycodone 5 Mg Tab) 5 mg PO TID PRN PRN Reason: Pain Last Admin: 01/17/21 20:36 Dose: 5 mg Documented by: Desvenlafaxine Succinate [Pristiq] 100 Mg Tab.Er.24h 1 each PO BEDTIME [facility] Last Admin: 01/18/21 20:53 Dose: 1 each Documented by: Sulfamethoxazole/Trimethoprim 400/80 Mg Tablet 0.5 each PO MoWeFr@0900 [facility] Last Admin: 01/19/21 08:48 Dose: 0.5 each Documented by: Umeclidinium Brm/Vilanterol Tr [Anoro Ellipta 62.5-25 Mcg ] 1 each INH DAILY [facility] Last Admin: 01/19/21 08:53 Dose: Not Given Documented by: Omeprazole 40 Mg Cap (.Cr) 1 each PO ACBREAKFAST [facility] Last Admin: 01/19/21 08:23 Dose: 1 each Documented by: Polyethylene Glycol (Polyethylene Glycol 3350 Powder 17 Gm Packet) 17 gm PO Q12H [facility] Last Admin: 01/19/21 10:38 Dose: 17 gm Documented by: Discontinued Medications Albuterol/Ipratropium (Albuterol/Ipratropium 3.0-0.5 Mg/3 Ml Neb Soln) 3 ml NEB Q4HRRT PRN PRN Reason: Shortness Of Breath/wheezing Last Admin: 01/11/21 16:15 Dose: 3 ml Documented by: Albuterol/Ipratropium (Albuterol/Ipratropium 4 Gm Inhalation [place]) 0 gm INH Q4HRRT PRN PRN Reason: Dyspnea Docusate Sodium (Docusate Sodium 100 Mg Cap) 100 mg PO BID PRN PRN Reason: Constipation Last Admin: 01/12/21 13:32 Dose: 100 mg Documented by: Docusate Sodium (Docusate Sodium 100 Mg Cap) 200 mg PO BEDTIME PRN PRN Reason: Constipation Lactated Ringer's (Ringers, Lactated) 1,000 mls @ 125 mls/hr IV ASDIRECTED [facility] Stop: 01/11/21 07:00 Last Admin: 01/10/21 22:05 Dose: 125 mls/hr Documented by: Lactated Ringer's (Ringers, Lactated) 1,000 mls @ 125 mls/hr IV Q8H [facility] Last Admin: 01/14/21 20:52 Dose: 125 mls/hr Documented by: Sodium Chloride (Normal Saline) 1,000 mls @ 125 mls/hr IV ASDIRECTED [facility] Stop: 01/18/21 15:14 Magnesium Oxide (Magnesium Oxide 400 Mg Tab) 800 mg PO ONETIME ONE Stop: 01/15/21 11:31 Last Admin: 01/15/21 11:55 Dose: 800 mg Documented by: Methylprednisolone Sodium Succinate (Methylprednisolone Sodium Succinate 40 Mg/1 Ml Sdv) 40 mg IVPUSH Q12H [facility] Last Admin: 01/17/21 09:38 Dose: 40 mg Documented by: Pantoprazole Sodium (Pantoprazole 40 Mg Tab.Cr) 40 mg PO ACBRK [facility] Last Admin: 01/15/21 06:50 Dose: 40 mg Documented by: Desvenlafaxine Succinate [Pristiq] 25 Mg Tab.Er.24h 4 each PO BEDTIME [facility] Last Admin: 01/11/21 21:01 Dose: Not Given Documented by: Sulfamethoxazole/Trimethoprim 400/80 Mg Tablet 0.5 each PO MoWeFr@0900 [facility] Last Admin: 01/12/21 14:57 Dose: Not Given Documented by: Omeprazole 20 Mg Cap (.Cr) 2 each PO ACBREAKFAST [facility] Last Admin: 01/16/21 11:06 Dose: Not Given Documented by: - Exam Quality Assessment: Reports: DVT Prophylaxis. Denies: Supplemental Oxygen General: Reports: Alert, Oriented, Cooperative, No Acute Distress Lungs: Reports: Clear to Auscultation, Normal Respiratory Effort Cardiovascular: Reports: Regular Rate, Regular Rhythm GI/Abdominal Exam: Normal Bowel Sounds, Soft, Non-Tender Back Exam: Reports: Normal Inspection, Full Range of Motion Extremities: Normal Inspection, Normal Range of Motion, Non-Tender, No Pedal Edema Neurological: Reports: No New Focal Deficit Psy/Mental Status: Reports: Alert, Normal Affect, Normal Mood
[2021-01-19 13:00] VITALS: BP 134/54; PULSE 77
== END 2021-01-19 13:05 | DRG 191 ==
LOC: MW.ED 16:36 → MW.MS 20:07 → OBSVTOIN 01-12 09:05 → MW.MS 01-12 15:08
PROVIDERS: ADMIT Student in an Organized Health Care Education/Training Program; ATTEND Student in an Organized Health Care Education/Training Program
DX: I24.9 Acute ischemic heart disease, unspecified (principal); J44.1 Chronic obstructive pulmonary disease with (acute) exacerbation; N39.0 Urinary tract infection, site not specified; E78.00 Pure hypercholesterolemia, unspecified; N17.9 Acute kidney failure, unspecified; J44.9 Chronic obstructive pulmonary disease, unspecified; K59.00 Constipation, unspecified; Z87.11 Personal history of peptic ulcer disease; G89.29 Other chronic pain; M54.9 Dorsalgia, unspecified; F32.9 Major depressive disorder, single episode, unspecified; I11.0 Hypertensive heart disease with heart failure; E66.9 Obesity, unspecified; Z87.891 Personal history of nicotine dependence; Z91.030 Bee allergy status; Z91.041 Radiographic dye allergy status; Z88.5 Allergy status to narcotic agent; Z88.7 Allergy status to serum and vaccine; Z88.8 Allergy status to other drugs, medicaments and biological substances; Z91.048 Other nonmedicinal substance allergy status; Z79.899 Other long term (current) drug therapy; I50.9 Heart failure, unspecified; K21.9 Gastro-esophageal reflux disease without esophagitis; E78.5 Hyperlipidemia, unspecified; M54.89 Other dorsalgia; R53.1 Weakness; Z95.828 Presence of other vascular implants and grafts; C09.9 Malignant neoplasm of tonsil, unspecified; Z91.81 History of falling; F41.9 Anxiety disorder, unspecified; F31.9 Bipolar disorder, unspecified; Z20.822 Contact with and (suspected) exposure to COVID-19; I49.3 Ventricular premature depolarization; D05.10 Intraductal carcinoma in situ of unspecified breast; Z98.890 Other specified postprocedural states; Z98.51 Tubal ligation status; Z86.73 Personal history of transient ischemic attack (TIA), and cerebral infarction without residual deficits; H54.7 Unspecified visual loss
CPT/HCPCS: 0240U; 36415; 71045; 80048; 80053; 80061; 81003; 82607; 83735; 84100; 84443; 84484; 85025; 93005; 94640; 97110; 97162; 97530; 99285; 93010; 99218; 99225; 99231; 99232; 99238; 99283; A9270-GY; G0378; J1642; J1650; J2920; J7120; J7620-GY; U0002

== ENCOUNTER 2021-05-13 12:48 | Observation (INO) | payer MEDICARE, MEDICAID ==
[2021-05-13] MEDS ORDERED: Sodium Chloride 0.9% 10 ML Syringe FLUSH PRN (12:56)
[2021-05-13] MEDS ORDERED: Sodium Chloride 0.9% 2.5 ML Syringe FLUSH PRN (12:56)
[2021-05-13] MEDS ORDERED: Morphine 2 MG/ML SYRINGE IVPUSH ONE (13:10)
[2021-05-13] MEDS ORDERED: Ondansetron 4 MG/2 ML SDV IVPUSH ONE (13:10)
--- NOTE | 2021-05-13 13:15 | PCM.EKG ---
#1 Interpretation EKG Date: 05/13/21 Time: 13:15 EKG Interpretation Comments: 1:03 PM. 75, normal sinus rhythm, nonspecific ST/T findings. Low voltage. Unchanged as compared to prior EKG
--- NOTE | 2021-05-13 13:16 | EDM.PDOC ---
ED HPI GENERAL MEDICAL PROBLEM - General Chief Complaint: General Stated Complaint: EMS Time Seen by Provider: 05/13/21 12:52 Source of Information: Reports: Patient History Limitations: Reports: No Limitations - History of Present Illness INITIAL COMMENTS - FREE TEXT/NARRATIVE: HISTORY AND PHYSICAL: History of present illness: Patient is a 70-year-old female who presents to the emergency room with complaints of generalized weakness, chest pain, generalized abdominal pain and nausea over the past 3 days. Clayton bronson had called our facility to inform us of the patient. They did state that she became visibly upset after her request for "vacation day" was denied. The patient then called EMS herself to be transferred to the emergency room. Patient has a past medical history of heart failure, hypertension, COPD, GERD, TIA, breast cancer and left tonsillar squamous cell carcinoma. Patient denies any fever, chills, headache, change in vision, syncope or near syncope. Denies any chest pain, back pain, shortness of breath or cough. Denies any abdominal pain, nausea, vomiting, diarrhea, constipation or dysuria. Has not noted any blood in urine or stool. Patient has been eating and drinking appropriately. Review of systems: As per history of present illness and below otherwise all systems reviewed and negative. Past medical history: As per history of present illness and as reviewed below otherwise noncontributory. Surgical history: As per history of present illness and as reviewed below otherwise noncontributory. Social history: See social history for further information Family history: As per history of present illness and as reviewed below otherwise noncontributory. Physical exam: General: Well developed and well nourished 70-year-old female. Alert and orientated x 3. Nontoxic in appearance and in no acute distress. Vital signs are stable and have been reviewed by me. Nursing notes were reviewed. Patient is not cooperative with physical exam. HEENT: Atraumatic, normocephalic, pupils equal and reactive bilaterally, negative for conjunctival pallor or scleral icterus, mucous membranes moist, neck supple, nontender, trachea midline. No drooling or trismus noted. No meningeal signs. No hot potato voice noted. Lungs: Clear to auscultation bilaterally. No wheezes, rales, or rhonchi. Generalized chest tenderness with palpation. Normal work of breathing, no accessory muscles used. Heart: S1S2, regular rate and rhythm without overt murmur, gallops, or rubs. No JVD. No peripheral edema Abdomen: Soft, nondistended, generalized abdominal tenderness with palpation. No rebound tenderness. Normoactive bowel sounds. Negative for masses or costovertebral tenderness. Skin: Intact, warm, dry. No lesions or rashes noted. Hematologic: No petechiae or purpra. Mucosa appropriate color and normal nail bed color and refill. Extremities: Atraumatic, moves all extremities per self without difficulty or deficits, negative for cords or calf pain. Neurovascular unremarkable. Neuro: Awake, alert, oriented. Cranial nerves II through XII unremarkable. Cerebellum unremarkable. Motor and sensory unremarkable throughout. Exam nonfocal. Psychiatric: Mood and affect are appropriate. Normal thought process. Answering questions appropriately. Notes: *This patient was seen and evaluated during the 2019 SARS-CoV-2 novel coronavirus pandemic period. Community viral transmission is ongoing at time of this encounter and the emergency department is operating under pandemic response procedures. Stable cardiomediastinal silhouette. Left-sided Port-A-Cath tip terminates at the level of the cavoatrial junction. There surgical clips in the left axilla. Normal pulmonary vasculature. No new focal infiltrate, effusion, or pneumothorax. Urine shows +3 bacteria from straight-cath collection, culture has been added. Patient is a 70-year-old female who presents to the emergency room by ambulance from [facility] with complaints of chest and abdominal pain, weakness and generally feeling unwell. Patient states this has been going on for 3 days but did not make anyone aware of it until a few minutes ago. [facility] [place] called stating that she became visibly upset after she had her "vacation day declined". Patient is uncooperative with the physical exam stating she is upset with everyone. She does however allow one of our male nurses to access her Port-A-Cath, do the Mo catheter and nursing cares. He confirms that the patient is complaining of the generalized abdominal and chest pain. Patient does have bacteria in her urine. Culture has been added. Initial troponin is negative. EKG shows sinus rhythm with a rate of 76, no concern for ST changes. Due to patient's generalized complaints of weakness, noncomplaint with staff, and chest pain -we will admit her for observation with telemetry. Dr. Aldridge was consulted, he is aware and agreeable to keeping her for further care and management. Patient's vital signs remained stable. Her Covid screening is negative. Diagnostics: CBC, CMP, Troponin, EKG, CXR, COVID, UA Therapeutics: Rocephin Impression: UTI Chest pain Plan: Observation admission to [facility] with telemetry Definitive disposition and diagnosis as appropriate pending reevaluation and review of above. general Pain Score (Numeric/FACES): 8 - Related Data Allergies Allergy/AdvReac Type Severity Reaction Status Date / Time aspirin Allergy Hives Verified 01/10/21 21:41 bee pollen Allergy unknown Verified 01/10/21 21:41 codeine Allergy Other Verified 01/10/21 21:41 eszopiclone [From Lunesta] Allergy Hypertensio Verified 01/10/21 21:41 n Iodinated Contrast Media Allergy Anaphylactic Verified 01/10/21 21:41 [Iodinated Contrast Media - Shock IV Dye] lorazepam Allergy Facial Verified 01/10/21 21:41 Swelling pregabalin [From Lyrica] Allergy Facial Verified 01/10/21 21:41 Swelling Cloth tape Allergy Blisters Uncoded 01/10/21 21:41 flu vaccination Allergy Anaphylactic Uncoded 01/10/21 21:41 Shock Paper Tape Allergy Blisters Uncoded 01/10/21 21:41 Home Meds: Home Meds Losartan Potassium [Cozaar] 50 mg PO DAILY 12/15/19 [History] Omeprazole 40 mg PO DAILY 12/15/19 [History] Ondansetron [Zofran ODT] 4 mg PO Q6H PRN 12/15/19 [History] Desvenlafaxine [Desvenlafaxine ER] 100 mg PO BEDTIME 01/12/21 [History] Umeclidinium Brm/Vilanterol Tr [Anoro Ellipta 62.5-25 MCG] 1 inh IH DAILY 01/12/21 [History] Albuterol/Ipratropium [DuoNeb 3.0-0.5 MG/3 ML] 3 ml NEB Q4HRRT PRN #1 box 01/19/21 [Rx] Budesonide/Formoterol [Symbicort 160-4.5 MCG] 1 gm INH BID inhaler 01/19/21 [Rx] Docusate Sodium [Colace] 100 mg PO BID PRN #15 cap 01/19/21 [Rx] Sulfamethoxazole/Trimethoprim [Bactrim 400-80 MG] 0.5 each PO MOWEFR@0900 #0 01/19/21 [Rx] bisacodyL [Dulcolax] 10 mg PO DAILY PRN tablet 01/19/21 [Rx] clonazePAM [Clonazepam] 1 mg PO BID PRN #14 01/19/21 [Rx] fentaNYL [Fentanyl] 25 mcg TD Q72H #3 patch 01/19/21 [Rx] oxyCODONE 5 mg PO TID PRN #15 tab 01/19/21 [Rx] polyethylene glycoL 3350 [MiraLAX] 17 gm PO Q12H packet 01/19/21 [Rx] predniSONE [Prednisone] 40 mg PO DAILY #30 tablet 01/19/21 [Rx] Past Medical History HEENT History: Reports: Impaired Vision Other HEENT History: asthma Cardiovascular History: Reports: Heart Failure, High Cholesterol, Hypertension Respiratory History: Reports: Asthma, COPD, SOB Other Respiratory History: 40 Plus years use of tobacco products, QUIT 02/14/2015 Gastrointestinal History: Reports: GERD, PUD Other Gastrointestinal History: Heartburn/GERD Other Genitourinary History: Frequent Urination 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 Guerrier Psychiatric History: Reports: Anxiety, Depression Other Psychiatric History: Real Anxious before surgery "LIKE COCKTAIL before I Leave the Room" Endocrine/Metabolic History: Reports: Obesity/BMI 30+ Hematologic History: Reports: None Immunologic History: Reports: None Oncologic (Cancer) History: Reports: Breast, Other (See Below) Other Oncologic History: throat Dermatologic History: Reports: None - Infectious Disease History Infectious Disease History: Reports: Chicken Pox, Measles, Mumps Other Infectious Disease History: Pt states she does not remember - Past Surgical History Other HEENT Surgeries/Procedures: UPPER 2 Front teeth Implants Cardiovascular Surgical History: Reports: None Respiratory Surgical History: Reports: None GI Surgical History: Reports: Other (See Below) Other GI Surgeries/Procedures: Lap Coco Female Surgical History: Reports: Tubal Ligation Neurological Surgical History: Reports: None Musculoskeletal Surgical History: Reports: Knee Replacement Other Musculoskeletal Surgeries/Procedures:: Bilateral Total KNees Oncologic Surgical History: Reports: Lumpectomy Social & Family History - Family History Family Medical History: No Pertinent Family History Psychiatric: Reports: Depression Hematologic: Reports: SLE Immunologic: Reports: SLE - Caffeine Use Caffeine Use: Reports: None - Living Situation & Occupation Living situation: Reports: with Family Occupation: Retired ED ROS GENERAL - Review of Systems Review Of Systems: Comprehensive ROS is negative, except as noted in HPI. ED EXAM, GENERAL - Physical Exam Exam: See Below (See dictation) Course - Vital Signs Last Recorded V/S: Last Vital Signs Temp 98 F 05/13/21 13:07 Pulse 75 05/13/21 13:07 Resp BP 131/71 05/13/21 13:07 Pulse Ox 98 05/13/21 13:07 - Orders/Labs/Meds Orders: Active Orders 24 hr Category Date Time Status Admission Status [Patient Status] [ADT] Stat ADT 05/13/21 15:14 Active EKG Documentation Completion [RC] STAT Care 05/13/21 12:56 Active CULTURE URINE [MREF] Stat Lab 05/13/21 13:46 Received Sodium Chloride 0.9% [Normal Saline] 1,000 ml Med 05/13/21 14:59 Active IV STAT Sodium Chloride 0.9% [Saline Flush] Med 05/13/21 12:56 Active 10 ml FLUSH ASDIRECTED PRN Sodium Chloride 0.9% [Saline Flush] Med 05/13/21 12:56 Active 2.5 ml FLUSH ASDIRECTED PRN Saline Lock Insert [OM.PC] Stat Oth 05/13/21 12:56 Ordered Medication Orders Sodium Chloride (Normal Saline) 1,000 mls @ 125 mls/hr IV STAT ONE Stop: 05/13/21 22:58 Sodium Chloride (Sodium Chloride 0.9% 10 Ml Syringe) 10 ml FLUSH ASDIRECTED PRN PRN Reason: Keep Vein Open Sodium Chloride (Sodium Chloride 0.9% 2.5 Ml Syringe) 2.5 ml FLUSH ASDIRECTED PRN PRN Reason: Keep Vein Open Labs: Laboratory Tests 05/13/21 05/13/21 05/13/21 Range/Units 13:46 13:46 13:56 WBC 5.01 (4.0-11.0) K/uL RBC 4.40 (4.30-5.90) M/uL Hgb 13.4 (12.0-16.0) g/dL Hct 39.3 (36.0-46.0) % MCV 89.3 (80.0-98.0) fL MCH 30.5 (27.0-32.0) pg MCHC 34.1 (31.0-37.0) g/dL RDW Std Deviation 44.6 (28.0-62.0) fl RDW Coeff of Antonieta 14 (11.0-15.0) % Plt Count 146 L (150-400) K/uL MPV 9.70 (7.40-12.00) fL Neut % (Auto) 70.0 (48.0-80.0) % Lymph % (Auto) 19.6 (16.0-40.0) % [place] % (Auto) 6.0 (0.0-15.0) % Eos % (Auto) 3.8 (0.0-7.0) % Baso % (Auto) 0.6 (0.0-1.5) % Neut # (Auto) 3.5 (1.4-5.7) K/uL Lymph # (Auto) 1.0 (0.6-2.4) K/uL [place] # (Auto) 0.3 (0.0-0.8) K/uL Eos # (Auto) 0.2 (0.0-0.7) K/uL Baso # (Auto) 0.0 (0.0-0.1) K/uL Nucleated RBC % 0.0 /100WBC Nucleated RBCs # 0 K/uL Sodium (136-145) mmol/L Potassium (3.5-5.1) mmol/L Chloride (98-107) mmol/L Carbon Dioxide (21.0-32.0) mmol/L BUN (7.0-18.0) mg/dL Creatinine (0.6-1.0) mg/dL Est Cr Clr Drug Dosing Estimated GFR (MDRD) ml/min Glucose (74-106) mg/dL Calcium (8.5-10.1) mg/dL Total Bilirubin (0.2-1.0) mg/dL AST (15-37) IU/L ALT (14-63) IU/L Alkaline Phosphatase (46-116) U/L Troponin I (0.000-0.056) ng/mL Total Protein (6.4-8.2) g/dL Albumin (3.4-5.0) g/dL Globulin (2.6-4.0) g/dL Albumin/Globulin Ratio (0.9-1.6) TSH, Ultra Sensitive (0.36-3.74) uIU/mL Urine Color YELLOW Urine Appearance SLT CLOUDY Urine pH 5.5 (5.0-8.0) Ur Specific Minto >= 1.030 (1.001-1.035) Urine Protein NEGATIVE (NEGATIVE) mg/dL Urine Glucose (UA) NEGATIVE (NEGATIVE) mg/dL Urine Ketones TRACE H (NEGATIVE) mg/dL Urine Occult Blood NEGATIVE (NEGATIVE) Urine Nitrite NEGATIVE (NEGATIVE) Urine Bilirubin NEGATIVE (NEGATIVE) Urine Urobilinogen 0.2 (<2.0) EU/dL Ur Leukocyte Esterase TRACE H (NEGATIVE) Urine RBC NONE SEEN (0-2/HPF) Urine WBC 0-2 (0-5/HPF) Ur Epithelial Cells RARE (NONE-FEW) Urine Bacteria 3+ H (NEGATIVE) Urine Mucus LIGHT (NONE-MOD) SARS-CoV-2 RNA (LEE) NEGATIVE (NEGATIVE) 05/13/21 05/13/21 Range/Units 13:56 13:56 WBC (4.0-11.0) K/uL RBC (4.30-5.90) M/uL Hgb (12.0-16.0) g/dL Hct (36.0-46.0) % MCV (80.0-98.0) fL MCH (27.0-32.0) pg MCHC (31.0-37.0) g/dL RDW Std Deviation (28.0-62.0) fl RDW Coeff of Antonieta (11.0-15.0) % Plt Count (150-400) K/uL MPV (7.40-12.00) fL Neut % (Auto) (48.0-80.0) % Lymph % (Auto) (16.0-40.0) % [place] % (Auto) (0.0-15.0) % Eos % (Auto) (0.0-7.0) % Baso % (Auto) (0.0-1.5) % Neut # (Auto) (1.4-5.7) K/uL Lymph # (Auto) (0.6-2.4) K/uL [place] # (Auto) (0.0-0.8) K/uL Eos # (Auto) (0.0-0.7) K/uL Baso # (Auto) (0.0-0.1) K/uL Nucleated RBC % /100WBC Nucleated RBCs # K/uL Sodium 143 (136-145) mmol/L Potassium 4.2 (3.5-5.1) mmol/L Chloride 106 (98-107) mmol/L Carbon Dioxide 32.1 H (21.0-32.0) mmol/L BUN 21 H (7.0-18.0) mg/dL Creatinine 1.0 (0.6-1.0) mg/dL Est Cr Clr Drug Dosing TNP Estimated GFR (MDRD) 54.7 ml/min Glucose 92 (74-106) mg/dL Calcium 8.2 L (8.5-10.1) mg/dL Total Bilirubin 0.2 (0.2-1.0) mg/dL AST 10 L (15-37) IU/L ALT 13 L (14-63) IU/L Alkaline Phosphatase 102 (46-116) U/L Troponin I < 0.050 (0.000-0.056) ng/mL Total Protein 6.1 L (6.4-8.2) g/dL Albumin 3.3 L (3.4-5.0) g/dL Globulin 2.8 (2.6-4.0) g/dL Albumin/Globulin Ratio 1.2 (0.9-1.6) TSH, Ultra Sensitive 3.11 (0.36-3.74) uIU/mL Urine Color Urine Appearance Urine pH (5.0-8.0) Ur Specific Minto (1.001-1.035) Urine Protein (NEGATIVE) mg/dL Urine Glucose (UA) (NEGATIVE) mg/dL Urine Ketones (NEGATIVE) mg/dL Urine Occult Blood (NEGATIVE) Urine Nitrite (NEGATIVE) Urine Bilirubin (NEGATIVE) Urine Urobilinogen (<2.0) EU/dL Ur Leukocyte Esterase (NEGATIVE) Urine RBC (0-2/HPF) Urine WBC (0-5/HPF) Ur Epithelial Cells (NONE-FEW) Urine Bacteria (NEGATIVE) Urine Mucus (NONE-MOD) SARS-CoV-2 RNA (LEE) (NEGATIVE) Meds: Medications Generic Name Dose Route Start Last Admin Trade Name Freq PRN Reason Stop Dose Admin Sodium Chloride 1,000 mls @ 125 mls/hr 05/13/21 14:59 Normal Saline IV 05/13/21 22:58 STAT ONE Sodium Chloride 10 ml 05/13/21 12:56 Sodium Chloride 0.9% 10 Ml Syringe FLUSH ASDIRECTED PRN Keep Vein Open Sodium Chloride 2.5 ml 05/13/21 12:56 Sodium Chloride 0.9% 2.5 Ml Syringe FLUSH ASDIRECTED PRN Keep Vein Open Discontinued Medications Generic Name Dose Route Start Last Admin Trade Name Freq PRN Reason Stop Dose Admin Ceftriaxone Sodium/Dextrose 1 50 mls @ 100 mls/hr 05/13/21 14:07 gm/ Premix IV 05/13/21 14:36 ONETIME ONE Morphine Sulfate 2 mg 05/13/21 13:10 05/13/21 13:28 Morphine 2 Mg/Ml Syringe IVPUSH 05/13/21 13:11 2 mg ONETIME ONE Administration Ondansetron HCl 4 mg 05/13/21 13:10 05/13/21 13:28 Ondansetron 4 Mg/2 Ml Sdv IVPUSH 05/13/21 13:11 4 mg ONETIME ONE Administration Departure - Departure Time of Disposition: 15:37 Disposition: Refer to Observation Clinical Impression: Chest pain, rule out acute myocardial infarction, UTI, Urinary tract infectious disease - Discharge Information Forms: ED Department Discharge Sepsis Event Note (ED) - Evaluation Sepsis Screening Result: No Definite Risk - Focused Exam Vital Signs: Vital Signs Temp Pulse BP Pulse Ox 05/13/21 13:07 98 F 75 131/71 98 - My Orders Last 24 Hours: My Active Orders 05/13/21 12:56 EKG Documentation Completion [RC] STAT Sodium Chloride 0.9% [Saline Flush] 10 ml FLUSH ASDIRECTED PRN Sodium Chloride 0.9% [Saline Flush] 2.5 ml FLUSH ASDIRECTED PRN Saline Lock Insert [OM.PC] Stat 05/13/21 13:46 CULTURE URINE [MREF] Stat 05/13/21 14:59 Sodium Chloride 0.9% [Normal Saline] 1,000 ml IV STAT 05/13/21 15:14 Admission Status [Patient Status] [ADT] Stat - Assessment/Plan Last 24 Hours: My Active Orders 05/13/21 12:56 EKG Documentation Completion [RC] STAT Sodium Chloride 0.9% [Saline Flush] 10 ml FLUSH ASDIRECTED PRN Sodium Chloride 0.9% [Saline Flush] 2.5 ml FLUSH ASDIRECTED PRN Saline Lock Insert [OM.PC] Stat 05/13/21 13:46 CULTURE URINE [MREF] Stat 05/13/21 14:59 Sodium Chloride 0.9% [Normal Saline] 1,000 ml IV STAT 05/13/21 15:14 Admission Status [Patient Status] [ADT] Stat
--- NOTE | 2021-05-13 13:58 | CR ---
Indication: Chest pain Technique: Chest 1 view Comparison: January 13, 2021 Findings/Impression: Stable cardiomediastinal silhouette. Left-sided Port-A-Cath tip terminates at the level of the cavoatrial junction. There surgical clips in the left axilla. Normal pulmonary vasculature. No new focal infiltrate, effusion, or pneumothorax. Dictated by Gilma Penn MD @ 05/13/2021 1:55:[address] Gilma Penn @ May 13 2021 1:55PM
[2021-05-13] MEDS ORDERED: cefTRIAXone 1 GM in Premix Bag 1 BAG IV ONE (14:07)
[2021-05-13 14:32] LABS: BLOOD UREA NITROGEN,BUN 21 mg/dL (7.0-18.0); CARBON DIOXIDE,CO2 32.1 mmol/L (21.0-32.0); CHLORIDE,CL 106 mmol/L (98-107); GLUCOSE RANDOM 92 mg/dL (74-106); POTASSIUM,K 4.2 mmol/L (3.5-5.1); SODIUM,NA 143 mmol/L (136-145)
[2021-05-13] MEDS ORDERED: Sodium Chloride 0.9% 1,000 ML IV ONE (14:59)
--- NOTE | 2021-05-13 16:07 | PCM.HP.2 ---
H&P History of Present Illness - General Date of Service: 05/13/21 Admit Problem/Dx: Admission Diagnosis/Problem Admission Diagnosis/Problem Chest pain, rule out acute myocardial infarction - History of Present Illness Initial Comments - Free Text/Narative: 70-year-old female presents to the ED complains of chest pain radiating to the right shoulder, abdominal pain, headache, nausea for the past 3 days. Patient admitted for observation due to chest pain and ACS rule out. patient currently resides at [facility]. Per documentation it was noted that patient became upset after a request for her "vacation day" was denied. Upon questioning patient states that chest pain might be due to anxiety, and or history of GERD. Past medical history to include heart failure, hypertension, COPD, GERD, TIA, breast cancer, left tonsillar squamous cell carcinoma, anxiety. Upon admission patient fever, chills, dizziness, shortness of breath, cough, lightheadedness, no history of syncope or falls, dysuria, hematuria, suprapubic pain, diarrhea. Patient states normal appetite, normal fluid intake. In the ED patient received 1 L normal saline, morphine, Zofran, 1 g Rocephin. Urinalysis positive for 3+ bacteria. Troponin negative x1, EKG impression normal sinus rhythm with nonspecific ST/T changes. Chest x-ray impression includes stable cardiomediastinal silhouette, normal pulmonary vasculature, no infiltrate effusion or pneumothorax. Patient has left-sided chest Port-A-Cath. Patient to be admitted for observation, continue Rocephin, cardiac telemetry, repeat troponin, resume home meds for GERD, Anxiety, HTN. general Pain Score (Numeric/FACES): 8 - Related Data Allergies/Adverse Reactions: Allergies Allergy/AdvReac Type Severity Reaction Status Date / Time aspirin Allergy Hives Verified 05/13/21 18:03 bee pollen Allergy unknown Verified 05/13/21 18:03 codeine Allergy Other Verified 05/13/21 18:03 eszopiclone [From Lunesta] Allergy Hypertensio Verified 05/13/21 18:03 n Iodinated Contrast Media Allergy Anaphylactic Verified 05/13/21 18:03 [Iodinated Contrast Media - Shock IV Dye] lorazepam Allergy Facial Verified 05/13/21 18:03 Swelling pregabalin [From Lyrica] Allergy Facial Verified 05/13/21 18:03 Swelling Cloth tape Allergy Blisters Uncoded 05/13/21 18:03 flu vaccination Allergy Anaphylactic Uncoded 05/13/21 18:03 Shock Paper Tape Allergy Blisters Uncoded 05/13/21 18:03 Home Medications: Home Meds Losartan Potassium [Cozaar] 50 mg PO DAILY 12/15/19 [History] Omeprazole 40 mg PO DAILY 12/15/19 [History] Ondansetron [Zofran ODT] 4 mg PO Q6H PRN 12/15/19 [History] Desvenlafaxine [Desvenlafaxine ER] 100 mg PO BEDTIME 01/12/21 [History] Umeclidinium Brm/Vilanterol Tr [Anoro Ellipta 62.5-25 MCG] 1 inh IH DAILY 01/12/21 [History] Budesonide/Formoterol [Symbicort 160-4.5 MCG] 1 gm INH BID inhaler 01/19/21 [Rx] clonazePAM [Clonazepam] 1 mg PO BID PRN #14 01/19/21 [Rx] fentaNYL [Fentanyl] 25 mcg TD Q72H #3 patch 01/19/21 [Rx] polyethylene glycoL 3350 [MiraLAX] 17 gm PO Q12H packet 01/19/21 [Rx] buPROPion HCL [Wellbutrin Xl] 150 mg PO DAILY 05/13/21 [History] Past Medical History HEENT History: Reports: Impaired Vision Other HEENT History: asthma Cardiovascular History: Reports: Heart Failure, High Cholesterol, Hypertension Respiratory History: Reports: Asthma, COPD, SOB Other Respiratory History: 40 Plus years use of tobacco products, QUIT 02/14/2015 Gastrointestinal History: Reports: GERD, PUD Other Gastrointestinal History: Heartburn/GERD Other Genitourinary History: Frequent Urination 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 Guerrier Psychiatric History: Reports: Anxiety, Depression Other Psychiatric History: Real Anxious before surgery "LIKE COCKTAIL before I Leave the Room" Endocrine/Metabolic History: Reports: Obesity/BMI 30+ Hematologic History: Reports: None Immunologic History: Reports: None Oncologic (Cancer) History: Reports: Breast, Other (See Below) Other Oncologic History: throat Dermatologic History: Reports: None - Infectious Disease History Infectious Disease History: Reports: Chicken Pox, Measles, Mumps Other Infectious Disease History: Pt states she does not remember - Past Surgical History Other HEENT Surgeries/Procedures: UPPER 2 Front teeth Implants Cardiovascular Surgical History: Reports: None Respiratory Surgical History: Reports: None GI Surgical History: Reports: Other (See Below) Other GI Surgeries/Procedures: Lap Coco Female Surgical History: Reports: Tubal Ligation Neurological Surgical History: Reports: None Musculoskeletal Surgical History: Reports: Knee Replacement Other Musculoskeletal Surgeries/Procedures:: Bilateral Total KNees Oncologic Surgical History: Reports: Lumpectomy Social & Family History - Family History Family Medical History: No Pertinent Family History Psychiatric: Reports: Depression Hematologic: Reports: SLE Immunologic: Reports: SLE - Tobacco Use Tobacco Use Status *Q: Never Tobacco User - Caffeine Use Caffeine Use: Reports: None - Living Situation & Occupation Living situation: Reports: with Family Occupation: Retired H&P Review of Systems - Review of Systems: Review Of Systems: See Below General: Reports: Weakness. Denies: Fever, Chills Pulmonary: Denies: Shortness of Breath, Wheezing, Pleuritic Chest Pain, Cough Cardiovascular: Reports: Chest Pain. Denies: Palpitations, Edema Gastrointestinal: Reports: Abdominal Pain, Nausea, Vomiting. Denies: Constipation, Diarrhea Neurological: Reports: Trouble Speaking. Denies: Dizziness, Headache Exam - Exam Exam: See Below - Vital Signs Vital Signs: Last Vital Signs Temp 98 F 05/13/21 13:07 Pulse 75 05/13/21 13:07 Resp BP 131/71 05/13/21 13:07 Pulse Ox 98 05/13/21 13:07 Weight: 190 lb - Exam General: Alert, Oriented HEENT: Hearing Intact, Mucosa Moist & No Name Lungs: Clear to Auscultation, Normal Respiratory Effort Cardiovascular: Regular Rate, Regular Rhythm GI/Abdominal Exam: Soft, Non-Tender Extremities: Normal Inspection, No Pedal Edema Neuro Extensive - Mental Status: Alert, Oriented x3 - Patient Data Lab Results Last 24 hrs: Laboratory Results - last 24 hr 05/13/21 05/13/21 05/13/21 Range/Units 13:46 13:46 13:56 WBC 5.01 (4.0-11.0) K/uL RBC 4.40 (4.30-5.90) M/uL Hgb 13.4 (12.0-16.0) g/dL Hct 39.3 (36.0-46.0) % MCV 89.3 (80.0-98.0) fL MCH 30.5 (27.0-32.0) pg MCHC 34.1 (31.0-37.0) g/dL RDW Std Deviation 44.6 (28.0-62.0) fl RDW Coeff of [place] 14 (11.0-15.0) % Plt Count 146 L (150-400) K/uL MPV 9.70 (7.40-12.00) fL Neut % (Auto) 70.0 (48.0-80.0) % Lymph % (Auto) 19.6 (16.0-40.0) % [place] % (Auto) 6.0 (0.0-15.0) % Eos % (Auto) 3.8 (0.0-7.0) % Baso % (Auto) 0.6 (0.0-1.5) % Neut # (Auto) 3.5 (1.4-5.7) K/uL Lymph # (Auto) 1.0 (0.6-2.4) K/uL [place] # (Auto) 0.3 (0.0-0.8) K/uL Eos # (Auto) 0.2 (0.0-0.7) K/uL Baso # (Auto) 0.0 (0.0-0.1) K/uL Nucleated RBC % 0.0 /100WBC Nucleated RBCs # 0 K/uL Sodium (136-145) mmol/L Potassium (3.5-5.1) mmol/L Chloride (98-107) mmol/L Carbon Dioxide (21.0-32.0) mmol/L BUN (7.0-18.0) mg/dL Creatinine (0.6-1.0) mg/dL Est Cr Clr Drug Dosing Estimated GFR (MDRD) ml/min Glucose (74-106) mg/dL Calcium (8.5-10.1) mg/dL Total Bilirubin (0.2-1.0) mg/dL AST (15-37) IU/L ALT (14-63) IU/L Alkaline Phosphatase (46-116) U/L Troponin I (0.000-0.056) ng/mL Total Protein (6.4-8.2) g/dL Albumin (3.4-5.0) g/dL Globulin (2.6-4.0) g/dL Albumin/Globulin Ratio (0.9-1.6) TSH, Ultra Sensitive (0.36-3.74) uIU/mL Urine Color YELLOW Urine Appearance SLT CLOUDY Urine pH 5.5 (5.0-8.0) Ur Specific [place] >= 1.030 (1.001-1.035) Urine Protein NEGATIVE (NEGATIVE) mg/dL Urine Glucose (UA) NEGATIVE (NEGATIVE) mg/dL Urine Ketones TRACE H (NEGATIVE) mg/dL Urine Occult Blood NEGATIVE (NEGATIVE) Urine Nitrite NEGATIVE (NEGATIVE) Urine Bilirubin NEGATIVE (NEGATIVE) Urine Urobilinogen 0.2 (<2.0) EU/dL Ur Leukocyte Esterase TRACE H (NEGATIVE) Urine RBC NONE SEEN (0-2/HPF) Urine WBC 0-2 (0-5/HPF) Ur Epithelial Cells RARE (NONE-FEW) Urine Bacteria 3+ H (NEGATIVE) Urine Mucus LIGHT (NONE-MOD) SARS-CoV-2 RNA (LEE) NEGATIVE (NEGATIVE) 05/13/21 05/13/21 Range/Units 13:56 13:56 WBC (4.0-11.0) K/uL RBC (4.30-5.90) M/uL Hgb (12.0-16.0) g/dL Hct (36.0-46.0) % MCV (80.0-98.0) fL MCH (27.0-32.0) pg MCHC (31.0-37.0) g/dL RDW Std Deviation (28.0-62.0) fl RDW Coeff of [place] (11.0-15.0) % Plt Count (150-400) K/uL MPV (7.40-12.00) fL Neut % (Auto) (48.0-80.0) % Lymph % (Auto) (16.0-40.0) % [place] % (Auto) (0.0-15.0) % Eos % (Auto) (0.0-7.0) % Baso % (Auto) (0.0-1.5) % Neut # (Auto) (1.4-5.7) K/uL Lymph # (Auto) (0.6-2.4) K/uL [place] # (Auto) (0.0-0.8) K/uL Eos # (Auto) (0.0-0.7) K/uL Baso # (Auto) (0.0-0.1) K/uL Nucleated RBC % /100WBC Nucleated RBCs # K/uL Sodium 143 (136-145) mmol/L Potassium 4.2 (3.5-5.1) mmol/L Chloride 106 (98-107) mmol/L Carbon Dioxide 32.1 H (21.0-32.0) mmol/L BUN 21 H (7.0-18.0) mg/dL Creatinine 1.0 (0.6-1.0) mg/dL Est Cr Clr Drug Dosing TNP Estimated GFR (MDRD) 54.7 ml/min Glucose 92 (74-106) mg/dL Calcium 8.2 L (8.5-10.1) mg/dL Total Bilirubin 0.2 (0.2-1.0) mg/dL AST 10 L (15-37) IU/L ALT 13 L (14-63) IU/L Alkaline Phosphatase 102 (46-116) U/L Troponin I < 0.050 (0.000-0.056) ng/mL Total Protein 6.1 L (6.4-8.2) g/dL Albumin 3.3 L (3.4-5.0) g/dL Globulin 2.8 (2.6-4.0) g/dL Albumin/Globulin Ratio 1.2 (0.9-1.6) TSH, Ultra Sensitive 3.11 (0.36-3.74) uIU/mL Urine Color Urine Appearance Urine pH (5.0-8.0) Ur Specific [place] (1.001-1.035) Urine Protein (NEGATIVE) mg/dL Urine Glucose (UA) (NEGATIVE) mg/dL Urine Ketones (NEGATIVE) mg/dL Urine Occult Blood (NEGATIVE) Urine Nitrite (NEGATIVE) Urine Bilirubin (NEGATIVE) Urine Urobilinogen (<2.0) EU/dL Ur Leukocyte Esterase (NEGATIVE) Urine RBC (0-2/HPF) Urine WBC (0-5/HPF) Ur Epithelial Cells (NONE-FEW) Urine Bacteria (NEGATIVE) Urine Mucus (NONE-MOD) SARS-CoV-2 RNA (LEE) (NEGATIVE) Result Diagrams: 05/13/21 13:56 05/13/21 13:56 Sepsis Event Note - Evaluation Sepsis Screening Result: No Definite Risk - Focused Exam Vital Signs: Vital Signs Temp Pulse BP Pulse Ox 05/13/21 13:07 98 F 75 131/71 98 - Problem List (1) Acute bronchitis SNOMED Code(s): 30024836 ICD Code: J20.9 - ACUTE BRONCHITIS, UNSPECIFIED Status: Acute Current Visit: No (2) Palpitations SNOMED Code(s): 10353498 ICD Code: R00.2 - PALPITATIONS Status: Acute Current Visit: No (3) Abdominal pain SNOMED Code(s): 62351125 ICD Code: R10.9 - UNSPECIFIED ABDOMINAL PAIN Status: Acute Current Visit: Yes (4) COPD (chronic obstructive pulmonary disease) SNOMED Code(s): 05133487 ICD Code: J44.9 - CHRONIC OBSTRUCTIVE PULMONARY DISEASE, UNSPECIFIED Status: Chronic Current Visit: Yes Qualifiers: COPD type: chronic bronchitis Chronic bronchitis type: unspecified Qualified Code(s): J42 - Unspecified chronic bronchitis (5) CHF (congestive heart failure) SNOMED Code(s): 88543098 ICD Code: I50.9 - HEART FAILURE, UNSPECIFIED Status: Chronic Current Visit: No (6) Anxiety and depression SNOMED Code(s): 947412202 ICD Code: F41.9 - ANXIETY DISORDER, UNSPECIFIED; F32.9 - MAJOR DEPRESSIVE DISORDER, SINGLE EPISODE, UNSPECIFIED Status: Chronic Current Visit: Yes (7) Tonsillar cancer Status: Acute Current Visit: No (8) Urinary tract infection SNOMED Code(s): 04685695 ICD Code: N39.0 - URINARY TRACT INFECTION, SITE NOT SPECIFIED Status: Acute Current Visit: Yes Qualifiers: Urinary tract infection type: acute cystitis Hematuria presence: without hematuria Qualified Code(s): N30.00 - Acute cystitis without hematuria (9) Chest pain SNOMED Code(s): 83865019 ICD Code: R07.9 - CHEST PAIN, UNSPECIFIED Status: Acute Current Visit: Yes (10) Squamous cell carcinoma of tonsil SNOMED Code(s): 100057432, 888325816 ICD Code: C09.9 - MALIGNANT NEOPLASM OF TONSIL, UNSPECIFIED Status: Acute Current Visit: No (11) Chest pain, rule out acute myocardial infarction SNOMED Code(s): 87172954 ICD Code: R07.9 - CHEST PAIN, UNSPECIFIED Status: Acute Current Visit: Y es Problem List Initiated/Reviewed/Updated: Yes Orders Last 24hrs: Active Orders 24 hr Category Date Time Status Admission Status [Patient Status] [ADT] Stat ADT 05/13/21 15:14 Active EKG Documentation Completion [RC] STAT Care 05/13/21 12:56 Active CULTURE URINE [MREF] Stat Lab 05/13/21 13:46 Received Sodium Chloride 0.9% [Normal Saline] 1,000 ml Med 05/13/21 14:59 Active IV STAT Sodium Chloride 0.9% [Saline Flush] Med 05/13/21 12:56 Active 10 ml FLUSH ASDIRECTED PRN Sodium Chloride 0.9% [Saline Flush] Med 05/13/21 12:56 Active 2.5 ml FLUSH ASDIRECTED PRN Saline Lock Insert [OM.PC] Stat Oth 05/13/21 12:56 Ordered Medication Orders Sodium Chloride (Normal Saline) 1,000 mls @ 125 mls/hr IV STAT ONE Stop: 05/13/21 22:58 Last Admin: 05/13/21 15:46 Dose: 125 mls/hr Documented by: CARERIC Sodium Chloride (Sodium Chloride 0.9% 10 Ml Syringe) 10 ml FLUSH ASDIRECTED PRN PRN Reason: Keep Vein Open Sodium Chloride (Sodium Chloride 0.9% 2.5 Ml Syringe) 2.5 ml FLUSH ASDIRECTED PRN PRN Reason: Keep Vein Open Assessment/Plan Comment:: ACS rule out Troponin x1 negative, trend 2 more troponin. EKG shows normal sinus rhythm, nonspecific ST/T findings. Monitor on Cardiac telemetry. UTI Rocephin 1g Q24hr GERD- 40mg Omeprazole Anxiety- Clonazepam 1mg BID PRN Lovenox for DVT prophylaxis, mechanical soft diet due to history of oral cancer and missing teeth
[2021-05-13] MEDS ORDERED: Magnesium Sulfate/Water 2 GM in Premix Bag 1 BAG IV ONE ×2 (17:27→20:00)
[2021-05-13] MEDS ORDERED: Enoxaparin 40 MG/0.4 ML Syringe SUBCUT SCH (17:30)
[2021-05-13] MEDS ORDERED: ClonazePAM 1 MG Tab PO PRN (18:17)
[2021-05-13] MEDS: Enoxaparin 40 MG/0.4 ML Syringe SUBCUT SCH (20:24)
[2021-05-13] MEDS: Budesonide/Formoterol 160-4.5 MCG/Puff 6 GM Inhaler INH SCH (22:58)
[2021-05-14] MEDS: Budesonide/Formoterol 160-4.5 MCG/Puff 6 GM Inhaler INH SCH ×3 (06:05→22:43)
[2021-05-14 07:21] LABS: CARBON DIOXIDE,CO2 29.8 mmol/L (21.0-32.0); POTASSIUM,K 4.1 mmol/L (3.5-5.1)
[2021-05-14] MEDS ORDERED: Budesonide/Formoterol 160-4.5 MCG/Puff 6 GM Inhaler INH SCH (07:54)
[2021-05-14] MEDS: buPROPion 150 MG Tab.ER PO SCH ×2 (08:57→09:04)
[2021-05-14] MEDS: Losartan 50 MG Tab PO SCH (08:59)
[2021-05-14] MEDS ORDERED: Omeprazole 20 MG Cap.CR PO SCH (09:00)
[2021-05-14] MEDS ORDERED: buPROPion 100 MG Tab PO SCH (13:00)
[2021-05-14] MEDS ORDERED: Cephalexin 500 MG Cap PO SCH (13:00)
[2021-05-14] MEDS ORDERED: cefTRIAXone 1 GM in Premix Bag 1 BAG IV SCH (13:00)
[2021-05-14] MEDS ORDERED: DESVENLAFAXINE 100 MG PO SCH (21:00)
[2021-05-14] MEDS ORDERED: ClonazePAM 1 MG Tab PO SCH (21:00)
[2021-05-14] MEDS: Cephalexin 500 MG Cap PO SCH (21:09)
[2021-05-14] MEDS: Enoxaparin 40 MG/0.4 ML Syringe SUBCUT SCH (21:11)
[2021-05-15] MEDS ORDERED: Omeprazole 20 MG Cap.CR PO SCH (07:30)
[2021-05-15] MEDS: Cephalexin 500 MG Cap PO SCH (08:14)
[2021-05-15] MEDS: buPROPion 150 MG Tab.ER PO SCH (08:14)
[2021-05-15] MEDS: Losartan 50 MG Tab PO SCH (08:14)
[2021-05-15] MEDS: Budesonide/Formoterol 160-4.5 MCG/Puff 6 GM Inhaler INH SCH (08:17)
--- NOTE | 2021-05-15 11:01 | PCM.PN ---
- General Info Date of Service: 05/14/21 Subjective Update: Patient states continued chest pain, cough, shortness of breath. Denies fever states chills intermittently. States that she would like to stay for another day as she does not "feel well". - Review of Systems General: Reports: Chills. Denies: Fever Pulmonary: Reports: Cough. Denies: Shortness of Breath Cardiovascular: Denies: Chest Pain, Palpitations Gastrointestinal: Denies: Abdominal Pain, Nausea, Vomiting Neurological: Denies: Dizziness, Headache Psychiatric: Denies: Confusion - Patient Data Vitals - Most Recent: Last Vital Signs Temp 97.2 F 05/15/21 08:00 Pulse 57 L 05/15/21 08:00 Resp 18 05/15/21 08:00 BP 162/64 H 05/15/21 08:14 Pulse Ox 95 05/15/21 08:00 Weight - Most Recent: 190 lb I&O - Last 24 Hours: Intake & Output 05/14/21 05/15/21 05/15/21 22:59 06:59 14:59 Intake Total 600 540 Output Total 382 827 Balance 218 -287 Med Orders - Current: Current Medications Bupropion HCl (Bupropion 150 Mg Tab.Er) 150 mg PO DAILY [facility] Last Admin: 05/15/21 08:14 Dose: 150 mg Documented by: Cephalexin (Cephalexin 500 Mg Cap) 500 mg PO BID [facility] Last Admin: 05/15/21 08:14 Dose: 500 mg Documented by: Clonazepam (Clonazepam 1 Mg Tab) 1 mg PO BEDTIME [facility] Last Admin: 05/14/21 21:10 Dose: 1 mg Documented by: Enoxaparin Sodium (Enoxaparin 40 Mg/0.4 Ml Syringe) 40 mg SUBCUT Q24H [facility] Last Admin: 05/14/21 21:11 Dose: 40 mg Documented by: Losartan Potassium (Losartan 50 Mg Tab) 50 mg PO DAILY [facility] Last Admin: 05/15/21 08:14 Dose: 50 mg Documented by: Omeprazole (Omeprazole 20 Mg Cap.Cr) 40 mg PO ACBREAKFAST [facility] Last Admin: 05/15/21 07:08 Dose: 40 mg Documented by: [Desvenlafaxine Er] (100 Mg Tab.Er.24h) 1 each PO BEDTIME [facility] Last Admin: 05/14/21 22:40 Dose: 1 each Documented by: Budesonide/Formoterol 160-4.5 Mcg/Puff 6 Gm Inhaler 1 each INH BID [facility] Last Admin: 05/15/21 08:17 Dose: Not Given Documented by: Umeclidinium Brm/Vilanterol Tr [Anoro Ellipta 62.5-25 Mcg ] 1 each INH DAILY [facility] Last Admin: 05/15/21 08:15 Dose: Not Given Documented by: Sodium Chloride (Sodium Chloride 0.9% 10 Ml Syringe) 10 ml FLUSH ASDIRECTED PRN PRN Reason: Keep Vein Open Sodium Chloride (Sodium Chloride 0.9% 2.5 Ml Syringe) 2.5 ml FLUSH ASDIRECTED PRN PRN Reason: Keep Vein Open Discontinued Medications Budesonide/Formoterol Fumarate (Budesonide/Formoterol 160-4.5 Mcg/Puff 6 Gm Inhaler) 0 gm INH BIDRT [facility] Last Admin: 05/14/21 06:05 Dose: Not Given Documented by: Bupropion HCl (Bupropion 100 Mg Tab) 150 mg PO DAILY [facility] Cephalexin (Cephalexin 500 Mg Cap) 500 mg PO BID [facility] Last Admin: 05/14/21 18:03 Dose: Not Given Documented by: Clonazepam (Clonazepam 1 Mg Tab) 1 mg PO BID PRN PRN Reason: Anxiety Enoxaparin Sodium (Enoxaparin 40 Mg/0.4 Ml Syringe) 40 mg SUBCUT Q24H [facility] Last Admin: 05/13/21 21:39 Dose: Not Given Documented by: Ceftriaxone Sodium/Dextrose 1 (gm/ Premix) 50 mls @ 100 mls/hr IV ONETIME ONE Stop: 05/13/21 14:36 Last Admin: 05/13/21 15:46 Dose: 100 mls/hr Documented by: Sodium Chloride (Normal Saline) 1,000 mls @ 125 mls/hr IV STAT ONE Stop: 05/13/21 22:58 Last Admin: 05/13/21 15:46 Dose: 125 mls/hr Documented by: Ceftriaxone Sodium/Dextrose 1 (gm/ Premix) 50 mls @ 100 mls/hr IV Q24H [facility] Magnesium Sulfate 2 gm/ Premix 50 mls @ 12.5 mls/hr IV ONETIME ONE Stop: 05/13/21 21:26 Last Admin: 05/13/21 21:39 Dose: Not Given Documented by: Magnesium Sulfate 2 gm/ Premix 50 mls @ 12.5 mls/hr IV ONETIME ONE Stop: 05/13/21 23:59 Last Admin: 05/13/21 20:17 Dose: 12.5 mls/hr Documented by: Morphine Sulfate (Morphine 2 Mg/Ml Syringe) 2 mg IVPUSH ONETIME ONE Stop: 05/13/21 13:11 Last Admin: 05/13/21 13:28 Dose: 2 mg Documented by: Omeprazole (Omeprazole 20 Mg Cap.Cr) 40 mg PO DAILY [facility] Last Admin: 05/14/21 08:56 Dose: 40 mg Documented by: Ondansetron HCl (Ondansetron 4 Mg/2 Ml Sdv) 4 mg IVPUSH ONETIME ONE Stop: 05/13/21 13:11 Last Admin: 05/13/21 13:28 Dose: 4 mg Documented by: Budesonide/Formoterol 160-4.5 Mcg/Puff 6 Gm Inhaler 1 each INH BIDRT [facility] - Exam General: Alert, Oriented Lungs: Clear to Auscultation, Normal Respiratory Effort Cardiovascular: Regular Rate, Regular Rhythm GI/Abdominal Exam: Soft, Non-Tender Extremities: No Pedal Edema - Patient Data Result Diagrams: 05/14/21 05:49 05/14/21 05:49 Sepsis Event Note - Evaluation Sepsis Screening Result: No Definite Risk - Focused Exam Vital Signs: Vital Signs Temp Pulse Resp BP BP Pulse Ox 05/15/21 08:14 162/64 H 05/15/21 08:00 97.2 F 57 L 18 162/64 H 95 05/15/21 04:00 96.7 F L 50 L 19 140/60 94 L 05/14/21 23:10 96.6 F L 57 L 20 108/50 L 94 L - Problem List & Annotations (1) Acute bronchitis SNOMED Code(s): 95209393 Code(s): J20.9 - ACUTE BRONCHITIS, UNSPECIFIED Status: Acute (2) Palpitations SNOMED Code(s): 97466331 Code(s): R00.2 - PALPITATIONS Status: Acute (3) Abdominal pain SNOMED Code(s): 74923352 Code(s): R10.9 - UNSPECIFIED ABDOMINAL PAIN Status: Acute (4) COPD (chronic obstructive pulmonary disease) SNOMED Code(s): 37042941 Code(s): J44.9 - CHRONIC OBSTRUCTIVE PULMONARY DISEASE, UNSPECIFIED Status: Chronic Qualifiers: COPD type: chronic bronchitis Chronic bronchitis type: unspecified Qualified Code(s): J42 - Unspecified chronic bronchitis (5) CHF (congestive heart failure) SNOMED Code(s): 29157741 Code(s): I50.9 - HEART FAILURE, UNSPECIFIED Status: Chronic (6) Anxiety and depression SNOMED Code(s): 211544534 Code(s): F41.9 - ANXIETY DISORDER, UNSPECIFIED; F32.9 - MAJOR DEPRESSIVE DISORDER, SINGLE EPISODE, UNSPECIFIED Status: Chronic (7) Tonsillar cancer Status: Acute (8) Urinary tract infection SNOMED Code(s): 09530527 Code(s): N39.0 - URINARY TRACT INFECTION, SITE NOT SPECIFIED Status: Acute Qualifiers: Urinary tract infection type: acute cystitis Hematuria presence: without hematuria Qualified Code(s): N30.00 - Acute cystitis without hematuria (9) Chest pain SNOMED Code(s): 69561411 Code(s): R07.9 - CHEST PAIN, UNSPECIFIED Status: Acute (10) Squamous cell carcinoma of tonsil SNOMED Code(s): 189641952, 966106651 Code(s): C09.9 - MALIGNANT NEOPLASM OF TONSIL, UNSPECIFIED Status: Acute (11) Chest pain, rule out acute myocardial infarction SNOMED Code(s): 15668205 Code(s): R07.9 - CHEST PAIN, UNSPECIFIED Status: Acute - Problem List Review Problem List Initiated/Reviewed/Updated: Yes - My Orders Last 24 Hours: My Active Orders 05/14/21 11:33 RT Post Treatment Assessment [RC] Click to Edit RT Pre-Treatment Assessment [RC] Click to Edit 05/14/21 12:00 Patient's Own Medication [Ptom] 1 each INH BID 05/14/21 13:00 Patient's Own Medication [Ptom] 1 each INH DAILY 05/14/21 21:00 ClonazePAM [KlonoPIN] 1 mg PO BEDTIME Patient's Own Medication [Ptom] 1 each PO BEDTIME cephALEXin [Keflex] 500 mg PO BID 05/15/21 07:30 Omeprazole 40 mg PO ACBREAKFAST 05/15/21 10:58 Ready for Discharge [RC] PER UNIT ROUTINE - Plan Plan:: ACS rule out Troponin x3 negative, NSR on Cardiac telemetry. UTI Rocephin 1g Q24hr, Will switch to Keflex 500mg BID PO GERD- 40mg Omeprazole Anxiety- Clonazepam 1mg BID PRN Lovenox for DVT prophylaxis, mechanical soft diet due to history of oral cancer and missing teeth
--- NOTE | 2021-05-15 11:01 | PCM.DCSUM1 ---
<Sivakumar Huang - Last Filed: 05/15/21 13:30> Discharge Summary - Hospital Course Free Text/Narrative:: 70-year-old female presents to the ED on 05-13-21 with complaints of chest pain radiating to the right shoulder, abdominal pain, headache, nausea for the past 3 days. Patient admitted for observation due to chest pain and ACS rule out. Patient currently resides at [facility]. Per documentation it was noted that patient became upset after a request for her "vacation day" was [facility]. Upon questioning patient states that chest pain might be due to anxiety, and or history of GERD. Past medical history to include heart failure, hypertension, COPD, GERD, TIA, breast cancer, left tonsillar squamous cell carcinoma, anxiety. Upon admission patient fever, chills, dizziness, shortness of breath, cough, lightheadedness, no history of syncope or falls, dysuria, hematuria, suprapubic pain, diarrhea. Patient states normal appetite, normal fluid intake. In the ED patient received 1 L normal saline, morphine, Zofran, 1 g Rocephin. Urinalysis positive for 3+ bacteria. Troponin negative x3, EKG impression normal sinus rhythm with nonspecific ST/T changes. Chest x-ray impression includes stable cardiomediastinal silhouette, normal pulmonary vasculature, no infiltrate effusion or pneumothorax. Patient has left-sided chest Port-A-Cath. Patient was admitted for observation, antibiotic therapy (Rocephin transitioned to Keflek PO), cardiac telemetry, resume home meds for GERD, Anxiety, HTN. Upon discharge patient states that she has decreased chest pain, denies shortness of breath, cough, fever, chills, nausea, vomiting, abdominal pain. Patient to be discharged back to [facility] with 3 days of Keflex 500 mg twice daily - Discharge Data Discharge Date: 05/15/21 Discharge Disposition: DC/Tfer to [facility] 03 Condition: Good - Referral to Home Health Primary Care Physician: PCP None - Discharge Diagnosis/Problem(s) (1) Acute bronchitis SNOMED Code(s): 90401635 ICD Code: J20.9 - ACUTE BRONCHITIS, UNSPECIFIED Status: Acute (2) Palpitations SNOMED Code(s): 44486801 ICD Code: R00.2 - PALPITATIONS Status: Acute (3) Abdominal pain SNOMED Code(s): 97588525 ICD Code: R10.9 - UNSPECIFIED ABDOMINAL PAIN Status: Acute (4) COPD (chronic obstructive pulmonary disease) SNOMED Code(s): 50521448 ICD Code: J44.9 - CHRONIC OBSTRUCTIVE PULMONARY DISEASE, UNSPECIFIED Status: Chronic Qualifiers: COPD type: chronic bronchitis Chronic bronchitis type: unspecified Qualif ied Code(s): J42 - Unspecified chronic bronchitis (5) CHF (congestive heart failure) SNOMED Code(s): 35635462 ICD Code: I50.9 - HEART FAILURE, UNSPECIFIED Status: Chronic (6) Anxiety and depression SNOMED Code(s): 366112862 ICD Code: F41.9 - ANXIETY DISORDER, UNSPECIFIED; F32.9 - MAJOR DEPRESSIVE DISORDER, SINGLE EPISODE, UNSPECIFIED Status: Chronic (7) Tonsillar cancer Status: Acute (8) Urinary tract infection SNOMED Code(s): 84227102 ICD Code: N39.0 - URINARY TRACT INFECTION, SITE NOT SPECIFIED Status: Acute Qualifiers: Urinary tract infection type: acute cystitis Hematuria presence: without hematuria Qualified Code(s): N30.00 - Acute cystitis without hematuria (9) Chest pain SNOMED Code(s): 99720031 ICD Code: R07.9 - CHEST PAIN, UNSPECIFIED Status: Acute (10) Squamous cell carcinoma of tonsil SNOMED Code(s): 295215529, 510641053 ICD Code: C09.9 - MALIGNANT NEOPLASM OF TONSIL, UNSPECIFIED Status: Acute (11) Chest pain, rule out acute myocardial infarction SNOMED Code(s): 91915536 ICD Code: R07.9 - CHEST PAIN, UNSPECIFIED Status: Acute - Patient Instructions Diet: Usual Diet as Tolerated Activity: As Tolerated Notify Provider of: Fever, Nausea and/or Vomiting Other/Special Instructions: Report any chest pain, SOB, abdominal pain, fever, chills, nausea, vomiting to your PCP. - Discharge Plan *PRESCRIPTION DRUG MONITORING PROGRAM REVIEWED*: Not Applicable *COPY OF PRESCRIPTION DRUG MONITORING REPORT IN PATIENT SAGAR: Not Applicable Prescriptions/Med Rec: cephALEXin [Keflex] 500 mg PO BID 3 Days #6 cap Home Medications: Home Meds Losartan Potassium [Cozaar] 50 mg PO DAILY 12/15/19 [History] Omeprazole 40 mg PO ACBREAKFAST 12/15/19 [History] Ondansetron [Zofran ODT] 4 mg PO Q6H PRN 12/15/19 [History] Desvenlafaxine [Desvenlafaxine ER] 100 mg PO BEDTIME 01/12/21 [History] Umeclidinium Brm/Vilanterol Tr [Anoro Ellipta 62.5-25 MCG] 1 inh IH DAILY 01/12/21 [History] fentaNYL [Fentanyl] 25 mcg TD Q72H #3 patch 01/19/21 [Rx] polyethylene glycoL 3350 [MiraLAX] 17 gm PO DAILY 05/13/21 [History] Acetaminophen [Tylenol] 650 mg PO Q4H PRN 05/14/21 [History] Budesonide/Formoterol Fumarate [Symbicort 160-4.5 Mcg Inhaler] 1 puff INH BID 05/14/21 [History] buPROPion [Wellbutrin] 150 mg PO DAILY 05/14/21 [History] clonazePAM [Clonazepam] 1 mg PO BEDTIME 05/14/21 [History] cephALEXin [Keflex] 500 mg PO BID 3 Days #6 cap 05/15/21 [Rx] Patient Handouts: Nonspecific Chest Pain, Adult, [id number], Cephalexin Tablets or Capsules Referrals: Karthik Guillen MD [Physician] - - Discharge Summary/Plan Comment DC Time >30 min.: Yes - Review of Systems General: Denies: Fever, Chills Pulmonary: Denies: Shortness of Breath, Cough Cardiovascular: Denies: Chest Pain, Palpitations, Dyspnea on Exertion, Orthopnea, Edema Gastrointestinal: Denies: Abdominal Pain, Nausea, Vomiting Neurological: Denies: Confusion, Dizziness, Headache - Patient Data Vitals - Most Recent: Last Vital Signs Temp 97.2 F 05/15/21 08:00 Pulse 57 L 05/15/21 08:00 Resp 18 05/15/21 08:00 BP 162/64 H 05/15/21 08:14 Pulse Ox 95 05/15/21 08:00 Weight - Most Recent: 86.183 kg I&O - Last 24 hours: Intake & Output 05/14/21 05/15/21 05/15/21 22:59 06:59 14:59 Intake Total 600 540 Output Total 382 827 Balance 218 -287 Med Orders - Current: Current Medications Bupropion HCl (Bupropion 150 Mg Tab.Er) 150 mg PO DAILY [facility] Last Admin: 05/15/21 08:14 Dose: 150 mg Documented by: Cephalexin (Cephalexin 500 Mg Cap) 500 mg PO BID [facility] Last Admin: 05/15/21 08:14 Dose: 500 mg Documented by: Clonazepam (Clonazepam 1 Mg Tab) 1 mg PO BEDTIME [facility] Last Admin: 05/14/21 21:10 Dose: 1 mg Documented by: Enoxaparin Sodium (Enoxaparin 40 Mg/0.4 Ml Syringe) 40 mg SUBCUT Q24H [facility] Last Admin: 05/14/21 21:11 Dose: 40 mg Documented by: Losartan Potassium (Losartan 50 Mg Tab) 50 mg PO DAILY [facility] Last Admin: 05/15/21 08:14 Dose: 50 mg Documented by: Omeprazole (Omeprazole 20 Mg Cap.Cr) 40 mg PO ACBREAKFAST [facility] Last Admin: 05/15/21 07:08 Dose: 40 mg Documented by: [Desvenlafaxine Er] (100 Mg Tab.Er.24h) 1 each PO BEDTIME [facility] Last Admin: 05/14/21 22:40 Dose: 1 each Documented by: Budesonide/Formoterol 160-4.5 Mcg/Puff 6 Gm Inhaler 1 each INH BID [facility] Last Admin: 05/15/21 08:17 Dose: Not Given Documented by: Umeclidinium Brm/Vilanterol Tr [Anoro Ellipta 62.5-25 Mcg ] 1 each INH DAILY [facility] Last Admin: 05/15/21 08:15 Dose: Not Given Documented by: Sodium Chloride (Sodium Chloride 0.9% 10 Ml Syringe) 10 ml FLUSH ASDIRECTED PRN PRN Reason: Keep Vein Open Sodium Chloride (Sodium Chloride 0.9% 2.5 Ml Syringe) 2.5 ml FLUSH ASDIRECTED PRN PRN Reason: Keep Vein Open Discontinued Medications Budesonide/Formoterol Fumarate (Budesonide/Formoterol 160-4.5 Mcg/Puff 6 Gm Inhaler) 0 gm INH BIDRT [facility] Last Admin: 05/14/21 06:05 Dose: Not Given Documented by: Bupropion HCl (Bupropion 100 Mg Tab) 150 mg PO DAILY [facility] Cephalexin (Cephalexin 500 Mg Cap) 500 mg PO BID [facility] Last Admin: 05/14/21 18:03 Dose: Not Given Documented by: Clonazepam (Clonazepam 1 Mg Tab) 1 mg PO BID PRN PRN Reason: Anxiety Enoxaparin Sodium (Enoxaparin 40 Mg/0.4 Ml Syringe) 40 mg SUBCUT Q24H [facility] Last Admin: 05/13/21 21:39 Dose: Not Given Documented by: Ceftriaxone Sodium/Dextrose 1 (gm/ Premix) 50 mls @ 100 mls/hr IV ONETIME ONE Stop: 05/13/21 14:36 Last Admin: 05/13/21 15:46 Dose: 100 mls/hr Documented by: Sodium Chloride (Normal Saline) 1,000 mls @ 125 mls/hr IV STAT ONE Stop: 05/13/21 22:58 Last Admin: 05/13/21 15:46 Dose: 125 mls/hr Documented by: Ceftriaxone Sodium/Dextrose 1 (gm/ Premix) 50 mls @ 100 mls/hr IV Q24H [facility] Magnesium Sulfate 2 gm/ Premix 50 mls @ 12.5 mls/hr IV ONETIME ONE Stop: 05/13/21 21:26 Last Admin: 05/13/21 21:39 Dose: Not Given Documented by: Magnesium Sulfate 2 gm/ Premix 50 mls @ 12.5 mls/hr IV ONETIME ONE Stop: 05/13/21 23:59 Last Admin: 05/13/21 20:17 Dose: 12.5 mls/hr Documented by: Morphine Sulfate (Morphine 2 Mg/Ml Syringe) 2 mg IVPUSH ONETIME ONE Stop: 05/13/21 13:11 Last Admin: 05/13/21 13:28 Dose: 2 mg Documented by: Omeprazole (Omeprazole 20 Mg Cap.Cr) 40 mg PO DAILY [facility] Last Admin: 05/14/21 08:56 Dose: 40 mg Documented by: Ondansetron HCl (Ondansetron 4 Mg/2 Ml Sdv) 4 mg IVPUSH ONETIME ONE Stop: 05/13/21 13:11 Last Admin: 05/13/21 13:28 Dose: 4 mg Documented by: Budesonide/Formoterol 160-4.5 Mcg/Puff 6 Gm Inhaler 1 each INH BIDRT JAD - Exam General: Reports: Alert, Oriented Lungs: Reports: Clear to Auscultation, Normal Respiratory Effort Cardiovascular: Reports: Regular Rate, Regular Rhythm GI/Abdominal Exam: Soft, Non-Tender Extremities: No Pedal Edema Psy/Mental Status: Reports: Alert <Mariano Aldridge Christiano - Last Filed: 05/19/21 18:54> Discharge Summary - Referral to Home Health Primary Care Physician: PCP None - Patient Data Vitals - Most Recent: Last Vital Signs Temp 36.4 C 05/15/21 12:00 Pulse 63 05/15/21 12:00 Resp 20 05/15/21 12:00 BP 159/74 H 05/15/21 12:00 Pulse Ox 94 L 05/15/21 12:00 Med Orders - Current: Current Medications Discontinued Medications Budesonide/Formoterol Fumarate (Budesonide/Formoterol 160-4.5 Mcg/Puff 6 Gm Inhaler) 0 gm INH BIDRT [facility] Last Admin: 05/14/21 06:05 Dose: Not Given Documented by: Bupropion HCl (Bupropion 150 Mg Tab.Er) 150 mg PO DAILY [facility] Last Admin: 05/15/21 08:14 Dose: 150 mg Documented by: Bupropion HCl (Bupropion 100 Mg Tab) 150 mg PO DAILY [facility] Cephalexin (Cephalexin 500 Mg Cap) 500 mg PO BID [facility] Last Admin: 05/14/21 18:03 Dose: Not Given Documented by: Cephalexin (Cephalexin 500 Mg Cap) 500 mg PO BID [facility] Last Admin: 05/15/21 08:14 Dose: 500 mg Documented by: Clonazepam (Clonazepam 1 Mg Tab) 1 mg PO BID PRN PRN Reason: Anxiety Clonazepam (Clonazepam 1 Mg Tab) 1 mg PO BEDTIME [facility] Last Admin: 05/14/21 21:10 Dose: 1 mg Documented by: Enoxaparin Sodium (Enoxaparin 40 Mg/0.4 Ml Syringe) 40 mg SUBCUT Q24H [facility] Last Admin: 05/13/21 21:39 Dose: Not Given Documented by: Enoxaparin Sodium (Enoxaparin 40 Mg/0.4 Ml Syringe) 40 mg SUBCUT Q24H [facility] Last Admin: 05/14/21 21:11 Dose: 40 mg Documented by: Ceftriaxone Sodium/Dextrose 1 (gm/ Premix) 50 mls @ 100 mls/hr IV ONETIME ONE Stop: 05/13/21 14:36 Last Admin: 05/13/21 15:46 Dose: 100 mls/hr Documented by: Sodium Chloride (Normal Saline) 1,000 mls @ 125 mls/hr IV STAT ONE Stop: 05/13/21 22:58 Last Admin: 05/13/21 15:46 Dose: 125 mls/hr Documented by: Ceftriaxone Sodium/Dextrose 1 (gm/ Premix) 50 mls @ 100 mls/hr IV Q24H [facility] Magnesium Sulfate 2 gm/ Premix 50 mls @ 12.5 mls/hr IV ONETIME ONE Stop: 05/13/21 21:26 Last Admin: 05/13/21 21:39 Dose: Not Given Documented by: Magnesium Sulfate 2 gm/ Premix 50 mls @ 12.5 mls/hr IV ONETIME ONE Stop: 05/13/21 23:59 Last Admin: 05/13/21 20:17 Dose: 12.5 mls/hr Documented by: Losartan Potassium (Losartan 50 Mg Tab) 50 mg PO DAILY [facility] Last Admin: 05/15/21 08:14 Dose: 50 mg Documented by: Morphine Sulfate (Morphine 2 Mg/Ml Syringe) 2 mg IVPUSH ONETIME ONE Stop: 05/13/21 13:11 Last Admin: 05/13/21 13:28 Dose: 2 mg Documented by: Omeprazole (Omeprazole 20 Mg Cap.Cr) 40 mg PO DAILY [facility] Last Admin: 05/14/21 08:56 Dose: 40 mg Documented by: Omeprazole (Omeprazole 20 Mg Cap.Cr) 40 mg PO ACBREAKFAST [facility] Last Admin: 05/15/21 07:08 Dose: 40 mg Documented by: Ondansetron HCl (Ondansetron 4 Mg/2 Ml Sdv) 4 mg IVPUSH ONETIME ONE Stop: 05/13/21 13:11 Last Admin: 05/13/21 13:28 Dose: 4 mg Documented by: [Desvenlafaxine Er] (100 Mg Tab.Er.24h) 1 each PO BEDTIME [facility] Last Admin: 05/14/21 22:40 Dose: 1 each Documented by: Budesonide/Formoterol 160-4.5 Mcg/Puff 6 Gm Inhaler 1 each INH BIDRT [facility] Budesonide/Formoterol 160-4.5 Mcg/Puff 6 Gm Inhaler 1 each INH BID [facility] Last Admin: 05/15/21 08:17 Dose: Not Given Documented by: Umeclidinium Brm/Vilanterol Tr [Anoro Ellipta 62.5-25 Mcg ] 1 each INH DAILY [facility] Last Admin: 05/15/21 08:15 Dose: Not Given Documented by: Sodium Chloride (Sodium Chloride 0.9% 10 Ml Syringe) 10 ml FLUSH ASDIRECTED PRN PRN Reason: Keep Vein Open Sodium Chloride (Sodium Chloride 0.9% 2.5 Ml Syringe) 2.5 ml FLUSH ASDIRECTED PRN PRN Reason: Keep Vein Open - Free Text/Narrative Note: I have seen and examined the patient. I have discussed findings and treatment plan with the resident. I agree with the assessment and plan as outlined in the following note.
--- NOTE | 2021-05-15 11:01 | PCM.PN ---
- General Info Date of Service: 05/14/21 - Patient Data Vitals - Most Recent: Last Vital Signs Temp 97.2 F 05/15/21 08:00 Pulse 57 L 05/15/21 08:00 Resp 18 05/15/21 08:00 BP 162/64 H 05/15/21 08:14 Pulse Ox 95 05/15/21 08:00 Weight - Most Recent: 190 lb I&O - Last 24 Hours: Intake & Output 05/14/21 05/15/21 05/15/21 22:59 06:59 14:59 Intake Total 600 540 Output Total 382 827 Balance 218 -287 Med Orders - Current: Current Medications Bupropion HCl (Bupropion 150 Mg Tab.Er) 150 mg PO DAILY [facility] Last Admin: 05/15/21 08:14 Dose: 150 mg Documented by: Cephalexin (Cephalexin 500 Mg Cap) 500 mg PO BID [facility] Last Admin: 05/15/21 08:14 Dose: 500 mg Documented by: Clonazepam (Clonazepam 1 Mg Tab) 1 mg PO BEDTIME [facility] Last Admin: 05/14/21 21:10 Dose: 1 mg Documented by: Enoxaparin Sodium (Enoxaparin 40 Mg/0.4 Ml Syringe) 40 mg SUBCUT Q24H [facility] Last Admin: 05/14/21 21:11 Dose: 40 mg Documented by: Losartan Potassium (Losartan 50 Mg Tab) 50 mg PO DAILY [facility] Last Admin: 05/15/21 08:14 Dose: 50 mg Documented by: Omeprazole (Omeprazole 20 Mg Cap.Cr) 40 mg PO ACBREAKFAST [facility] Last Admin: 05/15/21 07:08 Dose: 40 mg Documented by: [Desvenlafaxine Er] (100 Mg Tab.Er.24h) 1 each PO BEDTIME [facility] Last Admin: 05/14/21 22:40 Dose: 1 each Documented by: Budesonide/Formoterol 160-4.5 Mcg/Puff 6 Gm Inhaler 1 each INH BID [facility] Last Admin: 05/15/21 08:17 Dose: Not Given Documented by: Umeclidinium Brm/Vilanterol Tr [Anoro Ellipta 62.5-25 Mcg ] 1 each INH DAILY [facility] Last Admin: 05/15/21 08:15 Dose: Not Given Documented by: Sodium Chloride (Sodium Chloride 0.9% 10 Ml Syringe) 10 ml FLUSH ASDIRECTED PRN PRN Reason: Keep Vein Open Sodium Chloride (Sodium Chloride 0.9% 2.5 Ml Syringe) 2.5 ml FLUSH ASDIRECTED PRN PRN Reason: Keep Vein Open Discontinued Medications Budesonide/Formoterol Fumarate (Budesonide/Formoterol 160-4.5 Mcg/Puff 6 Gm Inhaler) 0 gm INH BIDRT [facility] Last Admin: 05/14/21 06:05 Dose: Not Given Documented by: Bupropion HCl (Bupropion 100 Mg Tab) 150 mg PO DAILY [facility] Cephalexin (Cephalexin 500 Mg Cap) 500 mg PO BID [facility] Last Admin: 05/14/21 18:03 Dose: Not Given Documented by: Clonazepam (Clonazepam 1 Mg Tab) 1 mg PO BID PRN PRN Reason: Anxiety Enoxaparin Sodium (Enoxaparin 40 Mg/0.4 Ml Syringe) 40 mg SUBCUT Q24H [facility] Last Admin: 05/13/21 21:39 Dose: Not Given Documented by: Ceftriaxone Sodium/Dextrose 1 (gm/ Premix) 50 mls @ 100 mls/hr IV ONETIME ONE Stop: 05/13/21 14:36 Last Admin: 05/13/21 15:46 Dose: 100 mls/hr Documented by: Sodium Chloride (Normal Saline) 1,000 mls @ 125 mls/hr IV STAT ONE Stop: 05/13/21 22:58 Last Admin: 05/13/21 15:46 Dose: 125 mls/hr Documented by: Ceftriaxone Sodium/Dextrose 1 (gm/ Premix) 50 mls @ 100 mls/hr IV Q24H [facility] Magnesium Sulfate 2 gm/ Premix 50 mls @ 12.5 mls/hr IV ONETIME ONE Stop: 05/13/21 21:26 Last Admin: 05/13/21 21:39 Dose: Not Given Documented by: Magnesium Sulfate 2 gm/ Premix 50 mls @ 12.5 mls/hr IV ONETIME ONE Stop: 05/13/21 23:59 Last Admin: 05/13/21 20:17 Dose: 12.5 mls/hr Documented by: Morphine Sulfate (Morphine 2 Mg/Ml Syringe) 2 mg IVPUSH ONETIME ONE Stop: 05/13/21 13:11 Last Admin: 05/13/21 13:28 Dose: 2 mg Documented by: Omeprazole (Omeprazole 20 Mg Cap.Cr) 40 mg PO DAILY [facility] Last Admin: 05/14/21 08:56 Dose: 40 mg Documented by: Ondansetron HCl (Ondansetron 4 Mg/2 Ml Sdv) 4 mg IVPUSH ONETIME ONE Stop: 05/13/21 13:11 Last Admin: 05/13/21 13:28 Dose: 4 mg Documented by: Budesonide/Formoterol 160-4.5 Mcg/Puff 6 Gm Inhaler 1 each INH BIDRT [facility] - Patient Data Result Diagrams: 05/14/21 05:49 05/14/21 05:49 Sepsis Event Note - Evaluation Sepsis Screening Result: No Definite Risk - Focused Exam Vital Signs: Vital Signs Temp Pulse Resp BP BP Pulse Ox 05/15/21 08:14 162/64 H 05/15/21 08:00 97.2 F 57 L 18 162/64 H 95 05/15/21 04:00 96.7 F L 50 L 19 140/60 94 L 05/14/21 23:10 96.6 F L 57 L 20 108/50 L 94 L - Problem List & Annotations (1) Acute bronchitis SNOMED Code(s): 14424572 Code(s): J20.9 - ACUTE BRONCHITIS, UNSPECIFIED Status: Acute Current Visit: No (2) Palpitations SNOMED Code(s): 75808703 Code(s): R00.2 - PALPITATIONS Status: Acute Current Visit: No (3) Abdominal pain SNOMED Code(s): 25754193 Code(s): R10.9 - UNSPECIFIED ABDOMINAL PAIN Status: Acute Current Visit: Yes (4) COPD (chronic obstructive pulmonary disease) SNOMED Code(s): 25513977 Code(s): J44.9 - CHRONIC OBSTRUCTIVE PULMONARY DISEASE, UNSPECIFIED Status: Chronic Current Visit: Yes Qualifiers: COPD type: chronic bronchitis Chronic bronchitis type: unspecified Qualified Code(s): J42 - Unspecified chronic bronchitis (5) CHF (congestive heart failure) SNOMED Code(s): 01236976 Code(s): I50.9 - HEART FAILURE, UNSPECIFIED Status: Chronic Current Visit: No (6) Anxiety and depression SNOMED Code(s): 100966969 Code(s): F41.9 - ANXIETY DISORDER, UNSPECIFIED; F32.9 - MAJOR DEPRESSIVE DISORDER, SINGLE EPISODE, UNSPECIFIED Status: Chronic Current Visit: Yes (7) Tonsillar cancer Status: Acute Current Visit: No (8) Urinary tract infection SNOMED Code(s): 86170401 Code(s): N39.0 - URINARY TRACT INFECTION, SITE NOT SPECIFIED Status: Acute Current Visit: Yes Qualifiers: Urinary tract infection type: acute cystitis Hematuria presence: without hematuria Qualified Code(s): N30.00 - Acute cystitis without hematuria (9) Chest pain SNOMED Code(s): 45100449 Code(s): R07.9 - CHEST PAIN, UNSPECIFIED Status: Acute Current Visit: Yes (10) Squamous cell carcinoma of tonsil SNOMED Code(s): 911576181, 086480481 Code(s): C09.9 - MALIGNANT NEOPLASM OF TONSIL, UNSPECIFIED Status: Acute Current Visit: No (11) Chest pain, rule out acute myocardial infarction SNOMED Code(s): 41321222 Code(s): R07.9 - CHEST PAIN, UNSPECIFIED Status: Acute Current Visit: Yes - My Orders Last 24 Hours: My Active Orders 05/14/21 11:33 RT Post Treatment Assessment [RC] Click to Edit RT Pre-Treatment Assessment [RC] Click to Edit 05/14/21 12:00 Patient's Own Medication [Ptom] 1 each INH BID 05/14/21 13:00 Patient's Own Medication [Ptom] 1 each INH DAILY 05/14/21 21:00 ClonazePAM [KlonoPIN] 1 mg PO BEDTIME Patient's Own Medication [Ptom] 1 each PO BEDTIME cephALEXin [Keflex] 500 mg PO BID 05/15/21 07:30 Omeprazole 40 mg PO ACBREAKFAST 05/15/21 10:58 Ready for Discharge [RC] PER UNIT ROUTINE - Plan Plan:: ACS rule out Troponin x1 negative, trend 2 more troponin. EKG shows normal sinus rhythm, nonspecific ST/T findings. Monitor on Cardiac telemetry. UTI Rocephin 1g Q24hr GERD- 40mg Omeprazole Anxiety- Clonazepam 1mg BID PRN Lovenox for DVT prophylaxis, mechanical soft diet due to history of oral cancer and missing teeth
[2021-05-15 12:04] VITALS: BP 159/74; PULSE 63
== END 2021-05-15 12:30 ==
LOC: MW.ED 12:48 → MW.MS 15:14
PROVIDERS: ADMIT Internal Medicine; ATTEND Internal Medicine
DX: R07.9 Chest pain, unspecified (principal); I11.0 Hypertensive heart disease with heart failure; I50.9 Heart failure, unspecified; J44.9 Chronic obstructive pulmonary disease, unspecified; K21.9 Gastro-esophageal reflux disease without esophagitis; E66.9 Obesity, unspecified; J20.9 Acute bronchitis, unspecified; N39.0 Urinary tract infection, site not specified; C09.9 Malignant neoplasm of tonsil, unspecified; F41.9 Anxiety disorder, unspecified; Z20.822 Contact with and (suspected) exposure to COVID-19; Z86.73 Personal history of transient ischemic attack (TIA), and cerebral infarction without residual deficits; Z79.82 Long term (current) use of aspirin; Z88.8 Allergy status to other drugs, medicaments and biological substances; Z91.030 Bee allergy status; Z91.041 Radiographic dye allergy status; Z88.7 Allergy status to serum and vaccine; Z79.899 Other long term (current) drug therapy; Z87.891 Personal history of nicotine dependence; Z98.890 Other specified postprocedural states
CPT/HCPCS: 36415; 71045; 80048; 80053; 81001; 83735; 84443; 84484; 85025; 87086; 87088; 87186; 93005; 96365; 96375; 99285; A9270; J0696; J1650; J2270; J2405; J3475; J7030; U0002; 96372; G0378